=== PATIENT | male | born 1970 | race Caucasian/White ===

== ENCOUNTER 2018-09-02 16:07 | Outpatient (REF) | payer BC, SELFPAY ==
[2018-09-02 21:07] LABS: HCT 42.4 % (40.0-50.0); HGB 14.5 g/dL (13.5-17.5); Mean Corp. HGB Concentration 34.2 g/dL (32.0-36.0); Mean Corpuscular Hemoglobin 32.2 pg (27.0-33.0); Mean Platelet Volume 9.7 fL (8.0-11.0); Platelet Count 129 x1000/uL (130-400); RBC 4.51 m/cumm (4.50-6.00); RBC Distribution Width 13.7 % (11.8-14.1); White Blood Cell Count 4.73 k/cumm (4.4-10.8)
[2018-09-02 21:25] LABS: C-Reactive Protein 0.08 mg/dL (0.0-0.3); TSH (W/Ref FT4) 2.49 uIU/mL (0.358-3.74)
[2018-09-02 21:47] LABS: ESR 3 MM/HR (0-15)
[2018-09-04 23:18] LABS: Anaplasma phagocytophilum Negative (Negative); B. miyamotoi PCR Negative (Negative); Babesia divergens/MO-1 Negative (Negative); Babesia duncani Negative (Negative); Babesia microti Negative (Negative); Ehrlichia chaffeensis Negative (Negative); Ehrlichia ewingii/canis Negative (Negative); Ehrlichia muris eauclairensis Negative (Negative)
[2018-09-06 11:58] LABS: Lyme Ab w Rflx to Lyme Confirm Negative
== END 2018-09-02 16:27 ==
LOC: NCHCN 16:07
PROVIDERS: PCP Specialist/Technologist Athletic Trainer; Visit Provider Specialist/Technologist Athletic Trainer
DX: R53.83 Other fatigue (principal); Z91.89 Other specified personal risk factors, not elsewhere classified; M25.50 Pain in unspecified joint
CPT/HCPCS: 85027; 85652; 84443; 86140; 86618; 87798

== ENCOUNTER 2018-11-29 16:51 | Outpatient (REF) | payer BC, SELFPAY ==
[2018-11-29 22:02] LABS: Abs Immature Grans 0.01 k/cumm (0.0-0.09); Absolute Basophil Count 0.03 k/cumm (0.0-0.2); Absolute Eosinophil Count 0.11 k/cumm (0.0-0.7); Absolute Lymphocyte Count 2.39 k/cumm (1.2-3.4); Absolute Monocyte Count 0.49 k/cumm (0.11-0.7); Absolute Neutrophil Count 3.01 k/cumm (1.2-6.7); Basophils % 0.5; Eosinophils % 1.8; HCT 43.5 % (40.0-50.0); HGB 14.9 g/dL (13.5-17.5); Immature Grans % 0.2; Lymphocytes % 39.6; Mean Corp. HGB Concentration 34.3 g/dL (32.0-36.0); Mean Corpuscular Hemoglobin 33.5 pg (27.0-33.0); Mean Corpuscular Volume 97.8 fL (80-95); Mean Platelet Volume 10.3 fL (8.0-11.0); Monocytes % 8.1; Neutrophils % 49.8; Platelet Count 135 x1000/uL (130-400); RBC 4.45 m/cumm (4.50-6.00); RBC Distribution Width 13.4 % (11.8-14.1); White Blood Cell Count 6.04 k/cumm (4.4-10.8)
[2018-11-29 22:17] LABS: ALT 164 U/L (12-78); AST 199 U/L (15-37); Albumin 4.1 g/dL (3.4-5.0); Alkaline Phosphatase 97 U/L (46-116); Bilirubin, Total 0.8 mg/dL (0.2-1.0); HDL Cholesterol 109 mg/dL (40-60); LDL CHOLESTEROL 112 mg/dL (<100); Magnesium 1.5 mg/dL (1.8-2.4); Total Protein 7.4 g/dL (6.4-8.2)
[2018-11-29 22:38] LABS: Vitamin D 25 Total 24.6 ng/ml (30-100)
[2018-11-29 22:47] LABS: Hemoglobin A1C 5.3 % (4.5-6.2)
[2018-11-29 22:48] LABS: Bilirubin, Direct 0.35 mg/dL (0.00-0.20)
== END 2018-11-29 17:11 ==
LOC: NCHCN 16:51
PROVIDERS: PCP Specialist/Technologist Athletic Trainer; Visit Provider Nurse Practitioner Family
DX: R07.89 Other chest pain (principal); R79.89 Other specified abnormal findings of blood chemistry; G56.20 Lesion of ulnar nerve, unspecified upper limb; R06.83 Snoring; Z91.89 Other specified personal risk factors, not elsewhere classified
CPT/HCPCS: 80076; 82306; 83721; 83036; 83655; 83718; 83735; 85025

== ENCOUNTER 2018-12-08 00:40 | Outpatient (CLI) | payer BC, SELFPAY ==
--- NOTE | 2018-12-08 14:28 | DI.RAD_ITS ---
SYMPTOMS/DIAGNOSIS: CHEST WALL PAIN, R07.89 PA AND LATERAL CHEST: The heart is normal in size. The lungs are clear. The mediastinal structures and pleura appear intact. CONCLUSION: Normal chest.
== END 2018-12-08 01:00 ==
PROVIDERS: PCP Nurse Practitioner Family; Visit Provider Nurse Practitioner Family
DX: R07.89 Other chest pain (principal)
CPT/HCPCS: 71046

== ENCOUNTER 2018-12-18 15:08 | Outpatient (CLI) | payer BC, SELFPAY | END 2018-12-18 15:28 | PROVIDERS: PCP Nurse Practitioner Family; Visit Provider Nurse Practitioner Family | DX: R69 Illness, unspecified (principal) ==

== ENCOUNTER 2018-12-27 00:42 | Outpatient (CLI) | payer BC, SELFPAY ==
--- NOTE | 2018-12-27 08:01 | DI.US_ITS ---
SYMPTOMS/DIAGNOSIS: ELEVATED LFTS, R79.89, ETOH ABUSE, ? FATTY LIVER ABDOMINAL ULTRASOUND: Routine examination was performed. The aorta is unremarkable. The inferior vena cava is unremarkable. The liver is normal in size measuring 15.5 cm. There is diffuse increased echogenicity of the liver consistent with hepatic steatosis. No evidence of a hepatic mass is seen. There is normal flow through the portal vein. The gallbladder is negative. There is a negative sonographic Terrell's sign. The common duct is within normal limits at 2.6 mm. The pancreas, kidneys and spleen are unremarkable. The left upper quadrant was elevated. The soft tissues are grossly unremarkable. IMPRESSION: Hepatic steatosis.
== END 2018-12-27 01:02 ==
PROVIDERS: PCP Nurse Practitioner Family; Visit Provider Nurse Practitioner Family
DX: R79.89 Other specified abnormal findings of blood chemistry (principal); K76.0 Fatty (change of) liver, not elsewhere classified; F10.10 Alcohol abuse, uncomplicated
CPT/HCPCS: 76700

== ENCOUNTER 2019-01-03 18:09 | Outpatient (REF) | payer BC, SELFPAY ==
[2019-01-03 22:20] LABS: Iron 70 ug/dL (50-175)
[2019-01-03 23:23] LABS: Ferritin 747 ng/mL (8-388)
[2019-01-06 08:24] LABS: Hep A Total Ab w Rflx IgM Positive (NEGAT)
[2019-01-06 08:30] LABS: HBs Antibody, Quant >1000.0 mIU/mL; Hepatitis B Surface Ab Positive
[2019-01-06 08:45] LABS: Hepatitis B Surface Ag Negative (NEGAT)
[2019-01-11 09:25] LABS: Hep A Antibody IgM Negative (NEGAT)
== END 2019-01-03 18:29 ==
LOC: NCHCN 18:09
PROVIDERS: PCP Nurse Practitioner Family; Visit Provider Nurse Practitioner Family
DX: R79.89 Other specified abnormal findings of blood chemistry (principal); K76.0 Fatty (change of) liver, not elsewhere classified; Z11.59 Encounter for screening for other viral diseases
CPT/HCPCS: 86706; 86709; 87340; 82728; 83540

== ENCOUNTER 2019-01-13 07:00 | Outpatient (CLI) | payer BC, SELFPAY ==
--- NOTE | 2019-01-13 13:24 | DI.RAD_ITS ---
SYMPTOMS/DIAGNOSIS: CHEST WALL PAIN, R07.89, PERSISTENT LEFT RIB PAIN, S/P FALL IN AUGUST PA AND LATERAL CHEST AND LEFT RIBS: The heart is normal in size. The lungs are clear. The mediastinal structures and pleura appear intact. CONCLUSION: Normal chest. No rib fracture identified.
== END 2019-01-13 07:20 ==
PROVIDERS: PCP Nurse Practitioner Family; Visit Provider Nurse Practitioner Family
DX: R07.89 Other chest pain (principal); R07.81 Pleurodynia; Z91.81 History of falling
CPT/HCPCS: 71046; 71100

== ENCOUNTER 2019-03-07 16:17 | Outpatient (REF) | payer BC, SELFPAY | END 2019-03-07 16:37 | LOC: NCHCO 16:17 | PROVIDERS: PCP Nurse Practitioner Family; Visit Provider Nurse Practitioner Family | DX: R78.71 Abnormal lead level in blood (principal) | CPT/HCPCS: 83655 ==

== ENCOUNTER 2019-06-03 14:14 | Outpatient (CLI) | payer BC, SELFPAY ==
--- NOTE | 2019-06-03 10:55 | DI.RAD_ITS ---
EXAM: XR HAND LT COMPLETE CLINICAL HISTORY: INCREASED LEAD LEVEL, R78.71, LOCATE PIECE OF STEEL IN LT HAND, INJURY 2000 TECHNIQUE: COMPARISON: No exams were available for comparison FINDINGS: Three views were obtained for suspected metallic foreign body. There is a 1.7 millimeter in diameter metallic linda projected in the thenar eminence approximately 2.5 cm volar to the 2nd metacarpal mid shaft on the lateral view. There is an additional tiny linda of metallic material projected adjacent to the diaphyseal metaphyse al junction of the radius. Old apparent post-traumatic deformity of the distal phalanx of the index finger noted. Slight DJD of the IP joints noted. No other bony abnormality seen. IMPRESSION:
[2019-06-08 11:03] LABS: Misc Referral (MAYO) See Comments
== END 2019-06-03 14:34 ==
PROVIDERS: PCP Nurse Practitioner Family; Visit Provider Nurse Practitioner Family
DX: R78.71 Abnormal lead level in blood (principal); M79.5 Residual foreign body in soft tissue; M19.042 Primary osteoarthritis, left hand
CPT/HCPCS: 36415; 83655; 84202; 73130

== ENCOUNTER 2019-08-04 13:02 | Outpatient (CLI) | payer BC, SELFPAY | END 2019-08-04 13:22 | PROVIDERS: PCP Nurse Practitioner Family; Visit Provider Nurse Practitioner Family | DX: R78.71 Abnormal lead level in blood (principal); R00.8 Other abnormalities of heart beat | CPT/HCPCS: 36415; 83655; 93005; 93010 ==

== ENCOUNTER 2019-10-07 09:07 | Outpatient (CLI) | payer BC, SELFPAY ==
[2019-10-10 15:50] LABS: COVID-19 RT-PCR UVMMC Result Negative (Negative)
== END 2019-10-07 09:27 ==
PROVIDERS: PCP Nurse Practitioner Family; Visit Provider Nurse Practitioner Family
DX: R50.9 Fever, unspecified (principal)
CPT/HCPCS: U0003

== ENCOUNTER 2019-11-07 14:15 | Outpatient (REF) | payer BC, SELFPAY | END 2019-11-07 14:35 | LOC: NCHCN 14:15 | PROVIDERS: PCP Nurse Practitioner Family; Visit Provider Nurse Practitioner Family | DX: R78.71 Abnormal lead level in blood (principal) | CPT/HCPCS: 83655 ==

== ENCOUNTER 2019-11-14 01:24 | Outpatient (CLI) | payer BC, SELFPAY ==
--- NOTE | 2019-11-14 | DI.MRI_ITS ---
EXAM: MR LOWER JOINT RT WO CLINICAL HISTORY: RT KNEE PAIN, M25.561,H/O BAKERS CYST. TECHNIQUE: Multiplanar multisequence MRI was performed. COMPARISON: CR RIGHT KNEE 3 VIEWS from 09/04/2015 CR XR HAND LT COMPLETE from 06/03/2019 FINDINGS: There is soft tissue swelling and edema seen in the fat anterior to the patellar tendon. The exten sor mechanism and patellar retinaculum appear intact. There are a few calcifications seen near areas of adjacent cysts anterior to the tibial tubercle. There is a small amount of joint fluid. A small Lopez's cyst is seen, measuring 3.5 cm in length by 6 millimeters in thickness by 18 millimeters in width. There is some fluid within the fibers of the ACL but no full-thickness tear. Posterior cruciate liga ment, medial and lateral collateral ligaments appear intact. No meniscal tears are seen. No cartila ge defects are identified. IMPRESSION: Small Lopez's cyst. Question of an ACL sprain. Anterior soft tissue swelling. DATA REPOSITORY:
== END 2019-11-14 01:44 ==
PROVIDERS: PCP Nurse Practitioner Family; Visit Provider Nurse Practitioner Family
DX: M25.561 Pain in right knee (principal); M79.89 Other specified soft tissue disorders; M71.21 Synovial cyst of popliteal space [Baker], right knee
CPT/HCPCS: 73721

== ENCOUNTER 2020-01-05 09:16 | Outpatient (REF) | payer BC, SELFPAY ==
[2020-01-05 19:22] LABS: HCT 40.2 % (40.0-50.0); HGB 13.7 g/dL (13.5-17.5); MCH 34.9 pg (27.0-33.0); MCHC 34.1 % (32.0-36.0); MCV 102.6 fL (80-95); MPV 10.1 fL (8.0-11.0); Platelet Count 167 10^3/uL (130-400); RBC 3.92 10^6/uL (4.36-5.78); RDW 13.7 % (11.8-14.1); RDW-SD 51.4 fL; WBC 5.18 10^3/uL (4.4-10.8)
[2020-01-05 19:48] LABS: ALT 106 U/L (16-63); AST 218 U/L (15-37); Albumin 3.4 g/dL (3.4-5.0); Alkaline Phosphatase 158 U/L (46-116); Bilirubin, Total 0.9 mg/dL (0.2-1.0); HDL Cholesterol 71 mg/dL (40-60); LDL CHOLESTEROL 90 mg/dL (<100); Total Protein 6.8 g/dL (6.4-8.2)
[2020-01-05 19:58] LABS: Bilirubin, Direct 0.51 mg/dL (0.00-0.20)
== END 2020-01-05 09:36 ==
LOC: NCHCN 09:16
PROVIDERS: PCP Nurse Practitioner Family; Visit Provider Nurse Practitioner Family
DX: Z91.89 Other specified personal risk factors, not elsewhere classified (principal); K76.0 Fatty (change of) liver, not elsewhere classified
CPT/HCPCS: 80076; 83721; 85027; 83655; 83718

== ENCOUNTER 2020-01-07 07:16 | Outpatient (CLI) | payer BC, SELFPAY ==
[2020-01-08 17:54] LABS: COVID-19 RT-PCR Result NEGATIVE (Negative)
== END 2020-01-07 07:36 ==
PROVIDERS: PCP Nurse Practitioner Family; Visit Provider Student in an Organized Health Care Education/Training Program
DX: M70.51 Other bursitis of knee, right knee (principal); M71.21 Synovial cyst of popliteal space [Baker], right knee; Z01.818 Encounter for other preprocedural examination
CPT/HCPCS: U0003

== ENCOUNTER 2020-01-11 10:44 | Day surgery (SDC) | payer BC, SELFPAY ==
--- NOTE | 2020-01-11 10:07 | PDOC.DSDIS_ITS ---
Documented by User: KENDY Dugan 01/11/20 10:16 Discharge Plan Disposition Patient Disposition: HOME Condition: Good Discharge Details Reason For Visit: R knee bursectomy and LUE FB excision Attending Provider: Amol Marin Primary Care Provider: Paige Chen Home Meds and New Rx's Prescriptions: New hydrocodone-acetaminophen 5-325 mg tablet 1 tab PO Q4H PRN (Reason: pain) Qty: 14 RF: 0 acetaminophen 500 mg tablet 500 mg PO Q6H PRN PRN (Reason: pain) Qty: 90 RF: 3 ibuprofen 600 mg tablet 600 mg PO TID PRNQty: 90 RF: 3 Continued trazodone 50 mg tablet 50 mg PO DAILY RF: 0 gabapentin 300 mg capsule 300 mg PO TID Qty: 90 RF: 3 Discontinued meloxicam 7.5 mg tablet 7.5 mg PO DAILY RF: 0 Discharge Instructions Additional Instructions: Activity: You do not have to use crutches. You may bear weigh on the right leg but avoid any deep flexion (bending). Do NOT try to kneel or squat. You may use the left hand for light activity. Nothing strenuous or forceful with the left hand. You may apply ice to both knee and hand. Dressings: The knee dressing on the skin should stay on until your follow-up. The overwrap of the EDGARDO wrap may come off in 48 hours but I would recommend to keep some compression on the knee until your follow-up appointment to prevent against re-accumulation of fluid. The hand and forearm dressings may be removed in 72 hours and then replaced with bandaids. Medications: - Recommend to take up to 500mg of Acetaminophen (Tylenol) and 600mg of Ibuprofen (Advil) every 8 hours as needed. - You also have Hydrocodone for any breakthrough pain Follow-up: 10 days Referrals: Amol Marin MD [ [facility] STAFF PHYSICIAN] - Equipment/Supplies: Partial Weight Bearing Crutches Activity:: Activity as Tolerated Remove Dressings/Wound Care:: 72 hours Shower/Bathe:: 72 hours Diet:: As Tolerated Discharge Orders Discharge Orders: Discharge Order (Routine); Ordered 01/11/20 Ordered By: Morelia Sherman DS: Diagnosis Discharge Diagnosis (1) Infrapatellar bursitis of right knee: Status: Acute (2) Foreign body in left upper extremity: Status: Acute Documented by User: Amol Marin MD 01/11/20 12:59 Discharge Plan Disposition Patient Disposition: HOME Condition: Good Discharge Details Reason For Visit: R knee bursectomy and LUE FB excision Attending Provider: Amol Marin Primary Care Provider: Paige Chen Home Meds and New Rx's Prescriptions: New hydrocodone-acetaminophen 5-325 mg tablet 1 tab PO Q4H PRN (Reason: pain) Qty: 14 RF: 0 acetaminophen 500 mg tablet 500 mg PO Q6H PRN PRN (Reason: pain) Qty: 90 RF: 3 ibuprofen 600 mg tablet 600 mg PO TID PRNQty: 90 RF: 3 Continued trazodone 50 mg tablet 50 mg PO DAILY RF: 0 gabapentin 300 mg capsule 300 mg PO TID Qty: 90 RF: 3 Discontinued meloxicam 7.5 mg tablet 7.5 mg PO DAILY RF: 0 Discharge Instructions Additional Instructions: Activity: You do not have to use crutches. You may bear weigh on the right leg but avoid any deep flexion (bending). Do NOT try to kneel or squat. You may use the left hand for light activity. Nothing strenuous or forceful with the left hand. You may apply ice to both knee and hand. Dressings: The knee dressing on the skin should stay on until your follow-up. The overwrap of the EDGARDO wrap may come off in 48 hours but I would recommend to keep some compression on the knee until your follow-up appointment to prevent against re-accumulation of fluid. The hand and forearm dressings may be removed in 72 hours and then replaced with bandaids. Medications: - Recommend to take up to 500mg of Acetaminophen (Tylenol) and 600mg of Ibuprofen (Advil) every 8 hours as needed. - You also have Hydrocodone for any breakthrough pain Follow-up: 10 days Referrals: Amol Marin MD [ [facility] STAFF PHYSICIAN] - Equipment/Supplies: Partial Weight Bearing Crutches Activity:: Activity as Tolerated Remove Dressings/Wound Care:: 72 hours Shower/Bathe:: 72 hours Diet:: As Tolerated Discharge Orders Discharge Orders: Discharge Order (Routine); Ordered 01/11/20 Ordered By: Morelia Sherman
[2020-01-11 10:50] VITALS: BP 103/39; PULSE 58; RESP 16; TEMP 35.9; O2SAT 96
[2020-01-11] MEDS: Lactated Ringers 1,000 ML 80 ML IV (11:15)
--- NOTE | 2020-01-11 13:00 | DI.RAD_ITS ---
EXAM: XR HAND LT LIMITED CLINICAL HISTORY: FOREIGH BODY LEFT UPEER EXTREMITY TECHNIQUE: 2D and realtime digital imaging was performed. CONTRAST MATERIAL: Refer to procedure report. COMPARISON: CR XR HAND LT COMPLETE from 06/03/2019 FINDINGS: Fluoroscopy was provided for Dr. Marin during the performance of a removal of a foreign body. Pl ease refer to the procedure report for complete details. Fluoro time: 1 minutes 2 seconds IMPRESSION: RADIATION DOSE DELIVERED:
[2020-01-11 14:18] VITALS: BP 118/76; PULSE 87; RESP 19; TEMP 36.7; O2SAT 100
[2020-01-11 14:23] VITALS: BP 156/92; PULSE 91; RESP 13; TEMP 36.7; O2SAT 100
[2020-01-11 14:28] VITALS: BP 132/123; PULSE 86; RESP 19; TEMP 36.8; O2SAT 97
[2020-01-11 14:58] VITALS: BP 102/73; PULSE 77; RESP 17; TEMP 36.8; O2SAT 97
--- NOTE | 2020-01-11 17:21 | W.PM.OP ---
Date of service: 01/11/20 Time of Service: 14:22 Operative Note Operative Note DATE OF PROCEDURE: 01/11/20 PRE-OP DIAGNOSIS: Right Knee Prepatellar Bursitis, Left Hand/Forearm Foriegn Body PROCEDURE: Excision of right knee prepatellar bursa; Excision of 2 metallic foreign bodies from distal forearm and hand SURGEON: Amol Marin PILOT SAFETY INSPECTOR: Morelia Sherman ANESTHESIA: MAC ESTIMATED BLOOD LOSS: 5 PATHOLOGY: none sent TOURNIQUET TIME: 0 COMPLICATIONS: None Patient was transported to: same day Patient's condition: stable Indications: Marito is a 49-year-old who have seen for a prominent right knee prepatellar bursa with palpable loose bodies. Additionally, he has 2 metallic foreign objects which have remained in his left hand and left forearm. They have been there for many years and do not cause him any daily issue but he has been having increasing lead levels in his blood and therefore desired these to be removed after consultation with his primary care. In the office I discussed the pedicle details of the surgery. I reviewed the risks to include but not limited to bleeding, infection, pain, stiffness, damage to nerves and vessels, damage to muscle and tendons, retention of foreign object, recurrence. Despite these risk, he elects to proceed. Findings: There was a loculated prepatellar bursa of the right knee which included 3 apparent inclusion cyst within the bursa. The bursa was excised in whole. 2 metallic foreign bodies were able to be removed from the left hand left forearm without difficulty. X-ray confirmed complete removal. Procedure Description: Marito was agreed in the preoperative holding area. His identity was confirmed and the correct side was identified and marked. Both the right knee and the left arm were marked. The consent was reviewed the patient and signed. History and physical is updated. Marito was taken back to the operating room and placed in supine position. The right knee was prepped with ChloraPrep and the left arm was also prepped in the same fashion. Both were draped at the same time. Prophylactic antibiotics in the form of cefazolin were given. A timeout was performed for safe surgery. A midline incision by slightly medially was planned over the prepatellar bursa. This area was injected with 0.5% ropivacaine. I then incised the skin and was able to identify the bursa. It was dissected away from the skin and the underlying deep tissues both with blunt dissection as well as with scissors. It was loculated to this area and was clearly somewhat separate from the other extension of the bursa proximally. This was transected sharply and then removed from the knee. Within this bursa appeared to be 3 inclusion type cyst. There is no other for material nor unexpected appearances. The wound was thoroughly inspected and showed no residual bursal material. The wounds and thoroughly irrigated. The knee was closed with 2-0 Vicryl followed by 3-0 Monocryl. While this was being closed and dressed I proceeded to the left arm and hand. Using fluoroscopy identified the 2 metallic foreign bodies. They are marked on the skin. I made a 1 cm incision in the thenar area overlying the expected location of a metallic fragment. Blunt dissection was used after the skin was incised and with a [place] elevator I was able to feel the metallic component of the foreign body. Once again, I used fluoroscopy to help identify and localize the metallic fragment. I was able to grab it with a forceps and then remove it. X-ray confirmed it was removed from this area. This wound was then irrigated and a simple nylon suture was placed. I then turned attention to the forearm foreign body. Once again, this was localized with fluoroscopy. The skin was incised approximately 1 to 1/2 cm. The metallic foreign body was identified with direct visualization and with palpation. It was actually embedded underneath the dermal surface in this area did require some dissection to remove it from its dermal attachments. It was removed and confirmed to be removed with fluoroscopy. This wound was also irrigated and then closed with simple nylon sutures. Both of those wounds were injected with 0.5% bupivacaine. The knee was dressed with a Mepilex dressing and an [place] wrap. The hand wounds were dressed with a Mepilex dressing over the forearm wound and gauze and conformer dressing in the hand. At the end the case all counts are correct. No pathology was submitted. Marito was transferred back to the same day surgery in stable condition.
== END 2020-01-11 15:20 | disposition home or self-care (01) ==
LOC: SUR 10:44
PROVIDERS: PCP Nurse Practitioner Family; Visit Provider Student in an Organized Health Care Education/Training Program
PROC: (CPT 27340; principal; 2020-01-11 12:30)
PROC: (CPT 27340; 2020-01-11 12:30)
DX: M70.51 Other bursitis of knee, right knee (principal); M79.5 Residual foreign body in soft tissue; M23.41 Loose body in knee, right knee
CPT/HCPCS: 27340; 10121; 10120; 73120; J0690; J1100; J2250; J2405; J2704

== ENCOUNTER 2020-02-22 12:10 | Outpatient (REF) | payer BC, SELFPAY ==
[2020-02-22 21:07] LABS: ALT 74 U/L (16-63); AST 111 U/L (15-37); Albumin 3.5 g/dL (3.4-5.0); Alkaline Phosphatase 103 U/L (46-116); Bilirubin, Direct 0.29 mg/dL (0.00-0.20); Bilirubin, Total 0.7 mg/dL (0.2-1.0)
== END 2020-02-22 12:30 ==
LOC: NCHCN 12:10
PROVIDERS: PCP Nurse Practitioner Family; Visit Provider Nurse Practitioner Family
DX: K76.0 Fatty (change of) liver, not elsewhere classified (principal); R78.71 Abnormal lead level in blood
CPT/HCPCS: 80076; 83655

== ENCOUNTER 2020-05-09 13:54 | Outpatient (REF) | payer BC, SELFPAY ==
[2020-05-13 09:15] LABS: 2-Hydroxy Ethyl Flurazepam Not Detected ng/mL (Cutoff: 10); 6-monoacetylmorphine Not Detected ng/mL (Cutoff: 25); Alpha-Hydroxy Midazolam Not Detected ng/mL (Cutoff: 10); Alpha-Hydroxy Triazolam Not Detected ng/mL (Cutoff: 10); Alpha-Hydroxyalprazolam Not Detected ng/mL (Cutoff: 10); Alpha-OH-alprazolam Glucuronid Not Detected ng/mL (Cutoff: 50); Alprazolam Not Detected ng/mL (Cutoff: 10); Amphetamines Negative ng/mL (Cutoff: 500); Barbiturates Negative ng/mL (Cutoff: 200); Buprenorphine Not Detected ng/mL (Cutoff: 5); Chlordiazepoxide Not Detected ng/mL (Cutoff: 10); Clobazam Not Detected ng/mL (Cutoff: 10); Clonazepam Not Detected ng/mL (Cutoff: 10); Cocaine Negative ng/mL (Cutoff: 150); Codeine Not Detected ng/mL (Cutoff: 25); Comment Normal; Creatinine, U 109.8 mg/dL; Diazepam Not Detected ng/mL (Cutoff: 10); Dihydrocodeine Not Detected ng/mL (Cutoff: 25); EDDP Not Detected ng/mL (Cutoff: 25); Fentanyl Not Detected ng/mL (Cutoff: 2); Flurazepam Not Detected ng/mL (Cutoff: 10); Hydrocodone Not Detected ng/mL (Cutoff: 25); Hydromorphone Not Detected ng/mL (Cutoff: 25); Hydromorphone-3-beta-glucuroni Not Detected ng/mL (Cutoff: 100); Lorazepam Not Detected ng/mL (Cutoff: 10); Lorazepam Glucuronide Not Detected ng/mL (Cutoff: 50); Meperidine Not Detected ng/mL (Cutoff: 25); Methadone Not Detected ng/mL (Cutoff: 25); Midazolam Not Detected ng/mL (Cutoff: 10); Morphine Not Detected ng/mL (Cutoff: 25); N-Desmethylclobazam Not Detected ng/mL (Cutoff: 200); N-desmethyltapentadol Not Detected ng/mL (Cutoff: 50); Naloxone Not Detected ng/mL (Cutoff: 25); Norbuprenorphine Not Detected ng/mL (Cutoff: 5); Norfentanyl Not Detected ng/mL (Cutoff: 2); Norhydrocodone Not Detected ng/mL (Cutoff: 25); Normeperidine Not Detected ng/mL (Cutoff: 25); Noroxycodone Not Detected ng/mL (Cutoff: 25); Noroxymorphone Not Detected ng/mL (Cutoff: 25); O-desmethyltramadol Not Detected ng/mL (Cutoff: 25); Oxazepam Glucuronide Not Detected ng/mL (Cutoff: 50); Phencyclidine Negative ng/mL (Cutoff: 25); Prazepam Not Detected ng/mL (Cutoff: 10); Propoxyphene Not Detected ng/mL (Cutoff: 25); Specific Gravity 1.014; Tapentadol Not Detected ng/mL (Cutoff: 25); Temazepam Not Detected ng/mL (Cutoff: 10); Temazepam Glucuronide Not Detected ng/mL (Cutoff: 50); Tetrahydrocannabinol Negative ng/mL (Cutoff: 50); Tramadol Not Detected ng/mL (Cutoff: 25); Triazolam Not Detected ng/mL (Cutoff: 10); Zolpidem Phenyl-4-Carboxy acid Not Detected ng/mL (Cutoff: 10); pH 7.1
== END 2020-05-09 14:14 ==
LOC: LBN 13:54
PROVIDERS: PCP Nurse Practitioner Family; Visit Provider Nurse Practitioner Family
DX: M47.816 Spondylosis without myelopathy or radiculopathy, lumbar region (principal); Z79.899 Other long term (current) drug therapy
CPT/HCPCS: 80307; 80347; 80364

== ENCOUNTER 2020-06-06 16:48 | Outpatient (REF) | payer BC, SELFPAY | END 2020-06-06 17:08 | LOC: NCHCN 16:48 | PROVIDERS: PCP Nurse Practitioner Family; Visit Provider Nurse Practitioner Family | DX: Z91.89 Other specified personal risk factors, not elsewhere classified (principal) | CPT/HCPCS: 83655 ==

== ENCOUNTER 2020-06-12 07:52 | Outpatient (CLI) | payer BC, SELFPAY ==
--- NOTE | 2020-06-12 06:00 | DI.RAD_ITS ---
EXAM: XR PAIN CLINIC LUMBAR SP 2V CLINICAL HISTORY: DX: Lumbar Spondylosis. TECHNIQUE: Fluoroscopy was provided for the referring physician for guidance with performing injecti on procedure. COMPARISON: No exams were available for comparison FINDINGS: Please see procedure note for details. Fluoro time: 51.5 sec, 10.40 mGy RADIATION DOSE DELIVERED:
[2020-06-12 08:05] VITALS: BP 154/94; PULSE 87; RESP 20; TEMP 37.4; O2SAT 98
[2020-06-12 08:39] VITALS: BP 142/88; PULSE 73; RESP 12; O2SAT 100
--- NOTE | 2020-06-12 08:40 | PDOC.PAIN ---
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 COMMENTS: Patient seen in our clinic 05/09/20 and had recent imaging. DX: Lumbosacral spondylosis without myelopathy Patient was interviewed and the medical record reviewed. There were no medical, pharmacologic, radiographic or other structural contraindications to attempting fluoroscopically guided local anesthetic lumbar/sacral medial branch blocks. Risks and expected side effects as well as potential benefit of the procedure were reviewed and voiced concerns addressed. The printed consent form was signed and witnessed. Standard time-out procedure was performed. Patient was placed in the prone position on the fluoroscopy table and automated blood pressure cuff and pulse oximeter applied. The skin entry points for approaching the anatomic target points of the segmental medial branches of bilateral L3-L5DR were identified with fluoroscopy and marked. Following thorough Chlorhexadine preparation of the skin and draping and 1% lidocaine infiltration of the skin entry points and subcutaneous tissues, a 25 gauge 3.5 spinal needle was placed under fluoroscopic guidance down on to the target point for each respective segmental medial branch.Position was confirmed in A/P, oblique and lateral views with 0.25ml of omnipaque 240. At this point 0.5ml 0.5% Bupivacaine was injected at each sensory nerve. Vital signs were stable throughout the procedure and were as recorded in the docflowsheet by the nursing staff. Follow up plans and appointments were discussed and was instructed to keep careful note of how the usual pain was modified by these injections. Specifically was asked to keep a pain diary for the next 24 hours using a numeric pain scale of 0-10 and report these results at the follow-up visit. Post procedure instruction was given as documented in the nursing documentation and having met discharge criteria. Patient was discharged from the [facility]. Based on the medial branches blocked today, if the patient has adequate relief and we are able to proceed to radiofrequency ablation, the treatment should result in the denervation of the bilateral L4-L5 and L5-S1. We would expect to denervate a total of 4 facets during the radiofrequency ablation. COMMENTS: He will call back with his 1-4 hour post-procedure pain scores for his lower back George Clark DO, MPH Pain Management CC: Paige Chen
[2020-06-12] MEDS: Bupivacaine 0.5% Pres-Free 10 ML VIAL IJ (08:46)
[2020-06-12] MEDS: Omnipaque 240 MG/ML 50 ML BTL IJ (08:47)
== END 2020-06-12 08:12 ==
PROVIDERS: PCP Nurse Practitioner Family; Visit Provider Preventive Medicine Occupational Medicine
DX: M47.817 Spondylosis without myelopathy or radiculopathy, lumbosacral region (principal)
CPT/HCPCS: 64493; 64494; 72100; Q9967

== ENCOUNTER 2020-08-07 01:43 | Outpatient (CLI) | payer BC, SELFPAY ==
--- NOTE | 2020-08-07 08:40 | DI.US_ITS ---
EXAM: US ABDOMEN CLINICAL HISTORY: ALCOHOLIC CIRRHOSIS,EVAL FOR LIVER LESIONS,SPLENOMEGALY,ASCITES,ETC TECHNIQUE: Ultrasound abdomen performed using standard protocol. COMPARISON: US US ABDOMEN from 12/27/2018 FINDINGS: ABDOMINAL AORTA AND IVC: Visualized portions normal caliber. PANCREAS: Normal where visualized. LIVER: The liver measures 16.6 cm long. There is diffuse increased echogenicity of the liver consist ent with fatty infiltration. Hepatopedal flow in the Portal Vein. GALLBLADDER: No evidence of cholelithiasis. No evidence of wall thickening. No pericholecystic fluid identified. BILIARY SYSTEM: Common bile duct measures < 7 mm. No intrahepatic biliary ductal dilation. MCGRATH'S SIGN: Negative. KIDNEYS: Kidneys are symmetric in size. No evidence of renal calculi. No evidence of hydronephrosis. No renal mass or cyst identified. SPLEEN: Not enlarged. ASCITES: None seen. IMPRESSION: 1. Fatty infiltration of the liver. 2. No sonographic evidence of a hepatic mass. DATA REPOSITORY:
== END 2020-08-07 02:03 ==
PROVIDERS: PCP Nurse Practitioner Family; Visit Provider Physician Assistant Medical
DX: K70.0 Alcoholic fatty liver (principal)
CPT/HCPCS: 76700

== ENCOUNTER 2020-09-05 09:43 | Outpatient (REF) | payer BC, SELFPAY ==
[2020-09-05 18:34] LABS: Anion Gap 11.6 mmol/L (3-11); BUN 6 mg/dL (7-18); CO2 28.4 mmol/L (21.0-32.0); CREATININE 0.7 mg/dL (0.70-1.30); Calcium 8.5 mg/dL (8.5-10.1); Chloride 102 mmol/L (98-107); Glucose 131 mg/dL (74-106); Magnesium 1.5 mg/dL (1.8-2.4); Potassium 3.4 mmol/L (3.5-5.1); Sodium 142 mmol/L (136-145)
== END 2020-09-05 09:44 | disposition home or self-care (01) ==
LOC: NCHCN 09:43
PROVIDERS: PCP Nurse Practitioner Family; Visit Provider Nurse Practitioner Family
DX: G62.9 Polyneuropathy, unspecified (principal); Z79.899 Other long term (current) drug therapy; R78.71 Abnormal lead level in blood
CPT/HCPCS: 80048; 83655; 83735

== ENCOUNTER 2020-10-03 11:11 | Outpatient (REF) | payer BC, SELFPAY ==
[2020-10-03 15:49] LABS: BUN 7 mg/dL (7-18); CREATININE 0.6 mg/dL (0.70-1.30); Calcium 8.7 mg/dL (8.5-10.1); Chloride 101 mmol/L (98-107); Glucose 93 mg/dL (74-106); Potassium 3.6 mmol/L (3.5-5.1); Sodium 139 mmol/L (136-145)
== END 2020-10-03 11:12 | disposition home or self-care (01) ==
LOC: NCHCN 11:11
PROVIDERS: PCP Nurse Practitioner Family; Visit Provider Nurse Practitioner Family
DX: R03.0 Elevated blood-pressure reading, without diagnosis of hypertension (principal)
CPT/HCPCS: 80048

== ENCOUNTER 2020-11-14 16:30 | Outpatient (REF) | payer BC, SELFPAY | END 2020-11-14 16:31 | disposition home or self-care (01) | LOC: NCHCN 16:30 | PROVIDERS: PCP Nurse Practitioner Family; Visit Provider Nurse Practitioner Family | DX: Z00.00 Encounter for general adult medical examination without abnormal findings (principal); Z13.88 Encounter for screening for disorder due to exposure to contaminants | CPT/HCPCS: 83655 ==

== ENCOUNTER 2020-11-16 02:56 | Outpatient (CLI) | payer BC, SELFPAY ==
[2020-11-16 10:12] LABS: Prothrombin Time 10.4 sec (9.3-11.0)
== END 2020-11-16 02:57 | disposition home or self-care (01) ==
LOC: LBO 02:56
PROVIDERS: PCP Nurse Practitioner Family; Visit Provider Surgery
DX: K74.00 Hepatic fibrosis, unspecified (principal)
CPT/HCPCS: 36415; 85610

== ENCOUNTER 2020-12-05 16:12 | Outpatient (REF) | payer BC, SELFPAY ==
[2020-12-05 15:57] LABS: Calculated LDL 78 mg/dL (<100); Cholesterol 154 mg/dL (<200); HDL Cholesterol 61 mg/dL (40-60); Triglyceride 79 mg/dL (<150)
== END 2020-12-05 16:13 | disposition home or self-care (01) ==
LOC: NCHCN 16:12
PROVIDERS: PCP Nurse Practitioner Family; Visit Provider Nurse Practitioner Family
DX: Z00.00 Encounter for general adult medical examination without abnormal findings (principal)
CPT/HCPCS: 80061

== ENCOUNTER 2021-01-05 09:50 | Outpatient (REF) | payer BC, SELFPAY ==
[2021-01-06 23:59] LABS: COVID-19 RT-PCR UVMMC Result Negative (Negative)
== END 2021-01-05 09:51 | disposition home or self-care (01) ==
LOC: LBN 09:50
PROVIDERS: PCP Nurse Practitioner Family; Visit Provider Nurse Practitioner Family
DX: Z20.822 Contact with and (suspected) exposure to COVID-19 (principal); J06.9 Acute upper respiratory infection, unspecified
CPT/HCPCS: U0003

== ENCOUNTER 2021-02-06 14:55 | Outpatient (REF) | payer BC, SELFPAY ==
[2021-02-06 17:12] LABS: Anion Gap 14.5 mmol/L (3-11); BUN 8 mg/dL (7-18); CO2 22.5 mmol/L (21.0-32.0); CREATININE 0.7 mg/dL (0.70-1.30); Calcium 8.6 mg/dL (8.5-10.1); Chloride 103 mmol/L (98-107); Glucose 86 mg/dL (74-106); Potassium 3.8 mmol/L (3.5-5.1); Sodium 140 mmol/L (136-145)
== END 2021-02-06 14:56 | disposition home or self-care (01) ==
LOC: NCHCN 14:55
PROVIDERS: PCP Nurse Practitioner Family; Visit Provider Nurse Practitioner Family
DX: Z01.818 Encounter for other preprocedural examination (principal); Z91.89 Other specified personal risk factors, not elsewhere classified
CPT/HCPCS: 80048; 83655

== ENCOUNTER 2021-03-01 01:02 | Outpatient (CLI) | payer BC, SELFPAY ==
[2021-03-01 10:43] LABS: Source Nasal/Nares
[2021-03-01 13:18] LABS: COVID-19 PCR Negative (Negative)
== END 2021-03-01 01:03 | disposition home or self-care (01) ==
LOC: LBO 01:03
PROVIDERS: Surgery; PCP Nurse Practitioner Family; Visit Provider Physical Therapy Assistant
DX: Z20.822 Contact with and (suspected) exposure to COVID-19 (principal); Z01.818 Encounter for other preprocedural examination
CPT/HCPCS: 87635

== ENCOUNTER 2021-03-04 07:37 | Day surgery (SDC) | payer BC, SELFPAY ==
--- NOTE | 2021-03-04 06:32 | W.COLOREPORT ---
Colonoscopy Report Date of procedure: 03/04/21 Pre-op diagnosis general: Colon Cancer Screening Post-op diagnosis procedure note: other (transverse polyps) Procedure: Colonoscopy with polypectomy Surgeon: Sheridan Castro Anesthesia Type: General:No Airway ([place] Nena Grewal CRNA) Estimated blood loss (mL): 3 Pathology: other (Transverse polyps x2) Complications: None Disposition: same day Indications: The patient is here for Colonoscopy pre-op. He has no family history of colon cancer. He has not had any bowel habit changes. -Discussed colonoscopy bowel prep as well as the procedure. Discussed possible complications of the procedure to include bleeding, pain, perforation, missed small lesion/polyp, sore throat, aspiration and adverse reaction to the medications. Questions were answered to patient?s satisfaction. No guarantees were implied or given. Prep: Miralax/Dulcolax Procedure Start Time: :21 Procedure End Time: 09:35 Retraction Time: 6 minutes Findings: 2 small sessile polyps Procedure Description: After informed consent was obtained the patient was taken to the procedure room and placed in a left decubitous position. Monitors were applied and a time out was done. The patients name, date of , procedure, allergies to medications and metal in their body was reviewed. The patient was then sedated. Once sedated and comfortable a rectal exam was done. External exam was normal. Internal exam revealed a normal sphincter tone and no palpable masses. The prostate felt smooth and enlarged. The scope was then introduced and retro-flexed. No internal hemorrhoids, polyps or masses were identified on retro-flexion. The scope was then advanced to the cecum without difficulty. The ileocecal vlave and appendiceal orifice were identified. The prep was good. The scope was then slowly retracted over 6 minutes back into the rectum. Polyps were removed with cold forceps in the transverse colon x2. There was no diverticulosis noted. The scope was removed and the patient was woken up and taken back to Same day surgery in stable condition. The patient tolerated the procedure well and there were no immediate complications. Follow up: The patient should follow up in 5 years unless they develop changes in bowel habits or other new gastrointestinal complaints.
--- NOTE | 2021-03-04 06:33 | W.PM.DSUDISC ---
Discharge Plan Disposition Patient Disposition: HOME Condition: Good Discharge Details Reason For Visit: Colonoscopy Attending Provider: Sheridan Castro Primary Care Provider: Paige Chen Home Meds and New Rx's Prescriptions: Continued trazodone 50 mg tablet 50 mg PO DAILY RF: 0 meloxicam 15 mg Tablet 15 mg PO DAILY RF: 0 lisinopril 20 mg tablet 20 mg PO DAILY RF: 0 gabapentin 600 mg Tablet 600 mg PO BID RF: 0 magnesium 250 mg tablet 500 mg PO DAILY RF: 0 Discontinued polyethylene glycol 3350 17 gram/dose powder 238 g PO ONCE Qty: 238 RF: 0 bisacodyl [Dulcolax (bisacodyl)] 5 mg tablet,delayed release (DR/EC) 5 mg PO ONCE Qty: 4 RF: 0 Discharge Instructions Instructions: Colorectal Polyps (DC) Additional Instructions: Findings: 2 small polyps Follow up: 5 years Please call if you develop: fevers >101.5 Nausea or Vomiting Abdominal pain that is not transient Rectal bleeding that is more then a tbsp A hard abdomen and inability to pass gas DAY SURGERY UNIT POST ENDOSCOPY INSTRUCTIONS Instructions for everyone who is given Anesthesia: For your safety, please do the following for the next 24 Hours: a. Do not drive or operate dangerous equipment b. Do not drink alcohol beverages or use any recreational drugs for the first 24 hours or while taking pain medications. The medications in your body may have a reaction that can be dangerous. c. Do not make any important decisions or sign any important papers 1. Generally there are no restrictions on your activity after a day or so has gone by, but you may feel a bit fatigued for a few days. 2. After you arrive home you may have a light meal and return to a normal diet as you can tolerate it without feeling sick to your stomach. 3. After surgery, you may feel pain or discomfort. This should be only transient, but if it persists please contact your doctor. 4. If there are any questions regarding the findings of your procedure, please feel free to contact your doctor. 6. If you are unable to contact your doctor with a problem, contact the hospital at [phone]. 7. Continue all your regular medications unless directed otherwise. I understand the above instructions and have no questions. Signature of Patient or Responsible Adult Escort Date/Time Name of Responsible Adult Escort Signature of Nurse Date/Time Activity:: Activity as Tolerated Diet:: As Tolerated Discharge Orders Discharge Orders: Discharge Order (Routine); Ordered 03/04/21 Ordered By: Sheridan Castro
[2021-03-04 07:40] VITALS: BP 164/106; PULSE 100; RESP 18; TEMP 36.5; O2SAT 99
[2021-03-04] MEDS: Lactated Ringers 1,000 ML 80 ML IV (08:16)
--- NOTE | 2021-03-04 08:33 | W.ANESPRE ---
General Info Date of Service Date Performed: 03/04/21 Height: 5 ft 6 in Weight: 77.4 kg Body Mass Index (BMI): 27.5 Surgical Procedure: Operation Date: 03/04/21 09:05 Proposed Procedures Side Surgeon p Colonoscopy Sheridan Castro MD Meds Allergies and Home Medications Allergies Allergy/AdvReac Type Severity Reaction Status Date / Time No Known Allergies Allergy Unverified 03/04/21 07:56 Home Medication Medication Instructions Recorded trazodone 50 mg tablet 50 mg PO DAILY 12/09/19 magnesium 250 mg tablet 500 mg PO DAILY 04/06/20 meloxicam 15 mg PO DAILY 05/03/20 gabapentin 600 mg PO BID 07/09/20 bisacodyl 5 mg tablet,delayed 5 mg PO ONCE #4 tab 02/22/21 release lisinopril 20 mg tablet 20 mg PO DAILY 02/22/21 polyethylene glycol 3350 17 238 g PO ONCE #238 g 02/22/21 gram/dose oral powder Current Visit Medications: Current Medications Generic Name Dose Route Start Last Admin Trade Name Elioq PRN Reason Stop Dose Admin Hyoscyamine Sulfate 0.125 mg 03/04/21 06:34 Hyoscyamine 0.125 Mg Sl/Oral/Chew SL DIRECTED PRN Ringer's Solution 1,000 mls @ 80 mls/hr 03/04/21 06:00 03/04/21 08:16 IV 03/31/21 23:59 80 mls/hr INFUSION JOHAN Administration IV Miscellaneous Supplies 1 each 03/04/21 06:00 Iv Access IV 03/31/21 23:59 DIRECTED JOHAN Ondansetron HCl 4 mg 03/04/21 06:34 Ondansetron 4 Mg/2 Ml Vial IVP Q4H PRN PRN Nausea / Vomiting Sodium Chloride 0 ml 03/04/21 06:00 Normal Saline Flush 10 Ml Syr IV 03/31/21 23:59 PRN PRN Sodium Chloride 0 ml 03/04/21 06:00 Normal Saline 10 Ml Vial IJ 03/31/21 23:59 DIRECTED PRN Sterile Water 0 ml 03/04/21 06:00 Water,Injection,Sterile 10 Ml Vial IJ 03/31/21 23:59 DIRECTED PRN PFSH Active Problems Active Problems: Problem Status Onset Code Multiple lipomas D17.9 Screening for colon cancer Z12.11 Elevated blood lead level R78.71 Bilateral hearing loss H91.93 Cubital tunnel syndrome on left G56.22 Left carpal tunnel syndrome G56.02 CRPS (complex regional pain syndrome), type II, upper G56.40 Right carpal tunnel syndrome G56.01 Cubital tunnel syndrome on right G56.21 Medical History Medical History Arm pain, right Asymmetrical sensorineural hearing loss Back pain Lopez's cyst, rt knee Chest wall pain Chronic low back pain Chronic pain Chronic sinusitis [place] CRPS (complex regional pain syndrome), type II, upper Cubital tunnel syndrome on left Cubital tunnel syndrome on right Deviated septum Elevated LFTs ETOH abuse Exposure to lead Fatigue Foraminal stenosis of cervical region Foreign body in left upper extremity (01/11/20) s/p excision of foreign bodies Foreign body in right ear Greater trochanteric bursitis of left hip (09/04/15) Heart murmur per pt. this was an incorrect dx Infrapatellar bursitis of right knee (01/11/20) s/p bursa excision Left buttock pain (11/07/14) Left carpal tunnel syndrome Low back pain (11/07/14) Lumbar back pain Marital problem MVP (mitral valve prolapse) Neuropathy ISADORA (obstructive sleep apnea) Paraesthesia left 4-5th finger (05/29/06) Paresthesias in left hand (06/28/14) Peripheral cyanosis Polyarthralgia PONV (postoperative nausea and vomiting) Pt c/o post nasal drip causing nausea and vomiting routinely Raynauds disease Right carpal tunnel syndrome Snoring Soft tissue swelling Steatosis of liver Synovial cyst of popliteal space [Lopez], right knee Thoracic back pain Tinnitus of both ears Tobacco abuse Surgical History Surgical History (Updated 03/04/21 @ 07:56 by Zahira Woodward) Aftercare involving removal of fracture plate or internal fixation device left arm History of arthroscopy of right knee 2001, diagnostic History of carpal tunnel release right Right Popliteal cyst resection (07/25/03) Status post transposition of nerve left elbow Tobacco Smoking/Tobacco Use Status: Current every day Tobacco Type: cigarettes Years smoked: 42 Alcohol Alcohol Intake: current Alcohol intake frequency: 3 or more drinks per day Alcohol type: hard liquor Substance Use Substance use: Never Substance use type: does not use Vital Signs and Lab Results Vital Signs Most Recent Vital Signs in EMR: Most Recent Vital Signs Temp Pulse Resp BP Pulse Ox 36.5 C 100 H 18 164/106 H 99 03/04/21 07:40 03/04/21 07:40 03/04/21 07:40 03/04/21 07:40 03/04/21 07:40 Lab Results Blood Type / Crossmatch: No Data to Display Complete Blood Count: No Data to Display Complete Metabolic Panel: Sodium Level 140 mmol/L (136-145) 02/06/21 10:45 02/06/21 Potassium Level 3.8 mmol/L (3.5-5.1) 02/06/21 10:45 02/06/21 Chloride Level 103 mmol/L (98-107) 02/06/21 10:45 02/06/21 Carbon Dioxide Level 22.5 mmol/L (21.0-32.0) 02/06/21 10:45 02/06/21 Blood Urea Nitrogen 8 mg/dL (7-18) 02/06/21 10:45 02/06/21 Creatinine 0.7 mg/dL (0.70-1.30) 02/06/21 10:45 02/06/21 Estimated GFR/1.73 m2 >= 60.00 (mL/min/1.73m2) 02/06/21 10:45 02/06/21 Calcium Level 8.6 mg/dL (8.5-10.1) 02/06/21 10:45 02/06/21 Glucose Level 86 mg/dL (74-106) 02/06/21 10:45 02/06/21 Liver Function Panel: No Data to Display Coagulation Panel: No Data to Display Cardiac Panel: No Data to Display Arterial Blood Gas: No Data to Display Venous Blood Gas: No Data to Display Pancreas Panel: No Data to Display Thyroid Panel: No Data to Display Infectious Disease: Coronavirus (COVID-19)(PCR) Negative (Negative) 03/01/21 09:35 03/01/21 Coronavirus 2019 Source Nasal/Nares 03/01/21 09:35 03/01/21 Blood Cultures: No Data to Display Toxicology Panel: No Data to Display Anesthesia Assessment and Plan Anesthesia History Personal History: No History of Anesthesia Complications Family History: No Family History of Anesthesia Complications Exercise Tolerance Exercise Tolerance: Metabolic Equivalents>4 Pertinent Negatives Pertinent Negatives: No Symptoms of GERD, No Major Cardiovascular Symptoms or Complaints, No Major Pulmonary Symptoms or Complaints and No History of CVA/TIA Cardiac & Pulmonary Exam Cardiac Exam: Normal S1/S2 Heart Sounds Pulmonary Exam: Clear Bilateral Breath Sounds Airway Exam Known Difficult Airway: No Mallampati Class: 2 Mouth Opening: Normal (> 3cm) Thyromental Distance: Greater than 3 cm Neck Range of Motion: Full ROM Neck Circumference: Normal Teeth Condition: Normal Dentition ASA Classification ASA Score: ASA 2 Emergency Case?: No NPO Status NPO Status: NPO Clears >2 hours, Solids >8 hours Anesthesia Plan Resuscitation Status: Full Code Anesthesia Technique: General Anesthesia Airway Planned: Natural Airway Monitors Used: Standard Monitors
[2021-03-04 08:36] VITALS: BMI 27.5
--- NOTE | 2021-03-04 09:27 | BOWEL_PTH ---
PATIENT: Marito Morrow LOC: [facility] U#:[id number] AGE/SX: 51/M ROOM: RE03/04/[address]: Sheridan Castro MD : 1970 BED: DIS: 03/04/2021 SPEC #: [id number] RECD: 03/04/21 12:44 STATUS: AMBERLY REQ #: [id number] SASHA: 03/04/21 09:[address]: Sheridan Castro DEPT: Surgical Specimen RECD BY: Rupal Desai ENTERED: 03/04/21 12:44 SP TYPE: Bowel OTHR DR: Paige Chen Tissues: 1 - BIOPSY BOWEL Procedures: GROSS AND MICRO LEVEL 4 Comments: [id number]
[2021-03-04 09:43] VITALS: BP 137/89; PULSE 78; RESP 16; TEMP 36.9; O2SAT 98
--- NOTE | 2021-03-04 09:57 | W.ANESPOSTOP ---
Postoperative Evaluation Date, Time and Location Date Performed: 03/04/21 Time Performed: 09:48 Patient Location: Day Surgery Unit Vital Signs Most Recent Imported Vital Signs: Most Recent Vital Signs Temp Pulse Resp BP Pulse Ox 36.9 C 78 16 137/89 98 03/04/21 09:43 03/04/21 09:43 03/04/21 09:43 03/04/21 09:43 03/04/21 09:43 Pain Score Most Recent Pain Score: Most Recent Pain Score Pain Level 0 03/04/21 09:43 Assessment Mental Status: Awake (Alert & Oriented to Patient Baseline) Airway and Respiratory Function: Patent airway with normal (patient baseline) respiratory exam Cardiovascular Function: Hemodynamically Stable Hydration Status: Adequately Hydrated Nausea & Vomiting: No Nausea or Vomiting Pain: Pt. Denies Any Pain Peripheral Nerve Block: Patient did not receive a nerve block
[2021-03-04 10:08] VITALS: BP 143/91; PULSE 63; RESP 16; TEMP 36.8; O2SAT 97
== END 2021-03-04 10:21 | disposition home or self-care (01) ==
PROVIDERS: PCP Nurse Practitioner Family; Visit Provider Surgery
PROC: 0DJD8ZZ Inspection of Lower Intestinal Tract, Via Natural or Artificial Opening Endoscopic (ICD-10-PCS; CPT 45378; principal; 2021-03-04 09:00)
DX: Z12.11 Encounter for screening for malignant neoplasm of colon (principal); D12.3 Benign neoplasm of transverse colon; I10 Essential (primary) hypertension
CPT/HCPCS: 45380; 88305; J2001

== ENCOUNTER 2021-04-16 16:08 | Outpatient (REF) | payer BC, SELFPAY ==
[2021-04-16 14:24] LABS: Anion Gap 11.2 mmol/L (3-11); BUN 10 mg/dL (7-18); CO2 27.8 mmol/L (21.0-32.0); Calcium 8.9 mg/dL (8.5-10.1); Chloride 101 mmol/L (98-107); Glucose 87 mg/dL (74-106); Potassium 3.6 mmol/L (3.5-5.1); Sodium 140 mmol/L (136-145)
== END 2021-04-16 16:09 | disposition home or self-care (01) ==
LOC: LBN 16:08
PROVIDERS: PCP Nurse Practitioner Family; Visit Provider Nurse Practitioner Family
DX: I10 Essential (primary) hypertension (principal)
CPT/HCPCS: 80048

== ENCOUNTER 2021-05-02 01:22 | Outpatient (CLI) | payer BC, SELFPAY ==
--- NOTE | 2021-05-02 09:15 | DI.MRI_ITS ---
Exam(s) MR LUMBAR SPINE WO EXAM: MR LUMBAR SPINE WO CLINICAL HISTORY: LUMBAR BACK PAIN M54.5. TECHNIQUE: Multiplanar multisequence MRI of the Lumbar spine was performed. COMPARISON: There are no plain films of the lumbar spine available time this MRI interpretation. FINDINGS: Five lumbar vertebrae are presumed. Conus medullaris is at normal level. There is no evidence of conus mass nor subjacent clumping of in trathecal nerve roots to suggest arachnoiditis. The distal aspect of the thecal sac ends higher than typical. Its distal aspect is at the upper L5 level. There is no evidence of Tarlov intra sacral c yst nor other significant findings in the sacral canal. Bones:There are no fractures nor ominous osseous lesions in the lumbar vertebral bodies and visualize d sacrum. With respect to the individual levels... T12-L1: Unremarkable L1-2: Normal disc height and signal. No disc herniation. No central nor foraminal stenosis. No sig nificant facet arthropathy. L2-3: Slightly decreased disc height. Preserved disc hydration signal. Mild anterior osseous lipping. There is mild symmetrical annular bulging at this level. There is no significant disc herniation. Ce ntral canal dimensions are within normal limits. No foraminal stenosis, despite the fact that the lilian ular bulging extends into the floor of the exiting left neural foramen.No significant facet arthropat hy. L3-4: Normal disc height. Mild annular bulging. No prominent disc herniation.Central canal dimensio ns lower normal. No significant foraminal stenosis.No facet arthropathy. L4-5: Normal disc height and signal. Mild symmetrical annular bulging without a distinct focal disc herniation. Central canal dimensions are within normal limits. There is mild spinal canal stenosis on the left side. This related to mild degenerative changes in the facet joints. No foraminal steno sis on the opposite-right side. L5-S1: Normal disc height and signal. No disc herniation. No central canal stenosis. No foraminal stenosis. No facet arthropathy. Soft tissues: paraspinal soft tissues appear unremarkable. IMPRESSION: 1. No evidence of significant disc herniation. No prominent spinal canal nor foraminal stenosis. 2. In this patient the distal thecal sac ends higher than normal, terminating at the upper L5 level. However, there is no evidence of obvious tethered spinal cord nor evidence of caudal lipoma. The sa cral canal otherwise appears unremarkable. No lipomatous filum terminale evident. 3. DATA REPOSITORY:
== END 2021-05-02 01:42 ==
PROVIDERS: PCP Nurse Practitioner Family; Visit Provider Nurse Practitioner Family
DX: M54.59 Other low back pain (principal); M47.816 Spondylosis without myelopathy or radiculopathy, lumbar region
CPT/HCPCS: 72148

== ENCOUNTER → 2021-05-02 01:30 | Outpatient (CLI) | payer BC, SELFPAY ==
--- NOTE | 2021-05-02 10:00 | DI.MRI_ITS ---
Exam(s) MR UPPER JOINT LT WO EXAM: MR UPPER JOINT LT WO CLINICAL HISTORY: ACUTE PAIN LT SHOULDER M25.512 TECHNIQUE: Multiplanar multisequence MRI of the shoulder was performed. COMPARISON: No prior plain films available. FINDINGS: MARROW:There is no evidence of fracture, Hill-Sachs deformity, nor bony Bankart lesion. There is, ho wever, a medullary bone lesion in the metaphysis-diaphysis junction of the proximal humerus which naldo sures approximately 1.8 by 1.3 cm. It is somewhat hypo intense on T1 and hyperintense on T2 sequence s, nonexpansile. There does not appear to be prominent surrounding bone edema. No endosteal scallop ing evident at this level. ROTATOR CUFF MECHANISM: AC JOINT/ACROMIUM: There are moderate degenerative changes in the AC joint. Small downgoing osteophy stevenson at this level causing impingement. Undersurface of the acromion is flat.. There is no evidence of os acromiale. Supraspinatus: Mild tendinitis signal. No high-grade tear. No fluid in the subacromial bursa. No p rominent atrophy. Infraspinatus: Intact. No evidence of tear nor muscle atrophy. Teres Minor: Intact. No evidence of tear nor muscle atrophy. Subscapularis/anterior cuff: Intact. No abnormal signal at the level of the multipennate insertional fibers. No significant tear nor atrophy. BICEPS TENDON: Normally position in the intertubercular groove. No evidence of tear. No tenosynovitis. LABRUM: There is no abnormal signal in the superior labrum posterior to the biceps insertion. Howeve r, there is abnormal intrasubstance signal is seen in the posterior labrum consistent with element of tearing and there is also some tearing in the anterior labrum, approximately mid level. There is no evidence of paralabral cyst. The inferior labrum appears intact. Inferior glenohumeral ligament ap pears intact. LABROLIGAMENTOUS/CAPSULAR COMPLEX: There is no evidence of avulsion of the anterior-inferior labrum, capsule, inferior glenohumeral liga ment complex nor disruption of the scapular periosteum to suggest the presence of a Bankart lesion. GLENOHUMERAL JOINT: No joint effusion nor obvious loose intra-articular bodies. No chondral defects. No osteophytes. No degenerative subarticular cysts. No evidence of capsular tear. The inferior gle nohumeral ligament is intact. QUADRILATERAL SPACE: No evidence of mass in the region of the axillary nerve and dorsal circumflex hu meral vessels. Visualized triceps muscle at this level appears unremarkable. IMPRESSION: 1. There is an element of supraspinatus tendinitis without high-grade tear. There is no fluid in the subacromial-subdeltoid bursa. There is some impingement at the AC joint level, this exhibiting mode rate degenerative change. Other muscles of the rotator cuff mechanism appear unremarkable. 2. There is tearing of the anterior and posterior labrum. There is no evidence of paralabral cyst. Biceps tendon is and there is no evidence of SLAP tear. 3. There is an intramedullary bone lesion in the proximal diaphysis of the humerus, as described liam doss. Recommend further imaging of this, starting with a set of plain films of the shoulder. DATA REPOSITORY:
== END ==
PROVIDERS: PCP Nurse Practitioner Family; Visit Provider Plastic Surgery
DX: M25.512 Pain in left shoulder (principal); M77.8 Other enthesopathies, not elsewhere classified; M75.42 Impingement syndrome of left shoulder; M85.9 Disorder of bone density and structure, unspecified; S43.492A Other sprain of left shoulder joint, initial encounter
CPT/HCPCS: 73221

== ENCOUNTER 2021-05-15 15:02 | Outpatient (REF) | payer BC, SELFPAY | END 2021-05-15 15:03 | disposition home or self-care (01) | LOC: NCHCN 15:02 | PROVIDERS: PCP Nurse Practitioner Family; Visit Provider Nurse Practitioner Family | DX: R78.71 Abnormal lead level in blood (principal) | CPT/HCPCS: 83655 ==

== ENCOUNTER 2021-06-17 11:28 | Inpatient (IN) | payer BC, SELFPAY ==
[2021-06-17] VITALS (86 sets, daily range): BP systolic 87–114; BP diastolic 45–88; PULSE 66–121; RESP 13–103; TEMP 36.6–37; O2SAT 93–100
--- NOTE | 2021-06-17 11:30 | RT.EKG_ITS ---
APPROVED REPORT Exam: Resting ECG Reason for Exam: hypotension Patient Location: E HR:97 bpm ECG Measurements Heart Rate 97 AXIS AR 151 P 52 QRSd 86 QRS 44 QT 370 T -5 QTc 446 Conclusion Sinus rhythm...normal P axis, V-rate 60- 99 no STEMI, non-diagnostic EKG I have reviewed and interpreted ECG and agree with software generated interpretation.
--- NOTE | 2021-06-17 11:45 | DI.CT_ITS ---
Exam(s) CT HEAD WO EXAM: CT HEAD WO CLINICAL HISTORY: ams. TECHNIQUE: Imaging Protocol: Axial computed tomography images with coronal and sagittal reformatted images were created and reviewed COMPARISON: No exams were available for comparison FINDINGS: Ventricles and Extra axial spaces: Normal in size and morphology for the patient's age. Hemorrhage: None. Cerebral parenchyma: Normal. Midline shift: None. Brainstem/Cerebellum: Normal. Calvarium: Normal. Visualized Paranasal sinuses/Mastoids: Clear. Soft Tissues: Unremarkable. IMPRESSION: No acute intracranial process. RADIATION DOSE DELIVERED: 742.2mGy.cm Total DLP DATA REPOSITORY: All CT scans at this facility are submitted to the National Radiology Data Registry (NRDR) Dose Index Registry (DIR) with the [employer] ([employer]). RADIATION OPTIMIZATION: All CT scans at this facility use at least one of these dose optimization te chniques: automated exposure control; mA and/or kV adjustment per patient size (includes targeted exa ms where dose is matched to clinical indication); or iterative reconstruction.
--- NOTE | 2021-06-17 11:54 | DI.RAD_ITS ---
Exam(s) XR CHEST 1V IN DI DEPT EXAM: XR CHEST 1V IN DI DEPT CLINICAL HISTORY: ams TECHNIQUE: 2D digital imaging was performed. Portable AP exam. COMPARISON: CR XR ribs LT w PA lat chest from 01/13/[address] CHEST LUNG CANCER SCREEN from 12/14/2020 FINDINGS: Lungs are poorly inflated. No gross infiltrate or effusion. No pneumothorax. IMPRESSION: Limited exam. No acute pulmonary findings. DATA REPOSITORY: RADIATION DOSE DELIVERED:
[2021-06-17] MEDS: Dextrose 50%-Water 25 GM/50 ML SYR IVP ×2 (12:02→12:42)
[2021-06-17] MEDS: DEXTROSE 5%-WATER 1,000 ML 150 ML IV (12:02)
[2021-06-17 12:13] LABS: Abs Immature Grans 0.03 10^3/uL (0.0-0.06); Absolute Basophil Count 0.01 10^3/uL (0.0-0.2); Absolute Eosinophil Count 0.04 10^3/uL (0.0-0.7); Absolute Lymphocyte Count 0.64 10^3/uL (1.2-3.4); Absolute Monocyte Count 0.34 10^3/uL (0.1-0.8); Absolute Neutrophil Count 3.13 10^3/uL (1.2-6.7); Basophils % 0.2; HCT 26.3 % (40.0-50.0); HGB 9.1 g/dL (13.5-17.5); Immature Grans % 0.7; Lymphocytes % 15.3; MCH 33.1 pg (27.0-33.0); MCHC 34.6 % (32.0-36.0); MCV 95.6 fL (80-95); Monocytes % 8.1; Neutrophils % 74.7; Nucleated RBC 0 %; Platelet Count 131 10^3/uL (130-400); RBC 2.75 10^6/uL (4.36-5.78); RDW 14.4 % (11.8-14.1); RDW-SD 50.3 fL; WBC 4.19 10^3/uL (4.4-10.8)
[2021-06-17 12:23] LABS: Ammonia < 10 umol/L (11-32)
[2021-06-17 12:25] LABS: INR 1.2 (0.9-1.1); Prothrombin Time 11.6 sec (9.3-11.0)
--- NOTE | 2021-06-17 12:31 | W.ED.GENAD ---
Discharge Plan Disposition Patient Disposition: [facility] INPATIENT Condition: Stable Discharge Details Clinical Impression: Anemia, Hypomagnesemia, Hypokalemia, Hyponatremia, Confusion, Anterior cerebral aneurysm Admit Date/Time: 06/17/21 19:21 Admit Provider: George Chua Attending Provider: George Chua Primary Care Provider: Paige Chen ED Provider: Elsie Brown Discharge Data Discharge Date/Time-TO BE ENTERED AT DEPARTURE: 06/17/21 20:13 Medical Decision Making <KENDY Garcia - Last Filed: 06/19/21 08:06> This is a 51-year-old male, past medical history of alcohol abuse, liver cirrhosis, presenting to the ER directly from his primary care office via EMS for evaluation of jaundice, altered mental status, hypotension. Upon presentation he is awake, alert, oriented x4, has no acute concerns or complaints, blood pressure 102 over 60. His pulse is in the 80s, he is afebrile, O2 sats are 99% on room air. He does appear slightly jaundiced. Plan is to obtain a head CT for potential altered mental status, obtain IV access, give IV fluid, obtain COVID test, ammonia, routine screening laboratory values and reassess. I was noted that his fingers glucose was 33, patient was given an amp of glucose, we DC'd the normal saline and gave him D5 at 150 an hour. I was told later that his recheck glucose was 44, D5 was given wide open and he received another amp of glucose. The patient is not presenting with someone who has acute hypoglycemia. His BMP resulted, his glucose was 289. This does not fit his finger. We checked his other hand and his fingerstick were consistently in the 180s and the other hand was consistently low. Given his fingersticks in the 180s in the setting of a basic metabolic panel of 289, I do not believe that he has acute hypoglycemia Laboratory values reveal a white blood cell count of 4.19. Hemoglobin of 9.1 hematocrit 26.3 which appears well below his baseline. Platelet count 131. He denies any bright red blood from his rectum or black tarry stools. He declines a rectal examination. I have requested that he provide a safe stool sample so we can test for blood INR of 1.2 sodium 125 potassium 2.7. Patient received 500 cc normal saline via EMS, he then received an initial bolus here in the ER until he was switched over to D5. His BUN is 32 creatinine 1.0 with a GFR greater than 60. Calcium 10.4 magnesium was 1.1. Will provide 1 g IV magnesium as well as 40 p.o. and 10 IV potassium. His total bili is 1.0 AST is 53 ALT 26 alk phos is 121 ammonia is less than 10. Troponin less than 50. Albumin 2.4 TSH 2.6. Alcohol less than 3. Flu, COVID, RSV all negative. Both his head CT and chest x-ray are unremarkable per radiology Given his anemia, sodium, potassium, magnesium, and overall presentation I feel as though admission for observation and electrolyte monitoring is appropriate. Patient is adamantly declining admission. Patient is awake, alert, oriented x4, has capacity to make his own decisions. He does understand my concern but will follow-up as an outpatient. I contacted his primary care provider, Paige Chen, who reviewed the laboratory values and work-up with me today. She understands that he is declining admission and has capacity. She does question if he is willing to stay in the ER long enough for a CT of his abdomen pelvis if this could be beneficial she will follow this as an outpatient. I relayed this conversation to the patient and he is agreeable to obtaining CT of his abdomen pelvis for further evaluation. Blood pressures have been primarily in the 90s over 60s while here in the ER, he is mentating without difficulty. He denies any symptoms but does tell me that he overall feels tired. We again discussed my concern for his overall presentation, multiple electrolyte abnormalities, anemia, hypotension, and again I strongly recommend admission but he declines. He is willing to await the CT of his abdomen and pelvis but then wishes to be discharged home. Medical Records Medical records reviewed: Yes I reviewed the patient's medical records. Imaging Data Radiologic Study: Attestation: I personally reviewed and interpreted this imaging study as follows: Imaging: X-Ray Radiologist's impression: Exam(s) XR CHEST 1V IN DI DEPT EXAM: XR CHEST 1V IN DI DEPT CLINICAL HISTORY: ams TECHNIQUE: 2D digital imaging was performed. Portable AP exam. COMPARISON: CR XR ribs LT w PA lat chest from 01/13/[address] CHEST LUNG CANCER SCREEN from 12/14/2020 FINDINGS: Lungs are poorly inflated. No gross infiltrate or effusion. No pneumothorax. IMPRESSION: Limited exam. No acute pulmonary findings. Radiologic Study #2: Attestation: I personally reviewed and interpreted this imaging study as follows: Imaging: CT Scan Radiologist's impression: Exam(s) CT HEAD WO EXAM: CT HEAD WO CLINICAL HISTORY: ams. TECHNIQUE: Imaging Protocol: Axial computed tomography images with coronal and sagittal reformatted images were created and reviewed COMPARISON: No exams were available for comparison FINDINGS: Ventricles and Extra axial spaces: Normal in size and morphology for the patient's age. Hemorrhage: None. Cerebral parenchyma: Normal. Midline shift: None. Brainstem/Cerebellum: Normal. Calvarium: Normal. Visualized Paranasal sinuses/Mastoids: Clear. Soft Tissues: Unremarkable. IMPRESSION: No acute intracranial process. Lab Data Lab results reviewed: Yes I reviewed the patient's lab results. Labs: Laboratory Tests Range/Units 06/17/21 06/17/21 06/17/21 12:06 12:06 12:06 WBC (4.4-10.8) 10^3/uL 4.19 L RBC (4.36-5.78) 10^6/uL 2.75 L Hgb (13.5-17.5) g/dL 9.1 L Hct (40.0-50.0) % 26.3 L MCV (80-95) fL 95.6 H MCH (27.0-33.0) pg 33.1 H MCHC (32.0-36.0) % 34.6 RDW (11.8-14.1) % 14.4 H Plt Count (130-400) 10^3/uL 131 MPV (8.0-11.0) fL 10.0 Immature Gran % 0.7 Neutrophils % 74.7 Lymphocytes % 15.3 Monocytes % 8.1 Eosinophils % 1.0 Basophils % 0.2 Nucleated RBC % % 0 Absolute Neutrophils (1.2-6.7) 10^3/uL 3.13 Absolute Lymphocytes (1.2-3.4) 10^3/uL 0.64 L Absolute Monocytes (0.1-0.8) 10^3/uL 0.34 Absolute Eosinophils (0.0-0.7) 10^3/uL 0.04 Absolute Basophils (0.0-0.2) 10^3/uL 0.01 PT (9.3-11.0) sec INR (0.9-1.1) Sodium (136-145) mmol/L 125 L Potassium (3.5-5.1) mmol/L 2.7 L* Chloride (98-107) mmol/L 86 L Carbon Dioxide (21.0-32.0) mmol/L 30.6 Anion Gap (3-11) mmol/L 8.4 BUN (7-18) mg/dL 32 H Creatinine (0.70-1.30) mg/dL 1.0 Estimated GFR/1.73 m2 (mL/min/1.73m2) >= 60.00 Glucose (74-106) mg/dL 289 H Calcium (8.5-10.1) mg/dL 10.4 H Magnesium (1.8-2.4) mg/dL 1.1 L Total Bilirubin (0.2-1.0) mg/dL 1.0 AST (15-37) U/L 53 H ALT (16-63) U/L 26 Alkaline Phosphatase (46-116) U/L 121 H Ammonia (11-32) umol/L < 10 L Troponin I (<or=60) ng/L < 50 Total Protein (6.4-8.2) g/dL 5.4 L Albumin (3.4-5.0) g/dL 2.4 L TSH (0.36-3.74) uIU/mL 2.66 Ethyl Alcohol (<10) mg/dL < 3.0 COVID-19 Source SARS-CoV-2 (PCR) (Negative) Influenza Type A (PCR) (Negative) Influenza Type B (PCR) (Negative) RSV (PCR) (Negative) Range/Units 06/17/21 06/17/21 12:06 13:29 WBC (4.4-10.8) 10^3/uL RBC (4.36-5.78) 10^6/uL Hgb (13.5-17.5) g/dL Hct (40.0-50.0) % MCV (80-95) fL MCH (27.0-33.0) pg MCHC (32.0-36.0) % RDW (11.8-14.1) % Plt Count (130-400) 10^3/uL MPV (8.0-11.0) fL Immature Gran % Neutrophils % Lymphocytes % Monocytes % Eosinophils % Basophils % Nucleated RBC % % Absolute Neutrophils (1.2-6.7) 10^3/uL Absolute Lymphocytes (1.2-3.4) 10^3/uL Absolute Monocytes (0.1-0.8) 10^3/uL Absolute Eosinophils (0.0-0.7) 10^3/uL Absolute Basophils (0.0-0.2) 10^3/uL PT (9.3-11.0) sec 11.6 H INR (0.9-1.1) 1.2 H Sodium (136-145) mmol/L Potassium (3.5-5.1) mmol/L Chloride (98-107) mmol/L Carbon Dioxide (21.0-32.0) mmol/L Anion Gap (3-11) mmol/L BUN (7-18) mg/dL Creatinine (0.70-1.30) mg/dL Estimated GFR/1.73 m2 (mL/min/1.73m2) Glucose (74-106) mg/dL Calcium (8.5-10.1) mg/dL Magnesium (1.8-2.4) mg/dL Total Bilirubin (0.2-1.0) mg/dL AST (15-37) U/L ALT (16-63) U/L Alkaline Phosphatase (46-116) U/L Ammonia (11-32) umol/L Troponin I (<or=60) ng/L Total Protein (6.4-8.2) g/dL Albumin (3.4-5.0) g/dL TSH (0.36-3.74) uIU/mL Ethyl Alcohol (<10) mg/dL COVID-19 Source Nasopharynx SARS-CoV-2 (PCR) (Negative) Negative Influenza Type A (PCR) (Negative) Negative Influenza Type B (PCR) (Negative) Negative RSV (PCR) (Negative) Negative ECG Data Attestation: I personally reviewed and interpreted this ECG (s) as follows: Interpretation: Please see official report by Dr. Hoyos. Sinus rhythm, ventricular of 97, multiple PVC, no ST elevation <KENDY Mariscal - Last Filed: 06/17/21 21:10> Care transitioned to myself from KENDY Pelayo, please see his initial note regarding history, presentation and exam. In brief, patient is a known alcoholic presenting today with chief complaint altered mental status. Patient was initially evaluated by primary care, Paige Chen, who was concerned that his mentation was altered compared to his baseline. She was also concerned that the patient appeared more jaundiced than normal. There was initially started on confusion around the patient glucose. Patient does not have a history of diabetes. However, does have significant Raynaud's in his hands. The glucose has varied greatly and what has been found in the hands compared to what was found in the blood work. Patient was notably hypoglycemic with hazardous finger and was treated accordingly. However, Mr. Gray is questioning if this is accurate based on the findings of the glucose and the blood work. Mr. Gary reports that the patient has been alert and oriented for him. Patient was noted to be hyponatremic, hypokalemic, hypomagnesemic. Electrolyte abnormalities replaced. Mr. Gray had recommended admission but patient declined. At the time I assumed care, CT of patient's abdomen pelvis is pending. CT of his head and chest x-ray were unremarkable. Loops of fluid filled bowel. Is able to visualize poorly digested stool. Too dense to be blood. Mild cirrhosis. Patient did have a watery bowel movement here. This was Hemoccult negative. Shortly after I assumed care, nursing staff brought to my attention of increased altered mental status. They noted his answers to be more unusual and delayed compared to when he first came in. I examined the patient. He oriented person. Is partially oriented to place, is able to state that he is at [facility] believes he is in the laboratory. When discussing the time or date, patient begins rambling about incoherent things including stacking wood. Neurologic exam is difficult to assess as the patient was having a hard time following instructions. His pupils are equal round and reactive. His right lower extremity appears slightly weaker than the left. But again, the patient needs placement of prompting to perform the activity and may be associated with the altered mental status. Unclear at this time. I do feel that continued work-up including CTA of his head and neck would be appropriate. Also consider potential withdrawal. However, the patient has been fairly sedate and intermittently hypotensive here, I am hesitant to begin the patient on any benzodiazepines. Will obtain CT and reassess. Patient will require admission. He is unable to demonstrate capacity to make decision to leave AGAINST MEDICAL ADVICE at this time. Intraoral lesions noted. CT reviewed by radiologist: FINDINGS: ANTERIOR CIRCULATION: Right internal carotid artery: Unremarkable. Intracranial segment is patent with no significant stenosis. No aneurysm. Right middle cerebral artery: Unremarkable. No occlusion or significant stenosis. No aneurysm. Right anterior cerebral artery: Unremarkable. No occlusion or significant stenosis. No aneurysm. Anterior communicating artery: Lobulated anterior communicating artery aneurysm measures 5.2 x 6.7 x 5.6 mm, directed anteriorly and to the right. There appears to be incorporation of the bilateral A2 vessel origins. Left internal carotid artery: Calcified plaque of the cavernous left internal carotid artery, with mild vessel stenosis. No evidence of aneurysm formation or occlusion. Left middle cerebral artery: Unremarkable. No occlusion or significant stenosis. No aneurysm. Left anterior cerebral artery: Unremarkable. No occlusion or significant stenosis. No aneurysm. POSTERIOR CIRCULATION: Right vertebral artery: Unremarkable. No occlusion or significant stenosis. No aneurysm. Left vertebral artery: Unremarkable. No occlusion or significant stenosis. No aneurysm. Basilar artery: Unremarkable. No occlusion or significant stenosis. No aneurysm. Right posterior cerebral artery: Unremarkable. No occlusion or significant stenosis. No aneurysm. Left posterior cerebral artery: Unremarkable. No occlusion or significant stenosis. No aneurysm. Veins: The major venous structures appear patent. Brain: No definite mass, mass effect, or midline shift. Cerebral ventricles: No ventriculomegaly. Bones/joints: Unremarkable. No acute fracture. Soft tissues: Unremarkable. IMPRESSION: 1. No large vessel occlusion is appreciated. 2. 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 FINDINGS: Right common carotid artery: No stenosis. No dissection or occlusion. Right internal carotid artery: Mild calcified plaque at the right internal carotid artery origin, without significant stenosis (0% by NASCET criteria). Moderate tortuosity of the distal cervical right internal carotid artery. Right external carotid artery: No occlusion or stenosis of the origin. Left common carotid artery: No stenosis. No dissection or occlusion. Left internal carotid artery: Mixed calcified and atheromatous plaque at the left internal carotid artery origin, without significant stenosis (0% by NASCET criteria). Left external carotid artery: No occlusion or stenosis of the origin. Right vertebral artery: No stenosis. No dissection or occlusion. Left vertebral artery: No stenosis. No dissection or occlusion. Dental: Periapical lucency associated with the roots of teeth 6 and 7, as well as smaller lucency at the root of tooth 3. Soft tissues: Normal. No significant soft tissue swelling. Bones/joints: No acute fracture. IMPRESSION: 1. Mild atherosclerosis, without significant vessel stenosis. 2. Dental disease, correlate with dental examination. Radiologist does not note any bleeding at site of aneurysm. Will consult with neurosurgery at [facility]. Images have been pushed. Patient does not have any dental pain or evidence of acute dental infection. We have not been able to obtain UA yet, patient was incontinent during episode of increased confusion. Trying to obtain sample now, will also add on UDS. Plan to repeat BMP. Discussed findings with the patient. Again, recommended admission and patient declines. Will assess further for safety. Attempted to ambulate the patient, he is unable to do so without assistance. Unable to unlock his phone or make a call. Unable to put his glasses squarely on his face. Patient clearly unable to be safely discharged despite this, he requests to be discharged home. Concerned for ecephalopathy. Will speak with family. Spoke with patient's friend, Anoop, with patients permission who was able to get accurate contact information for family. Spoke with patient's father, . He advised that he has not been normal for >24 hours. He called the ambulance yesterday out of concern for confusion. However, patient refused transport at that time. He was having difficulty walking, reported he had to lean on something all the time. He is concerned that he is all by himself. His father will come tomorrow, he resides in [place]. He advised that he would like for patient to be admitted for safety reason. Left message for his , Stacie. She was reported to reside in [place] (?). Father spoke with patient. They discussed admission, but despite father encouraging admission, patient continues to want to be d/c to home. He does not have assistance at home. I do not believe that patient has capacity to leave AMA and plan to admit for encephalothy and safety concerns. Consulted with neurosurgery at [facility]. They are concerned for underlying cause of encephalopathy. She agrees that patient should f/u with them, will ask care management to assist with this. Advised to keep SBP <160. She advised incidental finding as no evidence of acute hemorrhage. Consulted with Dr. Chua who agrees to admission. HPI <KENDY Garcia - Last Filed: 06/19/21 08:06> General Mode of arrival: EMS. Date/Time Provider Initiated Documentation: 06/17/21 11:45. Limitations to Documentation: no limitations. Information obtained by: patient and EMS. HPI Narrative: This is a 51-year-old gentleman, past medical history of alcohol abuse, cirrhosis, followed at [facility], chronic low back pain, Raynaud's syndrome, current smoker, not vaccinated for COVID, presents to the ER via EMS from his primary care's office for evaluation of hypotension, appearing jaundice, and concern for altered mental status. Upon arrival his blood pressure is 102/60, he reports feeling well and has no concerns or complaints. He denies recent illness or trauma. Denies headache, fever, chest pain, shortness of breath, abdominal pain, nausea, vomiting, focal weakness, numbness, tingling, weakness. He reports a single episode of diarrhea this morning but denies black tarry stools or bright red blood in the stools. He denies any dysuria. He admits to drinking whiskey nightly but states that over the last several months he has decreased and is only taking a very small amount in. EMS reports fingerstick glucose in the 70s, given 1 amp of glucose Related Data Home Medications Medication Instructions Recorded Confirmed trazodone 50 mg tablet 25 mg PO HS PRN 12/09/19 06/18/21 magnesium 250 mg tablet 250 mg PO DAILY 04/06/20 06/18/21 gabapentin 600 mg PO HS 06/18/21 06/18/21 lisinopril 20 mg PO DAILY 06/18/21 06/18/21 Allergies Allergy/AdvReac Type Severity Reaction Status Date / Time No Known Allergies Allergy Unverified 06/17/21 11:42 General Stated Complaint: AMS/LOC ROSE MARY: 3 Review of Systems <KENDY Garcia - Last Filed: 06/19/21 08:06> Constitutional Constitutional: Denies fatigue, Denies fever(s), Denies headache(s) and Denies weakness Eyes Eyes: Denies change in vision ENT Ears, Nose, Mouth, and Throat: Denies headache(s) and Denies neck pain Cardiovascular Cardiovascular: Denies chest pain and Denies dyspnea Respiratory Respiratory: Denies cough and Denies dyspnea Gastrointestinal Gastrointestinal: Denies abdominal pain, Denies melena, Denies hematochezia, Denies constipation, Reports diarrhea, Denies nausea and Denies vomiting Genitourinary Genitourinary: Denies dysuria Musculoskeletal Musculoskeletal: Reports back pain (Chronic) and Denies neck pain Integumentary/Breasts Skin/Breast: Denies rash Neurologic Neurologic: Denies headache(s) and Denies weakness Endocrine Endocrine: Denies fatigue PFS <KENDY Garcia - Last Filed: 06/19/21 08:06> All Active Problems (Updated 06/17/21 @ 21:10 by KENDY Mariscal) ETOH abuse (Acute) Anterior cerebral aneurysm (Acute) Confusion (Acute) Anemia (Chronic) Hypomagnesemia (Acute) Hypokalemia (Acute) Hyponatremia (Acute) Multiple lipomas (Acute) Screening for colon cancer (Acute) Elevated blood lead level (Acute) Bilateral hearing loss (Acute) Cubital tunnel syndrome on left (Acute) Left carpal tunnel syndrome (Acute) CRPS (complex regional pain syndrome), type II, upper (Acute) Right carpal tunnel syndrome (Acute) Cubital tunnel syndrome on right (Acute) Medical History Arm pain, right Asymmetrical sensorineural hearing loss Back pain Lopez's cyst, rt knee Chest wall pain Chronic low back pain Chronic pain Chronic sinusitis [place] Deviated septum Elevated LFTs ETOH abuse Exposure to lead Fatigue Foraminal stenosis of cervical region Foreign body in left upper extremity (01/11/20) s/p excision of foreign bodies Foreign body in right ear Greater trochanteric bursitis of left hip (09/04/15) Heart murmur per pt. this was an incorrect dx Infrapatellar bursitis of right knee (01/11/20) s/p bursa excision Left buttock pain (11/07/14) Low back pain (11/07/14) Lumbar back pain Marital problem MVP (mitral valve prolapse) Neuropathy ISADORA (obstructive sleep apnea) Paraesthesia left 4-5th finger (05/29/06) Paresthesias in left hand (06/28/14) Peripheral cyanosis Polyarthralgia PONV (postoperative nausea and vomiting) Pt c/o post nasal drip causing nausea and vomiting routinely Raynauds disease Snoring Soft tissue swelling Steatosis of liver Synovial cyst of popliteal space [Lopez], right knee Thoracic back pain Tinnitus of both ears Tobacco abuse Tubular adenoma of colon Surgical History Aftercare involving removal of fracture plate or internal fixation device left arm History of arthroscopy of right knee 2001, diagnostic History of carpal tunnel release right History of colonoscopy (~03/2021) Right Popliteal cyst resection (07/25/03) Status post transposition of nerve left elbow Family History Mother , [place] at age 74. Heart disease Father No problems noted. Social History Smoking/Tobacco Use Status: Current every day Tobacco Type: cigarettes Years smoked: 42 Smoking risk assessment performed?: Yes Alcohol Intake: current Alcohol Intake frequency: 3 or more drinks per day Alcohol type: hard liquor Drug use: Never Substance use type: does not use Household members: none Housing: house Number of Children: 1 current occupation: N/A Current gender identity: male What type of physical activity do you participate in: walking and independent ambulation Seatbelt use: sometimes Do you feel safe at home: Yes Do you feel safe in your relationship?: Yes Exam <KENDY Garcia - Last Filed: 06/19/21 08:06> Const General: cooperative, comfortable, no acute distress and ill appearing chronically Orientation: alert, awake and oriented x3 HENMT Head: normal to inspection, normocephalic and atraumatic Mouth: moist mucous membranes abnormal (Slightly dry) Throat: posterior oropharynx normal Eyes Conjunctivae: conjunctival abnormality bilaterally conjunctival icterus (mild) Neck Neck: normal visual inspection, full ROM, no lymphadenopathy, no meningeal signs, trachea midline, supple and nontender Resp Effort & Inspection: normal respiratory effort and able to speak in complete sentences Auscultation: clear to auscultation bilaterally and diminished lung sounds bilaterally in the lower lung hawley Cardio Rate: regular rate Rhythm: regular rhythm GI Palpation: soft, not firm, no pulsatile masses and nontender Auscultation: normal bowel sounds Other: Patient declined rectal Back/Spine/Pelvis Back: no CVA tenderness and No back tenderness Skin General skin exam: jaundice (Mild) Rashes: no rashes Neuro General: patient alert, patient awake, patient oriented x3, moves all extremities and no focal motor deficits Cranial Nerves: CN's II-XI intact bilaterally Cognition: normal cognition Speech: speech normal Motor: muscle tone normal throughout Sensory Exam: no sensory deficits noted Extrem General: normal to inspection, full ROM, capillary refill normal, no pedal edema and no calf tenderness Psych Appearance: grossly normal Mental Status: mental status grossly normal Course <KENDY Garcia - Last Filed: 06/19/21 08:06> Vital Signs Vital signs: Vital Signs Temperature 36.6 C 06/17/21 11:38 Respiratory Rate 103 H 06/17/21 11:38 Blood Pressure 102/60 06/17/21 11:38 Temperature 36.6 C 06/17/21 11:38 Temperature Source Temporal Artery Scan 06/17/21 11:38 Respiratory Rate 103 H 06/17/21 11:38 Respiratory Effort Non-Labored 06/17/21 11:46 Respiratory Depth Normal 06/17/21 11:46 Respiratory Pattern Normal 06/17/21 11:46 Blood Pressure 102/60 06/17/21 11:38 Blood Pressure Position Supine 06/17/21 11:38 Pulse Oximetry 94 06/17/21 12:27 Oxygen Delivery Method Nasal Cannula 06/17/21 12:27 Oxygen Flow Rate 2 06/17/21 12:27 Pain Level 0 06/17/21 11:38 Lab/Test Results Lab/Test Results: Laboratory Tests Range/Units 06/17/21 06/17/21 06/17/21 12:06 12:06 12:06 WBC (4.4-10.8) 10^3/uL 4.19 L RBC (4.36-5.78) 10^6/uL 2.75 L Hgb (13.5-17.5) g/dL 9.1 L Hct (40.0-50.0) % 26.3 L MCV (80-95) fL 95.6 H MCH (27.0-33.0) pg 33.1 H MCHC (32.0-36.0) % 34.6 RDW (11.8-14.1) % 14.4 H Plt Count (130-400) 10^3/uL 131 MPV (8.0-11.0) fL 10.0 Immature Gran % 0.7 Neutrophils % 74.7 Lymphocytes % 15.3 Monocytes % 8.1 Eosinophils % 1.0 Basophils % 0.2 Nucleated RBC % % 0 Absolute Neutrophils (1.2-6.7) 10^3/uL 3.13 Absolute Lymphocytes (1.2-3.4) 10^3/uL 0.64 L Absolute Monocytes (0.1-0.8) 10^3/uL 0.34 Absolute Eosinophils (0.0-0.7) 10^3/uL 0.04 Absolute Basophils (0.0-0.2) 10^3/uL 0.01 PT (9.3-11.0) sec 11.6 H INR (0.9-1.1) 1.2 H Ammonia (11-32) umol/L < 10 L Critical Care Time <KENDY Garcia - Last Filed: 06/19/21 08:06> Critical Care Time Critical Care Time: Yes Total Critical Care Time: 35 Attestation: Upon my evaluation, this patient had a high probability of clinically significant, life-threatening deterioration due to their current medical conditions, which required my direct attention, intervention, and personal management. I have personally provided greater than 30 minutes of critical care time exclusive of the time spend on separately billable procedures. Time includes obtaining a history, examining the patient, pulse oximetry, review of laboratory data, radiology results, discussion with consultants, arranging urgent treatment with development of a management plan, evaluation of patient's response to treatment, and monitoring for potential decompensation. Interventions were performed as documented above. Sign Out <KENDY Garcia - Last Filed: 06/19/21 08:06> Sign Out Data: Sign Out Comment: Anemia, hypomagnesemia, hypokalemia, hyponatremia, jaundice, recommended admission. Patient has capacity and has declined. Contacted his primary care provider who understands the patient wishes for discharge but does request a CT of his abdomen and pelvis before discharge. I would monitor his glucose prior to discharge as well. Last updated by Hema Gray PA at 06/17/21 16:06 PAWSS <KENDY Garcia - Last Filed: 06/19/21 08:06> Have you Been Recently Intoxicated or Drunk Within the Last 30 days?: No Have you Ever Experienced Previous Episodes of Alcohol Withdrawal?: No Have you ever Experienced Withdrawal Seizures?: No Have you ever Experienced Delirium Tremens(DT)s?: No Have you ever undergone Alcohol Rehabilitation Treatment (i.e, inpt ot outpatient treatment programs)?: No Have you ever Experienced Blackouts?: No Have you ever Combined Alcohol with other Downers within the last 90 days?: No Have you ever Combined Alcohol with any other Substance of Abuse during the last 90 days?: No Positive Blood Alcohol level on Presentation? [PCS.BAL]: Yes Evidence of Increased Autonomic Activity (i.e. HR>120, tremor, sweating, agitation, nausea)?: No Result: 1
[2021-06-17 12:44] LABS: ALT 26 U/L (16-63); AST 53 U/L (15-37); Albumin 2.4 g/dL (3.4-5.0); Alkaline Phosphatase 121 U/L (46-116); Anion Gap 8.4 mmol/L (3-11); BUN 32 mg/dL (7-18); CO2 30.6 mmol/L (21.0-32.0); Calcium 10.4 mg/dL (8.5-10.1); Chloride 86 mmol/L (98-107); Glucose 289 mg/dL (74-106); Magnesium 1.1 mg/dL (1.8-2.4); Sodium 125 mmol/L (136-145); TSH (W/Ref FT4) 2.66 uIU/mL (0.36-3.74); Total Protein 5.4 g/dL (6.4-8.2); Troponin I < 50 ng/L (<or=60)
[2021-06-17 12:45] LABS: ETHANOL BLOOD < 3.0 mg/dL (<10)
[2021-06-17 12:46] LABS: Potassium 2.7 mmol/L (3.5-5.1)
[2021-06-17] MEDS: MAGNESIUM SULFATE 1 GM/100 ML BAG IVPB (13:14)
[2021-06-17 13:34] LABS: Source Nasopharynx
--- NOTE | 2021-06-17 13:34 | NUR.NOTE ---
Nursing Note: IV KCL and Magnesium Sulfate started around 13:14 per orders.
[2021-06-17] MEDS: Potassium Chloride 20 MEQ TABCR 40 MEQ PO (13:48)
[2021-06-17] MEDS: POTASSIUM CHLORIDE 10 MEQ/100 ML BAG 100 MEQ IVPB (13:48)
[2021-06-17 14:12] LABS: COVID-19 PCR Negative (Negative); Influenza A PCR Negative (Negative); Influenza B PCR Negative (Negative); RSV PCR Negative (Negative)
--- NOTE | 2021-06-17 14:45 | DI.CT_ITS ---
Exam(s) CT ABDOMEN PELVIS W EXAM: CT ABDOMEN PELVIS W CLINICAL HISTORY: ams, cirrhosis, anemia. TECHNIQUE: Imaging Protocol: Axial computed tomography images with coronal and sagittal reformatted images were created and reviewed CONTRAST MATERIAL: Intravenous: Omnipaque 350 Contrast volume:100 ml Oral: no COMPARISON: US US ABDOMEN from 12/27/[address] CHEST LUNG CANCER SCREEN from 12/14/2020 US US ABDOMEN LIMITED from 03/27/[address] HEAD WO from 06/17/2021 CR XR CHEST 1V IN DI DEPT from 06/17/2021 FINDINGS: Exam is limited by patient motion. The patient is was unable to cooperate. ABDOMEN: Lung Bases: Normal where visualized. Liver: Heterogeneous attenuation. Limited evaluation due to streak artifacts.. No measurable mass. Gallbladder and biliary tract: No radiodense calculus or dilation. Pancreas: Normal density, no abnormal calcifications or inflammatory process. Spleen: Normal. Kidneys: Normal size, contour and axis. No radiodense stones or obstructive uropathy. No masses seen. Adrenal glands: No masses seen. Abdominal Aorta: Abdominal portion non-dilated. PELVIS: Bladder: No gross wall thickening. No calculi.No focal mass. Bowel: Density in stomach, presumed presumably an ingested material. Diverticulum of the descending duodenum. Mild nonspecific fluid-filled dilatation of a few loops small bowel without evidence of ob struction or wall thickening. Appendix not seen.Portions of the colon also show fluid. The transver se colon shows gaseous distension. Peritoneal cavity: No ascites, collection or mesenteric inflammatory response. Bones: Within normal limits for age. Reproductive organs: Within normal limits. Lymph nodes: Unremarkable. Impression: Nonspecific fluid-filled loops of small bowel as well as colon. No evidence of obstruction or wall t hickening. RADIATION DOSE DELIVERED: 764.35mGy.cm Total DLP DATA REPOSITORY: All CT scans at this facility are submitted to the National Radiology Data Registry (NRDR) Dose Index Registry (DIR) with the [employer] (ACR). RADIATION OPTIMIZATION: All CT scans at this facility use at least one of these dose optimization te chniques: automated exposure control; mA and/or kV adjustment per patient size (includes targeted exa ms where dose is matched to clinical indication); or iterative reconstruction.
--- NOTE | 2021-06-17 14:58 | NUR.NOTE ---
Nursing Note: Patient shows no signs of lack of capacity to make decisions. He answers questions appropriately and is oriented to person/place/time. He is intermittently lethargic, but answers to name and light touch without difficulty. He has reported to provider and this scribe that he wants to go home and is declining admission.
[2021-06-17] MEDS: Omnipaque 350 MG/ML 100 ML BTL IJ ×2 (15:39→17:35)
--- NOTE | 2021-06-17 16:30 | DI.CT_ITS ---
Exam(s) CT BRAIN NECK CTA EXAM: CT BRAIN NECK CTA CLINICAL HISTORY: AMS, RLE weakness. TECHNIQUE: Imaging Protocol: Axial CT angiography was performed with multi-slice acquisition and mu lti-planar and/or 3D reconstructions. CONTRAST MATERIAL: Intravenous: Omnipaque 350 Contrast volume:100 mL COMPARISON: CT CT ABDOMEN PELVIS W from 06/17/2021 FINDINGS: CTA Neck W: Aortic arch anatomy: The aortic arch anatomy is conventional. There is no significant stenosis at the origin the great vessels off of the aortic arch. Anterior circulation: Both common carotid arteries ascend with normal luminal diameters. There is mild partially calcified plaque noted at the right carotid bulb and proximal right ICA. Dedra roximately 10 percent stenosis. Right ICA above this level is nicely patent in the neck and skull ba se. Mild partially calcified plaque noted on the posterior wall of the left carotid bulb and proxima l ICA, approximately 5-10 percent stenosis. Left ICA above this level is nicely patent in the neck a nd skull base. Posterior circulation: Both vertebral arteries originated conventional fashion off the subclavian arteries and without signi ficant stenosis at their origins. Both ascend with patent lumens in the foramen transversarium appro ximately equal diameters and no intraluminal thrombus nor dissection of the vertebral arteries. Both contribute to the formation of the basilar artery at the skull base. CTA Brain W: Anterior circulation: Both internal carotid arteries are patent in the skull base and cavernous sinuses. Supraclinoid aspe cts are patent. Both A1 segments are patent. Both anterior cerebral arteries are patent. However, there is a non thrombosed aneurysm at the level of the anterior communicating artery which measures 6 millimeters AP x 5.5 millimeters wide by 5 millimeters craniocaudal. The A2 segments of the anterior cerebral arteries are incorporated into the aneurysm. Posterior circulation: Basilar artery is formed at the skull base by both vertebral arteries and ascends with normal luminal diameter and no evidence of intraluminal thrombus. Distally it gives off superior cerebellar arteri es and above this level terminates as patent bilateral posterior cerebral arteries. There is no aneu rysm at the tip of the basilar artery. CT BRAIN: There is no evidence of intracranial hemorrhage, mass effect, or shift of midline structures. There are no extra-axial fluid collections. Ventricles are not enlarged or shifted. There are no ring enh ancing lesions in the brain and no abnormal meningeal enhancement. IMPRESSION: 1. Most significant finding here is a nonthrombosed aneurysm at the level of the anterior communicati ng artery measuring approximately 6 x 5.5 x 5.0 millimeter. No other aneurysm seen. No evidence of hemorrhage, intra or extra-axial. 2. Minimal atherosclerotic disease at the level the carotid bifurcations and proximal ICAs bilateral ly. No hemodynamically significant stenosis at these levels. 3. Patent posterior circulation. No evidence of aneurysm at the tip of the basilar artery. RADIATION DOSE DELIVERED: 1,169.67mGy.cm Total DLP DATA REPOSITORY: All CT scans at this facility are submitted to the National Radiology Data Registry (NRDR) Dose Index Registry (DIR) with the [employer] (ACR). RADIATION OPTIMIZATION: All CT scans at this facility use at least one of these dose optimization te chniques: automated exposure control; mA and/or kV adjustment per patient size (includes targeted exa ms where dose is matched to clinical indication); or iterative reconstruction.
--- NOTE | 2021-06-17 17:02 | NUR.NOTE ---
Addendum entered by Hermila Medina 06/17/21 17:06: Time was around 16:30, not 14:30, when this scribe saw the patient and noticed a decline in mentation. Original Note: Nursing Note: Around 14:30 this scribe went to check in with patient about his ride home. He was trying to take off his blankets and clothes; his pants and bed were soaked in urine. He was still able to answer to self, place, day, month, and year but took longer to answer. When the provider went to assess him, he was unable to follow her finger movements with his eyes and said he was in the lab at the hospital. He continued to take longer to answer questions. He mentation has clearly changed from earlier in the day and his capacity for decisions is no longer sufficient.
--- NOTE | 2021-06-17 18:03 | DI.VRAD_ITS ---
PROCEDURE INFORMATION: Exam: CT Angiography Head With Contrast, Arteriography Exam date and time: 06/17/2021 4:42 PM Age: 51 years old Clinical indication: Other: AMS TECHNIQUE: Imaging protocol: Computed tomography angiography of the head with contrast. Exam focused on the arteries. 3D rendering (Not supervised by radiologist): MIP and/or 3D reconstructed images were created by the technologist. COMPARISON: CT HEAD WO 06/17/2021 1:44 PM FINDINGS: ANTERIOR CIRCULATION: Right internal carotid artery: Unremarkable. Intracranial segment is patent with no significant stenosis. No aneurysm. Right middle cerebral artery: Unremarkable. No occlusion or significant stenosis. No aneurysm. Right anterior cerebral artery: Unremarkable. No occlusion or significant stenosis. No aneurysm. Anterior communicating artery: Lobulated anterior communicating artery aneurysm measures 5.2 x 6.7 x 5.6 mm, directed anteriorly and to the right. There appears to be incorporation of the bilateral A2 vessel origins. Left internal carotid artery: Calcified plaque of the cavernous left internal carotid artery, with mild vessel stenosis. No evidence of aneurysm formation or occlusion. Left middle cerebral artery: Unremarkable. No occlusion or significant stenosis. No aneurysm. Left anterior cerebral artery: Unremarkable. No occlusion or significant stenosis. No aneurysm. POSTERIOR CIRCULATION: Right vertebral artery: Unremarkable. No occlusion or significant stenosis. No aneurysm. Left vertebral artery: Unremarkable. No occlusion or significant stenosis. No aneurysm. Basilar artery: Unremarkable. No occlusion or significant stenosis. No aneurysm. Right posterior cerebral artery: Unremarkable. No occlusion or significant stenosis. No aneurysm. Left posterior cerebral artery: Unremarkable. No occlusion or significant stenosis. No aneurysm. Veins: The major venous structures appear patent. Brain: No definite mass, mass effect, or midline shift. Cerebral ventricles: No ventriculomegaly. Bones/joints: Unremarkable. No acute fracture. Soft tissues: Unremarkable. IMPRESSION: 1. No large vessel occlusion is appreciated. 2. 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 PROCEDURE INFORMATION: Exam: CT Angiography Neck With Contrast Exam date and time: 06/17/2021 4:42 PM Age: 51 years old Clinical indication: Other: AMS TECHNIQUE: Imaging protocol: Computed tomography angiography of the neck with contrast. 3D rendering (Not supervised by radiologist): MIP and/or 3D reconstructed images were created by the technologist. COMPARISON: CT HEAD WO 06/17/2021 1:44 PM FINDINGS: Right common carotid artery: No stenosis. No dissection or occlusion. Right internal carotid artery: Mild calcified plaque at the right internal carotid artery origin, without significant stenosis (0% by NASCET criteria). Moderate tortuosity of the distal cervical right internal carotid artery. Right external carotid artery: No occlusion or stenosis of the origin. Left common carotid artery: No stenosis. No dissection or occlusion. Left internal carotid artery: Mixed calcified and atheromatous plaque at the left internal carotid artery origin, without significant stenosis (0% by NASCET criteria). Left external carotid artery: No occlusion or stenosis of the origin. Right vertebral artery: No stenosis. No dissection or occlusion. Left vertebral artery: No stenosis. No dissection or occlusion. Dental: Periapical lucency associated with the roots of teeth 6 and 7, as well as smaller lucency at the root of tooth 3. Soft tissues: Normal. No significant soft tissue swelling. Bones/joints: No acute fracture. IMPRESSION: 1. Mild atherosclerosis, without significant vessel stenosis. 2. Dental disease, correlate with dental examination. REFERENCES: NASCET CRITERIA. The degree of internal carotid artery stenosis is based on NASCET criteria. Normal is no stenosis. Mild is less than 50% stenosis. Moderate is 50-69% stenosis. Severe is 70% to 99% stenosis. Total occlusion is no detectable patent lumen. Dictated and Authenticated by: Roverto Boswell MD. Ordering:LEONARDO Zimmerman MD
--- NOTE | 2021-06-17 18:54 | W.PM.HP.N ---
Date of service: 06/17/21 Time of Service: 18:54 Assessment and Plan Assessment and plan (1) Confusion: Status: Acute Assessment and plan: Intermittent confusion, etiology not apparent at present, all in setting of a variety of lab abnormalities which are more likely than not incidental though this has to be considered speculative at this point (I would note a potential unifying diagnosis of hepatic encephalopathy induced by GI bleeding -- note the new anemia and isolated elevation of BUN -- but this is not supported by negative stool, negative ammonia and absence of asterixis). I would advise obtaining UDS, treatment of hyponatremia and electrolyte deficiencies and anemia w/u. 1. Confusion: seems relatively coherent at this time. 2. Anemia: retics, stool guiacs, iron studies, B12, folate 3. Electrolytes: replenish and track 4. Reported hypoglycemia: track finger sticks. No etiology for hypoglycemia evident at present. Cirrhosis would not account for this as evidenced by relatively normal LFTs otherwise. Not on any diabetic meds. Doubt adrenal insufficiency but soft BP, hyponatremia noted -- but also hypokalemia. 5. EtOH: CIWA Note again that patient stated earlier he wanted to leave. Have reviewed with ER staff and they affirm that patient unable to care for self, unable to ambulate independently and do not consider him in position to leave AMA. History of Present Illness History of Present Illness Chief Complaint: confusion Narrative: 51 male alcoholic with h/o alcoholic cirrhosis, last drink earlier today. Seen by PCP today and sent to ER due to confusion. En route there was a report by EMT of glucose of 30, received D50 in field. Here he was initially described as oriented. W/U of note for white count 4.1, Hct 26, platelet 131; Na 125, K 2.7, BUN 32, Creat 1.0, glucose 289; ammonia neg, Etoh neg, tBili 1.1, Mg 1.1. Head CT neg, CTA neg save incidental 6.7 mm cerebral aneurysm; CXR negative, CT abdomen negative. Stooll is reported as heme negative. While in ER he has been reported as intermittently confused. Has received potassium and Mg replenishment. I was asked to assess for admission. Patient states he feels fine and wishes to leave. Review of Systems All systems reviewed & are unremarkable except as noted in HPI and below PFSH All Active Problems (Updated 06/17/21 @ 19:06 by George Chua MD) Confusion (Acute) Anemia (Chronic) Hypomagnesemia (Acute) Hypokalemia (Acute) Hyponatremia (Acute) Multiple lipomas (Acute) Screening for colon cancer (Acute) Elevated blood lead level (Acute) Bilateral hearing loss (Acute) Cubital tunnel syndrome on left (Acute) Left carpal tunnel syndrome (Acute) CRPS (complex regional pain syndrome), type II, upper (Acute) Right carpal tunnel syndrome (Acute) Cubital tunnel syndrome on right (Acute) Medical History Arm pain, right Asymmetrical sensorineural hearing loss Back pain Lopez's cyst, rt knee Chest wall pain Chronic low back pain Chronic pain Chronic sinusitis [place] Deviated septum Elevated LFTs ETOH abuse Exposure to lead Fatigue Foraminal stenosis of cervical region Foreign body in left upper extremity (01/11/20) s/p excision of foreign bodies Foreign body in right ear Greater trochanteric bursitis of left hip (09/04/15) Heart murmur per pt. this was an incorrect dx Infrapatellar bursitis of right knee (01/11/20) s/p bursa excision Left buttock pain (11/07/14) Low back pain (11/07/14) Lumbar back pain Marital problem MVP (mitral valve prolapse) Neuropathy ISADORA (obstructive sleep apnea) Paraesthesia left 4-5th finger (05/29/06) Paresthesias in left hand (06/28/14) Peripheral cyanosis Polyarthralgia PONV (postoperative nausea and vomiting) Pt c/o post nasal drip causing nausea and vomiting routinely Raynauds disease Snoring Soft tissue swelling Steatosis of liver Synovial cyst of popliteal space [Lopez], right knee Thoracic back pain Tinnitus of both ears Tobacco abuse Tubular adenoma of colon Surgical History Aftercare involving removal of fracture plate or internal fixation device left arm History of arthroscopy of right knee 2001, diagnostic History of carpal tunnel release right History of colonoscopy (~03/2021) Right Popliteal cyst resection (07/25/03) Status post transposition of nerve left elbow Family History Mother , [place] at age 74. Heart disease Father No problems noted. Social History Smoking/Tobacco Use Status: Current every day Tobacco Type: cigarettes Years smoked: 42 Smoking risk assessment performed?: Yes Alcohol Intake: current Alcohol Intake frequency: 3 or more drinks per day Alcohol type: hard liquor Drug use: Never Substance use type: does not use Household members: none Housing: house Number of Children: 1 current occupation: N/A Current gender identity: male What type of physical activity do you participate in: walking and independent ambulation Seatbelt use: sometimes Do you feel safe at home: Yes Do you feel safe in your relationship?: Yes Meds Allergies and Home Medications Allergies Allergy/AdvReac Type Severity Reaction Status Date / Time No Known Allergies Allergy Unverified 06/17/21 11:42 Home Medications Medication Instructions Recorded Confirmed Type trazodone 50 mg tablet 50 mg PO DAILY 12/09/19 06/17/21 History magnesium 250 mg tablet 500 mg PO DAILY 04/06/20 06/17/21 History Exam Narrative Exam Narrative: 100/64, 90, 36.6, 23, 95% RA. HEENT atraumatic, neck supple; lungs clear; heart RRR; abdomen slightly protruberant, soft and NT, no HSM; rectal (per ER) heme neg; extremities w/o edema; neuro Ox3, knows President, able to converse and follow instructions; EOMI, PERRL, motor 5/5, no asterixis, Results Labs Result diagrams: 06/17/21 12:06 06/17/21 12:06 Labs: Laboratory Results - last 24 hr 06/17/21 06/17/21 06/17/21 12:06 12:06 12:06 WBC 4.19 L RBC 2.75 L Hgb 9.1 L Hct 26.3 L MCV 95.6 H MCH 33.1 H MCHC 34.6 RDW 14.4 H Plt Count 131 MPV 10.0 Immature Gran % 0.7 Neutrophils % 74.7 Lymphocytes % 15.3 Monocytes % 8.1 Eosinophils % 1.0 Basophils % 0.2 Nucleated RBC % 0 Absolute Neutrophils 3.13 Absolute Lymphocytes 0.64 L Absolute Monocytes 0.34 Absolute Eosinophils 0.04 Absolute Basophils 0.01 PT INR Sodium 125 L Potassium 2.7 L* Chloride 86 L Carbon Dioxide 30.6 Anion Gap 8.4 BUN 32 H Creatinine 1.0 Estimated GFR/1.73 m2 >= 60.00 Glucose 289 H Calcium 10.4 H Magnesium 1.1 L Total Bilirubin 1.0 AST 53 H ALT 26 Alkaline Phosphatase 121 H Ammonia < 10 L Troponin I < 50 Total Protein 5.4 L Albumin 2.4 L TSH 2.66 Ethyl Alcohol < 3.0 COVID-19 Source SARS-CoV-2 (PCR) Influenza Type A (PCR) Influenza Type B (PCR) RSV (PCR) 06/17/21 06/17/21 12:06 13:29 WBC RBC Hgb Hct MCV MCH MCHC RDW Plt Count MPV Immature Gran % Neutrophils % Lymphocytes % Monocytes % Eosinophils % Basophils % Nucleated RBC % Absolute Neutrophils Absolute Lymphocytes Absolute Monocytes Absolute Eosinophils Absolute Basophils PT 11.6 H INR 1.2 H Sodium Potassium Chloride Carbon Dioxide Anion Gap BUN Creatinine Estimated GFR/1.73 m2 Glucose Calcium Magnesium Total Bilirubin AST ALT Alkaline Phosphatase Ammonia Troponin I Total Protein Albumin TSH Ethyl Alcohol COVID-19 Source Nasopharynx SARS-CoV-2 (PCR) Negative Influenza Type A (PCR) Negative Influenza Type B (PCR) Negative RSV (PCR) Negative Last Vital Signs Temp 36.6 C 06/17/21 17:14 Pulse 90 06/17/21 17:55 Resp 23 06/17/21 17:55 BP 100/64 06/17/21 17:55 Pulse Ox 95 06/17/21 17:50 PAWSS Have you Been Recently Intoxicated or Drunk Within the Last 30 days?: No Have you Ever Experienced Previous Episodes of Alcohol Withdrawal?: No Have you ever Experienced Withdrawal Seizures?: No Have you ever Experienced Delirium Tremens(DT)s?: No Have you ever undergone Alcohol Rehabilitation Treatment (i.e, inpt ot outpatient treatment programs)?: No Have you ever Experienced Blackouts?: No Have you ever Combined Alcohol with other Downers within the last 90 days?: No Have you ever Combined Alcohol with any other Substance of Abuse during the last 90 days?: No Positive Blood Alcohol level on Presentation? [PCS.BAL]: Yes Evidence of Increased Autonomic Activity (i.e. HR>120, tremor, sweating, agitation, nausea)?: No Result: 1
--- NOTE | 2021-06-17 18:54 | NUR.NOTE ---
Nursing Note: Patient grossly incontinent of urine around 16:30, so no urine sample obtained. Around 18:25, patient reported was trying to get up when this scribe entered. He reported need to urinate, this scribe encouraged use of urinal in order to obtain sample. Patient said he needed to sit down and use the commode, which he and this scribe were able to transfer him to. Unsuccessful use of urinal and urine mixed with stool in commode. Patient refused straight categorization.
[2021-06-17 19:08] LABS: Anion Gap 6.1 mmol/L (3-11); BUN 26 mg/dL (7-18); CO2 31.9 mmol/L (21.0-32.0); CREATININE 0.7 mg/dL (0.70-1.30); Calcium 10.3 mg/dL (8.5-10.1); Chloride 85 mmol/L (98-107); Glucose 113 mg/dL (74-106); Potassium 3.2 mmol/L (3.5-5.1)
[2021-06-17 19:21] LABS: Sodium 123 mmol/L (136-145)
[2021-06-17] MEDS: MAGNESIUM SULFATE 8.12 MEQ, MULTIVITAMIN 10 ML, THIAMINE 100 MG, FOLIC ACID 1 MG in Nor... 168.867 MG IV (19:51)
[2021-06-17 20:04] LABS: Iron 60 ug/dL (65-175); Total Iron Binding Capacity 245 ug/dL (250-450); Transferrin Sat 24 % (20-55)
[2021-06-17 20:05] LABS: Reticulocyte 0.2 % (0.5-2.4)
[2021-06-17 20:30] LABS: Ferritin 511 ng/mL (26-388); Folate 1.6 ng/mL (8.6-20.0); Vitamin B12 239 pg/mL (193-986)
--- NOTE | 2021-06-17 21:19 | NUR.NOTE ---
Referral made by Elsie MÁRQUEZ for [facility] [place] Neurosurgery for a cerebral aneurysm. Patient was admitted to M/S @ [facility]. Placed the referral in the care manger's box for the appt.
[2021-06-17] MEDS: POTASSIUM CHLORIDE/D5-0.9%NACL 1,000 ML 125 MEQ IV (22:02)
[2021-06-17 22:51] LABS: Bilirubin Negative (Negative); Blood Negative (Negative); Clarity Clear (Clear); Glucose 100 mg/dL (Negative); Ketones Trace mg/dL (Negative); Leukocyte Esterase Negative (Negative); Nitrite Negative (Negative); Specific Gravity <= 1.005 (1.005-1.025)
[2021-06-17 23:01] LABS: *AMPHETAMINES SCREEN URINE Negative (Negative); *BARBITURATES SCREEN URINE Negative (Negative); *BENZODIAZEPINES SCREEN URINE Negative (Negative); Cannabinoids THC Positive (Negative); Cocaine Screen,Urine Negative (Negative); METHADONE URINE SCREEN Negative (Negative); OPIATES URINE SCREEN Negative (Negative); Tricyclic Antidepressants Negative (Negative)
[2021-06-18] MEDS: LORazepam 1 MG TAB PO/SL ×2 (00:47→10:07)
[2021-06-18 03:05] VITALS: BP 102/70; PULSE 70; RESP 18; TEMP 37.3; O2SAT 97
[2021-06-18] MEDS: POTASSIUM CHLORIDE/D5-0.9%NACL 1,000 ML 125 MEQ IV (06:20)
[2021-06-18] MEDS: Normal Saline Flush 10 ML SYR IVP (06:20)
[2021-06-18 07:37] LABS: HCT 26.4 % (40.0-50.0); HGB 9.1 g/dL (13.5-17.5); MCH 33.2 pg (27.0-33.0); MCHC 34.5 % (32.0-36.0); MCV 96.4 fL (80-95); MPV 9.8 fL (8.0-11.0); Platelet Count 151 10^3/uL (130-400); RBC 2.74 10^6/uL (4.36-5.78); RDW 14.5 % (11.8-14.1); RDW-SD 50.8 fL; WBC 4.53 10^3/uL (4.4-10.8)
[2021-06-18 07:43] LABS: Anion Gap 4.7 mmol/L (3-11); BUN 17 mg/dL (7-18); CO2 31.3 mmol/L (21.0-32.0); CREATININE 0.6 mg/dL (0.70-1.30); Calcium 9.4 mg/dL (8.5-10.1); Chloride 94 mmol/L (98-107); Glucose 120 mg/dL (74-106); Sodium 130 mmol/L (136-145)
[2021-06-18 07:57] LABS: Potassium 2.9 mmol/L (3.5-5.1)
[2021-06-18] MEDS: Folic Acid 1 MG TAB PO (08:09)
[2021-06-18 08:11] VITALS: BP 107/71; PULSE 87; RESP 12; TEMP 37.2; O2SAT 96
--- NOTE | 2021-06-18 09:15 | INITIAL_ITS ---
- If Service Date Differs Date of service: 06/18/21 Time of Service: 09:15 Care Management Initial Assess REASON FOR HOSPITALIZATION:: confusion, alcohol use PAST MEDICAL HISTORY/PAST SURGICAL HISTORY:: All Active Problems. Confusion (Acute). Anemia (Chronic). Hypomagnesemia (Acute). Hypokalemia (Acute). Hyponatremia (Acute). Multiple lipomas (Acute). Screening for colon cancer (Acute). Elevated blood lead level (Acute). Bilateral hearing loss (Acute). Cubital tunnel syndrome on left (Acute). Left carpal tunnel syndrome (Acute). CRPS (complex regional pain syndrome), type II, upper (Acute). Right carpal tunnel syndrome (Acute). Cubital tunnel syndrome on right (Acute). Medical History. Arm pain, right. Asymmetrical sensorineural hearing loss. Back pain. Lopez's cyst, rt knee. Chest wall pain. Chronic low back pain. Chronic pain. Chronic sinusitis. [place]. Deviated septum. Elevated LFTs. ETOH abuse. Exposure to lead. Fatigue. Foraminal stenosis of cervical region. Foreign body in left upper extremity (01/11/20). s/p excision of foreign bodies. Foreign body in right ear. Greater trochanteric bursitis of left hip (09/04/15). Heart murmur. per pt. this was an incorrect dx. Infrapatellar bursitis of right knee (01/11/20). s/p bursa excision. Left buttock pain (11/07/14). Low back pain (11/07/14). Lumbar back pain. Marital problem. MVP (mitral valve prolapse). Neuropathy. ISADORA (obstructive sleep apnea). Paraesthesia left 4-5th finger (05/29/06). Paresthesias in left hand (06/28/14). Peripheral cyanosis. Polyarthralgia. PONV (postoperative nausea and vomiting). Pt c/o post nasal drip causing nausea and vomiting routinely. Raynauds disease. Snoring. Soft tissue swelling. Steatosis of liver. Synovial cyst of popliteal space [Lopez], right knee. Thoracic back pain. Tinnitus of both ears. Tobacco abuse. Tubular adenoma of colon. Surgical History. Aftercare involving removal of fracture plate or internal fixation device. left arm. History of arthroscopy of right knee. 2001, diagnostic. History of carpal tunnel release. right. History of colonoscopy (~03/2021). Right Popliteal cyst resection (07/25/03). Status post transposition of nerve. left elbow PREVIOUS FUNCTIONAL STATUS/SOCIAL/FAMILY SUPPORTS:: Marito lives in [place] with his , Nelly. He works in construction. He is independent at baseline. CURRENT FUNCTIONAL STATUS:: Marito was lying in bed when CM attempted to meet with him. He was not able to communicate with CM or participate in the conversation. Per provider, his medications will be adjusted, and he will continue to be monitored. CM will continue to follow. ADVANCE DIRECTIVES:: None on file, CM will offer forms. Has patient been provided with info about the portal/API?: Yes Did the patient sign up for the portal?: Yes (active) CODE STATUS:: Full Code INSURANCE COVERAGE / FINANCIAL ISSUES:: [employer]BS CURRENT HOME/COMMUNITY SERVICES/EQUIPMENT:: No current services or equipment. PRIMARY CARE PHYSICIAN:: Paige Chne POTENTIAL DISCHARGE NEEDS:: Evaluations for further needs, follow up appointments. PATIENT/FAMILY EDUCATION NEEDS:: Review discharge instructions and limitations, discussion of self care needs including ask me three. ANTICIPATED BARRIERS TO DISCHARGE:: None identified at this time. TRANSPORTATION:: via private vehicle by his . PLAN:: Anticipate Marito will return home when medically cleared. His will drive him home via private vehicle. He will follow up with his PCP and discharge plan of care. CM will continue to follow.
[2021-06-18] MEDS: chlordiazePOXIDE 25 MG CAP 100 MG PO ×2 (10:09→16:54)
[2021-06-18] MEDS: Potassium Chloride 20 MEQ TABCR 40 MEQ PO (10:12)
[2021-06-18 10:13] LABS: Hemoglobin A1C 4.8 % (<5.7)
[2021-06-18] MEDS: POTASSIUM CHLORIDE/D5-0.9%NACL 1,000 ML 100 MEQ IV ×2 (10:18→20:31)
[2021-06-18 10:54] LABS: Ammonia 18 umol/L (11-32)
[2021-06-18] MEDS: POTASSIUM CHLORIDE 20 MEQ/100 ML BAG 50 MEQ IVPB ×3 (10:58→16:55)
[2021-06-18 13:19] VITALS: BP 100/62; PULSE 80; RESP 18; TEMP 37.2; O2SAT 99
[2021-06-18 15:55] VITALS: BP 107/73; PULSE 86; RESP 23; TEMP 36.8; O2SAT 92
--- NOTE | 2021-06-18 16:57 | PGE_ITS ---
Date of Service Date of service: 06/18/21 Time of Service: 13:00 Assessment and Plan Assessment and plan (1) Confusion: Start date: 06/18/21 Start time: 13:30 Status: Acute Assessment and plan: ETOH abuse. On ciwa. On lorzepam prn, librium. Will check LFT and ammonia level He wakes but falls back to sleep quickly, hold libruim if continues to be somnolent (2) ETOH abuse: Start date: 06/18/21 Start time: 13:30 Status: Acute Assessment and plan: as above (3) Hypokalemia: Start date: 06/18/21 Start time: 13:30 Status: Acute Assessment and plan: 2.9 Give 10 meq x 4 bags and 1 -20 meq bag One dose 40 po will also have K with D5 after k runs. monitor and repeat in am (4) Hyponatremia: Start date: 06/18/21 Start time: 13:30 Status: Acute Assessment and plan: 130 received banana bag (5) Hypomagnesemia: Start date: 06/18/21 Start time: 13:30 Status: Acute Assessment and plan: 1.1 placed on bag repeat in am discussed with Dr. Messina Subjective Subjective Patient reports: other Interval history since last seen: Patient sedated. Awakes with caraballo rub but once awake falls back to sleep. Dose of libruim held. Patient kept falling asleep during evaluation Exam Narrative Exam Narrative: HEENT atraumatic, neck supple; lungs clear; heart RRR; abdomen slightly protruberant, soft and NT, no HSM; rectal (per ER) heme neg; extremities w/o edema; neuro unable to assess d/t , being to sleepy, follows instructions but falls asleep and needs to be woken up ; EOMI, PERRLA, motor 5/5, no asterixis, Objective Last Vital Signs Temp 36.8 C 06/18/21 15:55 Pulse 86 06/18/21 15:55 Resp 23 06/18/21 15:55 BP 107/73 06/18/21 15:55 Pulse Ox 92 06/18/21 15:55 Laboratory Results - last 24 hr 06/17/21 06/17/21 06/17/21 12:06 12:06 12:06 WBC RBC Hgb Hct MCV MCH MCHC RDW Plt Count MPV Reticulocyte % (Auto) Sodium Potassium Chloride Carbon Dioxide Anion Gap BUN Creatinine Estimated GFR/1.73 m2 Glucose Hemoglobin A1c Calcium Iron 60 L TIBC 245 L Transferrin % Sat 24 Ferritin 511 H Ammonia Vitamin B12 239 Cancelled Folate 1.6 L Urine Color Urine Clarity Urine pH Ur Specific [place] Urine Protein Urine Ketones Urine Blood Urine Nitrite Urine Bilirubin Urine Urobilinogen Ur Leukocyte Esterase Urine Glucose Urine Opiates Screen Urine Methadone Screen Ur Barbiturates Screen Ur Tricyclics Screen Ur Amphetamines Screen U Benzodiazepines Scrn Urine Cocaine Screen Ur THC Screen Add-On Test Request 06/17/21 06/17/21 06/17/21 12:06 18:21 22:47 WBC RBC Hgb Hct MCV MCH MCHC RDW Plt Count MPV Reticulocyte % (Auto) 0.2 L Sodium 123 L* Potassium 3.2 L Chloride 85 L Carbon Dioxide 31.9 Anion Gap 6.1 BUN 26 H Creatinine 0.7 Estimated GFR/1.73 m2 >= 60.00 Glucose 113 H D Hemoglobin A1c Calcium 10.3 H Iron TIBC Transferrin % Sat Ferritin Ammonia Vitamin B12 Folate Urine Color Urine Clarity Urine pH Ur Specific [place] Urine Protein Urine Ketones Urine Blood Urine Nitrite Urine Bilirubin Urine Urobilinogen Ur Leukocyte Esterase Urine Glucose Urine Opiates Screen Negative Urine Methadone Screen Negative Ur Barbiturates Screen Negative Ur Tricyclics Screen Negative Ur Amphetamines Screen Negative U Benzodiazepines Scrn Negative Urine Cocaine Screen Negative Ur THC Screen Positive A Add-On Test Request 06/17/21 06/18/21 06/18/21 22:47 06:25 06:25 WBC RBC Hgb Hct MCV MCH MCHC RDW Plt Count MPV Reticulocyte % (Auto) Sodium Potassium Chloride Carbon Dioxide Anion Gap BUN Creatinine Estimated GFR/1.73 m2 Glucose Hemoglobin A1c 4.8 Calcium Iron TIBC Transferrin % Sat Ferritin Ammonia Vitamin B12 Folate Urine Color Yellow Urine Clarity Clear Urine pH 6.[address] [place] <= 1.005 Urine Protein Negative Urine Ketones Trace H Urine Blood Negative Urine Nitrite Negative Urine Bilirubin Negative Urine Urobilinogen 2.0 H Ur Leukocyte Esterase Negative Urine Glucose 100 Urine Opiates Screen Urine Methadone Screen Ur Barbiturates Screen Ur Tricyclics Screen Ur Amphetamines Screen U Benzodiazepines Scrn Urine Cocaine Screen Ur THC Screen Add-On Test Request 06/18/21 06/18/21 06/18/21 07:25 07:25 10:35 WBC 4.53 RBC 2.74 L Hgb 9.1 L Hct 26.4 L MCV 96.4 H MCH 33.2 H MCHC 34.5 RDW 14.5 H Plt Count 151 MPV 9.8 Reticulocyte % (Auto) Sodium 130 L Potassium 2.9 L Chloride 94 L Carbon Dioxide 31.3 Anion Gap 4.7 BUN 17 D Creatinine 0.6 L Estimated GFR/1.73 m2 >= 60.00 Glucose 120 H Hemoglobin A1c Calcium 9.4 Iron TIBC Transferrin % Sat Ferritin Ammonia 18 Vitamin B12 Folate Urine Color Urine Clarity Urine pH Ur Specific [place] Urine Protein Urine Ketones Urine Blood Urine Nitrite Urine Bilirubin Urine Urobilinogen Ur Leukocyte Esterase Urine Glucose Urine Opiates Screen Urine Methadone Screen Ur Barbiturates Screen Ur Tricyclics Screen Ur Amphetamines Screen U Benzodiazepines Scrn Urine Cocaine Screen Ur THC Screen Add-On Test Request 06/18/21 06/18/21 14:00 16:00 WBC RBC Hgb Hct MCV MCH MCHC RDW Plt Count MPV Reticulocyte % (Auto) Sodium Cancelled Cancelled Potassium Cancelled Cancelled Chloride Cancelled Cancelled Carbon Dioxide Cancelled Cancelled Anion Gap Cancelled Cancelled BUN Cancelled Cancelled Creatinine Cancelled Cancelled Estimated GFR/1.73 m2 Cancelled Cancelled Glucose Cancelled Cancelled Hemoglobin A1c Calcium Cancelled Cancelled Iron TIBC Transferrin % Sat Ferritin Ammonia Vitamin B12 Folate Urine Color Urine Clarity Urine pH Ur Specific [place] Urine Protein Urine Ketones Urine Blood Urine Nitrite Urine Bilirubin Urine Urobilinogen Ur Leukocyte Esterase Urine Glucose Urine Opiates Screen Urine Methadone Screen Ur Barbiturates Screen Ur Tricyclics Screen Ur Amphetamines Screen U Benzodiazepines Scrn Urine Cocaine Screen Ur THC Screen Add-On Test Request PAWSS Have you Been Recently Intoxicated or Drunk Within the Last 30 days?: No Have you Ever Experienced Previous Episodes of Alcohol Withdrawal?: No Have you ever Experienced Withdrawal Seizures?: No Have you ever Experienced Delirium Tremens(DT)s?: No Have you ever undergone Alcohol Rehabilitation Treatment (i.e, inpt ot outpati ent treatment programs)?: No Have you ever Experienced Blackouts?: No Have you ever Combined Alcohol with other Downers within the last 90 days?: No Have you ever Combined Alcohol with any other Substance of Abuse during the last 90 days?: No Positive Blood Alcohol level on Presentation? [PCS.BAL]: Yes Evidence of Increased Autonomic Activity (i.e. HR>120, tremor, sweating, agitation, nausea)?: No Result: 1
[2021-06-18 19:42] LABS: C Diff PCR Negative (Negative)
[2021-06-18 21:44] VITALS: BP 122/66; PULSE 78; RESP 16; TEMP 37.3; O2SAT 99
[2021-06-18] MEDS: Gabapentin 600 MG TAB PO (21:49)
[2021-06-18] MEDS: Nystatin 500000 UNITS/5 ML SUSP 5ML CUP PO (21:49)
[2021-06-19 04:19] VITALS: BP 98/63; PULSE 75; RESP 18; TEMP 36.6; O2SAT 100
[2021-06-19] MEDS: POTASSIUM CHLORIDE/D5-0.9%NACL 1,000 ML 100 MEQ IV ×2 (06:40→17:30)
[2021-06-19 07:46] LABS: Ammonia 17 umol/L (11-32)
[2021-06-19 07:50] LABS: ALT 47 U/L (16-63); AST 154 U/L (15-37); Albumin 2.3 g/dL (3.4-5.0); Alkaline Phosphatase 166 U/L (46-116); Bilirubin, Direct 0.4 mg/dL (0.0-0.2); Bilirubin, Total 0.6 mg/dL (0.2-1.0); Total Protein 5.7 g/dL (6.4-8.2)
[2021-06-19 07:59] VITALS: BP 106/67; PULSE 75; RESP 19; TEMP 36.3; O2SAT 98
[2021-06-19] MEDS: Lisinopril 10 MG TAB 20 MG PO (08:17)
[2021-06-19] MEDS: Magnesium Oxide 400 MG TAB PO (08:18)
[2021-06-19] MEDS: Folic Acid 1 MG TAB PO (08:18)
[2021-06-19] MEDS: FLUCONAZOLE 200 MG/100 ML BAG 100 MG IVPB (08:19)
[2021-06-19] MEDS: Normal Saline Flush 10 ML SYR IVP (08:19)
[2021-06-19 08:32] LABS: Anion Gap 7.3 mmol/L (3-11); BUN 10 mg/dL (7-18); CO2 24.7 mmol/L (21.0-32.0); CREATININE 0.6 mg/dL (0.70-1.30); Calcium 8.8 mg/dL (8.5-10.1); Chloride 104 mmol/L (98-107); Glucose 125 mg/dL (74-106); Magnesium 1.6 mg/dL (1.8-2.4); Potassium 3.5 mmol/L (3.5-5.1); Sodium 136 mmol/L (136-145)
[2021-06-19] MEDS: MAGNESIUM SULFATE 2 GM/50 ML BAG IVPB (13:52)
[2021-06-19 15:02] LABS: BE (Venous) 1 mmol/L (-2-3); HCO3 (Venous) 25 mmol/L (23-28); pCO2 (Venous) 32 mmHg (41-51); pO2 (Venous) 128 mmHg
[2021-06-19 15:08] LABS: O2 Sat (Venous) > 99 %
--- NOTE | 2021-06-19 15:21 | W.PM.PROGNOT ---
Date of Service Date of service: 06/19/21 Time of Service: 15:22 Assessment and Plan Assessment and plan (1) Confusion: Status: Acute Assessment and plan: history of ETOH abuse. On ciwa. On lorzepam prn, librium discontinued d/t stuporous state. normal ammonia level He wakes but falls back to sleep quickly, EEG ordered high dose thiamine no sign of withdrawal. imaging and labs unrevealing to date (2) ETOH abuse: Status: Acute Assessment and plan: as above (3) Hypokalemia: Status: Acute Assessment and plan: improved. continue to replete and follow (4) Hyponatremia: Status: Acute Assessment and plan: normalized. (5) Hypomagnesemia: Status: Acute Assessment and plan: replete and follow. discussed with Dr. Messina Subjective Subjective Patient reports: voiding w/o difficulty (fully incontinent of urine) and afebrile; denies shortness of breath Interval history since last seen: remains altered but hemodynamically stable and appears in no distress or pain Exam Const General: cooperative, comfortable, no acute distress and ill appearing chronically [facility] Head: normal to inspection, normocephalic and atraumatic Mouth: moist mucous membranes abnormal (Slightly dry) Eyes Conjunctivae: conjunctival abnormality bilaterally conjunctival icterus (mild) Neck Neck: normal visual inspection, full ROM and no meningeal signs Resp Effort & Inspection: normal respiratory effort Auscultation: clear to auscultation bilaterally and diminished lung sounds bilaterally in the lower lung [place] Cardio Rate: regular rate Rhythm: regular rhythm GI Palpation: soft and nontender Auscultation: normal bowel sounds Back/Spine/Pelvis Back: no CVA tenderness and No back tenderness Skin General skin exam: jaundice (Mild) Rashes: no rashes Neuro General: moves all extremities and no focal motor deficits Motor: muscle tone normal throughout Sensory Exam: no sensory deficits noted Extrem General: normal to inspection, full ROM, capillary refill normal, no pedal edema and no calf tenderness Objective Last Vital Signs Temp 36.3 C L 06/19/21 07:59 Pulse 75 06/19/21 07:59 Resp 19 06/19/21 07:59 BP 106/67 06/19/21 07:59 Pulse Ox 98 06/19/21 07:59 Laboratory Results - last 24 hr 06/18/21 06/19/21 06/19/21 18:44 07:15 07:15 VBG pH VBG pCO2 VBG pO2 VBG HCO3 VBG Total CO2 VBG O2 Saturation VBG Base Excess Sodium Potassium Chloride Carbon Dioxide Anion Gap BUN Creatinine Estimated GFR/1.73 m2 Glucose Calcium Magnesium Total Bilirubin 0.6 Conjugated Bilirubin 0.4 H AST 154 H ALT 47 Alkaline Phosphatase 166 H Ammonia 17 Total Protein 5.7 L Albumin 2.3 L Stl C.difficile Tox PCR Negative 06/19/21 06/19/21 07:15 14:53 VBG pH 7.50 H VBG pCO2 32 L VBG pO2 128 VBG HCO3 25 VBG Total CO2 VBG O2 Saturation > 99 VBG Base Excess 1 Sodium 136 Potassium 3.5 Chloride 104 Carbon Dioxide 24.7 Anion Gap 7.3 BUN 10 D Creatinine 0.6 L Estimated GFR/1.73 m2 >= 60.00 Glucose 125 H Calcium 8.8 Magnesium 1.6 L Total Bilirubin Conjugated Bilirubin AST ALT Alkaline Phosphatase Ammonia Total Protein Albumin Stl C.difficile Tox PCR PAWSS Have you Been Recently Intoxicated or Drunk Within the Last 30 days?: No Have you Ever Experienced Previous Episodes of Alcohol Withdrawal?: No Have you ever Experienced Withdrawal Seizures?: No Have you ever Experienced Delirium Tremens(DT)s?: No Have you ever undergone Alcohol Rehabilitation Treatment (i.e, inpt ot outpatient treatment programs)?: No Have you ever Experienced Blackouts?: No Have you ever Combined Alcohol with other Downers within the last 90 days?: No Have you ever Combined Alcohol with any other Substance of Abuse during the last 90 days?: No Positive Blood Alcohol level on Presentation? [PCS.BAL]: Yes Evidence of Increased Autonomic Activity (i.e. HR>120, tremor, sweating, agitation, nausea)?: No Result: 1
[2021-06-19 15:30] VITALS: BP 99/66; PULSE 73; RESP 21; TEMP 36.4; O2SAT 98
--- NOTE | 2021-06-19 15:36 | PDOC.CMPRO ---
- If Service Date Differs Date of service: 06/19/21 Time of Service: 15:36 Care Management Progress Note S/O: Marito was sleeping when CM attempted to meet with him. Later, CM met with his father, Shabbir, and sister, Jackelin ([phone]), who were visiting. They expressed concern for Marito, as he is not able to communicate well, and is not able to stay awake. They reported that this is far from his baseline, as he is very functional and independent at home. CM asked MD to meet with Marito's family, to help them understand his medical presentation. Marito will continue to be closely monitored, CM will continue to follow. A: Marito is a 51 year old male admitted to [facility] on 06/17/21 for confusion, alcohol abuse. P: Anticipate Marito will return home when medically cleared. His family will drive him home via private vehicle. He will follow up with his PCP and discharge plan of care. CM will continue to follow.
[2021-06-19] MEDS: THIAMINE 500 MG in Normal Saline 100 ML 200 MG IVPB ×2 (16:31→23:16)
[2021-06-19] MEDS: Gabapentin 300 MG CAP PO (23:16)
[2021-06-19 23:59] VITALS: BP 100/72; PULSE 78; RESP 19; TEMP 37.3; O2SAT 98
--- NOTE | 2021-06-20 | DI.MRI_ITS ---
Exam(s) MR BRAIN WO EXAM: MR BRAIN WO CLINICAL HISTORY: altered mental status TECHNIQUE: Multiplanar multisequence MRI of the brain was performed. 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 Numerous sequences of today's MRI are blurred by motion artifact. CEREBRAL PARENCHYMA: There is no evidence of intracranial hemorrhage, mass effect, or shift of midline structures. There are no extra-axial fluid collections. Ventricles are not enlarged or shifted. There is no significant focal signal abnormality in the cerebellar hemispheres nor within the mony, m idbrain, and thalami. There is no abnormal signal abnormality in the periventricular white matter. There is no significant focal signal abnormality evident on diffusion imaging to suggest acute ischem ic event. PITUITARY GLAND: No mass nor parasellar abnormality. No obvious abnormality in the cavernous sinuses. FLOW VOIDS: The expected flow void are noted. Previously described aneurysm at the level of the ante rior communicating artery is noted but difficult to evaluate because of motion artifact here and the fact that this is a conventional MRI study and not an MRA study. PARANASAL SINUSES: The visualized paranasal sinuses appear unremarkable. No obvious finding ORBITS: No obvious findings. IMPRESSION: No evidence of intracranial hemorrhage nor areas of ischemia evident. 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 If clinically indicated additional imaging with noninfused MRA of the brain can be perfo rmed. This would take approximately 10 minutes and therefore less likely to exhibit motion artifact. DATA REPOSITORY:
[2021-06-20] MEDS: POTASSIUM CHLORIDE/D5-0.9%NACL 1,000 ML 100 MEQ IV ×2 (03:43→16:01)
[2021-06-20 07:49] VITALS: BP 120/77; PULSE 64; RESP 18; TEMP 37; O2SAT 93
[2021-06-20] MEDS: Magnesium Oxide 400 MG TAB PO (08:41)
[2021-06-20] MEDS: Folic Acid 1 MG TAB PO (08:41)
[2021-06-20] MEDS: Lisinopril 10 MG TAB 20 MG PO (08:42)
[2021-06-20] MEDS: THIAMINE 500 MG in Normal Saline 100 ML 200 MG IVPB ×2 (08:42→16:31)
[2021-06-20] MEDS: FLUCONAZOLE 200 MG/100 ML BAG 100 MG IVPB (09:45)
[2021-06-20 10:28] LABS: HIV-1/2 Ag & Ab Screen Negative (Negative)
--- NOTE | 2021-06-20 12:30 | W.NEUROCONSU ---
Date of service: 06/20/21 Time of Service: 12:30 Assessment and Plan Assessment and plan (1) Anterior cerebral aneurysm: Status: Acute (2) Confusion: Status: Acute Assessment and plan: #1. Altered mental status. Unclear etiology. Negative extensive work-up. Can consider LP, but no signs of infection/inflammation. Continue high-dose thiamine supplementation along with folic acid. I would recommend B12 supplementation as well at 1000mcg daily. Consider psychiatric consultation. #2. Cerebral aneurysm. I recommend outpatient neurosurgical evaluation given size >5mm to discuss need for further work-up/treatment. He should follow-up in the neurology clinic in 4-6 weeks. History of Present Illness History of Present Illness Chief Complaint: encephalopathy Narrative: Handedness: right. HPI: Mr. Morrow is a 51 year man with a history of ETOH abuse though reported sober x 1month, ISADORA, hypertension, chronic low back pain, and elevated lead levels. Mr. Morrow presented to [facility] on 06/17/21 after being sent by his PCP's office for confusion and hypotension (SBP 90s). He underwent work-up as below with noted numerous electrolyte deficiencies for which he was recommended admission. He initially declined but ended up agreeing. Over that first night, he became progressively somnolent. He did received 1mg lorazeam as part of [facility] protocol which was subsequently stopped due to the sedation. Since then, he has remained somnolent with altered mentation. Waxing and waning. He has been placed on high dose thiamine along with folic acid supplementation. Today, he was able to tell me that he lives alone. He has one son. He does not work and could not tell me the last time he worked or what he used to do. He also could not tell me why he wasn't working. He was non-sensical at times. He tells me that he did not eat for 4 days and is worried about nutritional deficiencies. Work-up: -CTH (06/17/21): mild generalized atrophy, more than expected for age. I reviewed these images personally and this is my personal interpretation. -CTA head/neck (06/17/21): 6 x 5.5 x 5.0 mm aneurysm at base of KESHAWN. Mild atherosclerosis. I reviewed these images personally and this is my personal interpretation. -MRI brain (06/20/21): complicated by motion artifact. No acute findings. Mild-moderate generalized atrophy. I reviewed these images personally and this is my personal interpretation. -Hgb 9.1 - baseline 13-14 -Plt 131 -Na 125 -> 123 -> 130 -> 136 -TSH 2.6 -ETOH 0 -B12 239 -Folate 1.6 -Ammonia <10, 18, and 17 -Chronically elevated AST and AlkP stable; ALT normal -ABG (06/19/21): pH 7.5, pCO2 32, pO2 128 Consults Requesting physician: Winston Messina Review of Systems Unobtainable due to mental condition PFSH All Active Problems (Updated 06/17/21 @ 21:10 by KENDY Mariscal) ETOH abuse (Acute) Anterior cerebral aneurysm (Acute) Confusion (Acute) Anemia (Chronic) Hypomagnesemia (Acute) Hypokalemia (Acute) Hyponatremia (Acute) Multiple lipomas (Acute) Screening for colon cancer (Acute) Elevated blood lead level (Acute) Bilateral hearing loss (Acute) Cubital tunnel syndrome on left (Acute) Left carpal tunnel syndrome (Acute) CRPS (complex regional pain syndrome), type II, upper (Acute) Right carpal tunnel syndrome (Acute) Cubital tunnel syndrome on right (Acute) Medical History Arm pain, right Asymmetrical sensorineural hearing loss Back pain Lopez's cyst, rt knee Chest wall pain Chronic low back pain Chronic pain Chronic sinusitis [place] Deviated septum Elevated LFTs ETOH abuse Exposure to lead Fatigue Foraminal stenosis of cervical region Foreign body in left upper extremity (01/11/20) s/p excision of foreign bodies Foreign body in right ear Greater trochanteric bursitis of left hip (09/04/15) Heart murmur per pt. this was an incorrect dx Infrapatellar bursitis of right knee (01/11/20) s/p bursa excision Left buttock pain (11/07/14) Low back pain (11/07/14) Lumbar back pain Marital problem MVP (mitral valve prolapse) Neuropathy ISADORA (obstructive sleep apnea) Paraesthesia left 4-5th finger (05/29/06) Paresthesias in left hand (06/28/14) Peripheral cyanosis Polyarthralgia PONV (postoperative nausea and vomiting) Pt c/o post nasal drip causing nausea and vomiting routinely Raynauds disease Snoring Soft tissue swelling Steatosis of liver Synovial cyst of popliteal space [Lopez], right knee Thoracic back pain Tinnitus of both ears Tobacco abuse Tubular adenoma of colon Surgical History Aftercare involving removal of fracture plate or internal fixation device left arm History of arthroscopy of right knee 2001, diagnostic History of carpal tunnel release right History of colonoscopy (~03/2021) Right Popliteal cyst resection (07/25/03) Status post transposition of nerve left elbow Family History Mother , [place] at age 74. Heart disease Father No problems noted. Social History Smoking/Tobacco Use Status: Current every day Tobacco Type: cigarettes Years smoked: 42 Smoking risk assessment performed?: Yes Alcohol Intake: current Alcohol Intake frequency: 3 or more drinks per day Alcohol type: hard liquor Drug use: Never Substance use type: does not use Household members: none Housing: house Number of Children: 1 current occupation: N/A Current gender identity: male What type of physical activity do you participate in: walking and independent ambulation Seatbelt use: sometimes Do you feel safe at home: Yes Do you feel safe in your relationship?: Yes Visit Medication and Allergies Active Medications Generic Name Dose Route Start Last Admin Trade Name Freq PRN Reason Stop Dose Admin Dimethicone/Zinc Oxide 0 gm 06/17/21 19:21 Arlette Protect Cream 142 Gm Tube TP PRN PRN Folic Acid 1 mg 06/18/21 08:30 06/20/21 08:41 Folic Acid 1 Mg Tab PO 1 mg DAILY JOHAN Administration Gabapentin 300 mg 06/19/21 22:00 06/19/21 23:16 Gabapentin 300 Mg Cap PO 300 mg HS JOHAN Administration Potassium Chloride/Dextrose/Sod Cl 1,000 mls @ 100 mls/hr 06/17/21 20:00 06/20/21 03:43 Kcl 20meq/D5-0.9% Nacl IV 100 mls/hr INFUSION JOHAN Administration Fluconazole 200 mg in 100 mls @ 100 mls/hr 06/19/21 08:00 06/20/21 10:55 Diflucan/N. Saline 200 Mg/100 Ml IVPB Infused Q24H JOHAN Infusion Thiamine HCl 500 mg/ Sodium 105 mls @ 200 mls/hr 06/19/21 16:00 06/20/21 09:15 Chloride IVPB 06/20/21 16:59 Infused Q8H JOHAN Infusion IV Miscellaneous Supplies 1 each 06/17/21 12:00 Iv Access IV DIRECTED JOHAN Lisinopril 20 mg 06/19/21 08:30 06/20/21 08:42 Lisinopril 10 Mg Tab PO 20 mg DAILY JOHAN Administration Lorazepam 0 mg 06/17/21 19:21 06/18/21 10:07 Lorazepam 1 Mg Tab PO/SL 1 mg DIRECTED PRN Administration Magnesium Oxide 400 mg 06/19/21 08:30 06/20/21 08:41 Magnesium Oxide 400 Mg Tab PO 400 mg DAILY JOHAN Administration Nicotine 21 mg 06/20/21 08:30 06/20/21 08:41 Nicotine 21 Mg/24 Hr Patch TD Not Given DAILY JOHAN Sodium Chloride 0 ml 06/17/21 22:03 06/19/21 08:19 Normal Saline Flush 10 Ml Syr IVP 10 ml PRN PRN Administration Thiamine HCl 100 mg 06/21/21 08:30 Thiamine 100 Mg Tab PO QAM JOHAN Trazodone HCl 25 mg 06/18/21 09:36 Trazodone 50 Mg Tab PO HS PRN PRN Allergies No Known Allergies Allergy (Unverified 06/17/21 11:42) Exam Narrative Exam Narrative: Physical Exam: Constitutional: Patient of apparent stated age, well nourished, well developed, no acute distress Neck: Supple, no meningismus CV: RRR, S1, S2, no murmur Resp: CTAB Abd: Soft, nontender, nondistended Neuro: MS/Language/Speech: Alert, oriented to self only - did not know his age but did know his birthday, fluent; unable to name consistently or follow any commands consistently; tangential and at times not clear what he is talking about at all CN: PERRL, EOMI, visual hawley appear intact, trigeminal sensation appears intact by PP, no facial asymmetry, hearing intact Motor: Normal bulk and tone. Appears to have full strength in all extremities. No focal weakness. Sensation: Intact to PP throughout Reflexes: 2+ DTRs, downgoing toes Coordination: Finger to nose performed without dysmetria Gait: not tested due to mental status - not safe Results Last Vital Signs Temp 98.6 F 06/20/21 07:49 Pulse 64 06/20/21 07:49 Resp 18 06/20/21 07:49 BP 120/77 06/20/21 07:49 Pulse Ox 93 06/20/21 07:49 Labs Result diagrams: 06/20/21 13:53 06/20/21 13:53 Labs: Laboratory Results - last 24 hr 06/19/21 06/19/21 07:15 14:53 VBG pH 7.50 H VBG pCO2 32 L VBG pO2 128 VBG HCO3 25 VBG Total CO2 VBG O2 Saturation > 99 VBG Base Excess 1 HIV 1&2 Ag/Ab, 4th Gen Negative
[2021-06-20 14:02] LABS: Abs Immature Grans 0.12 10^3/uL (0.0-0.06); Absolute Basophil Count 0.03 10^3/uL (0.0-0.2); Absolute Eosinophil Count 0.13 10^3/uL (0.0-0.7); Absolute Lymphocyte Count 1.33 10^3/uL (1.2-3.4); Absolute Monocyte Count 0.75 10^3/uL (0.1-0.8); Absolute Neutrophil Count 3.15 10^3/uL (1.2-6.7); Basophils % 0.5; Eosinophils % 2.4; HCT 26.5 % (40.0-50.0); HGB 8.5 g/dL (13.5-17.5); Immature Grans % 2.2; Lymphocytes % 24.1; MCH 32.8 pg (27.0-33.0); MCHC 32.1 % (32.0-36.0); MCV 102.3 fL (80-95); MPV 9.3 fL (8.0-11.0); Monocytes % 13.6; Neutrophils % 57.2; Nucleated RBC 0 %; Platelet Count 212 10^3/uL (130-400); RBC 2.59 10^6/uL (4.36-5.78); RDW 15.8 % (11.8-14.1); RDW-SD 59.1 fL; WBC 5.51 10^3/uL (4.4-10.8)
[2021-06-20 14:13] LABS: ALT 40 U/L (16-63); AST 87 U/L (15-37); Albumin 2.3 g/dL (3.4-5.0); Alkaline Phosphatase 186 U/L (46-116); Anion Gap 8.4 mmol/L (3-11); BUN 6 mg/dL (7-18); Bilirubin, Total 0.5 mg/dL (0.2-1.0); CO2 22.6 mmol/L (21.0-32.0); CREATININE 0.6 mg/dL (0.70-1.30); Calcium 8.5 mg/dL (8.5-10.1); Chloride 110 mmol/L (98-107); Glucose 120 mg/dL (74-106); Potassium 3.4 mmol/L (3.5-5.1); Sodium 141 mmol/L (136-145); Total Protein 5.9 g/dL (6.4-8.2)
[2021-06-20] MEDS: LORazepam 2 MG/ML VIAL 0.5 MG IVP (14:50)
[2021-06-20 15:08] VITALS: BP 123/79; PULSE 67; RESP 18; TEMP 36.7; O2SAT 99
--- NOTE | 2021-06-20 15:24 | PDOC.EEG ---
Neurology EEG EEG: [facility] Department of Neurology INPATIENT EEG REPORT Date of Recordin06/20/21 Interpreting Physician: Dr. Caroline Darnell Reason for study: Mr. Morrow is a 51 year-old man admitted with altered mental status. Current Medications: Current Medications Dimethicone/Zinc Oxide (Arlette Protect Cream 142 Gm Tube) 0 gm TP PRN PRN Folic Acid (Folic Acid 1 Mg Tab) 1 mg PO DAILY [facility] Last Admin: 06/20/21 08:41 Dose: 1 mg Documented by: Gabapentin (Gabapentin 300 Mg Cap) 300 mg PO HS [facility] Last Admin: 06/19/21 23:16 Dose: 300 mg Documented by: Potassium Chloride/Dextrose/Sod Cl (Kcl 20meq/D5-0.9% Nacl) 1,000 mls @ 100 mls/hr IV INFUSION [facility] Last Admin: 06/20/21 03:43 Dose: 100 mls/hr Documented by: Fluconazole (Diflucan/N. Saline 200 Mg/100 Ml) 200 mg in 100 mls @ 100 mls/hr IVPB Q24H [facility] Last Infusion: 06/20/21 10:55 Dose: Infused Documented by: Thiamine HCl 500 mg/ Sodium (Chloride) 105 mls @ 200 mls/hr IVPB Q8H [facility] Stop: 06/20/21 16:59 Last Infusion: 06/20/21 09:15 Dose: Infused Documented by: IV Miscellaneous Supplies (Iv Access) 1 each IV DIRECTED [facility] Lisinopril (Lisinopril 10 Mg Tab) 20 mg PO DAILY [facility] Last Admin: 06/20/21 08:42 Dose: 20 mg Documented by: Lorazepam (Lorazepam 1 Mg Tab) 0 mg PO/SL DIRECTED PRN Last Admin: 06/18/21 10:07 Dose: 1 mg Documented by: Magnesium Oxide (Magnesium Oxide 400 Mg Tab) 400 mg PO DAILY [facility] Last Admin: 06/20/21 08:41 Dose: 400 mg Documented by: Nicotine (Nicotine 21 Mg/24 Hr Patch) 21 mg TD DAILY [facility] Last Admin: 06/20/21 08:41 Dose: Not Given Documented by: Sodium Chloride (Normal Saline Flush 10 Ml Syr) 0 ml IVP PRN PRN Last Admin: 06/19/21 08:19 Dose: 10 ml Documented by: Thiamine HCl (Thiamine 100 Mg Tab) 100 mg PO QAM JOHAN Trazodone HCl (Trazodone 50 Mg Tab) 25 mg PO HS PRN PRN METHODS: A 21 channel digitized electroencephalogram was performed in the [facility] Med/Surg Floor or ICU. The 10/20 international system of electrode placement was used and bipolar and referential electrode montages were recorded. In addition to EEG the patient was monitored for EKG and lateral/vertical eye movements. Activation procedures of photic stimulation and hyperventilation were performed if applicable. Video was used during activation procedures and during events where applicable. The duration of the recording was 30 minutes. DESCRIPTION OF EEG: The patient was noted to be awake only during the recording. During maximal wakefulness a 9-Hz posterior background rhythm was present which was well-modulated, symmetrical, reactive to eye opening, and of moderate voltage. With eye opening the background activity changed to a low voltage mixture of alpha, beta, and occasional theta range frequencies. Faster frequencies were present in the bilateral anterior head regions. There was a normal anterior-posterior voltage gradient. No drowsiness or stage II sleep was recorded. Activating Procedures: Photic stimulation was performed which produced a symmetrical posterior driving response at various flash frequencies. Hyperventilation was not performed. EKG: EKG revealed normal sinus rhythm. INTERPRETATION: This EEG is normal during the awake state as well as during photic stimulation. PRIOR EEG: none CLINICAL CORRELATION: No focal regions of cerebral dysfunction or epileptiform activity was present. Epilepsy remains a clinical diagnosis and a normal EEG does not rule out epilepsy. Clinical correlation is advised. Caroline Darnell MD
--- NOTE | 2021-06-20 15:36 | CMPROGNOTE_ITS ---
- If Service Date Differs Date of service: 06/20/21 Time of Service: 15:36 Care Management Progress Note S/O: Marito was lying in bed when CM met with him. He was more conversant today, although he was not able to properly engage in conversation. CM met with his father and sister, who asked to speak to MD for updates. CM informed MD that the family was visiting, and asked for an update. Marito was seen by neurology today, and had an EEG and a brain MRI, awaiting results. CM will continue to follow. A: Marito is a 51 year old male admitted to [facility] on 06/17/21 for confusion, alcohol abuse. P: Anticipate Marito will return home when medically cleared. His family will drive him home via private vehicle. He will follow up with his PCP and discharge plan of care. CM will continue to follow.
[2021-06-20] MEDS: LORazepam 2 MG/ML VIAL 1 MG IVP (15:53)
--- NOTE | 2021-06-20 16:07 | PHA.REVIEW ---
Pharmacy Admission Review - Admission Clinical Review (Last Reviewed 06/17/21 @ 19:03 by George Chua MD) ETOH abuse (Acute) Anterior cerebral aneurysm (Acute) Confusion (Acute) Hypomagnesemia (Acute) Hypokalemia (Acute) Hyponatremia (Acute) No Known Allergies Allergy (Unverified 06/17/21 11:42) Resuscitation Status Full Code Height 5 ft 6.14 in Weight 71.214 kg - Renal Dosing Renal Dosing: BUN 6 mg/dL (7-18) L 06/20/21 13:53 Creatinine 0.6 mg/dL (0.70-1.30) L 06/20/21 13:53 Medications needing adjustments: Reviewed - Anticoagulation Anticoagulation: Hgb 8.5 g/dL (13.5-17.5) L 06/20/21 13:53 Hct 26.5 % (40.0-50.0) L 06/20/21 13:53 Plt Count 212 10^3/uL (130-400) 06/20/21 13:53 INR 1.2 (0.9-1.1) H 06/17/21 12:06 Creatinine 0.6 mg/dL (0.70-1.30) L 06/20/21 13:53 DVT Prophylaxis: N/A - Opiate Usage Evaluate Pain Scale/Pains Meds: N/A - Relevant Labs Sodium 141 mmol/L (136-145) 06/20/21 13:53 Potassium 3.4 mmol/L (3.5-5.1) L 06/20/21 13:53 Chloride 110 mmol/L (98-107) H 06/20/21 13:53 Magnesium 1.6 mg/dL (1.8-2.4) L 06/19/21 07:15 Electrolytes, C-Reactive P, ESR: Reviewed (PO mag supplement ordered) - DM Control DM Control: Glucose 120 mg/dL (74-106) H 06/20/21 13:53 Hemoglobin A1c 4.8 % (<5.7) 06/18/21 06:25 Finger Stick Blood Glucose 91 Finger Stick Blood Glucose 91 Finger Stick Blood Glucose 91 Insulin Dosing: Reviewed - Heart Failure/VA Heart Failure/VA: Troponin I < 50 ng/L (<or=60) 06/17/21 12:06 EF%, EDGARDO's, B-Blockers, Diuretics: Reviewed - BP Control BP Control: Blood Pressure 123/79 Blood Pressure 120/77 If elevated: Reviewed - Qtc Review If Elevated: Reviewed List meds needing interventions: QTc 446 on admission - IV to PO Switch IV Medications: Reviewed - Home Meds Home Med List reviewed: Reviewed Relevent Home Meds Not ordered & why?: all ordered, takes 600mg BID of gabapentin at home -- 300mg at HS ordered due to ongoing AMS - Current meds Current Medication Order Review: Reviewed (fluconazole 200mg IV started on 06/19, not sure of intended duration of tx, will discuss with MD in AM)
--- NOTE | 2021-06-20 17:15 | NUR.NOTE ---
Pt confused and disoriented. He pulled iv out, unable to follow command to keep arm straight for iv fluid administration. Arm board used at this time. He is incontinent urine and stool. Small liquidy stool noted.
--- NOTE | 2021-06-20 17:21 | PGE_ITS ---
Date of Service Date of service: 06/20/21 Time of Service: 17:21 Assessment and Plan Assessment and plan (1) Confusion: Status: Acute Assessment and plan: history of ETOH abuse but no use endorsed by family for 1 month. No CIWA scoring. Toxicology screen + for THC; uses medicinal MJ/gummies. endorses sparingly used. Pt denies increasing use or use of other MJ sources or illicit drugs. Normal ammonia level Intermittently more alert, EEG; preliminary report per neurology was negative. high dose thiamine CTA brain showed no ischemic changes or bleeding. 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 The A2 segments of the anterior cerebral arteries are incorporated into the aneurysm. MRI head negative other than the above noted aneurysm. MRA head ordered to further clarify; motion artifact on MRI interfered with clarity. (2) ETOH abuse: Status: Acute Assessment and plan: as above CT and MRI brain did show atrophic changes likely related to Etoh abuse. No withdrawal noted. High dose Thiamine being administered. (3) Hypokalemia: Status: Acute Assessment and plan: improved. continue to replete and follow (4) Hyponatremia: Status: Acute Assessment and plan: normalized. (5) Hypomagnesemia: Status: Acute Assessment and plan: repleting. (6) Elevated blood lead level: Status: Acute Assessment and plan: Levels have been moderately elevated at least since 11/29/18 according to [facility] records. Levels not in the range where chelation is recommended. (7) Anemia: Status: Chronic Assessment and plan: Multifactorial; iron def., folate def., Etoh abuse, possibly effected by high lead levels. Iron level 21, transferrin % sat low at 9. MCV elevated, but also has folate deficient. Venofer 300mg IV today. Cont oral folate supplementation. Monitor. Exam Const General: cooperative and lethargic Nutritional Appearance: average body habitus Orientation: awake, oriented to person and oriented to place Eyes General: appearance normal, both eyes and all related structures Sclera: sclerae normal Resp Effort & Inspection: normal respiratory effort Auscultation: clear to auscultation bilaterally Cardio Rate: regular rate Rhythm: regular rhythm Heart Sounds: S1 normal and S2 normal GI Palpation: soft and nontender Neuro General: moves all extremities Cranial Nerves: facial strength normal Speech: abnormal speech slurred Extrem General: no pedal edema and no calf tenderness Objective Last Vital Signs Temp 36.7 C 06/20/21 15:08 Pulse 67 06/20/21 15:08 Resp 18 06/20/21 15:08 BP 123/79 06/20/21 15:08 Pulse Ox 99 06/20/21 15:08 Laboratory Results - last 24 hr 06/19/21 06/20/21 06/20/21 07:15 13:53 13:53 WBC 5.51 RBC 2.59 L Hgb 8.5 L Hct 26.5 L MCV 102.3 H MCH 32.8 MCHC 32.1 RDW 15.8 H Plt Count 212 MPV 9.3 Immature Gran % 2.2 Neutrophils % 57.2 Lymphocytes % 24.1 Monocytes % 13.6 Eosinophils % 2.4 Basophils % 0.5 Nucleated RBC % 0 Absolute Neutrophils 3.15 Absolute Lymphocytes 1.33 Absolute Monocytes 0.75 Absolute Eosinophils 0.13 Absolute Basophils 0.03 Sodium 141 Potassium 3.4 L Chloride 110 H Carbon Dioxide 22.6 Anion Gap 8.4 BUN 6 L Creatinine 0.6 L Estimated GFR/1.73 m2 >= 60.00 Glucose 120 H Calcium 8.5 Total Bilirubin 0.5 AST 87 H ALT 40 Alkaline Phosphatase 186 H Total Protein 5.9 L Albumin 2.3 L HIV 1&2 Ag/Ab, 4th Gen Negative PAWSS Have you Been Recently Intoxicated or Drunk Within the Last 30 days?: Yes Have you Ever Experienced Previous Episodes of Alcohol Withdrawal?: Yes Have you ever Experienced Withdrawal Seizures?: No Have you ever Experienced Delirium Tremens(DT)s?: Yes Have you ever undergone Alcohol Rehabilitation Treatment (i.e, inpt ot outpatient treatment programs)?: No Have you ever Experienced Blackouts?: No Have you ever Combined Alcohol with other Downers within the last 90 days?: No Have you ever Combined Alcohol with any other Substance of Abuse during the last 90 days?: No Positive Blood Alcohol level on Presentation? [PCS.BAL]: Yes Evidence of Increased Autonomic Activity (i.e. HR>120, tremor, sweating, agitation, nausea)?: No Result: 4
[2021-06-20] MEDS: Nicotine 21 MG/24 HR PATCH TD (17:50)
[2021-06-20 18:22] LABS: Lab Add On Test DONE
[2021-06-20 18:35] LABS: Iron 21 ug/dL (65-175); Total Iron Binding Capacity 225 ug/dL (250-450); Transferrin Sat 9 % (20-55)
[2021-06-20] MEDS: Gabapentin 300 MG CAP PO (22:00)
[2021-06-20] MEDS: traZODone 50 MG TAB 25 MG PO (22:00)
[2021-06-20 23:34] VITALS: BP 145/77; PULSE 70; RESP 18; TEMP 36.8; O2SAT 97
[2021-06-21] MEDS: POTASSIUM CHLORIDE/D5-0.9%NACL 1,000 ML 100 MEQ IV ×2 (02:05→16:00)
[2021-06-21 07:26] VITALS: BP 142/81; PULSE 69; RESP 18; TEMP 36.4; O2SAT 89
[2021-06-21] MEDS: IRON SUCROSE COMPLEX 300 MG in Normal Saline 250 ML 167 MG IVPB (08:48)
[2021-06-21] MEDS: Folic Acid 1 MG TAB PO (09:05)
[2021-06-21] MEDS: Nicotine 21 MG/24 HR PATCH TD (09:06)
[2021-06-21] MEDS: Magnesium Oxide 400 MG TAB PO (09:06)
[2021-06-21] MEDS: Lisinopril 10 MG TAB 20 MG PO (09:06)
[2021-06-21] MEDS: FLUCONAZOLE 200 MG/100 ML BAG 100 MG IVPB (09:06)
[2021-06-21] MEDS: Thiamine 100 MG TAB PO (09:07)
[2021-06-21 12:07] VITALS: BP 157/91; PULSE 66; RESP 12; TEMP 36.5; O2SAT 94
[2021-06-21] MEDS: diazePAM 10 MG/2 ML SYR IM (14:01)
[2021-06-21 15:03] VITALS: BP 158/91; PULSE 66; RESP 12; TEMP 36.5; O2SAT 94
--- NOTE | 2021-06-21 15:07 | NUR.NOTE ---
Patient agitated, valium given IM, 1:1 observation initiated. MD notified
--- NOTE | 2021-06-21 15:14 | W.PM.PROGNOT ---
Date of Service Date of service: 06/21/21 Time of Service: 15:16 Assessment and Plan Assessment and plan (1) Confusion: Status: Acute Assessment and plan: history of ETOH abuse but no use endorsed by family for 1 month. No CIWA scoring. Toxicology screen + for THC; uses medicinal MJ/gummies. endorses sparingly used. Pt denies increasing use or use of other MJ sources or illicit drugs. Normal ammonia level Intermittently more alert. EEG; preliminary report per neurology was negative. high dose thiamine CTA brain showed no ischemic changes or bleeding. 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 The A2 segments of the anterior cerebral arteries are incorporated into the aneurysm. MRI head negative other than the above noted aneurysm. MRA head ordered to further clarify; motion artifact on MRI interfered with clarity. Could not obtain MRA today; could be outpt. (2) ETOH abuse: Status: Acute Assessment and plan: as above CT and MRI brain did show atrophic changes likely related to Etoh abuse. No withdrawal noted. High dose Thiamine being administered. (3) Hypokalemia: Status: Acute Assessment and plan: improved. continue to replete and follow (4) Hyponatremia: Status: Acute Assessment and plan: normalized. (5) Hypomagnesemia: Status: Acute Assessment and plan: repleting. (6) Elevated blood lead level: Status: Acute Assessment and plan: Levels have been moderately elevated at least since 11/29/18 according to [facility] records. Levels not in the range where chelation is recommended. (7) Anemia: Status: Chronic Assessment and plan: Multifactorial; iron def., folate def., Etoh abuse, possibly effected by high lead levels. Iron level 21, transferrin % sat low at 9. MCV elevated, but also has folate deficient. Venofer 300mg IV today. Cont oral folate supplementation. Monitor. Subjective Subjective Patient reports: no new complaints, tolerating a regular diet and afebrile; denies nausea and vomiting Interval history since last seen: Pt was more alert and conversant w/o slurring words last PM. Exam Const General: cooperative and lethargic (Improved since yesterday) Nutritional Appearance: average body habitus Orientation: awake, oriented to person and oriented to place Eyes General: appearance normal, both eyes and all related structures Sclera: sclerae normal Resp Effort & Inspection: normal respiratory effort Auscultation: clear to auscultation bilaterally Cardio Rate: regular rate Rhythm: regular rhythm Heart Sounds: S1 normal and S2 normal GI Palpation: soft and nontender Neuro General: moves all extremities Cranial Nerves: facial strength normal Speech: abnormal speech slurred Extrem General: no pedal edema and no calf tenderness Objective Last Vital Signs Temp 36.5 C 06/21/21 15:03 Pulse 66 06/21/21 15:03 Resp 12 06/21/21 15:03 BP 158/91 H 06/21/21 15:03 Pulse Ox 94 06/21/21 15:03 Laboratory Results - last 24 hr 06/20/21 06/20/21 13:53 Unknown Iron 21 L TIBC 225 L Transferrin % Sat 9 L Add-On Test Request DONE PAWSS Have you Been Recently Intoxicated or Drunk Within the Last 30 days?: Yes Have you Ever Experienced Previous Episodes of Alcohol Withdrawal?: Yes Have you ever Experienced Withdrawal Seizures?: No Have you ever Experienced Delirium Tremens(DT)s?: Yes Have you ever undergone Alcohol Rehabilitation Treatment (i.e, inpt ot outpatient treatment programs)?: No Have you ever Experienced Blackouts?: No Have you ever Combined Alcohol with other Downers within the last 90 days?: No Have you ever Combined Alcohol with any other Substance of Abuse during the last 90 days?: No Positive Blood Alcohol level on Presentation? [PCS.BAL]: Yes Evidence of Increased Autonomic Activity (i.e. HR>120, tremor, sweating, agitation, nausea)?: No Result: 4
--- NOTE | 2021-06-21 16:25 | CMPROGNOTE_ITS ---
- If Service Date Differs Date of service: 06/21/21 Time of Service: 16:25 Care Management Progress Note S/O: Marito was lying in bed when CM met with him. He was slightly more alert today. CM talked to his , and updated her, stating that he was seen by Neurology yesterday, and had a brain MRI, which was normal. He had an MRA scheduled for today, but they were unable to complete it due to his inability to sit still. His asked for MD to update her after the MRA, and CM informed the provider. CM will continue to follow. A: Marito is a 51 year old male admitted to [facility] on 06/17/21 for confusion, alcohol abuse. P: Anticipate Marito will return home when medically cleared. His family will drive him home via private vehicle. He will follow up with his PCP and discharge plan of care. CM will continue to follow.
[2021-06-21 20:45] VITALS: BP 158/100; PULSE 78; RESP 18; TEMP 36.8; O2SAT 94
[2021-06-21] MEDS: Gabapentin 300 MG CAP PO (21:49)
[2021-06-21] MEDS: LORazepam 1 MG TAB PO/SL (22:17)
[2021-06-21] MEDS: traZODone 50 MG TAB 25 MG PO (22:18)
[2021-06-22 00:13] VITALS: BP 142/86; PULSE 80; RESP 20; TEMP 36.6; O2SAT 96
[2021-06-22] MEDS: POTASSIUM CHLORIDE/D5-0.9%NACL 1,000 ML 100 MEQ IV ×2 (01:45→15:20)
[2021-06-22 07:09] VITALS: BP 152/81; PULSE 66; RESP 18; TEMP 36.8; O2SAT 99
[2021-06-22 07:11] LABS: Abs Immature Grans 0.15 10^3/uL (0.0-0.06); Absolute Basophil Count 0.03 10^3/uL (0.0-0.2); Absolute Eosinophil Count 0.18 10^3/uL (0.0-0.7); Absolute Lymphocyte Count 1.49 10^3/uL (1.2-3.4); Absolute Monocyte Count 0.82 10^3/uL (0.1-0.8); Absolute Neutrophil Count 5.42 10^3/uL (1.2-6.7); Basophils % 0.4; Eosinophils % 2.2; HCT 27.6 % (40.0-50.0); HGB 8.8 g/dL (13.5-17.5); Immature Grans % 1.9; Lymphocytes % 18.4; MCH 32.8 pg (27.0-33.0); MCHC 31.9 % (32.0-36.0); MPV 9.8 fL (8.0-11.0); Monocytes % 10.1; Nucleated RBC 0 %; Platelet Count 227 10^3/uL (130-400); RBC 2.68 10^6/uL (4.36-5.78); RDW 16.5 % (11.8-14.1); RDW-SD 62.6 fL; WBC 8.09 10^3/uL (4.4-10.8)
[2021-06-22 07:27] LABS: ALT 32 U/L (16-63); AST 57 U/L (15-37); Albumin 2.3 g/dL (3.4-5.0); Alkaline Phosphatase 186 U/L (46-116); Anion Gap 10.7 mmol/L (3-11); BUN 4 mg/dL (7-18); Bilirubin, Total 0.5 mg/dL (0.2-1.0); CO2 20.3 mmol/L (21.0-32.0); CREATININE 0.6 mg/dL (0.70-1.30); Calcium 8.1 mg/dL (8.5-10.1); Chloride 113 mmol/L (98-107); Glucose 102 mg/dL (74-106); Potassium 3.3 mmol/L (3.5-5.1); Sodium 144 mmol/L (136-145); Total Protein 5.8 g/dL (6.4-8.2)
[2021-06-22] MEDS: FLUCONAZOLE 200 MG/100 ML BAG 100 MG IVPB (07:46)
[2021-06-22] MEDS: Magnesium Oxide 400 MG TAB PO (07:46)
[2021-06-22] MEDS: Lisinopril 10 MG TAB 20 MG PO (07:46)
[2021-06-22] MEDS: Folic Acid 1 MG TAB PO (07:46)
[2021-06-22] MEDS: Nicotine 21 MG/24 HR PATCH TD ×2 (07:46→19:59)
[2021-06-22] MEDS: Thiamine 100 MG TAB PO (07:47)
[2021-06-22] MEDS: LORazepam 1 MG TAB PO/SL ×2 (07:47→19:59)
[2021-06-22] MEDS: Cyanocobalamin 1000 MCG/ML VIAL IM/SC (08:25)
[2021-06-22] MEDS: Cyanocobalamin 500 MCG TAB 1000 MCG PO (08:25)
[2021-06-22 08:26] LABS: Lab Add On Test COMPLETED
[2021-06-22] MEDS: Potassium Chloride 20 MEQ TABCR 40 MEQ PO (08:26)
[2021-06-22 08:44] LABS: C-Reactive Protein 1.44 mg/dL (0.0-0.3); Magnesium 1.7 mg/dL (1.8-2.4)
[2021-06-22 09:11] LABS: Procalcitonin 0.1 ng/mL
[2021-06-22] MEDS: MAGNESIUM SULFATE 2 GM/50 ML BAG IVPB (09:27)
--- NOTE | 2021-06-22 11:12 | W.PM.PROGNOT ---
Date of Service Date of service: 06/22/21 Time of Service: 10:45 Assessment and Plan Assessment and plan (1) Confusion: Start date: 06/22/21 Start time: 11:22 Status: Acute Assessment and plan: history of ETOH abuse but no use endorsed by family for 1 month. No CIWA scoring. Toxicology screen + for THC; uses medicinal MJ/gummies. endorses sparingly used. Pt denies increasing use or use of other MJ sources or illicit drugs. Normal ammonia level Intermittently more alert. EEG; preliminary report per neurology was negative. high dose thiamine CTA brain showed no ischemic changes or bleeding. 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 The A2 segments of the anterior cerebral arteries are incorporated into the aneurysm. MRI head negative other than the above noted aneurysm. MRA head ordered to further clarify; motion artifact on MRI interfered with clarity. Could not obtain MRA today; could be outpt. (2) ETOH abuse: Start date: 06/22/21 Start time: 11:23 Status: Acute Assessment and plan: as above CT and MRI brain did show atrophic changes likely related to Etoh abuse. No withdrawal noted. High dose Thiamine being administered. (3) Hypokalemia: Start date: 06/22/21 Start time: 11:23 Status: Acute Assessment and plan: 3.3 this am replete and monitor (4) Hyponatremia: Start date: 06/22/21 Start time: 11:24 Status: Resolved Assessment and plan: normalized. (5) Hypomagnesemia: Start date: 06/22/21 Start time: 11:24 Status: Acute Assessment and plan: repleting. (6) Elevated blood lead level: Start date: 06/22/21 Start time: 11:24 Status: Acute Assessment and plan: Levels have been moderately elevated at least since 11/29/[address] [facility] records. Levels not in the range where chelation is recommended. (7) Anemia: Start date: 06/22/21 Start time: 11:27 Status: Chronic Assessment and plan: Multifactorial; iron def., folate def., Etoh abuse, possibly effected by high lead levels. Iron level 21, transferrin % sat low at 9. MCV elevated, but also has folate deficient. Venofer 300mg IV today. Cont oral folate supplementation. Monitor. discussed with Dr. Sanches Subjective Subjective Patient reports: other Interval history since last seen: Patient still confused. When being asked questions answers questions that are broad answered not appropriate to time or place. Only person. Half cooperative with exam. Sleepy Exam Const General: cooperative, comfortable, no acute distress and ill appearing chronically Nutritional Appearance: average body habitus Orientation: awake, oriented to person and oriented to place [facility] Head: normal to inspection, normocephalic and atraumatic Mouth: moist mucous membranes abnormal (Slightly dry) Eyes General: appearance normal, both eyes and all related structures Conjunctivae: conjunctival abnormality bilaterally conjunctival icterus (mild) Sclera: sclerae normal Neck Neck: normal visual inspection, full ROM and no meningeal signs Resp Effort & Inspection: normal respiratory effort Auscultation: clear to auscultation bilaterally and diminished lung sounds bilaterally in the lower lung hawley Cardio Rate: regular rate Rhythm: regular rhythm Heart Sounds: S1 normal and S2 normal GI Palpation: soft and nontender Auscultation: normal bowel sounds Back/Spine/Pelvis Back: no CVA tenderness and No back tenderness Skin General skin exam: jaundice (Mild) Rashes: no rashes Neuro General: moves all extremities and no focal motor deficits Cranial Nerves: facial strength normal Speech: abnormal speech slurred Motor: muscle tone normal throughout Sensory Exam: no sensory deficits noted Extrem General: normal to inspection, full ROM, capillary refill normal, no pedal edema and no calf tenderness Objective Last Vital Signs Temp 36.8 C 06/22/21 07:09 Pulse 66 06/22/21 07:09 Resp 18 06/22/21 07:09 BP 152/81 H 06/22/21 07:09 Pulse Ox 99 06/22/21 07:09 Laboratory Results - last 24 hr 06/22/21 06/22/21 06/22/21 06:00 06:00 06:00 WBC 8.09 RBC 2.68 L Hgb 8.8 L Hct 27.6 L MCV 103.0 H MCH 32.8 MCHC 31.9 L RDW 16.5 H Plt Count 227 MPV 9.8 Immature Gran % 1.9 Neutrophils % 67.0 Lymphocytes % 18.4 Monocytes % 10.1 Eosinophils % 2.2 Basophils % 0.4 Nucleated RBC % 0 Absolute Neutrophils 5.42 Absolute Lymphocytes 1.49 Absolute Monocytes 0.82 H Absolute Eosinophils 0.18 Absolute Basophils 0.03 Sodium 144 Potassium 3.3 L Chloride 113 H Carbon Dioxide 20.3 L Anion Gap 10.7 BUN 4 L Creatinine 0.6 L Estimated GFR/1.73 m2 >= 60.00 Glucose 102 Calcium 8.1 L Magnesium Total Bilirubin 0.5 AST 57 H ALT 32 Alkaline Phosphatase 186 H C-Reactive Protein Total Protein 5.8 L Albumin 2.3 L Procalcitonin Add-On Test Request COMPLETED 06/22/21 06/22/21 06/22/21 06:00 06:00 06:00 WBC RBC Hgb Hct MCV MCH MCHC RDW Plt Count MPV Immature Gran % Neutrophils % Lymphocytes % Monocytes % Eosinophils % Basophils % Nucleated RBC % Absolute Neutrophils Absolute Lymphocytes Absolute Monocytes Absolute Eosinophils Absolute Basophils Sodium Potassium Chloride Carbon Dioxide Anion Gap BUN Creatinine Estimated GFR/1.73 m2 Glucose Calcium Magnesium 1.7 L Total Bilirubin AST ALT Alkaline Phosphatase C-Reactive Protein 1.44 H Total Protein Albumin Procalcitonin 0.1 Add-On Test Request TNP PAWSS Have you Been Recently Intoxicated or Drunk Within the Last 30 days?: Yes Have you Ever Experienced Previous Episodes of Alcohol Withdrawal?: Yes Have you ever Experienced Withdrawal Seizures?: No Have you ever Experienced Delirium Tremens(DT)s?: Yes Have you ever undergone Alcohol Rehabilitation Treatment (i.e, inpt ot outpatient treatment programs)?: No Have you ever Experienced Blackouts?: No Have you ever Combined Alcohol with other Downers within the last 90 days?: No Have you ever Combined Alcohol with any other Substance of Abuse during the last 90 days?: No Positive Blood Alcohol level on Presentation? [PCS.BAL]: Yes Evidence of Increased Autonomic Activity (i.e. HR>120, tremor, sweating, agitation, nausea)?: No Result: 4
[2021-06-22 11:14] LABS: Campylobacter PCR Negative (Negative); Salmonella PCR Negative (Negative); Shiga Toxin PCR Negative (Negative); Shigella/Enteroinvasive Ecoli Negative (Negative)
[2021-06-22] MEDS: Acetaminophen 325 MG TAB 650 MG PO (19:59)
[2021-06-22 20:01] VITALS: BP 135/78; PULSE 74; RESP 17; TEMP 36.5; O2SAT 98
[2021-06-22] MEDS: Gabapentin 300 MG CAP PO (22:19)
[2021-06-22] MEDS: traZODone 50 MG TAB 25 MG PO (22:19)
[2021-06-22 23:38] VITALS: BP 117/67; PULSE 75; RESP 18; TEMP 36.9; O2SAT 98
[2021-06-23] MEDS: POTASSIUM CHLORIDE/D5-0.9%NACL 1,000 ML 100 MEQ IV (02:32)
[2021-06-23 07:18] LABS: Absolute Basophil Count 0.02 10^3/uL (0.0-0.2); Absolute Eosinophil Count 0.14 10^3/uL (0.0-0.7); Absolute Lymphocyte Count 1.38 10^3/uL (1.2-3.4); Absolute Monocyte Count 0.81 10^3/uL (0.1-0.8); Absolute Neutrophil Count 5.33 10^3/uL (1.2-6.7); Basophils % 0.3; Eosinophils % 1.8; HCT 27.3 % (40.0-50.0); HGB 8.7 g/dL (13.5-17.5); Immature Grans % 1.3; Lymphocytes % 17.7; MCH 32.5 pg (27.0-33.0); MCHC 31.9 % (32.0-36.0); MCV 101.9 fL (80-95); MPV 9.5 fL (8.0-11.0); Monocytes % 10.4; Neutrophils % 68.5; Nucleated RBC 0 %; Platelet Count 207 10^3/uL (130-400); RBC 2.68 10^6/uL (4.36-5.78); RDW 16.7 % (11.8-14.1); RDW-SD 62.2 fL; WBC 7.78 10^3/uL (4.4-10.8)
[2021-06-23 07:27] VITALS: BP 145/80; PULSE 70; RESP 16; TEMP 36.7; O2SAT 98
[2021-06-23 07:31] LABS: BUN 4 mg/dL (7-18); CREATININE 0.6 mg/dL (0.70-1.30); Calcium 7.6 mg/dL (8.5-10.1); Chloride 112 mmol/L (98-107); Glucose 104 mg/dL (74-106); Magnesium 1.9 mg/dL (1.8-2.4); Potassium 3.9 mmol/L (3.5-5.1); Sodium 141 mmol/L (136-145)
[2021-06-23] MEDS: Folic Acid 1 MG TAB PO (08:08)
[2021-06-23] MEDS: FLUCONAZOLE 200 MG/100 ML BAG 100 MG IVPB (08:08)
[2021-06-23] MEDS: Cyanocobalamin 500 MCG TAB 1000 MCG PO (08:08)
[2021-06-23] MEDS: Nicotine 21 MG/24 HR PATCH TD (08:09)
[2021-06-23] MEDS: Magnesium Oxide 400 MG TAB PO (08:09)
[2021-06-23] MEDS: Lisinopril 10 MG TAB 20 MG PO (08:09)
[2021-06-23] MEDS: Thiamine 100 MG TAB PO (08:13)
--- NOTE | 2021-06-23 11:18 | IN_ITS ---
Date of service: 06/23/21 Time of Service: 11:00 PT Notes Visit Reasons: Confusion,Alcohol Abuse Inpatient Physical Therapy Evaluation Date: 06/23/21 Referring Doctor: Carisa Iniguez PT Orders: PT CONSULT: Evaluate and treat Precautions: Standard Patient Profile/Admitting Diagnosis: Orders received for this 51-year-old male with a history of alcohol abuse but according to family has not used within the last month. Patient was found to be under severe confusion and laboratory studies have been revealed elevated blood levels for lead, anemia as well. Patient has made some recovery from his confusion state and as of today appears to be much more conversive and normalized and his cognitive faculties. PMHX: PFSH All Active Problems (Updated 06/17/21 @ 19:06 by George Chua MD) Confusion (Acute) Anemia (Chronic) Hypomagnesemia (Acute) Hypokalemia (Acute) Hyponatremia (Acute) Multiple lipomas (Acute) Screening for colon cancer (Acute) Elevated blood lead level (Acute) Bilateral hearing loss (Acute) Cubital tunnel syndrome on left (Acute) Left carpal tunnel syndrome (Acute) CRPS (complex regional pain syndrome), type II, upper (Acute) Right carpal tunnel syndrome (Acute) Cubital tunnel syndrome on right (Acute) Medical History Arm pain, right Asymmetrical sensorineural hearing loss Back pain Lopez's cyst, rt knee Chest wall pain Chronic low back pain Chronic pain Chronic sinusitis Mcdaniel Deviated septum Elevated LFTs ETOH abuse Exposure to lead Fatigue Foraminal stenosis of cervical region Foreign body in left upper extremity (01/11/20) s/p excision of foreign bodies Foreign body in right ear Greater trochanteric bursitis of left hip (09/04/15) Heart murmur per pt. this was an incorrect dx Infrapatellar bursitis of right knee (01/11/20) s/p bursa excision Left buttock pain (11/07/14) Low back pain (11/07/14) Lumbar back pain Marital problem MVP (mitral valve prolapse) Neuropathy ISADORA (obstructive sleep apnea) Paraesthesia left 4-5th finger (05/29/06) Paresthesias in left hand (06/28/14) Peripheral cyanosis Polyarthralgia PONV (postoperative nausea and vomiting) Pt c/o post nasal drip causing nausea and vomiting routinely Raynauds disease Snoring Soft tissue swelling Steatosis of liver Synovial cyst of popliteal space [Lopez], right knee Thoracic back pain Tinnitus of both ears Tobacco abuse Tubular adenoma of colon Social History/Home Situation: Lives at home in [place] with his Equipment Owned/DME: Nothing Subjective: Patient states his head still feels quite foggy Objective: Patient sitting on the edge of the bed sitting up talking on the phone setting up someone to fill his woodstove Mental Status: Well oriented to person place and time Pain: Patient states his shoulder on the left is achy as well as his legs ROM: Right Upper Extremity: Within functional limits Left Upper Extremity: Within functional limits Right Lower Extremity: Within functional limits Left Lower Extremity: Within functional limit Strength: Right Upper Extremity: Globally 4+ out of 5 Left Upper Extremity: Globally 4+ out of 5 Right Lower Extremity: Globally 4+ out of 5 Left Lower Extremity: Globally 4+ out of 5 Sit-stand: Under minimum assist able to stand Stand-sit: Under minimum assist able to stand and sit Stand sit is performed 3 times with 2-minute intervals of standing Gait: Assistance--contact-guard assist Distance--20 feet in room Device--wheel walker Gait is slightly ataxic Balance: Static Sitting: Good Dynamic Sitting: Good Static Standing: Fair Dynamic Standing: Fair Special Tests: Mobility Limitations Standardized Measure [facility] AM-PAC 6 clicks Basic Mobility Inpatient Short Form: Raw Score: 17 standardized Score: 42.13 CMS Score: 50.57 Informed Consent/Education: Patient instructed in purpose of PT consult and plan of care. ASSESSMENT: Patient is a 51-year-old male with a history of alcohol abuse and moderate health issues Admitted with confusion Patient presents with the following impairment level findings: Ambulatory intolerance, ataxic gait presentation, weakness to the legs, balance deficits Pt will benefit from skilled therapy intervention in order to remedy their functional limitations and restore patient to a more appropriate and stable functional level. Impairments are contributing to the following functional limitations: AMPAC score 50.57% Patient is assessed as a moderate complexity initial evaluation [id number] based on the following: History: see above Examination: see above Presentation: Evolving Decision Making: Moderate based on impact of 50.57% Goals: Goals X1 week 1. Supine-Sit independent 2. Sit-Supine independent 3. Sit-Stand independent 4. Stand-Sit independent 5. Bed-Chair independent 6. Gait independent up to 300 feet 7: Stairs independent up to full flight Plan of Care/Treatment Plan: 1-2x/day, 7 days/week x 1 week. Plan of care has been reviewed with the [facility] providing the service under Physical Therapy direction. Initiate Physical Therapy intervention for strengthening, bed mobility, transfers, gait, stairs, balance training, use of assistive device. DISCHARGE RECOMMENDATIONS: ( ) Home with no services ( ) Home with services [specify] ( X ) Home with outpatient PT, mainly to work on strength, cardiovascular improvement, balance and coordination ( ) SNF for continued rehabilitation ( ) [facility] ( ) SNF versus LTC based on ability to participate and progress TREATMENT CODE/TIME: Moderate complexity initial evaluation 45533, time of treatment 1055 AM, minutes of direct patient care Gavino Leonard DPT
--- NOTE | 2021-06-23 11:38 | W.PM.PROGNOT ---
Date of Service Date of service: 06/23/21 Time of Service: 10:00 Assessment and Plan Assessment and plan (1) Confusion: Start date: 06/23/21 Start time: 10:00 Status: Acute Assessment and plan: More alert today, states feeling more himself, cooperative, participating with ADLS and examination, PT. (2) ETOH abuse: Start date: 06/23/21 Start time: 10:00 Status: Acute Assessment and plan: Per does not drink alcohol. CIWA discontinued. CT and MRI brain did show atrophic changes likely related to Etoh abuse. No withdrawal noted. High dose Thiamine being administered. (3) Hypokalemia: Start date: 06/23/21 Start time: 10:00 Status: Resolved Assessment and plan: Normal this am continue to monitor. Will keep IV hydration at this time until patient is fully eating and drinking and awake (4) Hyponatremia: Start date: 06/23/21 Start time: 10:00 Status: Resolved Assessment and plan: normalized. (5) Hypomagnesemia: Start date: 06/23/21 Start time: 10:00 Status: Resolved Assessment and plan: repleted continue to monitor (6) Elevated blood lead level: Start date: 06/23/21 Start time: 10:00 Status: Acute Assessment and plan: Levels have been moderately elevated at least since 11/29/18 according to [facility] records. Levels not in the range where chelation is recommended. (7) Anemia: Start date: 06/23/21 Start time: 10:00 Status: Chronic Assessment and plan: Multifactorial; iron def., folate def., Etoh abuse, possibly effected by high lead levels. Iron level 21, transferrin % sat low at 9. MCV elevated, but also has folate deficient. Cont oral folate supplementation. Monitor. discussed with Dr. Sanches Subjective Subjective Patient reports: other Interval history since last seen: More awake and alert today, answering questions more appropriately, cooperative. Exam Const General: cooperative, comfortable, no acute distress and ill appearing chronically Nutritional Appearance: average body habitus Orientation: awake, oriented to person and oriented to place [facility] Head: normal to inspection, normocephalic and atraumatic Mouth: moist mucous membranes abnormal (Slightly dry, thrush to tongue) Eyes General: appearance normal, both eyes and all related structures Conjunctivae: conjunctival abnormality bilaterally conjunctival icterus (mild) Sclera: sclerae normal Neck Neck: normal visual inspection, full ROM and no meningeal signs Resp Effort & Inspection: normal respiratory effort Auscultation: clear to auscultation bilaterally and diminished lung sounds bilaterally in the lower lung hawley Cardio Rate: regular rate Rhythm: regular rhythm Heart Sounds: S1 normal and S2 normal GI Palpation: soft and nontender Auscultation: normal bowel sounds Back/Spine/Pelvis Back: no CVA tenderness and No back tenderness Skin General skin exam: jaundice (Mild) Rashes: no rashes Neuro General: moves all extremities and no focal motor deficits Cranial Nerves: facial strength normal Speech: abnormal speech slurred Motor: muscle tone normal throughout Sensory Exam: no sensory deficits noted Extrem General: normal to inspection, full ROM, capillary refill normal, no pedal edema and no calf tenderness Objective Last Vital Signs Temp 36.7 C 06/23/21 07:27 Pulse 70 06/23/21 07:27 Resp 16 06/23/21 07:27 BP 145/80 H 06/23/21 07:27 Pulse Ox 98 06/23/21 07:27 Laboratory Results - last 24 hr 06/21/21 06/23/21 06/23/21 12:05 06:35 06:35 WBC 7.78 RBC 2.68 L Hgb 8.7 L Hct 27.3 L MCV 101.9 H MCH 32.5 MCHC 31.9 L RDW 16.7 H Plt Count 207 MPV 9.5 Immature Gran % 1.3 Neutrophils % 68.5 Lymphocytes % 17.7 Monocytes % 10.4 Eosinophils % 1.8 Basophils % 0.3 Nucleated RBC % 0 Absolute Neutrophils 5.33 Absolute Lymphocytes 1.38 Absolute Monocytes 0.81 H Absolute Eosinophils 0.14 Absolute Basophils 0.02 Sodium 141 Potassium 3.9 Chloride 112 H Carbon Dioxide 20.0 L Anion Gap 9.0 BUN 4 L Creatinine 0.6 L Estimated GFR/1.73 m2 >= 60.00 Glucose 104 Calcium 7.6 L Magnesium 1.9 Stool Campylobacter PCR Negative Stool Salmonella PCR Negative Stool Shigella PCR Negative Shiga Toxin (PCR) Negative PAWSS Have you Been Recently Intoxicated or Drunk Within the Last 30 days?: Yes Have you Ever Experienced Previous Episodes of Alcohol Withdrawal?: Yes Have you ever Experienced Withdrawal Seizures?: No Have you ever Experienced Delirium Tremens(DT)s?: Yes Have you ever undergone Alcohol Rehabilitation Treatment (i.e, inpt ot outpatient treatment programs)?: No Have you ever Experienced Blackouts?: No Have you ever Combined Alcohol with other Downers within the last 90 days?: No Have you ever Combined Alcohol with any other Substance of Abuse during the last 90 days?: No Positive Blood Alcohol level on Presentation? [PCS.BAL]: Yes Evidence of Increased Autonomic Activity (i.e. HR>120, tremor, sweating, agitation, nausea)?: No Result: 4
[2021-06-23] MEDS: Furosemide 40 MG/4 ML VIAL 20 MG IVP (12:10)
[2021-06-23] MEDS: Nystatin 500000 UNITS/5 ML SUSP 5ML CUP PO ×2 (13:14→21:04)
[2021-06-23] MEDS: traZODone 50 MG TAB 25 MG PO (21:04)
[2021-06-23] MEDS: Gabapentin 100 MG CAP PO (21:04)
[2021-06-23 21:07] VITALS: BP 154/82; PULSE 71; RESP 18; TEMP 36.8; O2SAT 99
[2021-06-23] MEDS: Acetaminophen 325 MG TAB 650 MG PO (21:15)
[2021-06-23] MEDS: Normal Saline Flush 10 ML SYR IVP (21:15)
[2021-06-24 03:35] VITALS: BP 121/72; PULSE 66; RESP 16; TEMP 36.7; O2SAT 97
[2021-06-24] MEDS: Nystatin 500000 UNITS/5 ML SUSP 5ML CUP PO (07:33)
[2021-06-24] MEDS: Nicotine 21 MG/24 HR PATCH TD (07:33)
[2021-06-24] MEDS: Thiamine 100 MG TAB PO (07:34)
[2021-06-24] MEDS: Lisinopril 10 MG TAB 20 MG PO (07:34)
[2021-06-24] MEDS: Magnesium Oxide 400 MG TAB PO (07:34)
[2021-06-24] MEDS: Cyanocobalamin 500 MCG TAB 1000 MCG PO (07:34)
[2021-06-24] MEDS: Folic Acid 1 MG TAB PO (07:34)
[2021-06-24 08:08] VITALS: BP 112/63; PULSE 66; RESP 16; TEMP 36.5; O2SAT 96
--- NOTE | 2021-06-24 10:19 | W.PM.DS.N ---
Date of service: 06/24/21 Time of Service: 10:00 DS: Diagnosis Discharge Diagnosis (1) Anterior cerebral aneurysm: Start date: 06/24/21 Start time: 10:00 Status: Acute Asessment and Plan: Found on imaging will [place] [facility] [place] and imaging pushed (2) Confusion: Start date: 06/24/21 Start time: 10:00 Status: Resolved Asessment and Plan: Likely r/t ETOH abuse and CBD gummies now that patient is AAOx 3 he admits to drinking, he states that his lives in [place] and does not know how much he truly drinks. He does have tremors but they are baseline. He is at baseline mentation. Up and amblatory. He would benefit from service PT/OT/RN/COMMERCIAL COLLECTOR and MATHEMATICS TEACHER but feels ready for discharge home When asked if he will drink he states he has gone this long, but he may fail and drink at home. He will be given a head athletic trainer/strength coach (3) ETOH abuse: Start date: 06/24/21 Start time: 10:00 Status: Acute Asessment and Plan: As above was on CIWA with librium taper that he did finish. He does admit to drinking. Not as much in awhile. (4) Hypokalemia: Start date: 06/24/21 Start time: 10:00 Status: Resolved (5) Hyponatremia: Start date: 06/24/21 Start time: 10:00 Status: Resolved Asessment and Plan: repleted and monitored (6) Hypomagnesemia: Start date: 06/24/21 Start time: 10:00 Status: Resolved Asessment and Plan: repleted and monitored (7) Elevated blood lead level: Start date: 06/24/21 Start time: 10:00 Status: Acute Asessment and Plan: This is not a new finding patient has had this for many years (8) Anemia: Start date: 06/24/21 Start time: 10:00 Status: Chronic Asessment and Plan: d/t chronic ETOH. On high dose thiamine while in hospital continue folate and b 12, iron discussed with Dr. Sanches Discharge Plan Disposition Patient Disposition: HOME W/HOME HEALTH SERVICE Condition: Stable Discharge Details Reason For Visit: Confusion,Alcohol Abuse Admit Date/Time: 06/17/21 19:21 Admit Provider: George Chua Attending Provider: George Chua Primary Care Provider: Paige Chen Hospital Course Hospital Course: 51 y.o male admitted to [facility] for ETOH abuse. Seen by PCP day of admission and sent over for AMS. Over course of stay he has had confusion up until yesterday when he was feeling more myself. He had neurology consult. MRI negative for any ischemic event/CTA done revealing nonthrombosed aneurysm at the level of the anterior communicating artery measuring approximately 6 x 5.5 x 5.0 millimeter. He was confused and not participating in care up to yesterday. Then he all of a sudden started to get OOB, worked with PT, choose his own food, was eating, ambulating with PT. They recommended PT with HH. He does have tremors but he states these are baseline. He feels great AAOx3 he states there are people at home to help him with his wood stove. He is ready to be discharged. He is being discharged home with service PT/OT/COMMERCIAL COLLECTOR/MATHEMATICS TEACHER and nursing. He will [place] [facility] [place] Images have been pushed and referral will be made. Home Meds and New Rx's Prescriptions: New cyanocobalamin (vitamin B-12) [Vitamin B-12] 500 mcg Tablet 1,000 mcg PO DAILY Qty: 30 RF: 0 folic acid 1 mg Tablet 1 mg PO DAILY Qty: 30 RF: 0 Continued trazodone 50 mg tablet 25 mg PO HS PRNRF: 0 magnesium 250 mg tablet 250 mg PO DAILY RF: 0 gabapentin 600 mg tablet 600 mg PO BID RF: 0 lisinopril 10 mg tablet 20 mg PO DAILY RF: 0 Discharge Instructions Instructions: Cirrhosis (DC), Alcohol Intoxication (DC), Abuse of Alcohol (DC), Acute Delirium (DC), Alcohol Withdrawal (DC), Encephalopathy (DC) Additional Instructions: Follow up with Neurosurgery, they will call you to set up an appt. Use walker until PT feels you are safe without one. Take vitamin B and folate Follow up with your PCP as needed. Stand Alone Forms: Nursing Discharge Form Referrals: [facility] [Outside] (Neurosurgery) Activity:: Activity as Tolerated Equipment/Supplies:: walker Diet:: As Tolerated Discharge Orders Discharge Orders: Discharge Order (Routine); Ordered 06/24/21 Ordered By: Carisa Iniguez DS: Summary Time Spent with Patient providing and/or coordinating discharge services: Greater than 30 minutes Status at Discharge Functional status at discharge: uses cane/walker Overall status at discharge: patient is back to baseline Mental Status: mental status grossly normal Speech and Movement: speech and movement normal Mood: congruent mood Affect: normal affect Exam Narrative Exam Narrative: Ambulating around room with PT Const General: cooperative, comfortable, no acute distress and ill appearing chronically Nutritional Appearance: average body habitus Orientation: awake and oriented x3 HENMT Head: normal to inspection, normocephalic and atraumatic Eyes General: appearance normal, both eyes and all related structures Conjunctivae: conjunctival abnormality bilaterally conjunctival icterus (mild) Sclera: sclerae normal Neck Neck: normal visual inspection, full ROM and no meningeal signs Resp Effort & Inspection: normal respiratory effort Auscultation: clear to auscultation bilaterally Cardio Rate: regular rate Rhythm: regular rhythm Heart Sounds: S1 normal and S2 normal GI Palpation: soft and nontender Auscultation: normal bowel sounds Back/Spine/Pelvis Back: no CVA tenderness and No back tenderness Skin General skin exam: jaundice (Mild) Rashes: no rashes Neuro General: moves all extremities and no focal motor deficits Cranial Nerves: facial strength normal Speech: abnormal speech slurred Motor: muscle tone normal throughout Sensory Exam: no sensory deficits noted Extrem General: normal to inspection, full ROM, capillary refill normal, no pedal edema and no calf tenderness Psych Appearance: grossly normal and well kempt Mental Status: mental status grossly normal Speech and Movement: speech and movement normal Mood: congruent mood Affect: normal affect Attitude: cooperative Thought Process: normal Thought Content: normal Insight: insight good Judgment: judgment good DS: Data Vitals/I&O Vitals and I&O: Vital Signs Temperature 36.5 C 06/24/21 08:08 Temperature Source Tympanic 06/24/21 08:08 Pulse 66 06/24/21 08:08 Pulse Rhythm Regular 06/24/21 03:33 Pulse Strength Normal 06/17/21 17:14 Pulse 93 H 06/17/21 19:10 Respiratory Rate 16 06/24/21 08:08 Respiratory Effort Non-Labored 06/24/21 03:33 Respiratory Depth Normal 06/24/21 03:33 Respiratory Pattern Normal 06/24/21 03:33 Blood Pressure 112/63 06/24/21 08:08 Blood Pressure Mean 75 06/17/21 19:10 Blood Pressure Position Supine 06/17/21 11:38 Pulse Oximetry 96 06/24/21 08:08 Oxygen Delivery Method Room Air 06/24/21 08:08 Oxygen Flow Rate 0 06/24/21 08:08 Pain Level 0 06/24/21 08:08 Comment 06/19/21 23:59 Intake & Output 06/23/21 06/23/21 06/24/21 11:59 23:59 11:59 Intake Total 1000 / 1120 120 / 1120 Output Total 400 / 400 Balance 1000 / 720 -280 / 720 Intake: IV 1000 / 1000 Oral 120 / 120 Output: Urine 400 / 400 Other: Urine Color Yellow Yellow Urine Appearance Clear Clear Clear Urine Odor None None Voiding Methods Diaper Toilet Incontinent Data Completed and Pending Completed studies during hospitalization [Text1]: EXAM: CT HEAD WO CLINICAL HISTORY: ams. TECHNIQUE: Imaging Protocol: Axial computed tomography images with coronal and sagittal reformatted images were created and reviewed COMPARISON: No exams were available for comparison FINDINGS: Ventricles and Extra axial spaces: Normal in size and morphology for the patient's age. Hemorrhage: None. Cerebral parenchyma: Normal. Midline shift: None. Brainstem/Cerebellum: Normal. Calvarium: Normal. Visualized Paranasal sinuses/Mastoids: Clear. Soft Tissues: Unremarkable. IMPRESSION: No acute intracranial process. Exam(s) XR CHEST 1V IN DI DEPT EXAM: XR CHEST 1V IN DI DEPT CLINICAL HISTORY: ams TECHNIQUE: 2D digital imaging was performed. Portable AP exam. COMPARISON: CR XR ribs LT w PA lat chest from 01/13/[address] CHEST LUNG CANCER SCREEN from 12/14/2020 FINDINGS: Lungs are poorly inflated. No gross infiltrate or effusion. No pneumothorax. IMPRESSION: Limited exam. No acute pulmonary findings. Exam(s) a CT:CT abdomen & pelvis w Exam(s) CT ABDOMEN PELVIS W EXAM: CT ABDOMEN PELVIS W CLINICAL HISTORY: ams, cirrhosis, anemia. TECHNIQUE: Imaging Protocol: Axial computed tomography images with coronal and sagittal reformatted images were created and reviewed CONTRAST MATERIAL: Intravenous: Omnipaque 350 Contrast volume:100 ml Oral: no COMPARISON: US US ABDOMEN from 12/27/[address] CHEST LUNG CANCER SCREEN from 12/14/2020 US US ABDOMEN LIMITED from 03/27/[address] HEAD WO from 06/17/2021 CR XR CHEST 1V IN DI DEPT from 06/17/2021 FINDINGS: Exam is limited by patient motion. The patient is was unable to cooperate. : 1970Age: 51 Exam(s) a CT:CT abdomen & pelvis w Exam(s) CT ABDOMEN PELVIS W EXAM: CT ABDOMEN PELVIS W CLINICAL HISTORY: ams, cirrhosis, anemia. TECHNIQUE: Imaging Protocol: Axial computed tomography images with coronal and sagittal reformatted images were created and reviewed CONTRAST MATERIAL: Intravenous: Omnipaque 350 Contrast volume:100 ml Oral: no COMPARISON: US US ABDOMEN from 12/27/[address] CHEST LUNG CANCER SCREEN from 12/14/2020 US US ABDOMEN LIMITED from 03/27/[address] HEAD WO from 06/17/2021 CR XR CHEST 1V IN DI DEPT from 06/17/2021 FINDINGS: Exam is limited by patient motion. The patient is was unable to cooperate. : 1970Age: 51 Exam(s) a CT:CT brain & neck CTA Exam(s) CT BRAIN NECK CTA EXAM: CT BRAIN NECK CTA CLINICAL HISTORY: AMS, RLE weakness. TECHNIQUE: Imaging Protocol: Axial CT angiography was performed with multi-slice acquisition and multi-planar and/or 3D reconstructions. CONTRAST MATERIAL: Intravenous: Omnipaque 350 Contrast volume:100 mL COMPARISON: CT CT ABDOMEN PELVIS W from 06/17/2021 FINDINGS: CTA Neck W: Aortic arch anatomy: The aortic arch anatomy is conventional. There is no significant stenosis at the origin the great vessels off of the aortic arch. Anterior circulation: Both common carotid arteries ascend with normal luminal diameters. There is mild partially calcified plaque noted at the right carotid bulb and proximal right ICA. Approximately 10 percent stenosis. Right ICA above this level is nicely patent in the neck and skull base. Mild partially calcified plaque noted on the posterior wall of the left carotid bulb and proximal ICA, approximately 5-10 percent stenosis. Left ICA above this level is nicely patent in the neck and skull base. Posterior circulation: Both vertebral arteries originated conventional fashion off the subclavian arteries and without significant stenosis at their origins. Both ascend with patent lumens in the foramen transversarium approximately equal diameters and no intraluminal thrombus nor dissection of the vertebral arteries. Both contribute to the formation of the basilar artery at the skull base. CTA Brain W: Anterior circulation: Both internal carotid arteries are patent in the skull base and cavernous sinuses. Supraclinoid aspects are patent. Both A1 segments are patent. Both anterior cerebral arteries are patent. However, there is a non thrombosed aneurysm at the level of the anterior communicating artery which measures 6 millimeters AP x 5.5 millimeters wide by 5 millimeters craniocaudal. The A2 segments of the anterior cerebral arteries are incorporated into the aneurysm. Posterior circulation: Basilar artery is formed at the skull base by both vertebral arteries and ascends with normal luminal diameter and no evidence of intraluminal thrombus. Distally it gives off superior cerebellar arteries and above this level terminates as patent bilateral posterior cerebral arteries. There is no aneurysm at the tip of the basilar artery. CT BRAIN: There is no evidence of intracranial hemorrhage, mass effect, or shift of midline structures. There are no extra-axial fluid collections. Ventricles are not enlarged or shifted. There are no ring enhancing lesions in the brain and no abnormal meningeal enhancement. IMPRESSION: 1. Most significant finding here is a nonthrombosed aneurysm at the level of the anterior communicating artery measuring approximately 6 x 5.5 x 5.0 millimeter. No other aneurysm seen. No evidence of hemorrhage, intra or extra-axial. 2. Minimal atherosclerotic disease at the level the carotid bifurcations and proximal ICAs bilaterally. No hemodynamically significant stenosis at these levels. 3. Patent posterior circulation. No evidence of aneurysm at the tip of the basilar artery. Exam(s) PROCEDURE INFORMATION: Exam: CT Angiography Head With Contrast, Arteriography Exam date and time: 06/17/2021 4:42 PM Age: 51 years old Clinical indication: Other: AMS TECHNIQUE: Imaging protocol: Computed tomography angiography of the head with contrast. Exam focused on the arteries. 3D rendering (Not supervised by radiologist): MIP and/or 3D reconstructed images were created by the technologist. COMPARISON: CT HEAD WO 06/17/2021 1:44 PM FINDINGS: ANTERIOR CIRCULATION: Right internal carotid artery: Unremarkable. Intracranial segment is patent with no significant stenosis. No aneurysm. Right middle cerebral artery: Unremarkable. No occlusion or significant stenosis. No aneurysm. Right anterior cerebral artery: Unremarkable. No occlusion or significant stenosis. No aneurysm. Anterior communicating artery: Lobulated anterior communicating artery aneurysm measures 5.2 x 6.7 x 5.6 mm, directed anteriorly and to the right. There appears to be incorporation of the bilateral A2 vessel origins. Left internal carotid artery: Calcified plaque of the cavernous left internal carotid artery, with mild vessel stenosis. No evidence of aneurysm formation or occlusion. Left middle cerebral artery: Unremarkable. No occlusion or significant stenosis. No aneurysm. Left anterior cerebral artery: Unremarkable. No occlusion or significant stenosis. No aneurysm. POSTERIOR CIRCULATION: Right vertebral artery: Unremarkable. No occlusion or significant stenosis. No aneurysm. Left vertebral artery: Unremarkable. No occlusion or significant stenosis. No aneurysm. Basilar artery: Unremarkable. No occlusion or significant stenosis. No aneurysm. Right posterior cerebral artery: Unremarkable. No occlusion or significant stenosis. No aneurysm. Left posterior cerebral artery: Unremarkable. No occlusion or significant stenosis. No aneurysm. Veins: The major venous structures appear patent. Brain: No definite mass, mass effect, or midline shift. Cerebral ventricles: No ventriculomegaly. Bones/joints: Unremarkable. No acute fracture. Soft tissues: Unremarkable. IMPRESSION: 1. No large vessel occlusion is appreciated. 2. 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 COMPARISON: CT CT HEAD WO from 06/17/[address] BRAIN NECK CTA from 06/17/2021 FINDINGS: please note that recent CT angiography performed 06/17/2021 revealed an aneurysm at the level of the anterior communicating artery measuring approximately 6 x 5.5 x 5.0 millimeters. Numerous sequences of today's MRI are blurred by motion artifact. CEREBRAL PARENCHYMA: There is no evidence of intracranial hemorrhage, mass effect, or shift of midline structures. There are no extra-axial fluid collections. Ventricles are not enlarged or shifted. There is no significant focal signal abnormality in the cerebellar hemispheres nor within the mony, midbrain, and thalami. There is no abnormal signal abnormality in the periventricular white matter. There is no significant focal signal abnormality evident on diffusion imaging to suggest acute ischemic event. PITUITARY GLAND: No mass nor parasellar abnormality. No obvious abnormality in the cavernous sinuses. FLOW VOIDS: The expected flow void are noted. Previously described aneurysm at the level of the anterior communicating artery is noted but difficult to evaluate because of motion artifact here and the fact that this is a conventional MRI study and not an MRA study. PARANASAL SINUSES: The visualized paranasal sinuses appear unremarkable. No obvious finding ORBITS: No obvious findings. IMPRESSION: No evidence of intracranial hemorrhage nor areas of ischemia evident. PFSH All Active Problems (Updated 06/24/21 @ 10:19 by Carisa Iniguez NP) ETOH abuse (Acute) Anterior cerebral aneurysm (Acute) Anemia (Chronic) Multiple lipomas (Acute) Screening for colon cancer (Acute) Elevated blood lead level (Acute) Bilateral hearing loss (Acute) Cubital tunnel syndrome on left (Acute) Left carpal tunnel syndrome (Acute) CRPS (complex regional pain syndrome), type II, upper (Acute) Right carpal tunnel syndrome (Acute) Cubital tunnel syndrome on right (Acute) Medical History Arm pain, right Asymmetrical sensorineural hearing loss Back pain Lopez's cyst, rt knee Chest wall pain Chronic low back pain Chronic pain Chronic sinusitis [place] Deviated septum Elevated LFTs ETOH abuse Exposure to lead Fatigue Foraminal stenosis of cervical region Foreign body in left upper extremity (01/11/20) s/p excision of foreign bodies Foreign body in right ear Greater trochanteric bursitis of left hip (09/04/15) Heart murmur per pt. this was an incorrect dx Infrapatellar bursitis of right knee (01/11/20) s/p bursa excision Left buttock pain (11/07/14) Low back pain (11/07/14) Lumbar back pain Marital problem MVP (mitral valve prolapse) Neuropathy ISADORA (obstructive sleep apnea) Paraesthesia left 4-5th finger (05/29/06) Paresthesias in left hand (06/28/14) Peripheral cyanosis Polyarthralgia PONV (postoperative nausea and vomiting) Pt c/o post nasal drip causing nausea and vomiting routinely Raynauds disease Snoring Soft tissue swelling Steatosis of liver Synovial cyst of popliteal space [Lopez], right knee Thoracic back pain Tinnitus of both ears Tobacco abuse Tubular adenoma of colon Surgical History Aftercare involving removal of fracture plate or internal fixation device left arm History of arthroscopy of right knee 2001, diagnostic History of carpal tunnel release right History of colonoscopy (~03/2021) Right Popliteal cyst resection (07/25/03) Status post transposition of nerve left elbow Family History Mother , [place] at age 74. Heart disease Father No problems noted. Social History Smoking/Tobacco Use Status: Current every day Tobacco Type: cigarettes Years smoked: 42 Smoking risk assessment performed?: Yes Alcohol Intake: current Alcohol Intake frequency: 3 or more drinks per day Alcohol type: hard liquor Drug use: Never Substance use type: does not use Household members: none Housing: house Number of Children: 1 current occupation: N/A Current gender identity: male What type of physical activity do you participate in: walking and independent ambulation Seatbelt use: sometimes Do you feel safe at home: Yes Do you feel safe in your relationship?: Yes
--- NOTE | 2021-06-24 10:27 | PT.INTREAT ---
Date of service: 06/24/21 Time of Service: 09:30 PT Notes Visit Reasons: Confusion,Alcohol Abuse Inpatient Physical Therapy Treatment Note [facility] Date: 06/24/2021 PRECAUTIONS: Fall, Activity as Tolerated SUBJECTIVE: Marito states that he is feeling better today, he feels that he is not back to his baseline in terms of ambulation. He states that he has help at home from friends and neighbors. He reports that he really wants to go home. OBJECTIVE: Issued FWW to patient for at home use. [facility] form completed and turned in to Care Management. PAIN: No c/o pain BED MOBILITY/TRANSFERS Supine-sit: I with HOB flat Sit-supine: I with HOB flat Sit-stand: CGA Stand-sit: SBA GAIT Assistive Device: FWW No AD Weight bearing: Full Assist: SBA with FWW CGA without AD Distance: 150' with FWW 50' without AD Deviation: Shaky, path deviation without FWW, short step height/length STAIRS: Refused stair training ASSESSMENT: Patient tolerated session with increased fatigue with gait training. Patient demonstrates unsteady gait with minimal path deviation noted without use of FWW, as well as short step height/length. Due patient's global weakness and unsteady gait, recommend d/c to SNF-level rehab for continued strengthening and gait training for improved safety. PLAN: Patient to discharge to home later today, per provider. In this case, recommend follow up with PT upon discharge. TREATMENT CODE/TIME: 23 minutes; 01303 x2 (09:30)
[2021-06-24 11:16] LABS: Syphilis Serology (RPR) Negative (Negative)
--- NOTE | 2021-06-24 11:37 | PDOC.HHF2F_ITS ---
Home Health Certification Home Health Certification: 1. Encounter Date and Reason I certify that Marito Morrow was seen by Carisa Iniguez on 06/24/21 and that I had a [id number] encounter with this patient that meets the physician face to face encounter requirements. 2. Clinical Findings Supporting Skilled Need and Homebound Status I certify that home health services are medically necessary, include either intermittent correction and/or physical/speech therapy, and that this patient is homebound in that absences from the home require considerable and taxing effort and are infrequent or of short duration, or are attributable to the need to receive medical care. [X] (a) Attached documentation from encounter provides clinical findings supporting skilled need and homebound status (including what assistance patient requires to leave the home). The encounter with the patient was in whole, or in part, for the following medical condition, which is the primary reason for home health care: Confusion,Alcohol Abuse [facility]: Patient would benefit from nursing to help with medication administration, adls Physical Therapy: Patient would benefit from PT/OT for better strength, gait, balance and adls Patient would benefit from BAFFLE INSTALLER for help with activities with bathing, and home care needs, meals, etc Homebound: Unable to leave home without assistance. 3. Certification and Authentication I certify that I composed the above information based on my clinical judgement relating to this patient's medical condition and, if applicable, clinical findings communicated to me by the NPP or inpatient physician who performed the Home Health Referral. All further orders will be obtained through __Paige Chen____(Community Based Physician - PCP)
--- NOTE | 2021-06-24 18:17 | PDOC.CMDIS ---
- If Service Date Differs Date of service: 06/24/21 Time of Service: 18:17 LACE Index Scoring Tool - Questions: Length of Stay (in days): 7 - 13 Acuity (Admit via E.D.?): Yes E.D. Visits: 1 - Answers: Total Score: 9 Risk of Readmission: Low Risk Care Management Discharge Reason for Hospitalization: confusion, alcohol use Discharge Plan: Marito returned home today with new orders for HH RN, PT, OT, RN CLINICAL QUALITY and TESTING AND REGULATING TECHNICIAN. PT provided a FWW through [facility], with a recommendation to use it for ambulation. CM connected him with the power and recovery superintendent, who will follow up with him out patient to support his sobriety. His son drove him home via private vehicle. Marito's father and called and requested to speak to the provider regarding his discharge. CM was asked to call his father, as he was very upset with the provider's plan to discharge Marito. CM met with Marito, and asked to call his father together to discuss the details of his discharge. Marito asked that CM not call his father, stating that it won't change the way he feels. Marito was alert and oriented, and able to make his own healthcare decisions, as his capacity has not been revoked. CM discussed his discharge plan at length, with his son present in the room. Marito was offered additional community support, but he declined, stating that he has what he needs at home to be successful. He reported having a good relationship with his PCP, and CM notified him that he can ask for additional support through the chronic assisted living care manager at his PCP office if he finds that he needs more support once he returns home. Marito was agreeable to HH services, but no further support. His son was visibly upset during this conversation, pleading his father to move back into the house he built for his , but Marito stated that he is happy where he is living, which his son referred to as a shack about 400 ft from his home. Marito acknowledged that he can move back into his home if he chooses to, but he does not want to at this time. CARLITOS explained that he has been medically cleared by MD, Neurology, and PT. He has follow up scheduled with Neurology at [facility]. He was happy to be going home. Patient/Family Education Needs: Review discharge instructions regarding activity levels and medications, discussion of self care needs inlcuding ask me three. Services Needed at Discharge: DME Agency ([facility], FWW), Home Health Care Services (HH RN, PT, OT, RN CLINICAL QUALITY, TESTING AND REGULATING TECHNICIAN)
--- NOTE | 2021-06-25 08:37 | PT.INDS ---
Date of service: 06/25/21 PT Notes Visit Reasons: Confusion,Alcohol Abuse Physical Therapy Inpatient Discharge Summary Date: 06/25/2021 Dates of Service: 06/23/19 through 06/24/2021 This is a clinical summary of care provided for the duration of dates listed above. No charge was made in the completion of this documentation. Referring Doctor: Carisa Iniguez NP PT Orders: PT CONSULT: Evaluate and treat Precautions: Standard Patient Profile/Admitting Diagnosis: Orders received for this 51-year-old male with a history of alcohol abuse but according to family has not used within the last month. Patient was found to be under severe confusion and laboratory studies have been revealed elevated blood levels for lead, anemia as well. Patient has made some recovery from his confusion state and as of today appears to be much more conversive and normalized and his cognitive faculties. PMHX: PFSH All Active Problems (Updated 06/17/21 @ 19:06 by George Chua MD) Confusion (Acute) Anemia (Chronic) Hypomagnesemia (Acute) Hypokalemia (Acute) Hyponatremia (Acute) Multiple lipomas (Acute) Screening for colon cancer (Acute) Elevated blood lead level (Acute) Bilateral hearing loss (Acute) Cubital tunnel syndrome on left (Acute) Left carpal tunnel syndrome (Acute) CRPS (complex regional pain syndrome), type II, upper (Acute) Right carpal tunnel syndrome (Acute) Cubital tunnel syndrome on right (Acute) Medical History Arm pain, right Asymmetrical sensorineural hearing loss Back pain Lopez's cyst, rt knee Chest wall pain Chronic low back pain Chronic pain Chronic sinusitis [place] Deviated septum Elevated LFTs ETOH abuse Exposure to lead Fatigue Foraminal stenosis of cervical region Foreign body in left upper extremity (01/11/20) s/p excision of foreign bodies Foreign body in right ear Greater trochanteric bursitis of left hip (09/04/15) Heart murmur per pt. this was an incorrect dx Infrapatellar bursitis of right knee (01/11/20) s/p bursa excision Left buttock pain (11/07/14) Low back pain (11/07/14) Lumbar back pain Marital problem MVP (mitral valve prolapse) Neuropathy ISADORA (obstructive sleep apnea) Paraesthesia left 4-5th finger (05/29/06) Paresthesias in left hand (06/28/14) Peripheral cyanosis Polyarthralgia PONV (postoperative nausea and vomiting) Pt c/o post nasal drip causing nausea and vomiting routinely Raynauds disease Snoring Soft tissue swelling Steatosis of liver Synovial cyst of popliteal space [Lopez], right knee Thoracic back pain Tinnitus of both ears Tobacco abuse Tubular adenoma of colon Social History/Home Situation: Lives at home in [place] with his Equipment Owned/DME: Nothing Subjective: NT. See most recent MEDICAL DATA ANALYST notes. Objective: NT. See most recent MEDICAL DATA ANALYST notes. Mental Status: NT. See most recent MEDICAL DATA ANALYST notes. Pain: NT. See most recent MEDICAL DATA ANALYST notes. ROM: Right Upper Extremity: Within functional limits Left Upper Extremity: Within functional limits Right Lower Extremity: Within functional limits Left Lower Extremity: Within functional limit Strength: Right Upper Extremity: Globally 4+ out of 5 Left Upper Extremity: Globally 4+ out of 5 Right Lower Extremity: Globally 4+ out of 5 Left Lower Extremity: Globally 4+ out of 5 Transfers: Sit-stand: contact guard assist Stand-sit: contact guard assist Gait: Assistance--contact-guard assist Distance--20 feet in room Device--wheel walker Gait is slightly ataxic Stairs: Balance: Static Sitting: Good Dynamic Sitting: Good Static Standing: Fair Dynamic Standing: Fair ASSESSMENT: Patient does demonstrate functional improvement during this episode of care as evidenced by mobility level above and goal status below. Remains to have impairment in gait which requires continued services via outpatient PT. Goals: Goals X1 week 1. Supine-Sit independent MET 2. Sit-Supine independent MET 3. Sit-Stand independent NOT MET 4. Stand-Sit independent NOT MET 5. Bed-Chair independent NOT MET 6. Gait independent up to 300 feet NOT MET 7: Stairs independent up to full flight NOT MET DISCHARGE RECOMMENDATIONS: ( ) Home with no services ( ) Home with services [specify] ( X ) Home with outpatient PT, mainly to work on strength, cardiovascular improvement, balance and coordination ( ) SNF for continued rehabilitation ( ) [facility] ( ) SNF versus LTC based on ability to participate and progress TREATMENT CODE/TIME: NC Thank you for the opportunity to participate in the care of this patient. Madison Matthews PT, DPT, CLT [facility] [place], [place]
[2021-06-25 13:01] LABS: PTH-Related Peptide <0.4 pmol/L (< or = 4.2)
== END 2021-06-24 13:29 | disposition home health service (06) | DRG 897 ==
LOC: ER 16:43 → MS 21:10
PROVIDERS: Family Medicine; Internal Medicine; Nurse Practitioner Acute Care; Nurse Practitioner Family; Physician Assistant; Admitting Provider General Practice; Emergency Provider Physician Assistant; PCP Nurse Practitioner Family; Visit Provider General Practice
DX: F10.188 Alcohol abuse with other alcohol-induced disorder (principal); E87.1 Hypo-osmolality and hyponatremia; R41.0 Disorientation, unspecified; I67.1 Cerebral aneurysm, nonruptured; E87.6 Hypokalemia; G47.33 Obstructive sleep apnea (adult) (pediatric); I10 Essential (primary) hypertension; G89.29 Other chronic pain; M54.50 Low back pain, unspecified; I95.9 Hypotension, unspecified; D64.9 Anemia, unspecified; R78.71 Abnormal lead level in blood
CPT/HCPCS: 36415; 36416; 70496; 70498; 80048; 80053; 80076; 80307; 82805; 82962; 84145; 85027; 87389; 87493; 87505; 87637; 93005; 96361; 96365; 96367; 96368; 97162; 97530; 99291; 70450; 70551; 71045; 74177; 80320; 81003; 82140; 82397; 82607; 82728; 82746; 83036; 83540; 83550; 83735; 84443; 84484; 85025; 85045; 85610; 86140; 86592; 93010; 95816; 99222; 99232; 99233; 99239; J1450; J1756; J1940; J2060; J3360; J3420; J3475; J3480; J3490; J7060

== ENCOUNTER 2021-07-01 09:05 | Outpatient (REF) | payer BC, SELFPAY | END 2021-07-01 09:06 | disposition home or self-care (01) | LOC: NCHCN 09:05 | PROVIDERS: PCP Nurse Practitioner Family; Visit Provider Nurse Practitioner Family | DX: R69 Illness, unspecified (principal) ==

== ENCOUNTER 2021-07-01 18:58 | Outpatient (REF) | payer BC, SELFPAY ==
[2021-07-01 19:13] LABS: Abs Immature Grans 0.03 10^3/uL (0.0-0.06); Absolute Basophil Count 0.06 10^3/uL (0.0-0.2); Absolute Eosinophil Count 0.18 10^3/uL (0.0-0.7); Absolute Lymphocyte Count 2.09 10^3/uL (1.2-3.4); Absolute Monocyte Count 0.66 10^3/uL (0.1-0.8); Absolute Neutrophil Count 5.31 10^3/uL (1.2-6.7); Basophils % 0.7; Eosinophils % 2.2; HGB 9.1 g/dL (13.5-17.5); Immature Grans % 0.4; Lymphocytes % 25.1; MCH 32.9 pg (27.0-33.0); MCHC 32.5 % (32.0-36.0); MCV 101.1 fL (80-95); MPV 10.4 fL (8.0-11.0); Monocytes % 7.9; Neutrophils % 63.7; Nucleated RBC 0 %; Platelet Count 308 10^3/uL (130-400); RBC 2.77 10^6/uL (4.36-5.78); RDW 16.2 % (11.8-14.1); RDW-SD 60.4 fL; WBC 8.33 10^3/uL (4.4-10.8)
[2021-07-01 19:24] LABS: Anion Gap 8.3 mmol/L (3-11); BUN 6 mg/dL (7-18); CO2 26.7 mmol/L (21.0-32.0); CREATININE 0.6 mg/dL (0.70-1.30); Calcium 8.7 mg/dL (8.5-10.1); Chloride 104 mmol/L (98-107); Glucose 101 mg/dL (74-106); Sodium 139 mmol/L (136-145)
[2021-07-02 10:29] LABS: Magnesium 1.6 mg/dL (1.8-2.4)
== END 2021-07-01 18:59 | disposition home or self-care (01) ==
LOC: NCHCN 18:58
PROVIDERS: PCP Nurse Practitioner Family; Visit Provider Nurse Practitioner Family
DX: D64.9 Anemia, unspecified (principal)
CPT/HCPCS: 80048; 83735; 85025

== ENCOUNTER 2021-07-02 19:36 | Outpatient (REF) | payer BC, SELFPAY ==
[2021-07-02 20:33] LABS: Bacteria Negative HPF (Negative); C & S Indicated? C&S Done As Ordered; Casts Negative LPF (Negative); Crystals Negative HPF (Negative); Epithelial Cells Negative HPF (Negative); Mucus Negative (Negative); RBC 0-2 HPF (0-2); WBC 0-2 HPF (0-5)
== END 2021-07-02 19:37 | disposition home or self-care (01) ==
LOC: NCHCN 19:36
PROVIDERS: PCP Nurse Practitioner Family; Visit Provider Nurse Practitioner Family
DX: R32 Unspecified urinary incontinence (principal)
CPT/HCPCS: 81015; 87086

== ENCOUNTER 2021-07-17 19:52 | Outpatient (REF) | payer BC, SELFPAY ==
[2021-07-17 21:13] LABS: Anion Gap 11.5 mmol/L (3-11); BUN 5 mg/dL (7-18); CO2 23.5 mmol/L (21.0-32.0); CREATININE 0.5 mg/dL (0.70-1.30); Calcium 8.9 mg/dL (8.5-10.1); Chloride 105 mmol/L (98-107); Glucose 110 mg/dL (74-106); Potassium 3.5 mmol/L (3.5-5.1); Sodium 140 mmol/L (136-145)
[2021-07-18 10:24] LABS: Magnesium 1.6 mg/dL (1.8-2.4)
== END 2021-07-17 19:53 | disposition home or self-care (01) ==
LOC: LBN 19:52
PROVIDERS: PCP Nurse Practitioner Family; Visit Provider Nurse Practitioner Family
DX: E87.5 Hyperkalemia (principal); E83.42 Hypomagnesemia; I67.1 Cerebral aneurysm, nonruptured
CPT/HCPCS: 80048; 83735

== ENCOUNTER 2021-07-30 19:00 | Outpatient (REF) | payer BC, SELFPAY ==
[2021-07-30 20:42] LABS: Abs Immature Grans 0.03 10^3/uL (0.0-0.06); Absolute Basophil Count 0.04 10^3/uL (0.0-0.2); Absolute Eosinophil Count 0.29 10^3/uL (0.0-0.7); Absolute Lymphocyte Count 2.57 10^3/uL (1.2-3.4); Absolute Neutrophil Count 3.87 10^3/uL (1.2-6.7); Basophils % 0.5; Eosinophils % 3.8; HCT 40.8 % (40.0-50.0); HGB 13.1 g/dL (13.5-17.5); Immature Grans % 0.4; Lymphocytes % 33.8; MCH 33.4 pg (27.0-33.0); MCHC 32.1 % (32.0-36.0); MCV 104.1 fL (80-95); Monocytes % 10.5; Nucleated RBC 0 %; Platelet Count 266 10^3/uL (130-400); RBC 3.92 10^6/uL (4.36-5.78)
[2021-07-30 20:47] LABS: Ferritin 108 ng/mL (26-388); Vitamin B12 339 pg/mL (193-986)
[2021-07-30 20:48] LABS: Folate > 20.0 ng/mL (8.6-20.0)
== END 2021-07-30 19:01 | disposition home or self-care (01) ==
LOC: NCHCN 19:00
PROVIDERS: PCP Nurse Practitioner Family; Visit Provider Nurse Practitioner Family
DX: I10 Essential (primary) hypertension (principal); G62.9 Polyneuropathy, unspecified; Z79.899 Other long term (current) drug therapy
CPT/HCPCS: 82607; 82728; 82746; 85025

== ENCOUNTER 2021-08-14 16:58 | Outpatient (REF) | payer BC, SELFPAY ==
[2021-08-14 12:38] LABS: Anion Gap 10.6 mmol/L (3-11); BUN 6 mg/dL (7-18); CO2 25.4 mmol/L (21.0-32.0); CREATININE 0.7 mg/dL (0.70-1.30); Calcium 8.8 mg/dL (8.5-10.1); Chloride 103 mmol/L (98-107); Glucose 107 mg/dL (74-106); Magnesium 1.4 mg/dL (1.8-2.4); Potassium 3.6 mmol/L (3.5-5.1); Sodium 139 mmol/L (136-145)
[2021-08-14 13:37] LABS: Iron 45 ug/dL (65-175); Total Iron Binding Capacity 465 ug/dL (250-450); Transferrin Sat 10 % (20-55)
== END 2021-08-14 16:59 | disposition home or self-care (01) ==
LOC: NCHCN 16:58
PROVIDERS: PCP Nurse Practitioner Family; Visit Provider Nurse Practitioner Family
DX: I10 Essential (primary) hypertension (principal); D64.9 Anemia, unspecified; R19.7 Diarrhea, unspecified; M54.59 Other low back pain; F10.10 Alcohol abuse, uncomplicated
CPT/HCPCS: 80048; 83540; 83550; 83735

== ENCOUNTER 2021-10-25 00:36 | Outpatient (CLI) | payer BC, SELFPAY ==
--- NOTE | 2021-10-25 14:30 | DI.MRI_ITS ---
Exam(s) MR CERVICAL SPINE WO EXAM: MR CERVICAL SPINE WO CLINICAL HISTORY: LT ARM NUMBNESS/TINGLING, R20.2; CHRONIC NECK PAIN, M54.2 TECHNIQUE: Multiplanar multisequence MRI of the cervical spine was performed without intravenous con trast. COMPARISON: CT CT BRAIN NECK CTA from 06/17/2021 MR MR BRAIN WO from 06/20/2021 FINDINGS: BONES: Vertebral body heights are maintained. Intervertebral disc spaces are normal. Alignment is nor mal. Bone marrow signal intensity is within normal limits. CERVICAL CORD: There is an area of T2 high signal seen in the lower mony, partially included in the f ield of view on the sagittal sequences. This was not present on the prior brain MRI. Craniovertebra l junction is unremarkable. The cervical cord is normal size and signal intensity. SOFT TISSUES: Unremarkable. C2-3: No disc herniation or bulge is identified. No neural foraminal narrowing or central canal sten osis C3-4: No disc herniation or bulge is identified. No neural foraminal narrowing or central canal steno sis C4-5: No disc herniation or bulge is identified. No neural foraminal narrowing or central canal steno sis C5-6: No disc herniation or bulge is identified. No neural foraminal narrowing or central canal steno sis C6-7: No disc herniation or bulge is identified.No neural foraminal narrowing or central canal stenos is C7-T1: No disc herniation or bulge is identified. No neural foraminal narrowing or central canal sten osis IMPRESSION: Unremarkable MRi of the cervical spine. no evidence of disc herniation or neural foraminal narrowing. No significant degenerative changes. An area of high signal is seen on sagittal sequences partially included on the field of view within t he mony. A brain MRI could be performed for further evaluation. DATA REPOSITORY:
== END 2021-10-25 00:56 ==
LOC: DI 00:37
PROVIDERS: PCP Nurse Practitioner Family; Visit Provider Nurse Practitioner Family
DX: M54.2 Cervicalgia (principal); R20.2 Paresthesia of skin
CPT/HCPCS: 72141

== ENCOUNTER 2021-11-25 17:55 | Outpatient (REF) | payer BC, SELFPAY | END 2021-11-25 17:56 | disposition home or self-care (01) | LOC: NCHCN 17:55 | PROVIDERS: PCP Nurse Practitioner Family; Visit Provider Nurse Practitioner Family | DX: R78.71 Abnormal lead level in blood (principal) | CPT/HCPCS: 83655 ==

== ENCOUNTER 2022-02-24 13:41 | Outpatient (REF) | payer BC, SELFPAY | END 2022-02-24 13:42 | disposition home or self-care (01) | LOC: NCHCN 13:41 | PROVIDERS: PCP Nurse Practitioner Family; Visit Provider Nurse Practitioner Family | DX: Z91.89 Other specified personal risk factors, not elsewhere classified (principal); M54.2 Cervicalgia; G89.29 Other chronic pain | CPT/HCPCS: 80373; 83655 ==

== ENCOUNTER 2022-06-17 12:04 | Outpatient (REF) | payer MEDICAID, SELFPAY ==
[2022-06-17 17:19] LABS: ALT 79 U/L (16-63); AST 178 U/L (15-37); Albumin 4.1 g/dL (3.4-5.0); Alkaline Phosphatase 124 U/L (46-116); Anion Gap 14.8 mmol/L (3-11); BUN 14 mg/dL (7-18); Bilirubin, Total 0.6 mg/dL (0.2-1.0); CO2 26.2 mmol/L (21.0-32.0); CREATININE 0.8 mg/dL (0.70-1.30); Calcium 9.5 mg/dL (8.5-10.1); Chloride 93 mmol/L (98-107); Estimated GFR 106.48 (mL/min/1.73m2); Glucose 93 mg/dL (74-106); HDL Cholesterol 116 mg/dL (40-60); LDL CHOLESTEROL 70 mg/dL (<100); Magnesium 1.3 mg/dL (1.8-2.4); Sodium 134 mmol/L (136-145)
== END 2022-06-17 12:05 | disposition home or self-care (01) ==
LOC: NCHCN 12:04
PROVIDERS: PCP Nurse Practitioner Family; Visit Provider Nurse Practitioner Family
DX: I10 Essential (primary) hypertension (principal); R20.2 Paresthesia of skin; Z91.89 Other specified personal risk factors, not elsewhere classified
CPT/HCPCS: 80053; 83721; 83655; 83718; 83735

== ENCOUNTER 2022-07-11 00:16 | Outpatient (CLI) | payer MEDICAID, SELFPAY ==
--- NOTE | 2022-07-11 08:00 | DI.CTLCSR_ITS ---
Exam(s) CT CHEST LUNG CANCER SCREEN EXAM: CT CHEST LUNG CANCER SCREEN CLINICAL HISTORY: SCREENING FOR CA, Z12.9; CIGARETTE SMOKER, F17.210 TECHNIQUE: Imaging Protocol: Axial computed tomography images with coronal and sagittal reformatted images were created and reviewed COMPARISON: CT CT CHEST LUNG CANCER SCREEN from 12/14/2020 FINDINGS: Tracheobronchial tree: Patent where visualized. Pulmonary parenchyma: No consolidation or dominant measurable mass. Mild emphysematous changes are pr esent. Calcified granuloma are present in the lungs. Lung Nodules: No noncalcified pulmonary nodules are present. Mediastinum and Patito: No dominant adenopathy or fluid collection. The esophagus is unremarkable. Thyroid gland: Unremarkable. Lymph nodes: Unremarkable. Pleura: No effusion or pneumothorax. Heart: The heart is not dilated. Mild coronary artery calcification is present. No pericardial effus ion. Aorta: Thoracic aorta non-dilated.Mild atherosclerosis. Upper abdomen: Unremarkable. Soft Tissues: Unremarkable. Bones: Within normal limits. IMPRESSION: No suspicious pulmonary nodules. Lung RADS Cat 1 - Negative: No nodules and definitely benign nodules Lung-RADS 1.0 CATEGORIES: Category 0 - Prior chest CT exam(s) being located for comparison. Category 1 - Annual screening in 12 months. No nodules or definitely benign nodules. Category 2 - Annual screening in 12 months. Benign appearance. Nodules with low likelihood of becomin g active cancer. Category 3 - 6-month follow-up. Probably benign. Short-term follow-up suggested. Nodules with low lik elihood of becoming active cancer. Category 4A - 3-month follow-up and CT/PET if >8 mm in size. Suspicious finding. Findings which requi re additional testing. Category 4B - Findings which require additional testing and tissue sampling. Suspicious finding. Category 4X - Category 3 or 4 nodules with additional features or imaging findings that increases the suspicion of malignancy. Modifier S- Potentially clinically significant finding. (Non lung cancer) RADIATION DOSE DELIVERED: 75.42mGy.cm Total DLP 75.42mGy.cmTotal DLP DATA REPOSITORY: All CT scans at this facility are submitted to the National Radiology Data Registry (NRDR) Dose Index Registry (DIR) with the [employer] (ACR). RADIATION OPTIMIZATION: All CT scans at this facility use at least one of these dose optimization te chniques: automated exposure control; mA and/or kV adjustment per patient size (includes targeted exa ms where dose is matched to clinical indication); or iterative reconstruction.
== END 2022-07-11 00:36 ==
LOC: DI 00:17
PROVIDERS: PCP Nurse Practitioner Family; Visit Provider Nurse Practitioner Family
DX: Z12.2 Encounter for screening for malignant neoplasm of respiratory organs (principal); F17.210 Nicotine dependence, cigarettes, uncomplicated
CPT/HCPCS: 71271

== ENCOUNTER 2022-07-11 00:28 | Outpatient (CLI) | payer MEDICAID, SELFPAY ==
--- NOTE | 2022-07-11 08:45 | DI.CT_ITS ---
Exam(s) CT BRAIN CTA EXAM: CT BRAIN CTA CLINICAL HISTORY: ACOM ANEURYSM CLIPPING, I67.1, EVAL FOR RECURRENCE. TECHNIQUE: Imaging Protocol: Axial CT angiography was performed with multi-slice acquisition and mu lti-planar and/or 3D reconstructions. CONTRAST MATERIAL: Intravenous: Omnipaque 350 contrast volume:85 mL COMPARISON: CT CT HEAD WO from 06/17/[address] BRAIN NECK CTA from 06/17/[address] HEAD WO from 03/06/2022 FINDINGS: CT Head W/O: Ventricles and Extra axial spaces: Normal in size and morphology for the patient's age. There is an c lip in the anterior cranial fossa consistent with the patient's anterior communicating artery aneurys m clipping. Hemorrhage: None. Cerebral parenchyma: There is no evidence of an acute territorial infarct. There are areas of decrea sed attenuation in the white matter consistent with small vessel ischemic disease. Midline shift: None. Brainstem/Cerebellum: Normal. Calvarium: There are findings of a right craniotomy. Visualized Paranasal sinuses/Mastoids: Mucosal thickening is seen in the right frontal sinus. The re maining visualized paranasal sinuses and mastoid air cells are clear. Soft Tissues: Unremarkable. Enhancement: Unremarkable. CTA Brain W: Internal Carotid Arteries: There is mild atherosclerosis of the left internal carotid artery. Anterior Cerebral Arteries: Right: No aneurysm, occlusion or significant stenosis. 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 There is no evidence of filling of the aneurysm. No residual aneurysm is seen. Left: No aneurysm, occlusion or significant stenosis. Middle Cerebral Arteries: Right: No aneurysm, occlusion or significant stenosis. Left: No aneurysm, occlusion or significant stenosis. Posterior cerebral Arteries: Right: No aneurysm, occlusion or significant stenosis. Left: No aneurysm, occlusion or significant stenosis. Vertebral Arteries: Right: No aneurysm, occlusion or significant stenosis. Left: No aneurysm, occlusion or significant stenosis. Basilar Artery: No aneurysm, occlusion or significant stenosis. IMPRESSION: 1. Prior anterior communicating artery aneurysm clipping. No evidence of residual anterior communica ting artery aneurysm. No other aneurysm is appreciated. 2. No acute intracranial process. RADIATION DOSE DELIVERED: 1,809.66mGy.cm Total DLP DATA REPOSITORY: All CT scans at this facility are submitted to the National Radiology Data Registry (NRDR) Dose Index Registry (DIR) with the [employer] (ACR). RADIATION OPTIMIZATION: All CT scans at this facility use at least one of these dose optimization te chniques: automated exposure control; mA and/or kV adjustment per patient size (includes targeted exa ms where dose is matched to clinical indication); or iterative reconstruction.
[2022-07-11] MEDS: Omnipaque 350 MG/ML 500 ML BTL-Imaging package 85 ML IJ (08:46)
[2022-07-11] MEDS: Normal Saline - Diluent 50 ML VIAL IJ (08:47)
== END 2022-07-11 00:48 ==
LOC: DI 00:29
PROVIDERS: PCP Nurse Practitioner Family; Visit Provider Occupational Therapist
DX: I67.1 Cerebral aneurysm, nonruptured (principal)
CPT/HCPCS: 70496

== ENCOUNTER 2022-10-14 17:56 | Outpatient (REF) | payer MEDICAID, SELFPAY ==
[2022-10-14 15:47] LABS: ALT 46 U/L (16-63); AST 123 U/L (15-37); Albumin 3.3 g/dL (3.4-5.0); Alkaline Phosphatase 134 U/L (46-116); Anion Gap 10.8 mmol/L (3-11); BUN 6 mg/dL (7-18); Bilirubin, Direct 0.2 mg/dL (0.0-0.2); Bilirubin, Total 0.6 mg/dL (0.2-1.0); CO2 34.2 mmol/L (21.0-32.0); CREATININE 0.8 mg/dL (0.70-1.30); Calcium 9.1 mg/dL (8.5-10.1); Chloride 83 mmol/L (98-107); Estimated GFR 106.48 (mL/min/1.73m2); Glucose 120 mg/dL (74-106); Sodium 128 mmol/L (136-145); Total Protein 7.6 g/dL (6.4-8.2)
[2022-10-14 15:55] LABS: Potassium 2.7 mmol/L (3.5-5.1)
== END 2022-10-14 17:57 | disposition home or self-care (01) ==
LOC: NCHCN 17:56
PROVIDERS: PCP Nurse Practitioner Family; Visit Provider Nurse Practitioner Family
DX: I67.1 Cerebral aneurysm, nonruptured (principal); Z77.011 Contact with and (suspected) exposure to lead; R78.71 Abnormal lead level in blood; I10 Essential (primary) hypertension; R79.89 Other specified abnormal findings of blood chemistry
CPT/HCPCS: 80048; 80076; 83655

== ENCOUNTER 2022-10-17 14:24 | Outpatient (REF) | payer MEDICAID, SELFPAY ==
[2022-10-17 16:12] LABS: Anion Gap 14.2 mmol/L (3-11); BUN 10 mg/dL (7-18); CO2 32.8 mmol/L (21.0-32.0); CREATININE 1.1 mg/dL (0.70-1.30); Calcium 8.4 mg/dL (8.5-10.1); Chloride 82 mmol/L (98-107); Estimated GFR 80.77 (mL/min/1.73m2); Glucose 98 mg/dL (74-106); Sodium 129 mmol/L (136-145)
[2022-10-17 16:23] LABS: Potassium 2.2 mmol/L (3.5-5.1)
== END 2022-10-17 14:25 | disposition home or self-care (01) ==
LOC: NCHCN 14:24
PROVIDERS: PCP Nurse Practitioner Family; Visit Provider Nurse Practitioner Family
DX: I10 Essential (primary) hypertension (principal)
CPT/HCPCS: 80048

== ENCOUNTER 2022-12-22 15:26 | Outpatient (REF) | payer MEDICAID, SELFPAY ==
[2022-12-22 19:01] LABS: HCT 38.3 % (40.0-50.0); HGB 12.9 g/dL (13.5-17.5); MCH 34.8 pg (27.0-33.0); MCHC 33.7 % (32.0-36.0); MCV 103 fL (80-95); MPV 8.9 fL (8.0-11.0); Platelet Count 224 10^3/uL (130-400); RBC 3.71 10^6/uL (4.36-5.78); RDW 15.8 % (11.8-14.1); WBC 9.01 10^3/uL (4.4-10.8)
[2022-12-22 19:25] LABS: ALT 56 U/L (16-63); AST 122 U/L (15-37); Albumin 3.1 g/dL (3.4-5.0); Alkaline Phosphatase 181 U/L (46-116); Anion Gap 14.9 mmol/L (3-11); BUN 4 mg/dL (7-18); Bilirubin, Total 0.4 mg/dL (0.2-1.0); CO2 26.1 mmol/L (21.0-32.0); CREATININE 0.7 mg/dL (0.70-1.30); Calcium 8.5 mg/dL (8.5-10.1); Chloride 104 mmol/L (98-107); Estimated GFR 110.87 (mL/min/1.73m2); Glucose 101 mg/dL (74-106); Magnesium 1.4 mg/dL (1.8-2.4); Sodium 145 mmol/L (136-145); Total Protein 7.1 g/dL (6.4-8.2)
[2022-12-22 19:31] LABS: Potassium 2.6 mmol/L (3.5-5.1)
== END 2022-12-22 15:27 | disposition home or self-care (01) ==
LOC: NCHCN 15:26
PROVIDERS: PCP Nurse Practitioner Family; Visit Provider Family Medicine
DX: K70.30 Alcoholic cirrhosis of liver without ascites (principal); R79.89 Other specified abnormal findings of blood chemistry; R78.71 Abnormal lead level in blood; I10 Essential (primary) hypertension
CPT/HCPCS: 80053; 85027; 83655; 83735

== ENCOUNTER 2022-12-22 21:49 | Emergency (ER) | payer MEDICAID, SELFPAY ==
[2022-12-22 21:52] VITALS: BP 184/133; PULSE 98; RESP 18; TEMP 37; O2SAT 99
--- NOTE | 2022-12-22 22:00 | RT.EKG_ITS ---
APPROVED REPORT Exam: Resting ECG Reason for Exam: hypokalemia Patient Location: E HR:71 bpm ECG Measurements Heart Rate 71 AXIS ID 169 P 54 QRSd 85 QRS 9 QT 418 T 2 QTc 456 Conclusion Sinus rhythm...normal P axis, V-rate 60- 99 Physician: no stemi, u wave in v3 and v4
--- NOTE | 2022-12-22 22:12 | ED.GENADUL_ITS ---
Discharge Plan Discharge Details Chief Complaint: GenMedical Primary Care Provider: Paige Chen ED Provider: Elsie Brown Home Meds and New Rx's Prescriptions: No Action trazodone 50 mg tablet 25 mg PO HS PRN hydrochlorothiazide 12.5 mg tablet 12.5 mg PO DAILY Rx Instructions: Pt stopped taking per tramadol 50 mg tablet 50 mg PO BID PRN lisinopril 10 mg tablet 20 mg PO DAILY Patient Comments: TAKE 2 TABLETS BY MOUTH EVERY DAY DIRECTED. Medical Decision Making Rachid is a pleasant 52 year old male, accompanied by friend, with c/c of hypokalemia. Labs ordered by PCP today, he has chronic hypokalemia, and was found to have a K+ of 2.6 prompting them to have him come in for replenishment. He states he feels at baseline, aside from chronic pain in right side of his face. He states he has been taking his K+ daily as recommended. Denies fevers/chill, no N/V/D. Denies CP or SOB, no palpitations. States he had dental work a few months ago and has had chronic sewlling since. This is now focused in lindsay right side of his forehead. His PCP ordered imaging. He is not on abx at this time. He drinks 4 ETOH beverages daily. On exam, patient appears intoxicated, smells of alcohol. He has notable swelling on right side of head that is fluctuant and tender but no erythema or warmth. Afebrile. Initial BP in chart is error, his BP is 170/90. No respiratory distress, normal cardiac exam. Will obtain ECG for hypokalemia and begin law pplementation of both K and mag. Reviewed note from PCP today. They are concerned for osteomyelitis vs. abscess to forehead and have ordered outpatient CT. I agree with these ddx and feel that more emergent evaluation is appropriate. He is afebrile currently and it is not erythematous but given recent dental infection and course, concerned for remaining area of infection. Quesitoning if this could be spread elsewhere throughout soft tissues in this region, will obtain CT neck and head. At the end of my shift, care transitioned to Dr. Maradiaga with imaging pending. Patient receiving IV mag and K+. HPI General Date/Time Provider Initiated Documentation: 12/22/22 21:51 . Limitations to Documentation: no limitations (intoxicated but answering appropriately) . Information obtained by: patient, family (friend), RN notes reviewed and old records reviewed . History of Present Illness 52 year old M presents to the emergency department with the chief complaint of hypokalemia, Patient started experiencing this hour(s) (sent in by PCP) Patient notes headaches (associates with area of swelling/fluctuance to right side of forehead); denies chest pain, diaphoresis, fever/chills, malaise, rash, shortness of breath, syncope and weakness. Patient did receive the following treatments prior to arrival, other (on daily K supplement) Related Data Home Medications Medication Instructions Recorded Confirmed trazodone 50 mg tablet 25 mg PO HS PRN 12/09/19 12/22/22 lisinopril 10 mg tablet 20 mg PO DAILY 06/18/21 12/22/22 hydrochlorothiazide 12.5 mg tablet 12.5 mg PO DAILY 07/01/22 12/22/22 tramadol 50 mg tablet 50 mg PO BID PRN 07/01/22 12/22/22 Allergies Allergy/AdvReac Type Severity Reaction Status Date / Time No Known Allergies Allergy Unverified 12/22/22 21:57 General Stated Complaint: GenMedical ROSE MARY: 3 Review of Systems Constitutional Constitutional: Reports as per HPI, Denies chills, Denies fever(s), Reports headache(s) (associates with swelling to right forehead) and Denies malaise Eyes Eyes: Reports as per HPI, Denies change in vision, Denies eye discharge, Denies irritation and Reports eye pain (around right eye) ENT Ears, Nose, Mouth, and Throat: Reports as per HPI and Reports headache(s) (associates with swelling to right forehead) Cardiovascular Cardiovascular: Reports as per HPI, Denies chest pain and Denies dyspnea Respiratory Respiratory: Reports as per HPI and Denies dyspnea Gastrointestinal Gastrointestinal: Reports as per HPI, Denies abdominal pain and Denies change in bowel habits Integumentary/Breasts Skin/Breast: Reports as per HPI and Denies rash Neurologic Neurologic: Reports as per HPI and Reports headache(s) (associates with swelling to right forehead) PFSH All Active Problems (Updated 07/08/22 @ 11:10 by Eileen Nevarez) Bilateral sacroiliitis (Acute) Neuropathic pain of left forearm (Acute) Coccydynia (Acute) Cervical radiculopathy (Acute) Anterior cerebral aneurysm (Acute) Multiple lipomas (Acute) Screening for colon cancer (Acute) Bilateral hearing loss (Acute) Cubital tunnel syndrome on left (Acute) Left carpal tunnel syndrome (Acute) CRPS (complex regional pain syndrome), type II, upper (Acute) Right carpal tunnel syndrome (Acute) Cubital tunnel syndrome on right (Acute) Medical History Anemia Aneurysm Arm pain, right Asymmetrical sensorineural hearing loss Back pain Lopez's cyst, rt knee Chest wall pain Chronic low back pain Chronic pain Chronic sinusitis [place] Deviated septum Elevated blood lead level Elevated LFTs ETOH abuse Exposure to lead Fatigue Foraminal stenosis of cervical region Foreign body in left upper extremity (01/11/20) s/p excision of foreign bodies Foreign body in right ear Greater trochanteric bursitis of left hip (09/04/15) Heart murmur per pt. this was an incorrect dx Hypertension Hypokalemia Hypomagnesemia Hyponatremia Infrapatellar bursitis of right knee (01/11/20) s/p bursa excision Left buttock pain (11/07/14) Low back pain (11/07/14) Lumbar back pain Marital problem MVP (mitral valve prolapse) Neuropathy ISADORA (obstructive sleep apnea) Paraesthesia left 4-5th finger (05/29/06) Paresthesias in left hand (06/28/14) Peripheral cyanosis Polyarthralgia PONV (postoperative nausea and vomiting) Pt c/o post nasal drip causing nausea and vomiting routinely Raynauds disease Snoring Soft tissue swelling Steatosis of liver Synovial cyst of popliteal space [Lopez], right knee Thoracic back pain Tinnitus of both ears Tobacco abuse Tubular adenoma of colon Surgical History Aftercare involving removal of fracture plate or internal fixation device left arm H/O craniotomy History of arthroscopy of right knee 2001, diagnostic History of carpal tunnel release right History of colonoscopy (~03/2021) Right Popliteal cyst resection (07/25/03) Status post transposition of nerve left elbow Family History Mother , [place] at age 74. Heart disease Father No problems noted. Social History Smoking/Tobacco Use Status: Current every day Tobacco Type: cigarettes Years s moked: 42 Smoking risk assessment performed?: Yes Alcohol Intake: current Alcohol Intake frequency: 3 or more drinks per day Alc ohol type: hard liquor Drug use: Never Substance use type: does not use Household members: none Housing: house Number of Children: 1 current occupation: N/A Current gender identity: male What type of physical activity do you participate in: walking and independent ambulation Seatbelt use: sometimes Do you feel safe at home: Yes Do you feel safe in your relationship?: Yes Exam Const General: cooperative, healthy appearing, comfortable, no acute distress, well developed and intoxicated appearing Nutritional Appearance: average body habitus and well nourished Orientation: alert and awake HENMT Head: atraumatic and scalp tenderness (forehead) Ears: hearing grossly abnormal bilaterally (CREEK) General nose exam: external nose normal and nares normal Face and sinus: sinuses nontender, no erythema, fluctuance, no lacerations, no sinus tenderness and tenderness Face images: 1. Area of swelling/fluctuance and tenderness. No erythema or warmth. EOM intact. No pain with this. No palpable tract into the face or mouth Mouth: oral mucosae normal, lip normal, tongue normal, oropharynx normal and moist mucous membranes Teeth and gingiva: poor dentition Throat: posterior oropharynx normal, tonsils normal and uvula midline Eyes General: appearance normal, both eyes and all related structures Neck Neck: normal visual inspection, full ROM and no lymphadenopathy Resp Effort & Inspection: normal respiratory effort, able to speak in complete sentences and no respiratory distress Auscultation: clear to auscultation bilaterally, no rales, no rhonchi and no wheezes Cardio Rate: regular rate Rhythm: regular rhythm Heart Sounds: S1 normal and S2 normal Skin General skin exam: no rashes or lesions noted Neuro General: patient alert and patient awake Cognition: normal cognition Speech: speech normal Gait: normal gait Course Vital Signs Vital signs: Vital Signs Temperature 37.0 C 12/22/22 21:52 Pulse 98 H 12/22/22 21:52 Respiratory Rate 18 12/22/22 21:52 Blood Pressure 184/133 H 12/22/22 21:52 Pulse Oximetry 99 12/22/22 21:52 Temperature 37.0 C 12/22/22 21:52 Temperature Source Oral 12/22/22 21:52 Pulse 98 H 12/22/22 21:52 Respiratory Rate 18 12/22/22 21:52 Respiratory Effort Normal 12/22/22 21:59 Blood Pressure 184/133 H 12/22/22 21:52 Blood Pressure Position Sitting 12/22/22 21:52 Pulse Oximetry 99 12/22/22 21:52 Oxygen Delivery Method Room Air 12/22/22 21:52 Oxygen Flow Rate 0 12/22/22 21:52 Pain Level 0 12/22/22 21:52 PAWSS Have you Been Recently Intoxicated or Drunk Within the Last 30 days?: Yes Have you Ever Experienced Previous Episodes of Alcohol Withdrawal?: No Have you ever Experienced Withdrawal Seizures?: No Have you ever Experienced Delirium Tremens(DT)s?: No Have you ever undergone Alcohol Rehabilitation Treatment (i.e, inpt ot outpatient treatment programs)?: No Have you ever Experienced Blackouts?: No Have you ever Combined Alcohol with other Downers within the last 90 days?: No Have you ever Combined Alcohol with any other Substance of Abuse during the last 90 days?: No Positive Blood Alcohol level on Presentation? [PCS.BAL]: No Evidence of Increased Autonomic Activity (i.e. HR>120, tremor, sweating, agitation, nausea)?: No Result: 1
[2022-12-22] MEDS: POTASSIUM CHLORIDE 20 MEQ/100 ML BAG 50 MEQ IVPB (22:23)
[2022-12-22] MEDS: Potassium Chloride 20 MEQ TABCR 40 MEQ PO (22:23)
--- NOTE | 2022-12-22 22:30 | DI.CT_ITS ---
Exam(s) CT NECK W EXAM: CT NECK W INDICATION: recent dental infection, now with fluctuance foreh. COMPARISON: CT CT BRAIN CTA from 07/11/2022 TECHNIQUE: FINDINGS: OROPHARYNX: Unremarkable. No masses evident. HYPOPHARYNX: Unremarkable. Valleculae and epiglottis and aryepiglottic folds appear normal. VOCAL CORDS: Unremarkable. No masses evident. Subglottic airway appears unremarkable. THYROID GLAND: Unremarkable. Normal size and no obvious nodules. SALIVARY GLANDS: Unremarkable. No significant findings in the parotid and submandibular glands. LYMPH NODES: There is no adenopathy evident in the neck and supraclavicular regions. OTHER: VISUALIZED LUNG APICES: No significant findings. BRAIN: Again noted is right frontal temporal craniotomy. There now a prominent air-fluid collection in the right forehead scalp supraorbital ridge soft tissue s which appears to be in communication with the right frontal sinus via operative defects in the righ t frontal calvarium and superolateral right orbit. This collection measures approximately 5 x 4 x 1. 5 cm. There is also fluid within the right frontal sinus and right anterior ethmoidal air cells/right front oethmoidal recess. There is also some abnormal enhancement in the superolateral aspect of the right orbit in the region of the lacrimal gland. There appears to be probable extension of the collection into the superior aspect of the right orbital cavity. There appears to be possible continuity to the intracranial compartment, with enhancement in the extr a-axial space over the right frontal lobe.. There is complete opacification of the right maxillary sinus. There is bony dehiscence in the floor of the right maxillary sinus which is most probably related to periodontal disease IMPRESSION: 1. Prominent abnormal fluid-air collection in the right forehead scalp region with continuity with t he right frontal sinus, frontoethmoidal recess, and ipsilateral anterior ethmoidal air cells. There appears to be an element of intraorbital extension into the superior-lateral aspect of the ipsilatera l right orbital cavity. 2. Significant suspicion for continuity with the intracranial compartment via a craniotomy site. 3. Complete opacification of the right maxillary sinus which may be related to a separate process or iginating from upper right sushant dental disease. There appears to be dehiscence of the floor of the ri ght maxillary sinus at periapical dental levels. 4. Neuro surgery/ENT consultations recommended. First read by [facility] Discussed by myself with ER provider. RADIATION DOSE DELIVERED: Total DLP DATA REPOSITORY: All CT scans at this facility are submitted to the National Radiology Data Registry (NRDR) Dose Index Registry (DIR) with the [employer] (ACR). RADIATION OPTIMIZATION: All CT scans at this facility use at least one of these dose optimization te chniques: automated exposure control; mA and/or kV adjustment per patient size (includes targeted exa ms where dose is matched to clinical indication); or iterative reconstruction.
[2022-12-22] MEDS: Normal Saline - Diluent 50 ML VIAL IJ (22:52)
[2022-12-22] MEDS: Omnipaque 350 MG/ML 100 ML BTL IJ (22:52)
[2022-12-22] MEDS: Normal Saline Flush 10 ML SYR IVP (22:54)
[2022-12-22] MEDS: MAGNESIUM SULFATE 1 GM/100 ML BAG IVPB (23:02)
[2022-12-22 23:31] LABS: ESR 14 mm/hr (0-20)
[2022-12-22 23:42] LABS: Lactate 3.1 mmol/L (0.6-1.4)
[2022-12-22 23:48] LABS: C-Reactive Protein 0.29 mg/dL (0.0-0.3)
[2022-12-23] VITALS (14 sets, daily range): BP systolic 167–169; BP diastolic 87–104; PULSE 60–73; RESP 10–20; O2SAT 98–100
[2022-12-23 00:07] LABS: Procalcitonin < 0.1 ng/mL
[2022-12-23 00:08] LABS: Anion Gap 15.2 mmol/L (3-11); BUN 5 mg/dL (7-18); CO2 24.8 mmol/L (21.0-32.0); CREATININE 0.6 mg/dL (0.70-1.30); Calcium 8.2 mg/dL (8.5-10.1); Chloride 103 mmol/L (98-107); Estimated GFR 116.15 (mL/min/1.73m2); Glucose 82 mg/dL (74-106); Sodium 143 mmol/L (136-145)
--- NOTE | 2022-12-23 00:08 | NUR.NOTE ---
unable to import vital signs from the room monitor into [facility], pt will be discharged and re admitted but will lose most vital signs, JONN
[2022-12-23 00:10] LABS: Potassium 2.8 mmol/L (3.5-5.1)
--- NOTE | 2022-12-23 00:39 | DI.VRAD_ITS ---
PROCEDURE INFORMATION: Exam: CT Neck With Contrast Exam date and time: 12/22/2022 11:02 PM Age: 52 years old Clinical indication: Other: Recent dental infection, now with fluctuance foreh; Prior surgery; Surgery date: 6+ months; Surgery type: Aneurysm TECHNIQUE: Imaging protocol: Computed tomography of the neck with contrast. Radiation optimization: All CT scans at this facility use at least one of these dose optimization techniques: automated exposure control; mA and/or kV adjustment per patient size (includes targeted exams where dose is matched to clinical indication); or iterative reconstruction. Contrast material: OMNIPAQUE 350; Contrast volume: 100 ml; Contrast route: INTRAVENOUS (IV); COMPARISON: CT BRAIN NECK CTA 06/17/2021 5:20 PM FINDINGS: Pituitary gland and sella: Aneurysm clips in the midline suprasellar distribution near the anterior communicating artery. Orbital cavities: Asymmetric enhancing tissue in the superolateral right orbit lies in the distribution of the lacrimal gland and may represent infection or reactive changes. No intraorbital abscess component. Mastoid air cells: The mastoid air cells are clear. Pharynx: The parapharyngeal spaces are unremarkable. The nasopharynx is unremarkable. The oropharynx is unremarkable. The hypopharynx is unremarkable. Larynx: Normal epiglottis. Visualized larynx is unremarkable. Prevertebral and retropharyngeal spaces: Unremarkable. Salivary glands: The parotid and submandibular glands are unremarkable. Thyroid: The visualized thyroid gland is unremarkable. Lymph nodes: No adenopathy. Trachea: The visualized proximal tracheal airway is unremarkable. Lungs: The visualized pulmonary apices are clear. Esophagus: The visualized proximal esophagus is unremarkable. Bones/joints: Right frontotemporal craniotomy defect noted with extension of the flap to involve the superolateral orbit, with small malleable fixation plates at the superior and lateral orbital wall and a small plate in the right lateral frontotemporal distribution. Bone flap is grossly well-positioned. TMJs are well aligned. There is dural thickening/enhancement in the right frontal distribution concerning for meningitis related to intracranial extension of disease from the right frontal sinus. No significant epidural abscess component is demonstrated. Moderate soft tissue swelling over the rightward forehead/supraorbital ridge. There is a fluid collection measuring 3.8 cm transverse by 1.4 cm AP and 5.5 cm craniocaudal, with small amounts of air content and a thick enhancing peripheral margin, concerning for abscess. This likely communicates with the right frontal sinus via the operative bony defects in the superior right orbit and frontal calvarium. Mucoperiosteal thickening in the right maxillary sinus, right anterior ethmoids, and right frontal sinus, with fluid level in the right frontal sinus, suggesting changes of acute on chronic sinusitis. Evidence of periodontal disease in the rightward maxilla with bony dehiscence in the maxillary sinus floor at a few sites which may relate to periodontal disease or recent prior dental extractions, correlate with procedural history. The infratemporal fossae and consultant technology spaces are unremarkable. Soft tissues: See Bones/joints finding. Other findings: Moderate coronary artery calcification. IMPRESSION: 1. There is a 5.5 x 3.8 x 1.4 cm abscess in the right forehead scalp soft tissues. This is likely communicating to the right frontal sinus via the operative defects in the right frontal calvarium and superolateral right orbit, probably arising from sinus infection. 2. There is moderate regional dural thickening/enhancement in the right frontal lobe concerning for changes of meningitis. No significant epidural intracranial abscess component is evident. No intracranial mass effect. 3. There are findings concerning for intraorbital extension of infection in the extraconal superolateral right orbit where the lacrimal gland is enlarged and mildly hyperenhancing, infectious versus reactive swelling. Mild local stranding but no intraorbital abscess component. 4. Changes of acute on chronic sinusitis in the right maxillary, anterior ethmoid, and frontal sinuses. 5. Multifocal bony dehiscence in the floor of the right maxilla with suspected communication to the right maxillary sinus, which may relate to chronic periodontal disease or the clinically described dental procedures. 6. Comparison to prior head CT angiogram 210 2022 May be helpful. Exam was requested and an addendum will be placed if made available. 7. These findings initiated a critical results reporting process. An addendum will be issued at the time of clinician notification. Dictated and Authenticated by: Foreign Levin MD. Ordering:LEONARDO Zimmerman MD
--- NOTE | 2022-12-23 00:52 | DI.VRAD_ITS ---
Addendum created by Foreign Levin MD on 12/23/2022 12:52:19 AM EDT: Addendum: THIS REPORT CONTAINS FINDINGS THAT MAY BE CRITICAL TO PATIENT CARE. The findings were verbally communicated via telephone conference with Dr. Maradiaga at 12:51 AM EDT on 12/23/2022. The findings were acknowledged and understood. Initial report created on 12/23/2022 12:38:44 AM EDT: PROCEDURE INFORMATION: Exam: CT Neck With Contrast Exam date and time: 12/22/2022 11:02 PM Age: 52 years old Clinical indication: Other: Recent dental infection, now with fluctuance foreh; Prior surgery; Surgery date: 6+ months; Surgery type: Aneurysm TECHNIQUE: Imaging protocol: Computed tomography of the neck with contrast. Radiation optimization: All CT scans at this facility use at least one of these dose optimization techniques: automated exposure control; mA and/or kV adjustment per patient size (includes targeted exams where dose is matched to clinical indication); or iterative reconstruction. Contrast material: OMNIPAQUE 350; Contrast volume: 100 ml; Contrast route: INTRAVENOUS (IV); COMPARISON: CT BRAIN NECK CTA 06/17/2021 5:20 PM FINDINGS: Pituitary gland and sella: Aneurysm clips in the midline suprasellar distribution near the anterior communicating artery. Orbital cavities: Asymmetric enhancing tissue in the superolateral right orbit lies in the distribution of the lacrimal gland and may represent infection or reactive changes. No intraorbital abscess component. Mastoid air cells: The mastoid air cells are clear. Pharynx: The parapharyngeal spaces are unremarkable. The nasopharynx is unremarkable. The oropharynx is unremarkable. The hypopharynx is unremarkable. Larynx: Normal epiglottis. Visualized larynx is unremarkable. Prevertebral and retropharyngeal spaces: Unremarkable. Salivary glands: The parotid and submandibular glands are unremarkable. Thyroid: The visualized thyroid gland is unremarkable. Lymph nodes: No adenopathy. Trachea: The visualized proximal tracheal airway is unremarkable. Lungs: The visualized pulmonary apices are clear. Esophagus: The visualized proximal esophagus is unremarkable. Bones/joints: Right frontotemporal craniotomy defect noted with extension of the flap to involve the superolateral orbit, with small malleable fixation plates at the superior and lateral orbital wall and a small plate in the right lateral frontotemporal distribution. Bone flap is grossly well-positioned. TMJs are well aligned. There is dural thickening/enhancement in the right frontal distribution concerning for meningitis related to intracranial extension of disease from the right frontal sinus. No significant epidural abscess component is demonstrated. Moderate soft tissue swelling over the rightward forehead/supraorbital ridge. There is a fluid collection measuring 3.8 cm transverse by 1.4 cm AP and 5.5 cm craniocaudal, with small amounts of air content and a thick enhancing peripheral margin, concerning for abscess. This likely communicates with the right frontal sinus via the operative bony defects in the superior right orbit and frontal calvarium. Mucoperiosteal thickening in the right maxillary sinus, right anterior ethmoids, and right frontal sinus, with fluid level in the right frontal sinus, suggesting changes of acute on chronic sinusitis. Evidence of periodontal disease in the rightward maxilla with bony dehiscence in the maxillary sinus floor at a few sites which may relate to periodontal disease or recent prior dental extractions, correlate with procedural history. The infratemporal fossae and talent director spaces are unremarkable. Soft tissues: See Bones/joints finding. Other findings: Moderate coronary artery calcification. IMPRESSION: 1. There is a 5.5 x 3.8 x 1.4 cm abscess in the right forehead scalp soft tissues. This is likely communicating to the right frontal sinus via the operative defects in the right frontal calvarium and superolateral right orbit, probably arising from sinus infection. 2. There is moderate regional dural thickening/enhancement in the right frontal lobe concerning for changes of meningitis. No significant epidural intracranial abscess component is evident. No intracranial mass effect. 3. There are findings concerning for intraorbital extension of infection in the extraconal superolateral right orbit where the lacrimal gland is enlarged and mildly hyperenhancing, infectious versus reactive swelling. Mild local stranding but no intraorbital abscess component. 4. Changes of acute on chronic sinusitis in the right maxillary, anterior ethmoid, and frontal sinuses. 5. Multifocal bony dehiscence in the floor of the right maxilla with suspected communication to the right maxillary sinus, which may relate to chronic periodontal disease or the clinically described dental procedures. 6. Comparison to prior head CT angiogram 210 2022 May be helpful. Exam was requested and an addendum will be placed if made available. 7. These findings initiated a critical results reporting process. An addendum will be issued at the time of clinician notification. Dictated and Authenticated by: Foreign Levin MD. Ordering:LEONARDO Zimmerman MD
--- NOTE | 2022-12-23 00:56 | DI.VRAD_ITS ---
Addendum created by Foreign Levin MD on 12/23/2022 12:55:55 AM EDT: Addendum: The prior head CT angiogram from 07/11/2022 was also made available for comparison. The changes of sinusitis are new. The changes in the superolateral right orbit are new. Fluid collection concerning for abscess in the right frontal scalp soft tissues over the supraorbital ridge is new. The dural thickening/enhancement in the right frontotemporal distribution is chronic without significant change, probably largely represents reactive postoperative dural thickening, with no epidural abscess visualized. This was discussed with the ordering provider at 12:51 a.m. 12/23/2022. Addendum created by Foreign Levin MD on 12/23/2022 12:52:19 AM EDT: Addendum: THIS REPORT CONTAINS FINDINGS THAT MAY BE CRITICAL TO PATIENT CARE. The findings were verbally communicated via telephone conference with Dr. Maradiaga at 12:51 AM EDT on 12/23/2022. The findings were acknowledged and understood. Initial report created on 12/23/2022 12:38:44 AM EDT: PROCEDURE INFORMATION: Exam: CT Neck With Contrast Exam date and time: 12/22/2022 11:02 PM Age: 52 years old Clinical indication: Other: Recent dental infection, now with fluctuance foreh; Prior surgery; Surgery date: 6+ months; Surgery type: Aneurysm TECHNIQUE: Imaging protocol: Computed tomography of the neck with contrast. Radiation optimization: All CT scans at this facility use at least one of these dose optimization techniques: automated exposure control; mA and/or kV adjustment per patient size (includes targeted exams where dose is matched to clinical indication); or iterative reconstruction. Contrast material: OMNIPAQUE 350; Contrast volume: 100 ml; Contrast route: INTRAVENOUS (IV); COMPARISON: CT BRAIN NECK CTA 06/17/2021 5:20 PM FINDINGS: Pituitary gland and sella: Aneurysm clips in the midline suprasellar distribution near the anterior communicating artery. Orbital cavities: Asymmetric enhancing tissue in the superolateral right orbit lies in the distribution of the lacrimal gland and may represent infection or reactive changes. No intraorbital abscess component. Mastoid air cells: The mastoid air cells are clear. Pharynx: The parapharyngeal spaces are unremarkable. The nasopharynx is unremarkable. The oropharynx is unremarkable. The hypopharynx is unremarkable. Larynx: Normal epiglottis. Visualized larynx is unremarkable. Prevertebral and retropharyngeal spaces: Unremarkable. Salivary glands: The parotid and submandibular glands are unremarkable. Thyroid: The visualized thyroid gland is unremarkable. Lymph nodes: No adenopathy. Trachea: The visualized proximal tracheal airway is unremarkable. Lungs: The visualized pulmonary apices are clear. Esophagus: The visualized proximal esophagus is unremarkable. Bones/joints: Right frontotemporal craniotomy defect noted with extension of the flap to involve the superolateral orbit, with small malleable fixation plates at the superior and lateral orbital wall and a small plate in the right lateral frontotemporal distribution. Bone flap is grossly well-positioned. TMJs are well aligned. There is dural thickening/enhancement in the right frontal distribution concerning for meningitis related to intracranial extension of disease from the right frontal sinus. No significant epidural abscess component is demonstrated. Moderate soft tissue swelling over the rightward forehead/supraorbital ridge. There is a fluid collection measuring 3.8 cm transverse by 1.4 cm AP and 5.5 cm craniocaudal, with small amounts of air content and a thick enhancing peripheral margin, concerning for abscess. This likely communicates with the right frontal sinus via the operative bony defects in the superior right orbit and frontal calvarium. Mucoperiosteal thickening in the right maxillary sinus, right anterior ethmoids, and right frontal sinus, with fluid level in the right frontal sinus, suggesting changes of acute on chronic sinusitis. Evidence of periodontal disease in the rightward maxilla with bony dehiscence in the maxillary sinus floor at a few sites which may relate to periodontal disease or recent prior dental extractions, correlate with procedural history. The infratemporal fossae and analysis internship spaces are unremarkable. Soft tissues: See Bones/joints finding. Other findings: Moderate coronary artery calcification. IMPRESSION: 1. There is a 5.5 x 3.8 x 1.4 cm abscess in the right forehead scalp soft tissues. This is likely communicating to the right frontal sinus via the operative defects in the right frontal calvarium and superolateral right orbit, probably arising from sinus infection. 2. There is moderate regional dural thickening/enhancement in the right frontal lobe concerning for changes of meningitis. No significant epidural intracranial abscess component is evident. No intracranial mass effect. 3. There are findings concerning for intraorbital extension of infection in the extraconal superolateral right orbit where the lacrimal gland is enlarged and mildly hyperenhancing, infectious versus reactive swelling. Mild local stranding but no intraorbital abscess component. 4. Changes of acute on chronic sinusitis in the right maxillary, anterior ethmoid, and frontal sinuses. 5. Multifocal bony dehiscence in the floor of the right maxilla with suspected communication to the right maxillary sinus, which may relate to chronic periodontal disease or the clinically described dental procedures. 6. Comparison to prior head CT angiogram 210 2022 May be helpful. Exam was requested and an addendum will be placed if made available. 7. These findings initiated a critical results reporting process. An addendum will be issued at the time of clinician notification. Dictated and Authenticated by: Foreign Levin MD. Ordering:LEONARDO Zimmerman MD
--- NOTE | 2022-12-23 00:58 | ED.PROG_ITS ---
Date of service: 12/23/22 Time of Service: 00:58 Medical Decision Making Patient was signed out to me by my colleague Elsie Katz. Please refer to her HPI, physical exam, assessment and plan. Patient was initially sent here for evaluation as his laboratory work-up returned positive for hypokalemia. He was seen on an outpatient basis by his placed PCP for assessment for swelling in his right forehead. He does have a history of intracranial aneurysm and previous craniotomy. Outpatient laboratory work-up was performed and he was noted to be hypokalemic and he was recommended to come to the ER for further assessment. There was a large area of swelling noted on the patient's right frontal forehead, CT imaging was performed. Patient does note that he has been having this for the past 2 to 3 months, and shows pictures of how the swelling was actually worse a few weeks ago than it was today. CT imaging shows evidence of a 5 cm abscess in the right forehead scalp soft tissues which appears to be communicating to the right frontal sinus via the operative defects in the right frontal calvarium of the superior lateral right orbit likely arising from a sinus infection. There is also regional dural thickening and enhancement in the right frontal lobe concerning for changes of meningitis. No significant epidural intracranial abscess is evident though. There is also findings concerning for intraorbital extension of infection in the extraocular superior lateral right orbit with a lacrimal gland is enlarging mildly hyperenhancing. No intraorbital abscess component though. We will reach out to [facility] for further discussion. Of note on reassessment the patient appears notably stable. He denies any current headache. He does appear intoxicated . 5:21 AM I discussed the case with Dr. Moore from [facility] neurosurgery. She reviewed the images, and recommends further MRI for further evaluation. Patient certainly demonstrates unique clinical status as he has a normal ESR, normal CRP, negative procalcitonin. Lactate is elevated but this is in the setting of alcoholism. Patient was observed for quite a few hours, and reached a point of clinical sobriety. My recommendations were that the patient stay overnight for MRI imaging in the morning. Patient notably refused. He was very pleasant but he made it very clear that he would be going home and not staying overnight. He did reassure us that he would return in the morning for the MRI. I made it clear to the patient that this was not the recommended course of action, it would be much safer wiser to stay here for continued monitoring and prompt MRI. Patient continued to politely refused. Because of the history of alcohol for the patient I did have the patient's father come in. The father excepted the patient for his responsibility. He also tried to speak with the patient and recommended that he stay and the patient again made it very clear that even if he is not driven home he will leave and walk home. He was surprisingly polite throughout this interaction. Father accepts patient for discharge against our medical advice. Father assures us that he will also be bringing the patient back to the ER at 8 AM for MRI. Patient is of a appropriate age to make decisions. The patient is of sound mind, appears clinically sober, and has capacity to make decisions by my clinical exam. We have provided options for treatment and discussed the risks and benefits of these options and refusing these options, including and disability specific to the patient's pathology. Patient is able to discuss the risks and benefits and alternatives of treatment and refusing treatment. We have tried to involve the patient's family or support group that was present here . The patient chooses to leave before evaluation and treatment is complete AGAINST MEDICAL ADVICE. We will start the patient on Augmentin, give him the first dose here, give him a small to go bottle and sent a prescription to his pharmacy. I have extensively reviewed the treatment plan and discharge instructions with the patient and their family. I have addressed all patient concerns at this time. The patient and family was made aware of what symptoms to monitor for that would warrant a return to the emergency department. Discussed the plan with the patient and family, they demonstrate verbal understanding and agreement with our assessment and plan at this time. The documentation in this chart was dictated using v[employer] dictation software. Please excuse any dictation errors. FINDINGS: Pituitary gland and sella: Aneurysm clips in the midline suprasellar distribution near the anterior communicating artery. Orbital cavities: Asymmetric enhancing tissue in the superolateral right orbit lies in the distribution of the lacrimal gland and may represent infection or reactive changes. No intraorbital abscess component. Mastoid air cells: The mastoid air cells are clear. Pharynx: The parapharyngeal spaces are unremarkable. The nasopharynx is unremarkable. The oropharynx is unremarkable. The hypopharynx is unremarkable. Larynx: Normal epiglottis. Visualized larynx is unremarkable. Prevertebral and retropharyngeal spaces: Unremarkable. Salivary glands: The parotid and submandibular glands are unremarkable. Thyroid: The visualized thyroid gland is unremarkable. Lymph nodes: No adenopathy. Trachea: The visualized proximal tracheal airway is unremarkable. Lungs: The visualized pulmonary apices are clear. Esophagus: The visualized proximal esophagus is unremarkable. Bones/joints: Right frontotemporal craniotomy defect noted with extension of the flap to involve the superolateral orbit, with small malleable fixation plates at the superior and lateral orbital wall and a small plate in the right lateral frontotemporal distribution. Bone flap is grossly well-positioned. TMJs are well aligned. There is dural thickening/enhancement in the right frontal distribution concerning for meningitis related to intracranial extension of disease from the right frontal sinus. No significant epidural abscess component is demonstrated. Moderate soft tissue swelling over the rightward forehead/supraorbital ridge. There is a fluid collection measuring 3.8 cm transverse by 1.4 cm AP and 5.5 cm craniocaudal, with small amounts of air content and a thick enhancing peripheral margin, concerning for abscess. This likely communicates with the right frontal sinus via the operative bony defects in the superior right orbit and frontal calvarium. Mucoperiosteal thickening in the right maxillary sinus, right anterior ethmoids, and right frontal sinus, with fluid level in the right frontal sinus, suggesting changes of acute on chronic sinusitis. Evidence of periodontal disease in the rightward maxilla with bony dehiscence in the maxillary sinus floor at a few sites which may relate to periodontal disease or recent prior dental extractions, correlate with procedural history. The infratemporal fossae and angular developer spaces are unremarkable. Soft tissues: See Bones/joints finding. Other findings: Moderate coronary artery calcification. IMPRESSION: 1. There is a 5.5 x 3.8 x 1.4 cm abscess in the right forehead scalp soft tissues. This is likely communicating to the right frontal sinus via the operative defects in the right frontal calvarium and superolateral right orbit, probably arising from sinus infection. 2. There is moderate regional dural thickening/enhancement in the right frontal lobe concerning for changes of meningitis. No significant epidural intracranial abscess component is evident. No intracranial mass effect. 3. There are findings concerning for intraorbital extension of infection in the extraconal superolateral right orbit where the lacrimal gland is enlarged and mildly hyperenhancing, infectious versus reactive swelling. Mild local stranding but no intraorbital abscess component. 4. Changes of acute on chronic sinusitis in the right maxillary, anterior ethmoid, and frontal sinuses. 5. Multifocal bony dehiscence in the floor of the right maxilla with suspected communication to the right maxillary sinus, which may relate to chronic periodontal disease or the clinically described dental procedures. 6. Comparison to prior head CT angiogram 210 2022 May be helpful. Exam was requested and an addendum will be placed if made available. 7. These findings initiated a critical results reporting process. An addendum will be issued at the time of clinician notification. Thank you for allowing us to participate in the care of your patient. Sign Out Sign Out Data: Sign Out Comment: Care transitioned to Dr. Maradiaga with imaging, reassessment and disposition pending. Last updated by Elsie Brown PA at 12/22/22 23:07 Discharge Plan Disposition Patient Disposition: Against Medical Advice Condition: Stable Discharge Details Clinical Impression: Sinusitis, Abscess of forehead Primary Care Provider: Paige Chen ED Provider: Chris Maradiaga [place] Meds and New Rx's Prescriptions: New amoxicillin-pot clavulanate 875-125 mg tablet 1 tab PO BID Qty: 20 0RF No Action trazodone 50 mg tablet 25 mg PO HS PRN hydrochlorothiazide 12.5 mg tablet 12.5 mg PO DAILY Rx Instructions: Pt stopped taking per tramadol 50 mg tablet 50 mg PO BID PRN lisinopril 10 mg tablet 20 mg PO DAILY Patient Comments: TAKE 2 TABLETS BY MOUTH EVERY DAY DIRECTED. Discharge Instructions Instructions: Sinusitis (ED), Abscess (ED) Additional Instructions: As we discussed together it is against our medical advice that you leave at this time. A notably less ideal scenario is that you go home on this antibiotic and then come back in the morning for the MRI. Please return early this morning for completion of your studies. Please take the antibiotic as directed. This is not the definitive management of your current medical ailment, but it is a non- ideal alternative. If you notice any worsening of your symptoms, or any new symptoms such as vomiting, diarrhea, fever, chills, shortness of breath, chest pain, numbness, weakness, or fainting , please return immediately to the emergency department for reevaluation. Please follow up with your primary care provider as soon as possible for reassessment and reevaluation. As always, it was a pleasure participating in your medical care today. Referrals: Paige Chen [Primary Care Provider] -
[2022-12-23 01:38] LABS: ETHANOL BLOOD 296.2 mg/dL (<10)
[2022-12-23] MEDS: Nicotine 7 MG/24 HR PATCH TD (02:00)
[2022-12-23] MEDS: Amox. 875/Clav. 125, 2 TABS/BTL 1 TAB PO (02:25)
--- NOTE | 2022-12-23 21:05 | NUR.NOTE ---
Patient transferred to [facility], positive blood culture report faxed to [phone]. Nursing Note:
== END 2022-12-23 02:33 | disposition left against medical advice (07) ==
PROVIDERS: Physician Assistant; Emergency Provider Student in an Organized Health Care Education/Training Program; PCP Nurse Practitioner Family
DX: E87.6 Hypokalemia (principal); E83.42 Hypomagnesemia; L02.01 Cutaneous abscess of face; J01.40 Acute pansinusitis, unspecified; J32.4 Chronic pansinusitis; F10.10 Alcohol abuse, uncomplicated; F17.210 Nicotine dependence, cigarettes, uncomplicated; Y90.8 Blood alcohol level of 240 mg/100 ml or more; Z53.29 Procedure and treatment not carried out because of patient's decision for other reasons
CPT/HCPCS: 36415; 70491; 80048; 84145; 85652; 87040; 87077; 93005; 96365; 96366; 96368; 99285; 80320; 83605; 86140; 93010; 99284; J3475; J3480; J3490

== ENCOUNTER 2022-12-23 08:03 | Emergency (ER) | payer MEDICAID, SELFPAY ==
[2022-12-23] VITALS (199 sets, daily range): BP systolic 158–191; BP diastolic 71–100; PULSE 57–103; RESP 12–28; TEMP 36.7–36.8; O2SAT 97–100
--- NOTE | 2022-12-23 08:15 | DI.MRI_ITS ---
Exam(s) MR BRAIN WO/W EXAM: MR BRAIN WO/W CLINICAL HISTORY: hx of craniotomy with possible com abscess forehea TECHNIQUE: Multiplanar multisequence MRI of the brain was performed. Both noninfused and contrast i nfused sequences were performed. IV Contrast injected was 15 cc Dotarem. COMPARISON: MR MR BRAIN WO from 06/20/[address] BRAIN CTA from 07/11/[address] NECK W from 12/22/2022 FINDINGS: CEREBRAL PARENCHYMA: There is artifact from aneurysm clip in the region of the anterior communicating artery. No evidence of intracranial hemorrhage nor acute infarct. There is signal abnormality in the centra l mony consistent with prior lacunar infarct at this level. Probably subacute as there is some mild restricted diffusion evident at this level on the DWI sequence No new significant intra-axial signal abnormality in the cerebellar hemispheres nor in the periventri cular white matter. Ventricles are not enlarged or shifted. There are no ring enhancing lesions in the brain. Main finding here is an abnormal fluid-air collection in the right frontal scalp supraorbital and lat eral periorbital regions, this collection measuring approximately 5 x 1.5 x 5 cm. This fluid collect ion appears to be continuous with right frontal lobe region through the right frontal craniotomy defe ct. There is also similar fluid air collection in the right frontal sinus. Also in the right ethmoi katya air cells and frontoethmoidal recess. Also fluid evident in the right maxillary sinus. PITUITARY GLAND: No mass nor parasellar abnormality. No obvious abnormality in the cavernous sinuses. FLOW VOIDS: The expected flow void are noted. No evidence of obvious new aneurysm nor obvious vascula r malformation. IMPRESSION: 1. Large right periorbital/scalp fluid collection which appears to be a probable dural leak through a right frontal craniotomy defect. Appears to be continue with small right frontal subdural collectio n. There is also air-fluid in the right frontal sinus which is probably also communicating. There i s fluid without obvious air in the right maxillary sinus. 2. No abnormal enhancing intracranial findings. There are no ring enhancing lesions in the brain and there is no abnormal meningeal enhancement. DATA REPOSITORY:
[2022-12-23 08:49] LABS: Lactate 2.8 mmol/L (0.6-1.4)
[2022-12-23 09:08] LABS: BUN 3 mg/dL (7-18); CREATININE 0.6 mg/dL (0.70-1.30); Calcium 8.4 mg/dL (8.5-10.1); Chloride 102 mmol/L (98-107); Estimated GFR 116.15 (mL/min/1.73m2); Glucose 87 mg/dL (74-106); Magnesium 1.4 mg/dL (1.8-2.4); Sodium 142 mmol/L (136-145)
--- NOTE | 2022-12-23 10:08 | NUR.NOTE ---
Nursing Note: Assumed care of patient at this time time; report received from Talisha GALLEGO
[2022-12-23] MEDS: POTASSIUM CHLORIDE 10 MEQ/100 ML BAG 100 MEQ IVPB (10:24)
[2022-12-23] MEDS: Normal Saline 1,000 ML 1000 ML IV (10:24)
[2022-12-23] MEDS: MAGNESIUM SULFATE 1 GM/100 ML BAG IVPB (10:24)
--- NOTE | 2022-12-23 10:24 | ED.GENADUL_ITS ---
Discharge Plan Disposition Patient Disposition: Transfer-Acute Inpatient Care Specific Acute Inpt Facility: [facility] Discharge Details Clinical Impression: Dural sinus malformation, Hypomagnesemia, Acute hypokalemia, Alcohol withdrawal, Acute dehydration, Acute lactic acidosis Primary Care Provider: Paige Chen ED Provider: Rupal Benitez Home Meds and New Rx's Prescriptions: No Action trazodone 50 mg tablet 25 mg PO HS PRN hydrochlorothiazide 12.5 mg tablet 12.5 mg PO DAILY Rx Instructions: Pt stopped taking per MD tramadol 50 mg tablet 50 mg PO BID PRN amoxicillin-pot clavulanate 875-125 mg tablet 1 tab PO BID Qty: 20 0RF lisinopril 10 mg tablet 20 mg PO DAILY Patient Comments: TAKE 2 TABLETS BY MOUTH EVERY DAY DIRECTED. Discharge Data Discharge Date/Time-TO BE ENTERED AT DEPARTURE: 12/23/22 16:41 Medical Decision Making 52-year-old male presents for MRI of his brain with concern for communicating lesion, MRI shows evidence of large scalp fluid collection concerning to be a dural leak per radiology interpretation my review Electrolytes, potassium 3.0, magnesium of 1.4, magnesium 2 g and potassium 20 mEq were initiated ED EKG does not show evidence of QTc prolongation Case discussed with Dr. Malin, neurosurgeon and she will accept patient to the emergency department in transfer Case discussed with the ED attending, who accepts pt in transfer Zosyn 3.375 g was initiated Blood cultures are pending from early this morning, repeat lactate was 1.9, decreased from 3.2 Patient is alert and oriented, he has a CIWA of 19, we did give Ativan and his symptoms improved dramatically, his blood alcohol was 127 at time of assessment Patient is exhibiting tremor, diaphoresis, and hypertension, he received approximately 8 mg of Ativan in the emergency department for alcohol withdrawal and blood pressure and exam have improved dramatically His neurological exam remains nonfocal, cranial nerves II through XII intact, negative [id number], negative heel mueller, ambulatory with steady gait pupils equal round reactive to light and accommodation, extraocular muscles intact, no proptosis, lungs clear to auscultation, cardiac rate rhythm regular, no murmurs rubs, Patient does endorse only drinking 16 ounces of whiskey daily, states has never been in withdrawal before but I suspect he drinks more than he is disclosing Please remain on telemetry monitoring, his vitals have been relatively stable aside from some mild hypertension, he is alert and oriented Patient agreeable to transfer to [facility], has been stable throughout this encounter and will likely be stable to transfer via ambulance to [facility] General Date/Time Provider Initiated Documentation: 12/23/22 08:16 . HPI Narrative: This 52-year-old male presents with reports of need for evaluation of possible abscess on his forehead. He was told to return for an MRI and left AGAINST MEDICAL ADVICE yesterday. He denies any change in his symptoms, he took his antibiotic yesterday. Denies any fever or chills. Does endorse drinking alcohol, last drink was last evening. Denies history of withdrawal. States he drinks approximately 16 ounces of whiskey daily. Denies any falls or injuries. Denies any vision change. Related Data Home Medications Medication Instructions Recorded Confirmed trazodone 50 mg tablet 25 mg PO HS PRN 12/09/19 12/23/22 lisinopril 10 mg tablet 20 mg PO DAILY 06/18/21 12/23/22 hydrochlorothiazide 12.5 mg tablet 12.5 mg PO DAILY 07/01/22 12/23/22 tramadol 50 mg tablet 50 mg PO BID PRN 07/01/22 12/23/22 amoxicillin 875 mg-potassium 1 tab PO BID #20 tabs 12/23/22 12/23/22 clavulanate 125 mg tablet Previous Rx's Medication Instructions Recorded amoxicillin 875 mg-potassium 1 tab PO BID #20 tabs 12/23/22 clavulanate 125 mg tablet Allergies Allergy/AdvReac Type Severity Reaction Status Date / Time No Known Allergies Allergy Unverified 12/23/22 08:09 General Stated Complaint: Recheck ROSE MARY: 3 PFSH All Active Problems (Updated 12/24/22 @ 08:18 by KENDY Sanz) Sinusitis (Acute) Abscess of forehead (Acute) Dural sinus malformation (Acute) Hypomagnesemia (Acute) Acute hypokalemia (Acute) Alcohol withdrawal (Acute) Acute dehydration (Acute) Acute lactic acidosis (Acute) Bilateral sacroiliitis (Acute) Neuropathic pain of left forearm (Acute) Coccydynia (Acute) Cervical radiculopathy (Acute) Anterior cerebral aneurysm (Acute) Multiple lipomas (Acute) Screening for colon cancer (Acute) Bilateral hearing loss (Acute) Cubital tunnel syndrome on left (Acute) Left carpal tunnel syndrome (Acute) CRPS (complex regional pain syndrome), type II, upper (Acute) Right carpal tunnel syndrome (Acute) Cubital tunnel syndrome on right (Acute) Medical History Anemia Aneurysm Arm pain, right Asymmetrical sensorineural hearing loss Back pain Lopez's cyst, rt knee Chest wall pain Chronic low back pain Chronic pain Chronic sinusitis [place] Deviated septum Elevated blood lead level Elevated LFTs ETOH abuse Exposure to lead Fatigue Foraminal stenosis of cervical region Foreign body in left upper extremity (01/11/20) s/p excision of foreign bodies Foreign body in right ear Greater trochanteric bursitis of left hip (09/04/15) Heart murmur per pt. this was an incorrect dx Hypertension Hypokalemia Hypomagnesemia Hyponatremia Infrapatellar bursitis of right knee (01/11/20) s/p bursa excision Left buttock pain (11/07/14) Low back pain (11/07/14) Lumbar back pain Marital problem MVP (mitral valve prolapse) Neuropathy ISADORA (obstructive sleep apnea) Paraesthesia left 4-5th finger (05/29/06) Paresthesias in left hand (06/28/14) Peripheral cyanosis Polyarthralgia PONV (postoperative nausea and vomiting) Pt c/o post nasal drip causing nausea and vomiting routinely Raynauds disease Snoring Soft tissue swelling Steatosis of liver Synovial cyst of popliteal space [Lopez], right knee Thoracic back pain Tinnitus of both ears Tobacco abuse Tubular adenoma of colon Surgical History Aftercare involving removal of fracture plate or internal fixation device left arm H/O craniotomy History of arthroscopy of right knee 2001, diagnostic History of carpal tunnel release right History of colonoscopy (~03/2021) Right Popliteal cyst resection (07/25/03) Status post transposition of nerve left elbow Family History Mother , [place] at age 74. Heart disease Father No problems noted. Social History Smoking/Tobacco Use Status: Current every day Tobacco Type: cigarettes Years smoked: 42 Smoking risk assessment performed?: Yes Alcohol Intake: current Alcohol Intake frequency: 3 or more drinks per day Alcohol type: hard liquor Drug use: Never Substance use type: does not use Household members: none Housing: house Number of Children: 1 current occupation: N/A Current gender identity: male What type of physical activity do you participate in: walking and independent a mbulation Seatbelt use: sometimes Do you feel safe at home: Yes Do you feel safe in your relationship?: Yes Course Vital Signs Vital signs: Vital Signs Temperature 36.7 C 12/23/22 08:06 Pulse 74 12/23/22 08:06 Respiratory Rate 18 12/23/22 08:06 Blood Pressure 183/94 H 12/23/22 08:06 Pulse Oximetry 100 12/23/22 08:06 Temperature 36.7 C 12/23/22 08:06 Temperature Source Oral 12/23/22 08:06 Pulse 74 12/23/22 08:06 Respiratory Rate 18 12/23/22 08:06 Respiratory Effort Normal 12/23/22 08:10 Blood Pressure 183/94 H 12/23/22 08:06 Blood Pressure Position Sitting 12/23/22 08:06 Pulse Oximetry 100 12/23/22 08:06 Oxygen Delivery Method Room Air 12/23/22 08:06 Oxygen Flow Rate 0 12/23/22 08:06 Pain Level 5 12/23/22 08:06 Lab/Test Results Lab/Test Results: Laboratory Tests Range/Units 12/23/22 12/23/22 12/23/22 08:42 08:42 08:42 VBG Lactate (0.6-1.4) mmol/L 2.8 H* Sodium (136-145) mmol/L 142 Potassium (3.5-5.1) mmol/L 3.0 L Chloride (98-107) mmol/L 102 Carbon Dioxide (21.0-32.0) mmol/L 26.0 Anion Gap (3-11) mmol/L 14.0 H BUN (7-18) mg/dL 3 L Creatinine (0.70-1.30) mg/dL 0.6 L Est GFR (CKD-EPI 2020) (mL/min/1.73m2) 116.15 Glucose (74-106) mg/dL 87 Calcium (8.5-10.1) mg/dL 8.4 L Magnesium (1.8-2.4) mg/dL 1.4 L Critical Care Time Critical Care Time Attestation: Approximately 35 minutes of critical care time secondary to acute alcohol withdrawal management with Ativan and telemetry monitoring, electrolyte supplementation, hypokalemia and hypomagnesemia intravenously PAWSS Have you Ever Experienced Previous Episodes of Alcohol Withdrawal?: Yes Have you ever Experienced Withdrawal Seizures?: No Have you ever Experienced Delirium Tremens(DT)s?: No Have you ever undergone Alcohol Rehabilitation Treatment (i.e, inpt ot outpatient treatment programs)?: No Have you ever Experienced Blackouts?: No Have you ever Combined Alcohol with other Downers within the last 90 days?: No Have you ever Combined Alcohol with any other Substance of Abuse during the last 90 days?: No Positive Blood Alcohol level on Presentation? [PCS.BAL]: No Evidence of Increased Autonomic Activity (i.e. HR>120, tremor, sweating, agitation, nausea)?: No Result: 1
--- NOTE | 2022-12-23 10:45 | RT.EKG_ITS ---
APPROVED REPORT Exam: Resting ECG Reason for Exam: weakness Patient Location: E HR:64 bpm ECG Measurements Heart Rate 64 AXIS ND 165 P 63 QRSd 81 QRS 43 QT 461 T 12 QTc 474 Conclusion Sinus rhythm...normal P axis, V-rate 60- 99 sinus rhythm, normal axis, normal intervals, non ischemic
[2022-12-23] MEDS: LORazepam 2 MG/ML VIAL IVP ×2 (10:58→15:28)
[2022-12-23 11:25] LABS: ETHANOL BLOOD 127.7 mg/dL (<10)
--- NOTE | 2022-12-23 11:35 | NUR.NOTE ---
Nursing Note: to MRI on stretcher
[2022-12-23] MEDS: Normal Saline Flush 10 ML SYR IVP (11:44)
[2022-12-23] MEDS: Gadoterate meglumine 20 ML SYRINGE 15 ML IVP (11:45)
--- NOTE | 2022-12-23 12:16 | NUR.NOTE ---
Nursing Note: returned from MRI at this time
--- NOTE | 2022-12-23 12:51 | DI.VRAD_ITS ---
PROCEDURE INFORMATION: Exam: MR Head Without and With Contrast Exam date and time: 12/23/2022 11:41 AM Age: 52 years old Clinical indication: Condition or disease; Aneurysm, cerebral; Prior surgery; Surgery date: 6+ months; Surgery type: Aneurysm clips 10/29/21 TECHNIQUE: Imaging protocol: Magnetic resonance imaging of the head without and with contrast. Contrast material: DOTAREM; Contrast volume: 15 ml; Contrast route: INTRAVENOUS (IV); COMPARISON: CT HEAD WO 03/06/2022 10:39 AM FINDINGS: Brain: Aneurysm clip in the A-comm region. No acute infarct. No hemorrhage. No significant white matter disease. No edema. Generalized atrophy. 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 Cerebral ventricles: Normal. No ventriculomegaly. Bones/joints: There is a 5.2 x 1.6 by 5.4 cm fluid and air collection in the right frontal scalp supra orbital and lateral periorbital region, which appears to be contiguous with the CSF collection in the right frontal lobe through a small right frontal craniotomy defect best seen on series 8001, image 15. Paranasal sinuses: Fluid and air seen in the right maxillary, frontal and ethmoid sinuses. Mastoid air cells: Normal as visualized. No mastoid effusion. Orbital cavities: Unremarkable. Soft tissues: Unremarkable. IMPRESSION: Right periorbital and scalp fluid collection appears to be a dural leak contiguous with a small right frontal subdural fluid collection through right frontal craniotomy defect. Right-sided pansinusitis with fluid in air, possibly also communicating. Additional findings as described. Dictated and Authenticated by: Kiya Eduardo MD. Ordering:ALTAGRACIA Goldsmith MD
[2022-12-23 13:41] LABS: Lactate 1.9 mmol/L (0.6-1.4)
[2022-12-23] MEDS: PIPERACILLIN/TAZO 3.375 GM in Normal Saline 50 ML IVPB (14:47)
--- NOTE | 2022-12-23 14:56 | NUR.NOTE ---
Nursing Note: Upon rounding on patient, RN noted the patient to have taken off monitoring equipment such as BP cuff and O2 monitoring. He cites it's annoying as reason for removing equipment. Provided education on importance of cardiac and hemodynamic monitoring.
[2022-12-23 15:45] LABS: Prothrombin Time 10.1 sec (9.3-11.0)
--- NOTE | 2022-12-23 17:15 | NUR.NOTE ---
Nursing Note: Pt declined IVP Ativan prior to discharge stating he feels fine. Minimal tremors in hands, pt alert and oriented x3 at time of transport. Patient left department at approx 1645. Attempted report to [facility] ER for nurse to nurse report; phone rang many times then disconnected. Will try back.
--- NOTE | 2022-12-26 15:13 | NUR.NOTE ---
Accessed chart to determine orders for EKG and to determine whether or not one needs to be cancelled. Nursing Note:
== END 2022-12-23 16:41 | disposition short-term general hospital (02) ==
PROVIDERS: Emergency Provider Physician Assistant; PCP Nurse Practitioner Family
DX: Q28.3 Other malformations of cerebral vessels (principal); E86.0 Dehydration; E87.21 Acute metabolic acidosis; E87.6 Hypokalemia; E83.42 Hypomagnesemia; F10.939 Alcohol use, unspecified with withdrawal, unspecified; G50.1 Atypical facial pain
CPT/HCPCS: 36415; 70553; 80048; 93005; 96365; 96367; 96368; 96375; 96376; 99291; 80320; 83605; 83735; 85610; 93010; J2060; J2543; J3475; J3480

== ENCOUNTER 2023-01-05 13:56 | Outpatient (REF) | payer MEDICARE, MEDICAID, SELFPAY ==
[2023-01-16 15:43] LABS: Misc Referral (MAYO) See Comments
[2023-01-16 15:46] LABS: Misc Referral (MAYO) See Comments
== END 2023-01-05 13:57 | disposition home or self-care (01) ==
LOC: NCHCN 13:56
PROVIDERS: PCP Nurse Practitioner Family; Visit Provider Family Medicine
DX: I10 Essential (primary) hypertension (principal); R79.89 Other specified abnormal findings of blood chemistry; R78.71 Abnormal lead level in blood; K70.30 Alcoholic cirrhosis of liver without ascites
CPT/HCPCS: 82043; 82570; 83655

== ENCOUNTER 2023-01-06 14:53 | Outpatient (REF) | payer MEDICARE, MEDICAID, SELFPAY ==
[2023-01-06 16:13] LABS: HGB 9.9 g/dL (13.5-17.5); MCH 34.3 pg (27.0-33.0); MCHC 34.1 % (32.0-36.0); MCV 100 fL (80-95); MPV 9.2 fL (8.0-11.0); Platelet Count 533 10^3/uL (130-400); RBC 2.89 10^6/uL (4.36-5.78); RDW 15.9 % (11.8-14.1); RDW-SD 58.4 fL; WBC 16.48 10^3/uL (4.4-10.8)
[2023-01-06 16:24] LABS: ALT 23 U/L (16-63); AST 39 U/L (15-37); Albumin 2.7 g/dL (3.4-5.0); Alkaline Phosphatase 129 U/L (46-116); Anion Gap 13.1 mmol/L (3-11); BUN 2 mg/dL (7-18); Bilirubin, Total 0.3 mg/dL (0.2-1.0); CO2 21.9 mmol/L (21.0-32.0); CREATININE 0.7 mg/dL (0.70-1.30); Chloride 99 mmol/L (98-107); Estimated GFR 110.87 (mL/min/1.73m2); Glucose 98 mg/dL (74-106); Potassium 3.7 mmol/L (3.5-5.1); Sodium 134 mmol/L (136-145); Total Protein 6.8 g/dL (6.4-8.2)
== END 2023-01-06 14:54 | disposition home or self-care (01) ==
LOC: NCHCN 14:53
PROVIDERS: PCP Nurse Practitioner Family; Visit Provider Nurse Practitioner Family
DX: Z09 Encounter for follow-up examination after completed treatment for conditions other than malignant neoplasm (principal)
CPT/HCPCS: 80053; 85027

== ENCOUNTER 2023-01-12 13:04 | Outpatient (CLI) | payer MEDICARE, MEDICAID, SELFPAY ==
[2023-01-12 10:38] LABS: Abs Immature Grans 0.07 10^3/uL (0.0-0.06); Absolute Eosinophil Count 0.26 10^3/uL (0.0-0.7); Absolute Monocyte Count 1.06 10^3/uL (0.1-0.8); Basophils % 0.8; Eosinophils % 2.1; HCT 33.2 % (40.0-50.0); HGB 11.5 g/dL (13.5-17.5); Immature Grans % 0.6; Lymphocytes % 16.5; MCHC 34.6 % (32.0-36.0); MCV 98 fL (80-95); MPV 8.8 fL (8.0-11.0); Monocytes % 8.5; Neutrophils % 71.5; Platelet Count 433 10^3/uL (130-400); RBC 3.38 10^6/uL (4.36-5.78); RDW 16.2 % (11.8-14.1); RDW-SD 57.7 fL; WBC 12.51 10^3/uL (4.4-10.8)
[2023-01-12 10:39] LABS: Absolute Lymphocyte Count 2.06 10^3/uL (1.2-3.4); Absolute Neutrophil Count 8.94 10^3/uL (1.2-6.7)
== END 2023-01-12 13:05 | disposition home or self-care (01) ==
LOC: LBO 13:05
PROVIDERS: PCP Nurse Practitioner Family; Visit Provider Nurse Practitioner Family
DX: R89.9 Unspecified abnormal finding in specimens from other organs, systems and tissues (principal)
CPT/HCPCS: 36415; 85025

== ENCOUNTER → 2023-01-13 01:16 | Outpatient (CLI) | payer MEDICARE, MEDICAID, SELFPAY ==
--- NOTE | 2023-01-13 11:07 | DI.RAD_ITS ---
Exam(s) XR HIP RT COMPLETE AP PELVIS EXAM: XR HIP RT COMPLETE AP PELVIS CLINICAL HISTORY: RT HIP PAIN, M25.551. TECHNIQUE: 2D digital imaging was performed. Three views FINDINGS: BONES: No acute fracture is present. No bony destructive lesion is seen. JOINTS: No dislocation present. Hip joint spaces are maintained. Mild bilateral acetabular spurrin g. SI joints and pubic symphysis are unremarkable. SOFT TISSUE: Normal. IMPRESSION: Mild degenerative changes. DATA REPOSITORY: RADIATION DOSE DELIVERED:
== END ==
PROVIDERS: PCP Nurse Practitioner Family; Visit Provider Nurse Practitioner Family
DX: M25.551 Pain in right hip (principal)
CPT/HCPCS: 73502

== ENCOUNTER 2023-01-21 10:36 | Emergency (ER) | payer MEDICARE, MEDICAID, SELFPAY ==
[2023-01-21 10:53] VITALS: BP 107/72; TEMP 37.3; O2SAT 98
--- NOTE | 2023-01-21 11:20 | ED.GENADUL_ITS ---
Discharge Plan Disposition Patient Disposition: Home Condition: Stable Discharge Details Clinical Impression: Encounter for removal of kailyn Primary Care Provider: Paige Chen ED Provider: Leno Queen Home Meds and New Rx's Prescriptions: Continued trazodone 50 mg tablet 25 mg PO HS PRN hydrochlorothiazide 12.5 mg tablet 12.5 mg PO DAILY Rx Instructions: Pt stopped taking per MD tramadol 50 mg tablet 50 mg PO BID PRN amoxicillin-pot clavulanate 875-125 mg tablet 1 tab PO BID Qty: 20 0RF lisinopril 10 mg tablet 20 mg PO DAILY Patient Comments: TAKE 2 TABLETS BY MOUTH EVERY DAY DIRECTED. Discharge Instructions Additional Instructions: Follow up with your neurosurgery team as scheduled if you have fevers, feel more ill, or yellow/white discharge return to the emergency department Medical Decision Making 53 yo male who had a craniotomy on 12/30 at [facility] [place] comes in for staple removal as he states his home nurse couldn't remove them. HE has multiple kailyn in his superior scalp and the wound is well healed without signs of infection. No redness, no discharge. HE doesn't have a f/u appt with neurosurgery until January, will remove them for him today. removed 36 kailyn and there is one on the left forehead that appears to have been previously attempted to be removed and is bent, I tried for 30 minutes trying to remove it and was unable to, will consult general surger Dr. Larson was able to remove the final staple, 37 total removed, stable for d/c, advised to f/u with neurosurgery and return precautions given Differential Diagnosis Differential Diagnosis: wound closure, staple removal HPI General Mode of arrival: ambulatory . Date/Time Provider Initiated Documentation: 01/21/23 11:19 . Limitations to Documentation: no limitations . Information obtained by: patient . History of Present Illness 53 year old M presents to the emergency department with the chief complaint of staple removal, described as moderate, and it has been constant. No relieving factors improve symptom(s), No exacerbating factors reported . Patient notes no other symptoms.. Patient did receive the following treatments prior to arrival, none Related Data Home Medications Medication Instructions Recorded Confirmed trazodone 50 mg tablet 25 mg PO HS PRN 12/09/19 01/21/23 lisinopril 10 mg tablet 20 mg PO DAILY 06/18/21 01/21/23 hydrochlorothiazide 12.5 mg tablet 12.5 mg PO DAILY 07/01/22 01/21/23 tramadol 50 mg tablet 50 mg PO BID PRN 07/01/22 01/21/23 amoxicillin 875 mg-potassium 1 tab PO BID #20 tabs 12/23/22 01/21/23 clavulanate 125 mg tablet Previous Rx's Medication Instructions Recorded amoxicillin 875 mg-potassium 1 tab PO BID #20 tabs 12/23/22 clavulanate 125 mg tablet Allergies Allergy/AdvReac Type Severity Reaction Status Date / Time No Known Allergies Allergy Unverified 12/23/22 08:09 General Stated Complaint: SutureRem ROSE MARY: 4 Review of Systems All systems reviewed & are unremarkable except as noted in HPI and below Constitutional Constitutional: Denies chills, Denies fever(s) and Denies weakness Cardiovascular Cardiovascular: Denies chest pain and Denies dyspnea Respiratory Respiratory: Denies cough and Denies dyspnea Gastrointestinal Gastrointestinal: Denies abdominal pain, Denies nausea and Denies vomiting Integumentary/Breasts Skin/Breast: Denies rash Neurologic Neurologic: Denies weakness PFSH All Active Problems (Updated 01/21/23 @ 11:35 by Leno Queen MD) Sinusitis (Acute) Abscess of forehead (Acute) Dural sinus malformation (Acute) Hypomagnesemia (Acute) Acute hypokalemia (Acute) Alcohol withdrawal (Acute) Acute dehydration (Acute) Acute lactic acidosis (Acute) Encounter for removal of kailyn (Acute) Bilateral sacroiliitis (Acute) Neuropathic pain of left forearm (Acute) Coccydynia (Acute) Cervical radiculopathy (Acute) Anterior cerebral aneurysm (Acute) Multiple lipomas (Acute) Screening for colon cancer (Acute) Bilateral hearing loss (Acute) Cubital tunnel syndrome on left (Acute) Left carpal tunnel syndrome (Acute) CRPS (complex regional pain syndrome), type II, upper (Acute) Right carpal tunnel syndrome (Acute) Cubital tunnel syndrome on right (Acute) Medical History Anemia Aneurysm Arm pain, right Asymmetrical sensorineural hearing loss Back pain Lopez's cyst, rt knee Chest wall pain Chronic low back pain Chronic pain Chronic sinusitis [place] Deviated septum Elevated blood lead level Elevated LFTs ETOH abuse Exposure to lead Fatigue Foraminal stenosis of cervical region Foreign body in left upper extremity (01/11/20) s/p excision of foreign bodies Foreign body in right ear Greater trochanteric bursitis of left hip (09/04/15) Heart murmur per pt. this was an incorrect dx Hypertension Hypokalemia Hypomagnesemia Hyponatremia Infrapatellar bursitis of right knee (01/11/20) s/p bursa excision Left buttock pain (11/07/14) Low back pain (11/07/14) Lumbar back pain Marital problem MVP (mitral valve prolapse) Neuropathy ISADORA (obstructive sleep apnea) Paraesthesia left 4-5th finger (05/29/06) Paresthesias in left hand (06/28/14) Peripheral cyanosis Polyarthralgia PONV (postoperative nausea and vomiting) Pt c/o post nasal drip causing nausea and vomiting routinely Raynauds disease Snoring Soft tissue swelling Steatosis of liver Synovial cyst of popliteal space [Lopez], right knee Thoracic back pain Tinnitus of both ears Tobacco abuse Tubular adenoma of colon Surgical History Aftercare involving removal of fracture plate or internal fixation device left arm H/O craniotomy History of arthroscopy of right knee 2001, diagnostic History of carpal tunnel release right History of colonoscopy (~03/2021) Right Popliteal cyst resection (07/25/03) Status post transposition of nerve left elbow Family History Mother , [place] at age 74. Heart disease Father No problems noted. Social History Smoking/Tobacco Use Status: Current every day Tobacco Type: cigarettes Years smoked: 42 Smoking risk assessment performed?: Yes Alcohol Intake: current Alcohol Intake frequency: 3 or more drinks per day Alcohol type: hard liquor Drug use: Never Substance use type: does not use Household members: none Housing: house Number of Children: 1 current occupation: N/A Current gender identity: male What type of physical activity do you participate in: walking and independent ambulation Seatbelt use: sometimes Do you feel safe at home: Yes Do you feel safe in your relationship?: Yes Exam Const General: no acute distress Orientation: alert [facility] Head: no palpable skull fracture Ears: external ears normal General nose exam: external nose normal Mouth: moist mucous membranes Eyes General: appearance normal, both eyes and all related structures Neck Neck: normal visual inspection Resp Effort & Inspection: normal respiratory effort and able to speak in complete sentences Cardio Rate: regular rate Skin General skin exam: no rashes or lesions noted Neuro General: patient alert and patient oriented x3 Extrem General: normal to inspection Psych Mental Status: mental status grossly normal Course Vital Signs Vital signs: Vital Signs Temperature 37.3 C 01/21/23 10:53 Blood Pressure 107/72 01/21/23 10:53 Pulse Oximetry 98 01/21/23 10:53 Temperature 37.3 C 01/21/23 10:53 Temperature Source Temporal Artery Scan 01/21/23 10:53 Blood Pressure 107/72 01/21/23 10:53 Blood Pressure Position Sitting 01/21/23 10:53 Pulse Oximetry 98 01/21/23 10:53 Oxygen Delivery Method Room Air 01/21/23 10:53 Oxygen Flow Rate 0 01/21/23 10:53 Pain Level 5 01/21/23 10:53
[2023-01-21 12:29] VITALS: BP 110/78; PULSE 66; RESP 18; TEMP 36.8; O2SAT 95
== END 2023-01-21 12:32 | disposition home or self-care (01) ==
PROVIDERS: Emergency Provider Emergency Medicine; PCP Nurse Practitioner Family
DX: Z48.02 Encounter for removal of sutures (principal)

== ENCOUNTER 2023-02-03 18:27 | Outpatient (REF) | payer MEDICARE, MEDICAID, SELFPAY ==
[2023-02-03 17:34] LABS: ALT 14 U/L (16-63); AST 38 U/L (15-37); Albumin 2.9 g/dL (3.4-5.0); Alkaline Phosphatase 267 U/L (46-116); Anion Gap 14.3 mmol/L (3-11); BUN 8 mg/dL (7-18); Bilirubin, Total 0.5 mg/dL (0.2-1.0); C-Reactive Protein 0.27 mg/dL (0.0-0.3); CO2 26.7 mmol/L (21.0-32.0); CREATININE 0.8 mg/dL (0.70-1.30); Calcium 8.1 mg/dL (8.5-10.1); Chloride 94 mmol/L (98-107); Estimated GFR 105.82 (mL/min/1.73m2); Glucose 115 mg/dL (74-106); Sodium 135 mmol/L (136-145); Total Protein 6.1 g/dL (6.4-8.2)
[2023-02-03 17:54] LABS: Potassium 2.2 mmol/L (3.5-5.1)
== END 2023-02-03 18:28 | disposition home or self-care (01) ==
LOC: LBN 18:27
PROVIDERS: PCP Nurse Practitioner Family; Visit Provider Nurse Practitioner Family
DX: I67.1 Cerebral aneurysm, nonruptured (principal); K70.30 Alcoholic cirrhosis of liver without ascites; G06.0 Intracranial abscess and granuloma; R79.89 Other specified abnormal findings of blood chemistry; I10 Essential (primary) hypertension
CPT/HCPCS: 80053; 85027; 86140

== ENCOUNTER 2023-02-04 10:31 | Emergency (ER) | payer MEDICARE, MEDICAID, SELFPAY ==
--- NOTE | 2023-02-04 10:30 | RT.EKG_ITS ---
APPROVED REPORT Exam: Resting ECG Reason for Exam: hypokalemia Patient Location: E HR:94 bpm ECG Measurements Heart Rate 94 AXIS IA 149 P 32 QRSd 84 QRS 50 QT 365 T 13 QTc 444 Conclusion Sinus rhythm... V-rate 60- 99 Atrial premature complex...SV complex w/ short R-R interval Appropriate intervals. No ST segment or T wave abnormalities to suggest occlusive [place]
[2023-02-04 10:36] VITALS: BP 96/69; PULSE 76; RESP 18; TEMP 37.2; O2SAT 99
[2023-02-04 10:48] VITALS: RESP 14
[2023-02-04 11:12] LABS: Abs Immature Grans 0.03 10^3/uL (0.0-0.06); Absolute Basophil Count 0.07 10^3/uL (0.0-0.2); Absolute Eosinophil Count 0.15 10^3/uL (0.0-0.7); Absolute Lymphocyte Count 1.43 10^3/uL (1.2-3.4); Absolute Monocyte Count 1.14 10^3/uL (0.1-0.8); Absolute Neutrophil Count 7.13 10^3/uL (1.2-6.7); Basophils % 0.7; Eosinophils % 1.5; HCT 35.2 % (40.0-50.0); HGB 12.4 g/dL (13.5-17.5); Immature Grans % 0.3; Lymphocytes % 14.4; MCH 33.3 pg (27.0-33.0); MCHC 35.2 % (32.0-36.0); MCV 95 fL (80-95); MPV 8.9 fL (8.0-11.0); Monocytes % 11.5; Neutrophils % 71.6; Platelet Count 141 10^3/uL (130-400); RBC 3.72 10^6/uL (4.36-5.78); RDW 15.1 % (11.8-14.1); WBC 9.95 10^3/uL (4.4-10.8)
--- NOTE | 2023-02-04 11:16 | W.ED.GENAD ---
Discharge Plan Discharge Details Chief Complaint: GenMedical Primary Care Provider: Paige Chen ED Provider: Lucretia Shaver Home Meds and New Rx's Prescriptions: No Action trazodone 50 mg tablet 25 mg PO HS PRN hydrochlorothiazide 12.5 mg tablet 12.5 mg PO DAILY Rx Instructions: Pt stopped taking per tramadol 50 mg tablet 50 mg PO BID PRN amoxicillin-pot clavulanate 875-125 mg tablet 1 tab PO BID Qty: 20 0RF lisinopril 10 mg tablet 20 mg PO DAILY Patient Comments: TAKE 2 TABLETS BY MOUTH EVERY DAY DIRECTED. Medical Decision Making 53yo M with hx of HTN, recent severe sinusitis which progressed to involve skull & brain [place] [facility] [place] for abnormal potassium on routine outpatient labs. Feels well with no symptoms. Vital signs and physical exam reassuring. EKG sinus rhythm, no sequlae of hyperkalemia. Unclear etiology; no vomiting/diarrhea, stable dose of HCTZ. Labs reviewed as below, CBC with mild anemia, CMP with significant hypokalemia with K of 2.3, hypomagnesium with Mg of 1.3 . IV magnesium ordered as well IV potassium (total of 40mEQ) and PO potassium (40meq). Plan to recheck BMP after completion; if potassium > 3.0 would discharge home with oral supplementation to followup with PCP. BMP drawn after first round of IV/PO potassium and was 2.6. Will order additional 80meq PO, plan remains to repeat BMP after completion, dc home if reassuring with PCP followup for further workup and management. Signed out to oncoming physician at 1530. Lab Data Lab results reviewed: Yes I reviewed the patient's lab results. Labs: Laboratory Tests Range/Units 02/04/23 02/04/23 02/04/23 11:00 11:00 13:35 WBC (4.4-10.8) 10^3/uL 9.95 RBC (4.36-5.78) 10^6/uL 3.72 L Hgb (13.5-17.5) g/dL 12.4 L Hct (40.0-50.0) % 35.2 L MCV (80-95) fL 95 MCH (27.0-33.0) pg 33.3 H MCHC (32.0-36.0) % 35.2 RDW (11.8-14.1) % 15.1 H Plt Count (130-400) 10^3/uL 141 MPV (8.0-11.0) fL 8.9 Immature Gran % 0.3 Neutrophils % 71.6 Lymphocytes % 14.4 Monocytes % 11.5 Eosinophils % 1.5 Basophils % 0.7 Nucleated RBC % (0.0-0.3) % 0.0 Absolute Neutrophils (1.2-6.7) 10^3/uL 7.13 H Absolute Lymphocytes (1.2-3.4) 10^3/uL 1.43 Absolute Monocytes (0.1-0.8) 10^3/uL 1.14 H Absolute Eosinophils (0.0-0.7) 10^3/uL 0.15 Absolute Basophils (0.0-0.2) 10^3/uL 0.07 Sodium (136-145) mmol/L 135 L 131 L Potassium (3.5-5.1) mmol/L 2.3 L* 2.6 L* Chloride (98-107) mmol/L 95 L 93 L Carbon Dioxide (21.0-32.0) mmol/L 29.8 29.4 Anion Gap (3-11) mmol/L 10.2 8.6 BUN (7-18) mg/dL 6 L 6 L Creatinine (0.70-1.30) mg/dL 0.8 0.8 Est GFR (CKD-EPI 2020) (mL/min/1.73m2) 105.82 105.82 Glucose (74-106) mg/dL 150 H 118 H Calcium (8.5-10.1) mg/dL 8.8 8.8 Magnesium (1.8-2.4) mg/dL 1.3 L Total Bilirubin (0.2-1.0) mg/dL 0.6 AST (15-37) U/L 36 ALT (16-63) U/L 12.5 L Alkaline Phosphatase (46-116) U/L 249 H Total Protein (6.4-8.2) g/dL 6.9 Albumin (3.4-5.0) g/dL 2.9 L HPI General Mode of arrival: ambulatory. Date/Time Provider Initiated Documentation: 02/04/23 10:42. Limitations to Documentation: no limitations. Information obtained by: patient. HPI Narrative: 53yo M with hx of HTN, recent severe sinusitis which progressed to involve skull & brain s/p [place] [facility], presenting for abnormal potassium on outpaitent labs. Patient had routine followup bloodwork 2-3 days ago; contacted by his PCP and told to present to the emergency department for abnormal potassium. Patient feels well and denies complaints. No nausea, vomiting, abdominal pain or diarrhea. No chest pain, palpitations, lightheadedness, or shortness of breath. No muscle weakness. No new medications (does take lisinopril and HCTZ for blood pressure). Feels well overall, no complaints. Related Data Home Medications Medication Instructions Recorded Confirmed trazodone 50 mg tablet 25 mg PO HS PRN 12/09/19 01/21/23 lisinopril 10 mg tablet 20 mg PO DAILY 06/18/21 01/21/23 hydrochlorothiazide 12.5 mg tablet 12.5 mg PO DAILY 07/01/22 01/21/23 tramadol 50 mg tablet 50 mg PO BID PRN 07/01/22 01/21/23 amoxicillin 875 mg-potassium 1 tab PO BID #20 tabs 12/23/22 01/21/23 clavulanate 125 mg tablet Previous Rx's Medication Instructions Recorded amoxicillin 875 mg-potassium 1 tab PO BID #20 tabs 12/23/22 clavulanate 125 mg tablet Allergies Allergy/AdvReac Type Severity Reaction Status Date / Time No Known Allergies Allergy Unverified 12/23/22 08:09 General Stated Complaint: GenMedical ROSE MARY: 3 Review of Systems Narrative: see HPI PFSH All Active Problems (Updated 01/23/23 @ 00:04 by RICHY RENTERIA) Dural sinus malformation (Acute) Encounter for removal of kailyn (Acute) Bilateral sacroiliitis (Acute) Neuropathic pain of left forearm (Acute) Coccydynia (Acute) Cervical radiculopathy (Acute) Anterior cerebral aneurysm (Acute) Multiple lipomas (Acute) Screening for colon cancer (Acute) Bilateral hearing loss (Acute) Cubital tunnel syndrome on left (Acute) Left carpal tunnel syndrome (Acute) CRPS (complex regional pain syndrome), type II, upper (Acute) Right carpal tunnel syndrome (Acute) Cubital tunnel syndrome on right (Acute) Medical History Anemia Aneurysm Arm pain, right Asymmetrical sensorineural hearing loss Back pain Lopez's cyst, rt knee Chest wall pain Chronic low back pain Chronic pain Chronic sinusitis Cr[place]all Deviated septum Elevated blood lead level Elevated LFTs ETOH abuse Exposure to lead Fatigue Foraminal stenosis of cervical region Foreign body in left upper extremity (01/11/20) s/p excision of foreign bodies Foreign body in right ear Greater trochanteric bursitis of left hip (09/04/15) Heart murmur per pt. this was an incorrect dx Hypertension Hypokalemia Hypomagnesemia Hyponatremia Infrapatellar bursitis of right knee (01/11/20) s/p bursa excision Left buttock pain (11/07/14) Low back pain (11/07/14) Lumbar back pain Marital problem MVP (mitral valve prolapse) Neuropathy ISADORA (obstructive sleep apnea) Paraesthesia left 4-5th finger (05/29/06) Paresthesias in left hand (06/28/14) Peripheral cyanosis Polyarthralgia PONV (postoperative nausea and vomiting) Pt c/o post nasal drip causing nausea and vomiting routinely Raynauds disease Snoring Soft tissue swelling Steatosis of liver Synovial cyst of popliteal space [Lopez], right knee Thoracic back pain Tinnitus of both ears Tobacco abuse Tubular adenoma of colon Surgical History Aftercare involving removal of fracture plate or internal fixation device left arm H/O craniotomy History of arthroscopy of right knee 2001, diagnostic History of carpal tunnel release right History of colonoscopy (~03/2021) Right Popliteal cyst resection (07/25/03) Status post transposition of nerve left elbow Family History Mother , [place] at age 74. Heart disease Father No problems noted. Social History Smoking/Tobacco Use Status: Current every day Tobacco Type: cigarettes Years smoked: 42 Smoking risk assessment performed?: Yes Alcohol Intake: current Alcohol Intake frequency: 3 or more drinks per day Alcohol type: hard liquor Drug use: Never Substance use type: does not use Household members: none Housing: house Number of Children: 1 current occupation: N/A Current gender identity: male What type of physical activity do you participate in: walking and independent ambulation Seatbelt use: sometimes Do you feel safe at home: Yes Do you feel safe in your relationship?: Yes Exam Narrative Exam Narrative: General: Alert, well appearing, well nourished, in no acute distress. Head: Normocephalic. Large anterior surgical incision, healing well. Neck: Trachea midline, Neck supple. ENT: MMM. No oropharygeal lesions or exudate. Cardiac: RRR, no murmurs appreciated Resp: No respiratory distress. CTAB. Abd: Soft, non-distended, nontender : No suprapubic tenderness. Extremities: No deformities. No peripheral edema. Neurologic: GCS 15. Moves all extremities freely against gravity Course Vital Signs Vital signs: Vital Signs Temperature 37.2 C 02/04/23 10:36 Pulse 76 02/04/23 10:36 Respiratory Rate 18 02/04/23 10:36 Blood Pressure 96/69 L 02/04/23 10:36 Pulse Oximetry 99 02/04/23 10:36 Temperature 37.2 C 02/04/23 10:36 Pulse 76 02/04/23 10:36 Respiratory Rate 14 02/04/23 10:48 Respiratory Effort Normal 02/04/23 10:48 Respiratory Depth Normal 02/04/23 10:48 Respiratory Pattern Normal 02/04/23 10:48 Blood Pressure 96/69 L 02/04/23 10:36 Pulse Oximetry 99 02/04/23 10:36 Oxygen Delivery Method Room Air 02/04/23 10:36 Oxygen Flow Rate 0 02/04/23 10:36 Lab/Test Results Lab/Test Results: Laboratory Tests Range/Units 02/04/23 11:00 WBC (4.4-10.8) 10^3/uL 9.95 RBC (4.36-5.78) 10^6/uL 3.72 L Hgb (13.5-17.5) g/dL 12.4 L Hct (40.0-50.0) % 35.2 L MCV (80-95) fL 95 MCH (27.0-33.0) pg 33.3 H MCHC (32.0-36.0) % 35.2 RDW (11.8-14.1) % 15.1 H Plt Count (130-400) 10^3/uL 141 MPV (8.0-11.0) fL 8.9 Immature Gran % 0.3 Neutrophils % 71.6 Lymphocytes % 14.4 Monocytes % 11.5 Eosinophils % 1.5 Basophils % 0.7 Nucleated RBC % (0.0-0.3) % 0.0 Absolute Neutrophils (1.2-6.7) 10^3/uL 7.13 H Absolute Lymphocytes (1.2-3.4) 10^3/uL 1.43 Absolute Monocytes (0.1-0.8) 10^3/uL 1.14 H Absolute Eosinophils (0.0-0.7) 10^3/uL 0.15 Absolute Basophils (0.0-0.2) 10^3/uL 0.07 Sign Out Sign Out Data: Sign Out Comment: 53yo M hypokalemia on routine outpatient labs. Asymptomatic. K 2.3 here. No clear etiology. Getting oral and PO replacement here. Plan for repeat BMP, likely discharge home with continued supplementation if improves to reasonable level ~3.0 Last updated by Lucretia Shaver MD at 02/04/23 15:15 PAWSS Have you Been Recently Intoxicated or Drunk Within the Last 30 days?: No Result: 0
[2023-02-04 11:29] LABS: ALT 12.5 U/L (16-63); AST 36 U/L (15-37); Albumin 2.9 g/dL (3.4-5.0); Alkaline Phosphatase 249 U/L (46-116); Anion Gap 10.2 mmol/L (3-11); BUN 6 mg/dL (7-18); Bilirubin, Total 0.6 mg/dL (0.2-1.0); CO2 29.8 mmol/L (21.0-32.0); CREATININE 0.8 mg/dL (0.70-1.30); Calcium 8.8 mg/dL (8.5-10.1); Chloride 95 mmol/L (98-107); Estimated GFR 105.82 (mL/min/1.73m2); Glucose 150 mg/dL (74-106); Magnesium 1.3 mg/dL (1.8-2.4); Sodium 135 mmol/L (136-145); Total Protein 6.9 g/dL (6.4-8.2)
[2023-02-04 11:30] LABS: Potassium 2.3 mmol/L (3.5-5.1)
[2023-02-04] MEDS: Potassium Chloride 20 MEQ TABCR 40 MEQ PO (11:53)
[2023-02-04] MEDS: POTASSIUM CHLORIDE 20 MEQ/100 ML BAG 50 MEQ IVPB ×2 (11:53→14:02)
[2023-02-04] MEDS: MAGNESIUM SULFATE 1 GM/100 ML BAG IVPB (11:53)
[2023-02-04] MEDS: Nicotine 21 MG/24 HR PATCH TD (12:51)
[2023-02-04 14:04] LABS: Anion Gap 8.6 mmol/L (3-11); BUN 6 mg/dL (7-18); CO2 29.4 mmol/L (21.0-32.0); CREATININE 0.8 mg/dL (0.70-1.30); Calcium 8.8 mg/dL (8.5-10.1); Chloride 93 mmol/L (98-107); Estimated GFR 105.82 (mL/min/1.73m2); Glucose 118 mg/dL (74-106); Sodium 131 mmol/L (136-145)
[2023-02-04 14:06] LABS: Potassium 2.6 mmol/L (3.5-5.1)
[2023-02-04] MEDS: Potassium Chloride 20 MEQ TABCR 80 MEQ PO (14:19)
--- NOTE | 2023-02-04 15:43 | ED.PROG_ITS ---
Date of service: 02/04/23 Time of Service: 15:43 Medical Decision Making I received signout on this 53-year-old male in the emergency department in the setting of marked hypokalemia for which he is receiving oral and IV repletion. His hypokalemia was found on outpatient lab draw. His vitals are notable for so ft blood pressure on arrival. We will repeat blood pressure and repeat potassium following repletion. 4:34 PM Repeat potassium returned at 2.8 mmol/L. Repeat blood pressure within normal limits.Will insurance counselor the patient on holding his hydrochlorothiazide until he follows up with his primary care provider. I met with the patient and explained the recommendation for repeat potassium. He was adamant about wanting to go. Given that he had a soft blood pressure on arrival I advised him to discontinue his hydrochlorothiazide. I advised that he should go to his primary care provider later this week. I have asked health community recreation coordinator Armida to have him seen within 2 days by his primary care provider for repeat blood pressure check. I advised that if he felt weak or nauseous that he should return to the emergency department. Sign Out Sign Out Data: Sign Out Comment: 53yo M hypokalemia on routine outpatient labs. Asymptomatic. K 2.3 here. No clear etiology. Getting oral and PO replacement here. Plan for repeat BMP, likely discharge home with continued supplementation if improves to reasonable level ~3.0 Last updated by Lucretia Shaver MD at 02/04/23 15:15 Discharge Plan Disposition Patient Disposition: Home Discharge Details Clinical Impression: Acute hypokalemia Primary Care Provider: Paige Chen ED Provider: Foreign Francis Home Meds and New Rx's Prescriptions: Continued trazodone 50 mg tablet 25 mg PO HS PRN tramadol 50 mg tablet 50 mg PO BID PRN amoxicillin-pot clavulanate 875-125 mg tablet 1 tab PO BID Qty: 20 0RF lisinopril 10 mg tablet 20 mg PO DAILY Patient Comments: TAKE 2 TABLETS BY MOUTH EVERY DAY DIRECTED. Discontinued hydrochlorothiazide 12.5 mg tablet 12.5 mg PO DAILY Rx Instructions: Pt stopped taking per MD Discharge Instructions Instructions: Hypokalemia (ED) Additional Instructions: You were seen in the emergency department for your low potassium. Your potassium improved in the emergency department with repletion. Please discontinue taking your hydrochlorothiazide as this could certainly be causing your low potassium and your blood pressure appears adequately controlled in the emergency department. Please return to the emergency department if you feel nauseous weak or begin vomiting.
[2023-02-04 15:50] VITALS: BP 117/84; PULSE 74; RESP 18; O2SAT 98
[2023-02-04 16:29] LABS: Anion Gap 7.2 mmol/L (3-11); BUN 6 mg/dL (7-18); CO2 28.8 mmol/L (21.0-32.0); CREATININE 0.8 mg/dL (0.70-1.30); Calcium 8.1 mg/dL (8.5-10.1); Chloride 96 mmol/L (98-107); Estimated GFR 105.82 (mL/min/1.73m2); Glucose 149 mg/dL (74-106); Sodium 132 mmol/L (136-145)
--- NOTE | 2023-02-04 16:32 | NUR.NOTE ---
Nursing Note: this rn took report of Crit K of 2.8 from lab provider aware
[2023-02-04 16:33] LABS: Potassium 2.8 mmol/L (3.5-5.1)
== END 2023-02-04 16:44 | disposition home or self-care (01) ==
PROVIDERS: Student in an Organized Health Care Education/Training Program; Emergency Provider Emergency Medicine; PCP Nurse Practitioner Family
DX: E87.6 Hypokalemia (principal); I10 Essential (primary) hypertension; Z79.899 Other long term (current) drug therapy
CPT/HCPCS: 80048; 80053; 93005; 96365; 96366; 96367; 96368; 99284; 83735; 85025; 93010; J3475; J3480

== ENCOUNTER 2023-02-10 19:47 | Outpatient (REF) | payer MEDICARE, MEDICAID, SELFPAY ==
[2023-02-10 18:25] LABS: Anion Gap 10.5 mmol/L (3-11); BUN 6 mg/dL (7-18); CO2 26.5 mmol/L (21.0-32.0); CREATININE 0.6 mg/dL (0.70-1.30); Calcium 8.2 mg/dL (8.5-10.1); Chloride 103 mmol/L (98-107); Estimated GFR 115.43 (mL/min/1.73m2); Glucose 134 mg/dL (74-106); Potassium 3.2 mmol/L (3.5-5.1); Sodium 140 mmol/L (136-145)
[2023-02-17 18:00] LABS: Testosterone, Free 7.46 ng/dL (4.06-15.6); Testosterone, Total 269 ng/dL (240-950)
== END 2023-02-10 19:48 | disposition home or self-care (01) ==
LOC: NCHCN 19:47
PROVIDERS: PCP Nurse Practitioner Family; Visit Provider Nurse Practitioner Family
DX: F52.21 Male erectile disorder; I10 Essential (primary) hypertension; R79.89 Other specified abnormal findings of blood chemistry; F10.10 Alcohol abuse, uncomplicated; R78.71 Abnormal lead level in blood
CPT/HCPCS: 80048; 84402; 84403; 83655

== ENCOUNTER 2023-02-23 12:35 | Outpatient (REF) | payer MEDICARE, MEDICAID, SELFPAY ==
[2023-02-23 16:59] LABS: Abs Immature Grans 0.03 10^3/uL (0.0-0.06); Absolute Basophil Count 0.04 10^3/uL (0.0-0.2); Absolute Eosinophil Count 0.09 10^3/uL (0.0-0.7); Absolute Lymphocyte Count 1.83 10^3/uL (1.2-3.4); Absolute Monocyte Count 0.73 10^3/uL (0.1-0.8); Absolute Neutrophil Count 3.23 10^3/uL (1.2-6.7); Basophils % 0.7; Eosinophils % 1.5; HGB 12.4 g/dL (13.5-17.5); Immature Grans % 0.5; Lymphocytes % 30.8; MCH 33.7 pg (27.0-33.0); MCHC 34.4 % (32.0-36.0); MCV 98 fL (80-95); MPV 9.7 fL (8.0-11.0); Monocytes % 12.3; Neutrophils % 54.2; Platelet Count 136 10^3/uL (130-400); RBC 3.68 10^6/uL (4.36-5.78); RDW 15.9 % (11.8-14.1); RDW-SD 57.2 fL; WBC 5.95 10^3/uL (4.4-10.8)
[2023-02-23 18:03] LABS: ALT 18 U/L (16-63); AST 66 U/L (15-37); Albumin 3.1 g/dL (3.4-5.0); Alkaline Phosphatase 348 U/L (46-116); BUN 5 mg/dL (7-18); Bilirubin, Total 0.9 mg/dL (0.2-1.0); CREATININE 0.7 mg/dL (0.70-1.30); Calcium 8.6 mg/dL (8.5-10.1); Chloride 96 mmol/L (98-107); Creatine Kinase 41 U/L (39-308); Estimated GFR 110.18 (mL/min/1.73m2); Glucose 104 mg/dL (74-106); Potassium 3.9 mmol/L (3.5-5.1); Sodium 133 mmol/L (136-145); Total Protein 7.2 g/dL (6.4-8.2)
== END 2023-02-23 12:36 | disposition home or self-care (01) ==
LOC: NCHCN 12:35
PROVIDERS: PCP Nurse Practitioner Family; Visit Provider Nurse Practitioner Family
DX: G06.0 Intracranial abscess and granuloma (principal); I10 Essential (primary) hypertension; K70.30 Alcoholic cirrhosis of liver without ascites
CPT/HCPCS: 80053; 82550; 85025

== ENCOUNTER → 2023-02-24 00:54 | Outpatient (CLI) | payer MEDICARE, MEDICAID, SELFPAY ==
--- NOTE | 2023-02-24 | DI.MRI_ITS ---
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 CONTRAST MATERIAL: IV Contrast: 15 mL of Dotarem contrast administered. COMPARISON: CT CT BRAIN CTA from 07/11/2022 MR MR BRAIN WO/W from 12/23/2022 FINDINGS: VENTRICLES AND EXTRA AXIAL SPACES: Normal in size and morphology for the patient's age. HEMORRHAGE: None. CEREBRAL PARENCHYMA: No focus of restricted diffusion to suggest acute infarct. No space-occupying le yuriy identified. Stable increased signal seen in the mony likely reflecting an old infarct. There i s artifact seen in the anterior cranial fossa consistent with the anterior communicating artery aneur ysm clipping. MIDLINE SHIFT: None. BRAINSTEM/CEREBELLUM: Normal. CALVARIUM: Normal. ENHANCEMENT: No suspicious enhancement identified. VISUALIZED PARANASAL SINUSES/MASTOIDS: Clear. [place]: Normal flow void. PITUITARY GLAND: Unremarkable. OTHER FINDINGS: There is a residual thin peripherally enhancing fluid collection overlying the right frontal parietal bone which measures 3.1 long by 0.5 transverse. This compares to 5.1 x 1.5 x 5 cm o n the prior examination. No significant intracranial component is seen. There is still opacificatio n of the right frontal sinus. The right maxillary sinus and ethmoid air cells are clear. No intracr anial enhancing component is seen. IMPRESSION: 1. Significant DC crease in size of the subcutaneous component of the abscess since 12/23/2022. Curre ntly there is a 3.1 x 0.5 cm peripherally enhancing thin fluid collection in the subcutaneous tissues along the right frontal/parietal bone. There does not appear to be any significant intracranial enh ancement noted. There is persistent opacification of the right frontal sinus. There has been cleari ng of the right maxillary sinus and right ethmoid air cells. 2. The patient has had a prior craniotomy. 3. Prior anterior aneurysm clipping. DATA REPOSITORY:
[2023-02-24] MEDS: Normal Saline Flush 10 ML SYR IVP (15:32)
[2023-02-24] MEDS: Gadoterate meglumine 20 ML SYRINGE 15 ML IVP (15:33)
== END ==
PROVIDERS: PCP Nurse Practitioner Family; Visit Provider Neurological Surgery
DX: G06.0 Intracranial abscess and granuloma (principal); Z98.890 Other specified postprocedural states
CPT/HCPCS: 70553

== ENCOUNTER 2023-03-23 04:00 | Outpatient (CLI) | payer MEDICARE, MEDICAID, SELFPAY ==
--- NOTE | 2023-03-23 15:52 | PDOC.EEG ---
Neurology EEG EEG: [facility] Department of Neurology EEG REPORT Date of Recordin03/23/23 Interpreting Physician: Dr. Caroline Darnell PCP/Referring Provider: Dr. Morelia Herrera Reason for study: Mr. Morrow is a 53 year-old s/p R craniotomy in September 2021 for ACOM aneurysm clipping/DSA. In November 2022, he presented to the [facility] ER with 3 months of increasing headaches and R forehead swelling found to have an intracranial abscess in the old craniotomy defect with communication with the R paranasal sinuses s/p [place] with [facility] [place] [facility] [place] and abx x 6 weeks. He more recently has been experiencing episodes of paralysis of both legs associated with urinary incontinence lasting 10-15min. Current Medications: Home Medications Medication Instructions Recorded Confirmed Type trazodone 50 mg tablet 25 mg PO HS PRN 12/09/19 01/21/23 History lisinopril 10 mg tablet 20 mg PO DAILY 06/18/21 01/21/23 History tramadol 50 mg tablet 50 mg PO BID PRN 07/01/22 01/21/23 History amoxicillin 875 mg-potassium 1 tab PO BID #20 tabs 12/23/22 01/21/23 Rx clavulanate 125 mg tablet METHODS: A 21 channel digitized electroencephalogram was performed in the [facility] Clinical Neurophysiology Laboratory. The 10/20 international system of electrode placement was used and bipolar and referential electrode montages were recorded. In addition to EEG the patient was monitored for EKG and lateral/vertical eye movements. Activation procedures of photic stimulation and hyperventilation were performed if applicable. Video was used during activation procedures and during events where applicable. The duration of the recording was 30 minutes. DESCRIPTION OF EEG: The patient was noted to be awake, drowsy, and asleep during the recording. During maximal wakefulness an 8.5-Hz posterior background rhythm was present which was well-modulated, symmetrical, reactive to eye opening, and of moderate voltage. With eye opening the background activity changed to a low voltage mixture of alpha, beta, and occasional theta range frequencies. Faster frequencies were present in the bilateral anterior head regions. There was a normal anterior-posterior voltage gradient. During drowsiness, there was attenuation of the posterior dominant background rhythm and vertex waves. Stage II sleep was present with symmetrical sleep spindles, K-complexes, and vertex waves. Activating Procedures: Photic stimulation and hyperventilation were not performed at the request of the patient. EKG: EKG revealed normal sinus rhythm. INTERPRETATION: This EEG is normal during the awake and sleep states. PRIOR EEG: -EEG (06/20/21): Normal awake and with photic. CLINICAL CORRELATION: No focal regions of cerebral dysfunction or epileptiform activity was present. Epilepsy remains a clinical diagnosis and a normal EEG does not rule out epilepsy. Clinical correlation is advised. Caroline Darnell MD Date of service: 03/23/23 Coding CPT Codes EEG AWAKE AND ASLEEP - [id number] ([id number])
== END 2023-03-23 04:01 | disposition home or self-care (01) ==
LOC: RT 04:00
PROVIDERS: PCP Nurse Practitioner Family; Visit Provider Family Medicine
DX: G06.0 Intracranial abscess and granuloma (principal); Z98.890 Other specified postprocedural states
CPT/HCPCS: 95819

== ENCOUNTER → 2023-03-24 07:03 | Outpatient (BNVA) | payer MEDICARE, MEDICAID, SELFPAY | PROVIDERS: PCP Nurse Practitioner Family; Referring Provider Nurse Practitioner Family; Visit Provider Psychiatry & Neurology Neurology ==

== ENCOUNTER → 2023-04-06 00:34 | Outpatient (CLI) | payer MEDICARE, MEDICAID, SELFPAY ==
--- NOTE | 2023-04-06 | DI.MRI_ITS ---
Exam(s) MR BRAIN WO/W EXAM: MR BRAIN WO/W CLINICAL HISTORY: INTRACRANIAL ABSCESS, G06.0, POST OP CRANI FOR INFECTION TECHNIQUE: Multiplanar multisequence MRI of the brain was performed. CONTRAST MATERIAL: IV Contrast: 15 mL of Dotarem contrast administered. COMPARISON: CT CT BRAIN CTA from 07/11/2022 MR MR BRAIN WO/W from 12/23/2022 MR MR BRAIN WO/W from 02/24/2023 FINDINGS: VENTRICLES AND EXTRA AXIAL SPACES: Normal in size and morphology for the patient's age. HEMORRHAGE: None. CEREBRAL PARENCHYMA: No focus of restricted diffusion to suggest acute infarct. No space-occupying le yuriy identified. MIDLINE SHIFT: None. BRAINSTEM/CEREBELLUM: Normal. CALVARIUM: Postsurgical changes are seen again in the right frontal and parietal region. Artifact fr om the patient's right frontal parietal craniotomy are seen. ENHANCEMENT: No suspicious enhancement identified. VISUALIZED PARANASAL SINUSES/MASTOIDS: There is persistent opacification of the frontal sinuses. The remaining visualized paranasal sinuses are clear as are the mastoid air cells. [place]: There is artifact from an aneurysm clip in the anterior communicating artery region . PITUITARY GLAND: Unremarkable. OTHER FINDINGS: The previously noted subcutaneous fluid collection is not seen on the current examina tion. No new fluid collection is seen. IMPRESSION: 1. The previously noted fluid collection has resolved. No new fluid collections are seen. 2. Persistent opacification of the frontal sinuses. 3. Stable postsurgical changes of the right parietal and frontal bone and the anterior communicating artery clip. DATA REPOSITORY:
[2023-04-06] MEDS: Normal Saline Flush 10 ML SYR IVP (13:49)
[2023-04-06] MEDS: Gadoterate meglumine 20 ML SYRINGE 15 ML IVP (13:50)
== END ==
PROVIDERS: PCP Nurse Practitioner Family; Visit Provider Neurological Surgery
DX: G06.0 Intracranial abscess and granuloma (principal)
CPT/HCPCS: 70553

== ENCOUNTER 2023-05-26 15:31 | Outpatient (REF) | payer MEDICARE, SELFPAY ==
--- OUTSIDE RECORDS SUMMARY | 2023-05-26 15:36 | XMS_ITS | Continuity of Care Document ---
Author Name Unknown Organization [facility] Address [address] [place] [address] Care Team Providers Care Supervisor [employer] Name Role Phone LEYDI BELL Primary Care Physician Encounter [facility] NBR [id number] Date(s): 04/30/23 - 04/30/23 [facility] [address] [place] [address]- Encounter Diagnosis Sudden attack of loss of normal tone or strength(Discharge Diagnosis) - 04/30/23 Discharge Disposition: Home or Self Care Attending Physician: Spencer Estrada MD Referring Physician: LEYDI BELL Allergies, Adverse Reactions, Alerts No Known Medication Allergies Assessment and Plan Future Appointments Future Scheduled Tests Laboratory* Comprehensive Metabolic Panel 04/30/23 * Thyroid Stimulating Hormone 04/30/23 * Vitamin B12 Level 04/30/23 * Methylmalonic Acid, Serum LC 04/30/23 Radiology* US Abdomen Complete 11/07/22 * US Abdomen Limited 11/07/22 Functional Status 04/30/23 Recent Travel History No recent travel Medications [facility] [place] [facility] [place] unit, 0 Refill(s), 0 Refill(s) Start Date: 04/24/23 Status: Ordered amoxicillin 500 mg oral tablet 21 EA, 0 Refill(s), TAKE ONE TABLET BY MOUTH THREE TIMES A DAY, 0 Refill(s) Start Date: 04/24/23 Status: Ordered levoFLOXacin 750 mg oral tablet 30 EA, 0 Refill(s), TAKE ONE TABLET BY MOUTH EVERY MORNING, 0 Refill(s) Start Date: 04/24/23 Status: Ordered lisinopril 20 mg oral tablet 90 EA, 0 Refill(s), TAKE ONE TABLET BY MOUTH EVERY DAY, 0 Refill(s) Start Date: 04/24/23 Status: Ordered loratadine 10 mg oral tablet 7 EA, 0 Refill(s), TAKE ONE TABLET BY MOUTH EVERY MORNING FOR 7 DAYS, 0 Refill(s) Start Date: 04/24/23 Status: Ordered magnesium oxide 400 mg (241.3 mg elemental magnesium) oral tablet 30 unknown unit, 0 Refill(s), 0 Refill(s) Start Date: 04/24/23 Status: Ordered metroNIDAZOLE 500 mg oral tablet 90 EA, 0 Refill(s), TAKE ONE TABLET BY MOUTH EVERY 8 HOURS, 0 Refill(s) Start Date: 04/24/23 Status: Ordered penicillin V potassium 500 mg oral tablet 40 EA, 0 Refill(s), TAKE TWO TABLETS BY MOUTH EVERY 6 HOURS FOR 4 DOSES THEN TAKE ONE TABLET BY MOUTH EVERY 6 HOURS UNTIL GONE, 0 Refill(s) Start Date: 04/24/23 Status: Ordered Potassium Chloride (Vvf-Syuo-Aoi M20) 20 mEq oral tablet, extended release 60 EA, 0 Refill(s), TAKE ONE TABLET BY MOUTH TWICE A DAY, 0 Refill(s) Start Date: 04/24/23 Status: Ordered Stool Softener with Laxative 50 mg-8.6 mg oral tablet 60 unknown unit, 0 Refill(s), 0 Refill(s) Start Date: 04/24/23 Status: Ordered thiamine 100 mg oral tablet 100 mg = 1 tab, Oral, Daily, # 90 tab, 3 Refill(s) Start Date: 04/30/23 Stop Date: 04/24/24 Status: Ordered traMADol 50 mg oral tablet 56 EA, 0 Refill(s), TAKE ONE TABLET BY MOUTH TWICE A DAY NEEDED FOR CHRONIC PAIN, 0 Refill(s) Start Date: 04/24/23 Status: Ordered traZODone 50 mg oral tablet 90 EA, 0 Refill(s), TAKE ONE TABLET BY MOUTH EVERY EVENING NEEDED FOR INSOMNIA, 0 Refill(s) Start Date: 04/24/23 Status: Ordered Vitamin B1 50 mg oral tablet 90 EA, 0 Refill(s), TAKE ONE TABLET BY MOUTH EVERY DAY, 0 Refill(s) Start Date: 04/24/23 Status: Ordered Vital Signs Most recent to oldest [Reference Range]: 1 Peripheral Pulse Rate [60-100 bpm] 49 bp m *LOW* (04/30/23 8:29 AM) Blood Pressure [90-140/60-90 mmHg] 93/63 mmHg (04/30/23 8:29 AM) Mean Arterial Pressure, Cuff [70-110 mmH g] 73 mmHg (04/30/23 8:29 AM) Vital Signs Comments ormal BP usually in 130's feels very tired. (04/30/23 8:29 AM) Weight 72.76 kg (04/30/23 8:29 AM) Weight Measured (lbs) 160.408 lb (04/30/23 8:29 AM) Weight Dosing 72.760 kg (04/30/23 8:29 AM) [place] Body Weight Calculated 61.5 kg (04/30/23 8:29 AM) Height 165.10 cm (04/30/23 8:29 AM) Height/Length Measured (inches) 65 inch (04/30/23 8:29 AM) BSA Measured 1.83 m2 (04/30/23 8:29 AM) Body Mass Index 26.69 kg/m2 (04/30/23 8:29 AM) Social History Social History Type Response Tobacco Current everyday tob acco user Tobacco Use:. Sex Physician Outpatient Note * Spencer Estrada MD: MODIFY, MODIFY, MODIFY, PERFORM, MODIFY Event Display: Office Clinic Note Physician Authored Date: [id number] ARIMARITO :1970 Age:53 years Sex:Male Visit Date:04/30/2023 Primary Care Physician: LEYDI BELL Chief Complaint Additional Information 53-year-old, right-handed man with hypertension, alcohol use disorder, cirrhosis, tobacco use disorder, obstructive sleep apnea adherent to CPAP,?? s/p right sided craniotomy for anterior communicating artery aneurysms clipping in 2021??who presents to neurology clinic with concerns related to episodes of loss of tone in legs. ?? Patient is alone in this visit. History of Present Illness ?? 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 ?? He said that has had 7 episodes of having sudden loss of sensation from the tip of his toes up to his belly bottom and loses tone in his legs leading to falls without losing consciousness.??This episode lasts for 10-15 minutes. He said that has hit his head few times without losing consciousness. He has not noticed any shaking. He said that after episodes subsided he is able to regain his postureand is back to himself. He cannot pinpoint any trigger. He does not feel dizzy or sweaty. There areno warnings. There is no time of the day that happens more frequently. He said that once he had an episode of urinary incontinence. He said that does not have any residual weakness or loss of sensation.? He said that has lower back pain for the past 10 decade, sometimes travel to lower extremities.?? He does not feel any pain when has episodes of losing leg tones. ?? He does not report any numbness, tinglings, pins and needles or burning sensation.?? However, latermentioned that he feels that his toes up to ankle in both legs are numb and tingly. ?? It seems that in some occasions potassium was low. ?? EEG Mar, 2023:?? No focal regions of cerebral dysfunction or epileptiform activity was present. ?? MRI brain Apr, 2023: Showed mild white matter disease including mony. changes consistent with clipping of KESHAWN. No other intraparenchymal lesions. ?? Review of Systems ?? The patient has no additional neurologic, psychiatric, head, ears, eyes, nose, throat, pulmonary, cardiovascular, gastrointestinal, musculoskeletal, skin, endocrine, renal, immunological, allergic, lymphoid, rheumatologic??and hematological symptoms other than those noted above Physical Exam Vitals & Measurements HR:??49??(Peripheral)?? BP:??93/63?? HT:??165.10??cm?? WT:??72.76??kg?? BMI:??26.69?? BSA:??1.83?? General Physical Examination: ?? General:??well nourished, in no acute distress, appropriately groomed and dressed?? Skin: No rashes or lesions (full gowned exam not performed) Pulm:??Breathing comfortably on room air Cardiac:??RRR Abdomen:??soft, non-distended? Neurological Examination: ?? Language/speech: Naming and repetition intact, fluent, follows 3-step commands??across midline?? Mental status:??Oriented to time, place and self ?? Cranial Nerves: II: Pupils equal and reactive, no RAPD, no VF deficits III, IV, : EOM intact, no gaze preference or deviation, no nystagmus. V: normal sensation in V1, V2, and V3 segments bilaterally VII: no asymmetry, no nasolabial fold flattening VIII: normal hearing to speech IX, X: normal palatal elevation, no uvular deviation XI: 5/5 head turn and 5/5 shoulder shrug bilaterally XII: midline tongue protrusion Motor: 5/5 muscle power in Rt shoulder abductors/adductors, elbow flexors/extensors, wrist flexors/extensors, finger abductors/adductors.?5/5 in Rt hipflexors/extensors, knee flexors/extensors, ankle dorsiflexors and planter flexors. ?? 5/5 muscle power in Lt shoulder abductors/adductors, elbow flexors/extensors, wrist flexors/extensors, finger abductors/adductors.?5/5 in Lt hipflexors/extensors, knee flexors/extensors, ankle dorsiflexors and planter flexors. ?? Reflexes:??2/4 throughout, Babinski equivocal in both feet, no Prabhakar's, no clonus Sensory: Decreased to pinprick in feet up to ankles, mildly decreased to proprioception in toes. Light touchspared. No hemineglect, no extinction to double sided stimulation (visual & tactile) Romberg present Coordination: Normal finger to nose and heel to mueller,??bilateral postural??hand ??tremor, no dysmetria Station: normal stance, no truncal ataxia Gait:?? Mildly wide-based, difficulty with heel walking and tandem gait. Pull test negative? Assessment/Plan 53-year-old, right-handed man with hypertension, alcohol use disorder, cirrhosis, tobacco use disorder, obstructive sleep apnea adherent to CPAP,?? s/p right sided craniotomy for anterior communicating artery aneurysms clipping in 2021??who presents to neurology clinic with concerns related to 3-month history of episodes of sudden loss of sensation from toes to??belly bottom ??and also loss of ??tone in lower extremities leading to falls with subsequent full recovery within 10 minutes. Exam today showed low blood pressure at 90/60, also??findings consistent with peripheral neuropathy including decreased sensation in feet in length dependent fashion and decreased proprioception. I did not appreciate a sensory level, weakness, spasticity??in lower extremities to consider spinal cord lesion.However, Babinski was equivocal. He had a EEG that did not show any epileptiform activity and multiple MRIs of his brain, which showed known postsurgical changes and white matter disease including mony, however I'm not sure if that pontine T2 hypertense lesion could cause his intermittent symptoms.I discussed with him that is a possibility that his symptoms are multifactorial including having underlying peripheral neuropathy due to alcohol, hypotension, alcohol intoxication but will complete work up as delineated below. ?? 1) Intermittent??loss of sensation and tone in lower extremities as of yet undetermined etiology, however considered multiple factors contributing including low blood pressure and also probable underlying peripheral neuropathy, and alcohol intoxication. ?? Plan: ?? Repeat CMP, A1C, TSH and B12, however likely the cause of his neuropathy is alcoholic I will ask my colleague Dr. Jensen who is an expert in neuromuscular disorders to do an EMG/NCSof lower extremities and also consider different alternatives. Discuss with PCP adjust lisinopril dose. Hold off spine MRI for now?? Start thiamine again 100 mg daily Counseled on alcohol cessation Counseled on cigarette smoking cessation ?? Return to clinic in??3 months?? Problem List/Past Medical History Ongoing No qualifying data Historical No qualifying data Medications traMADol 50 mg oral tablet traZODone 50 mg oral tablet Lisinopril 20 mg daily Allergies No Known Medication Allergies Social History He lives alone He has one son, he is not close to him. He is currently on disability, worked in construction He smokes 1 1/2 packs of cigarette daily He had 3-4 drinks of whiskey a day. No recreational drugs. Family History Negative for neurological disease Attending Attestation Spencer Barraza MD [facility]? I personally spent a total of 60 minutes??providing direct??care for this patient on the date of the encounter.?? Electronically Signed on 04/30/23 09:55 AM Spencer Estrada MD Patient Care team information Care Team Personnel Name: LEYDI BELL Position: No Access Member Role: Primary Care Physician Address: Address: [address] [place] [phone] [place]
[2023-05-26 15:39] LABS: MCH 32.6 pg (27.0-33.0); MCHC 32.3 % (32.0-36.0); MCV 101 fL (80-95); MPV 9.6 fL (8.0-11.0); Platelet Count 239 10^3/uL (130-400); RBC 1.87 10^6/uL (4.36-5.78); RDW 23.8 % (11.8-14.1); RDW-SD 90.1 fL; WBC 7.63 10^3/uL (4.4-10.8)
[2023-05-26 16:13] LABS: Anion Gap 13.2 mmol/L (3-11); BUN 6 mg/dL (7-18); CO2 32.8 mmol/L (21.0-32.0); CREATININE 0.9 mg/dL (0.70-1.30); Calcium 7.5 mg/dL (8.5-10.1); Chloride 89 mmol/L (98-107); Estimated GFR 102.12 (mL/min/1.73m2); Glucose 143 mg/dL (74-106); Sodium 135 mmol/L (136-145)
[2023-05-26 16:20] LABS: HCT 18.9 % (40.0-50.0); HGB 6.1 g/dL (13.5-17.5)
[2023-05-26 16:36] LABS: Potassium 2.1 mmol/L (3.5-5.1)
== END 2023-05-26 15:32 | disposition home or self-care (01) ==
LOC: NCHCN 15:31
PROVIDERS: PCP Nurse Practitioner Family; Visit Provider Nurse Practitioner Family
DX: D64.9 Anemia, unspecified (principal)
CPT/HCPCS: 80048; 85027

== ENCOUNTER 2023-05-26 15:56 | Inpatient (IN) | payer MEDICARE, SELFPAY ==
[2023-05-26] VITALS (129 sets, daily range): BP systolic 81–158; BP diastolic 50–117; PULSE 75–124; RESP 11–34; TEMP 36.4–37.1; O2SAT 75–100
--- NOTE | 2023-05-26 16:00 | RT.EKG_ITS ---
APPROVED REPORT Exam: Resting ECG Reason for Exam: Abd Pain, Anesmia, low BP Patient Location: E HR:95 bpm ECG Measurements Heart Rate 95 AXIS MI 157 P 55 QRSd 86 QRS 37 QT [id number] T [id number] QTc 0 Conclusion Sinus rhythm...normal P axis, V-rate 60- 99 Multiple ventricular premature complexes...V complexes w/ short R-R intervls Nonspecific T abnrm, anterolateral leads...T <-0.10mV, I aVL V2-V6 sinus rhtyhm, PACs, normal axis, lateral st depressions
--- NOTE | 2023-05-26 16:15 | DI.CT_ITS ---
Exam(s) CT HEAD WO EXAM: CT HEAD WO CLINICAL HISTORY: Headache, Recent Craniotomy in December. TECHNIQUE: Imaging Protocol: Axial computed tomography images with coronal and sagittal reformatted images were created and reviewed COMPARISON: CT CT BRAIN CTA from 07/11/2022 FINDINGS: Again noted is right frontal craniotomies and there has also been interval additional frontal craniot kevin since the prior study of 07/11/2022. There is now absence of the inner table of the skull in the region of the right frontal sinus and this sinus is completely opacified. There is soft tissue densi ty now evident within the space of the previously aerated right frontal sinus. Same finding at the r ight frontoethmoidal recess. Left frontal sinus remains aerated. There is now a defect in the media l wall the right maxillary sinus which was not previously present and is most probably postsurgical a nd not associated with mucosal thickening nor fluid in the right maxillary sinus. Again noted are clips in the region of the anterior communicating artery most probably related to ane urysm clipping. There is no evidence of acute intracranial hemorrhage, mass effect, or shift of midline structures. There are no extra-axial fluid collections. The ventricles are not enlarged or shifted and there is no blood within the ventricular system nor within the basal cisterns. IMPRESSION: No acute intracranial findings. Intervertebral additional craniotomy and right frontal and maxillary level sinus surgeries. Aneurysm clips at the level of the anterior communicating artery. No acute hemorrhage. RADIATION DOSE DELIVERED: Total DLP DATA REPOSITORY: All CT scans at this facility are submitted to the National Radiology Data Registry (NRDR) Dose Index Registry (DIR) with the [employer] (ACR). RADIATION OPTIMIZATION: All CT scans at this facility use at least one of these dose optimization te chniques: automated exposure control; mA and/or kV adjustment per patient size (includes targeted exa ms where dose is matched to clinical indication); or iterative reconstruction.
--- NOTE | 2023-05-26 16:15 | DI.CT_ITS ---
Exam(s) CT CHEST/ABD/PEL W EXAM: CT CHEST/ABD/PEL W CLINICAL HISTORY: Back pain, Abdominal pain, GI bleed. TECHNIQUE: Imaging Protocol: Axial computed tomography images with coronal and sagittal reformatted images were created and reviewed CONTRAST MATERIAL: Intravenous: Omnipaque 350 Contrast volume:100 ml Oral: None COMPARISON: CT CT ABDOMEN PELVIS W from 06/17/[address] BRAIN CTA from 07/11/2022 FINDINGS: CHEST: LUNGS: Increased dependent markings in lung bases but no confluent infiltrates nor pleural effusions nor ominous pulmonary nodules. No significant findings in the trachea and mainstem bronchi.. MEDIASTINUM: There is no hilar nor mediastinal adenopathy. Visualized thyroid unremarkable. CARDIAC: Heart size is normal. There is no pericardial effusion.Caliber of the thoracic aorta is wit hin normal limits. OSSEOUS: No significant osseous lesions.. ABDOMEN: There is no ascites. LIVER: Liver is somewhat prominent in size and diffusely hypodense implying steatosis, similar to pre vious. Suspect element of cirrhosis. There are no discrete focal neoplastic appearing hepatic lesions . No dilated intrahepatic ducts. GALLBLADDER/BILIARY: No obvious gallbladder pathology. CBD is not dilated. GI: Hypodensity in the medial wall of the distal stomach-duodenum noted which is also intimately asso ciated with the superior aspect of the head of the pancreas, this abnormal finding measuring 2.8 cm c ephalocaudal by 1.7 cm wide by 2.5 cm AP. The duodenal wall appears mildly thickened and there is so me surrounding streaking. There is also mild prominence of some jejunal loops. Suspect I ileus. Also abnormal appearance of the right-side of the colon as well as fat halo sign throughout the colon. Arevalo spect chronic inflammatory bowel disease. PANCREAS: There is some streaking around the head of the pancreas, suspicious for pancreatitis. Are a lso 2 adjacent or single septated hypodensity involving the upper aspect pancreatic head and medial w all of the duodenum with total measurement of 2.8 cm cephalocaudal by 1.7 cm wide by 2.5 cm AP. These may represent pancreatic pseudocysts. There is some wall thickening and stranding around the duodenu m. Suspect duodenitis secondary to pancreatitis. There is no evidence of pseudoaneurysm of the gastro duodenal artery. SPLEEN: Spleen is not enlarged. There are no intrasplenic lesions. Splenic and portal veins are cortes nt. ADRENALS: There are no significant adrenal masses. KIDNEYS: No calculi nor hydronephrosis. No solid renal masses. No cysts evident. ABDOMINAL AORTA: Abdominal aorta is not enlarged. LYMPH NODES: There is no retroperitoneal nor paraaortic adenopathy. ABDOMINAL WALL: No evidence of significant anterior abdominal wall nor inguinal hernia. PELVIS: LYMPH NODES: There is no intrapelvic nor inguinal adenopathy. GI: No evidence of appendicitis.No evidence of sigmoid diverticulitis.Fat halo sign is seen in the co samantha which can be associated with chronic inflammatory bowel disease such as ulcerative colitis. URINARY BLADDER: No calculi nor masses evident REPRODUCTIVE: Prostate size minimally prominent. Seminal vesicles unremarkable. Intrapelvic ureters are not dilated. 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 IMPRESSION: 1. No significant intrathoracic findings. 2. Pancreatic findings consistent with acute pancreatitis predominately the pancreatic head. There ar e small fluid collections adjacent to and within the pancreatic head which are probably postinflammat ory/developing pseudocysts and will require follow-up. The appearance of the duodenum is most probabl y reactive duodenitis secondary to pancreatitis. However, intrinsic gastro duodenitis is also possibi lity. There is also a colitis pattern in the right-side of the colon and transverse colon and there i s fat halo sign throughout the remaining colon. Suspect that there is an element of inflammatory nelly l disease-colitis here. 3. Prominent steatotic appearing liver with probable element of cirrhosis. There is no ascites. RADIATION DOSE DELIVERED: Total DLP DATA REPOSITORY: All CT scans at this facility are submitted to the National Radiology Data Registry (NRDR) Dose Index Registry (DIR) with the [employer] (ACR). RADIATION OPTIMIZATION: All CT scans at this facility use at least one of these dose optimization te chniques: automated exposure control; mA and/or kV adjustment per patient size (includes targeted exa ms where dose is matched to clinical indication); or iterative reconstruction.
--- NOTE | 2023-05-26 16:19 | ED.GENADUL_ITS ---
Discharge Plan Disposition Patient Disposition: Admit to [facility] Condition: Improving Discharge Details Clinical Impression: Anemia, Cirrhosis of liver, Electrolyte disturbance, Acute pancreatitis, Alcohol withdrawal Admit Date/Time: 05/26/23 21:21 Admit Provider: Narcisa Sanches Attending Provider: Narcisa Sanches Primary Care Provider: Paige Chen ED Provider: Leah Marie Medical Decision Making 53-year-old male with past medical history of hypertension aneurysm, hyponatremia hypokalemia, adenoma of colon, chronic pain, who is a daily drinker reports 3-4 drinks a day, he is a daily smoker, he does have a mitral valve prolapse, polyarthralgia he also has had a recent remote history of craniotomy in December at [facility] patient reports, he presents here as instructed by his PCP Dr. Chen for possible GI bleed. He does endorse drinking today is normal 3- 4 drinks. He denies any new symptoms denies any nausea vomiting diarrhea dark or bloody stools. Upon arrival patient does have a soft blood pressure with a systolic of 96/65. He is slightly tachycardic with a rate of 120. He does deny any new pain. Repeat blood pressure is 89 systolic. Critical H&H received from lab 5 and 17, this is decreased from the previous lab result that was resulted from [place] of 6 and 18. Patient's stool is guaiac negative. Soft brown stool obtained. 2 units of PRBCs ordered. LR at 250 an hour. Patient has 2 IVs. Differential diagnosis includes not limited to aneurysm, liver failure, GI bleed, CVA, bleeding ulcer. PT is 15.0 INR 1.5 APTT 28.6, sodium is 134, potassium 2.0 chloride 88 anion gap 15.4 BUN 5 creatinine 1.0 GFR is 90 glucose 127 calcium 7.5 magnesium is 1.0 bilirubin 1.9, AST 132 alk phos 453 proBNP 338, albumin is 2.4 which is low, lipase 46 within normal limits, ethyl alcohol 84.3. 2 g of magnesium IV piggyback ordered, 40 mill colons of potassium p.o. and 20 mill equivalents IV piggyback ordered for total of 60 mill equivalents. He has received 500 cc LR bolus and then 200 an hour. 1707: Patient is being transported to [place]. He is mentating well. Advance directives received from [facility] patient is a DNR/DNI this was changed in the computer. He does have a POA his son named Ryder. Patient a lso verbally expressed this to me. Patient informed that he does need a blood transfusion he did verbalize consent to me. We will formally consented him for blood. Expected disposition is admission, will speak with hospitalist after CT. CT abdomen shows acute pancreatitis, and celiac artery stenosis, cirrhosis and fatty infiltration of the liver. 183: Hospitalist elie. 1851: Spoke with Dr. Sanches who recommends transfer to tertiary care facility with GI non profit financial controller for possible need for emergent scope due to dropping H&H. Discussed plan of care with patient and family who verbalize understanding, patient requesting something to eat. 1855: [facility] [place] contacted, they do not have capacity on med surg at the main facility, at this time, transfer center to call me back. 1941: Spoke with Gely with [facility], they do not have capacity at this time, they do recommend re-eval in am. 1942: [facility] transfer center contacted, Will speak with Dr. Alicia with GI, he does not recommend urgent, or emergent scope tonight. He recommends if any signs of GI bleed such as hematemesis, or hematochezia, to call for emergent scope id needed or any deterioration over night. He reports that he personally would not be scoping him tonight. Informed by bell staff that he has begun to have some tremors and his blood pressure is increasing. I will order CIWA protocol with lorazepam and repage Dr. Sanches. 2014: Spoke with regarding patient condition, patient does have a CIWA score of 3, mild tremors, vital signs of improved. He is nontachycardic. His blood pressure 140s systolic O2 sat is 97% on room air. She agrees to come and evaluate patient as a consult here in the ER department. Patient has not received any benzodiazepine or medication for the withdrawal symptoms at this time. He remains awake and alert. Calls made to [facility], [facility] [place], [place], and other surrounding facilities who do not have capacity at this time. 2110: Spoke again with Hospitalist and manufacturing engineer supervisor, they were able to secure a bed for the patient, plan to admit here to ICU. Will inform patient and family of plan of care. Patient remained hemodynamically stable throughout the remainder of his stay. This text was generated using Hinge dictation system, please disregard any oddities of phrase or misspellings. Imaging Data Radiologic Study: Imaging: CT Scan Radiologist's impression: CT Head W/O: Age: 53 years old Clinical indication: Pain; Prior surgery; Surgery date: 1-6 months; Patient HX: Headache, recent craniotomy in December TECHNIQUE: Imaging protocol: Computed tomography of the head without contrast. COMPARISON: MR BRAIN WO/W 04/06/2023 1:46 PM FINDINGS: Brain: No midline shift. Mild parenchymal volume loss. No midline shift. No mass, acute infarct, hemorrhage, or extra-axial fluid collection. Cerebral ventricles: No ventriculomegaly. Paranasal sinuses: Apparent cranialization of right frontal sinus and possibly ethmoid sinus. Mastoid air cells: Visualized mastoid air cells are well aerated. Bones/joints: Previous ri ght and bifrontal craniotomies. Soft tissues: Unremarkable. Vasculature: Aneurysm clip associated with anterior communicating artery region. IMPRESSION: No acute intracranial abnormality. Thank you for allowing us to participate in the care of your patient. Dictated and Authenticated by: Trenton Flores MD Radiologic Study #2: Imaging: CT Scan (Chest Abd Pelvis) Radiologist's impression: See [facility] report: Chest w: IMPRESSION: 1. Moderate bronchial wall thickening bilaterally suspicious for mild changes of bronchitis or bronchial edema. 2. No consolidative pulmonary infiltrates. Mild basilar interstitial and alveolar opacities, favor subsegmental atelectasis, patchy mild edema or pneumonitis less likely. 3. Additional nonemergent findings detailed above. CTABD/Pelvis W IMPRESSION: 1. Acute pancreatitis centered in the pancreatic head. 2. There are 3 new small fluid collections around or within the pancreatic head likely representing small acute inflammatory fluid collections of pancreatitis/developing pseudocysts. Recommend shortterm imaging follow-up in 6- 8 weeks to assess regression with treatment. 3. 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 4. Wall thickening in the pylorus and duodenal probably representing reactive changes from adjacent pancreatitis although intrinsic gastroduodenitis not excluded. Wall thickening in the hepatic flexure of the colon, ascending colon, and cecum could also represent reactive changes from pancreatitis, versus intrinsic colitis. 5. Lobular liver contour suggesting cirrhosis, with geographic fatty infiltration of the liver noted. 6. Air and fluid distended mid abdominal small bowel loops without rhea dilatation or transition point, favor reactive ileus. 7. 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 Recommend orthopedic consult/referral. 8. Additional nonemergent findings detailed above. Thank you for allowing us to participate in the care of your patient. Dictated and Authenticated by: Foreign Levin MD Lab Data Lab results reviewed: Yes I reviewed the patient's lab results. Labs: Laboratory Tests Range/Units 05/26/23 05/26/23 05/26/23 16:15 16:15 16:15 WBC (4.4-10.8) 10^3/uL 9.44 RBC (4.36-5.78) 10^6/uL 1.76 L Hgb (13.5-17.5) g/dL 5.7 L* Hct (40.0-50.0) % 17.6 L* MCV (80-95) fL 100 H MCH (27.0-33.0) pg 32.4 MCHC (32.0-36.0) % 32.4 RDW (11.8-14.1) % 23.9 H Plt Count (130-400) 10^3/uL 218 MPV (8.0-11.0) fL 9.0 Immature Gran % 0.4 Neutrophils % 65.5 Lymphocytes % 25.0 Monocytes % 7.9 Eosinophils % 1.1 Basophils % 0.1 Nucleated RBC % (0.0-0.3) % 0.0 Absolute Neutrophils (1.2-6.7) 10^3/uL 6.18 Absolute Lymphocytes (1.2-3.4) 10^3/uL 2.36 Absolute Monocytes (0.1-0.8) 10^3/uL 0.75 Absolute Eosinophils (0.0-0.7) 10^3/uL 0.10 Absolute Basophils (0.0-0.2) 10^3/uL 0.01 RBC Morphology See Below Hypochromasia 3+ Anisocytosis 3+ PT (9.1-11.1) sec 15.0 H INR (0.9-1.1) 1.5 H APTT (23.6-32.8) sec 28.6 VBG pH (7.31-7.41) 7.43 H VBG pCO2 (41-51) mmHg 48 VBG pO2 mmHg 29 VBG HCO3 (23-28) mmol/L 32 H VBG Total CO2 (24-29) mmol/L 31 H VBG O2 Saturation % 44 VBG Base Excess (-2-3) mmol/L 7 H Sodium (136-145) mmol/L 134 L Potassium (3.5-5.1) mmol/L 2.0 L* Chloride (98-107) mmol/L 88 L Carbon Dioxide (21.0-32.0) mmol/L 30.6 Anion Gap (3-11) mmol/L 15.4 H BUN (7-18) mg/dL 5 L Creatinine (0.70-1.30) mg/dL 1.0 Est GFR (CKD-EPI 2020) (mL/min/1.73m2) 90.00 Glucose (74-106) mg/dL 127 H Calcium (8.5-10.1) mg/dL 7.5 L Magnesium (1.8-2.4) mg/dL 1.0 L Cancelled Total Bilirubin (0.2-1.0) mg/dL 1.9 H AST (15-37) U/L 132 H ALT (16-63) U/L 36 Alkaline Phosphatase (46-116) U/L 453 H Troponin I (<or=60) ng/L < 50 Cancelled NT-Pro-B Natriuret Pep (<300) pg/mL 338 H Total Protein (6.4-8.2) g/dL Albumin (3.4-5.0) g/dL Lipase (16-77) U/L Ethyl Alcohol (<10) mg/dL Patient ABO/Rh Antibody Screen Crossmatch Range/Units 05/26/23 05/26/23 16:15 16:15 WBC (4.4-10.8) 10^3/uL RBC (4.36-5.78) 10^6/uL Hgb (13.5-17.5) g/dL Hct (40.0-50.0) % MCV (80-95) fL MCH (27.0-33.0) pg MCHC (32.0-36.0) % RDW (11.8-14.1) % Plt Count (130-400) 10^3/uL MPV (8.0-11.0) fL Immature Gran % Neutrophils % Lymphocytes % Monocytes % Eosinophils % Basophils % Nucleated RBC % (0.0-0.3) % Absolute Neutrophils (1.2-6.7) 10^3/uL Absolute Lymphocytes (1.2-3.4) 10^3/uL Absolute Monocytes (0.1-0.8) 10^3/uL Absolute Eosinophils (0.0-0.7) 10^3/uL Absolute Basophils (0.0-0.2) 10^3/uL RBC Morphology Hypochromasia Anisocytosis PT (9.1-11.1) sec INR (0.9-1.1) APTT (23.6-32.8) sec VBG pH (7.31-7.41) VBG pCO2 (41-51) mmHg VBG pO2 mmHg VBG HCO3 (23-28) mmol/L VBG Total CO2 (24-29) mmol/L VBG O2 Saturation % VBG Base Excess (-2-3) mmol/L Sodium (136-145) mmol/L Potassium (3.5-5.1) mmol/L Chloride (98-107) mmol/L Carbon Dioxide (21.0-32.0) mmol/L Anion Gap (3-11) mmol/L BUN (7-18) mg/dL Creatinine (0.70-1.30) mg/dL Est GFR (CKD-EPI 2020) (mL/min/1.73m2) Glucose (74-106) mg/dL Calcium (8.5-10.1) mg/dL Magnesium (1.8-2.4) mg/dL Total Bilirubin (0.2-1.0) mg/dL AST (15-37) U/L ALT (16-63) U/L Alkaline Phosphatase (46-116) U/L Troponin I (<or=60) ng/L NT-Pro-B Natriuret Pep (<300) pg/mL Cancelled Total Protein (6.4-8.2) g/dL 6.2 L Albumin (3.4-5.0) g/dL 2.4 L Lipase (16-77) U/L 46 Cancelled Ethyl Alcohol (<10) mg/dL 84.3 H Patient ABO/Rh O Negative Antibody Screen NEGATIVE Crossmatch See Detail HPI General Mode of arrival: ambulatory . Date/Time Provider Initiated Documentation: 05/26/23 16:01 . Limitations to Documentation: no limitations and physical limitation (Recent head surgery in December) . Information obtained by: patient, RN notes reviewed and old records reviewed . History of Present Illness described as moderate, with intensity rated at 5. Quality is described as other (Patient reports joint aching's, back pain, fatigue all my normal stuff), and is localized to the back and abdomen. HPI Narrative: 53-year-old male with past medical history of hypertension aneurysm, hyponatremia hypokalemia, adenoma of colon, chronic pain, who is a daily drinker reports 3-4 drinks a day, he is a daily smoker, he does have a mitral valve prolapse, polyarthralgia he also has had a recent remote history of craniotomy in December at [facility] patient reports, he presents here as instructed by his PCP Dr. Chen for possible GI bleed. He does endorse drinking today is normal 3- 4 drinks. He denies any new symptoms denies any nausea vomiting diarrhea dark or bloody stools. Related Data Home Medications Medication Instructions Recorded Confirmed trazodone 50 mg tablet 25 mg PO HS PRN 12/09/19 05/26/23 lisinopril 10 mg tablet 20 mg PO DAILY 06/18/21 05/26/23 tramadol 50 mg tablet 50 mg PO BID PRN 07/01/22 05/26/23 Allergies Allergy/AdvReac Type Severity Reaction Status Date / Time No Known Allergies Allergy Unverified 12/23/22 08:09 General Stated Complaint: GI Bleed ROSE MARY: 2 Review of Systems All systems reviewed & are unremarkable except as noted in HPI and below Constitutional Constitutional: Reports as per HPI, Reports fatigue, Reports headache(s) and Reports poor appetite ENT Ears, Nose, Mouth, and Throat: Reports headache(s) Cardiovascular Cardiovascular: Denies chest pain, Reports pedal edema, Reports dyspnea and Reports dyspnea on exertion Respiratory Respiratory: Reports dyspnea and Reports dyspnea on exertion Gastrointestinal Gastrointestinal: Reports abdominal pain, Denies melena (Denies), Denies hematochezia, Denies diarrhea and Denies vomiting Neurologic Neurologic: Reports confusion, Reports headache(s) and Denies localized weakness Psychiatric Psychiatric: Reports confusion Endocrine Endocrine: Reports fatigue PFSH All Active Problems (Updated 05/26/23 @ 22:29 by Narcisa Sanches MD) Alcoholic hepatitis (Acute) Alcohol intoxication (Acute) Discharge planning issues (Acute) DVT prophylaxis (Acute) Coagulopathy (Acute) Colitis (Acute) Duodenitis (Acute) Hypokalemia (Acute) Hypomagnesemia (Acute) Hyponatremia (Acute) Acute on chronic anemia (Acute) Alcohol withdrawal (Acute) Acute pancreatitis (Acute) Electrolyte disturbance (Acute) Cirrhosis of liver (Chronic) Anemia (Chronic) Dural sinus malformation (Acute) Bilateral sacroiliitis (Acute) Neuropathic pain of left forearm (Acute) Coccydynia (Acute) Cervical radiculopathy (Acute) Anterior cerebral aneurysm (Acute) Multiple lipomas (Acute) Screening for colon cancer (Acute) Bilateral hearing loss (Acute) Cubital tunnel syndrome on left (Acute) Left carpal tunnel syndrome (Acute) CRPS (complex regional pain syndrome), type II, upper (Acute) Right carpal tunnel syndrome (Acute) Cubital tunnel syndrome on right (Acute) Medical History Anemia Aneurysm Arm pain, right Asymmetrical sensorineural hearing loss Back pain Lopez's cyst, rt knee Chest wall pain Chronic low back pain Chronic pain Chronic sinusitis [place] Deviated septum Elevated blood lead level Elevated LFTs ETOH abuse Exposure to lead Fatigue Foraminal stenosis of cervical region Foreign body in left upper extremity (01/11/20) s/p excision of foreign bodies Foreign body in right ear Greater trochanteric bursitis of left hip (09/04/15) Heart murmur per pt. this was an incorrect dx Hypertension Hypokalemia Hypomagnesemia Hyponatremia Infrapatellar bursitis of right knee (01/11/20) s/p bursa excision Left buttock pain (11/07/14) Low back pain (11/07/14) Lumbar back pain Marital problem MVP (mitral valve prolapse) Neuropathy ISADORA (obstructive sleep apnea) Paraesthesia left 4-5th finger (05/29/06) Paresthesias in left hand (06/28/14) Peripheral cyanosis Polyarthralgia PONV (postoperative nausea and vomiting) Pt c/o post nasal drip causing nausea and vomiting routinely Raynauds disease Snoring Soft tissue swelling Steatosis of liver Synovial cyst of popliteal space [Lopez], right knee Thoracic back pain Tinnitus of both ears Tobacco abuse Tubular adenoma of colon Surgical History Aftercare involving removal of fracture plate or internal fixation device left arm H/O craniotomy History of arthroscopy of right knee 2001, diagnostic History of carpal tunnel release right History of colonoscopy (~03/2021) Right Popliteal cyst resection (07/25/03) Status post transposition of nerve left elbow Family History Mother , [place] at age 74. Heart disease Father No problems noted. Social History Smoking/Tobacco Use Status: Current every day Tobacco Type: cigarettes Years smoked: 42 Smoking risk assessment performed?: Yes Alcohol Intake: current Alcohol Intake frequency: 3 or more drinks per day Alcohol type: hard liquor Drug use: Never Substance use type: does not use Household members: none Housing: house Number of Children: 1 current occupation: N/A Current gender identity: male What type of physical activity do you participate in: walking and independent ambulation Seatbelt use: sometimes Do you feel safe at home: Yes Do you feel safe in your relationship?: Yes Exam Narrative Exam Narrative: Constitutional: Alert and oriented x3. Appears stated age. Normal body habitus. Patient appears dusky color, patient appears chronically ill acute on chronic. Slightly confused which she attributes to his craniotomy. No focal neurodeficits noted. Head: Normocephalic, no trauma. Eyes: Pupils PERRL, Red reflex noted, EOM's intact. Eyelids symmetrical without lesions, discharge, or swelling. Jaundiced sclera mildly. ENT: Bilateral TM's WNL, External ear normal to inspection, no mastoid TTP, swelling, or erythema, Nasal turbinates WNL, no nasal discharge. Poor dentition, Posterior pharynx WNL, no exudate. Chest: RRR, Normal S1, S2, distal pulses intact. Resp: Lungs clear to auscultation bilaterally, no wheezes, rales, or rhonchi. Abdomen: Soft, non-distended, tenderness with palpation in all 4 quadrants.. Musculoskeletal: 5/5 strength to all four extremities. Patient does have 2+ pitting edema noted to his lower extremities. Skin: No suspicious rashes or lesions. Capillary refill less than 2 sec. Neurologic: Cranial nerves II-XII intact. Alert and oriented x 3. Motor: No deficits noted. Hematologic/Lymphatic: No ecchymosis, no lymphadenopathy. Course Vital Signs Vital signs: Vital Signs Temperature 36.5 C 05/26/23 15:59 Pulse 75 05/26/23 15:59 Respiratory Rate 18 05/26/23 15:59 Blood Pressure 96/65 L 05/26/23 15:59 Pulse Oximetry 96 05/26/23 15:59 Temperature 36.5 C 05/26/23 15:59 Temperature Source Temporal Artery Scan 05/26/23 15:59 Pulse 75 05/26/23 15:59 Respiratory Rate 18 05/26/23 15:59 Respiratory Effort Normal 05/26/23 16:05 Blood Pressure 96/65 L 05/26/23 15:59 Blood Pressure Position Sitting 05/26/23 15:59 Pulse Oximetry 96 05/26/23 15:59 Oxygen Delivery Method Room Air 05/26/23 15:59 Oxygen Flow Rate 0 05/26/23 15:59 Pain Level 0 05/26/23 15:59 Critical Care Time Critical Care Time Critical Care Time: Yes Total Critical Care Time: 60 Attestation: I spent greater than 35 minutes addressing this patient's acute life threatening illness. This time was spent engaged in actions directly related to the patient's care. Failure to initiate these interventions would have likely resulted in clinically significant or life threatening deterioration in the patients condition. PAWSS Have you Been Recently Intoxicated or Drunk Within the Last 30 days?: No Have you Ever Experienced Previous Episodes of Alcohol Withdrawal?: No Have you ever Experienced Withdrawal Seizures?: No Have you ever Experienced Delirium Tremens(DT)s?: No Have you ever undergone Alcohol Rehabilitation Treatment (i.e, inpt ot outpatient treatment programs)?: No Have you ever Experienced Blackouts?: No Have you ever Combined Alcohol with other Downers within the last 90 days?: No Result: 0
[2023-05-26 16:25] LABS: BE (Venous) 7 mmol/L (-2-3); HCO3 (Venous) 32 mmol/L (23-28); O2 Sat (Venous) 44 %; TCO2 (Venous) 31 mmol/L (24-29); pCO2 (Venous) 48 mmHg (41-51); pH (Venous) 7.43 (7.31-7.41); pO2 (Venous) 29 mmHg
[2023-05-26] MEDS: Lactated Ringers 1,000 ML 250 ML IV (16:30)
[2023-05-26 16:32] LABS: Abs Immature Grans 0.04 10^3/uL (0.0-0.06); Absolute Basophil Count 0.01 10^3/uL (0.0-0.2); Absolute Lymphocyte Count 2.36 10^3/uL (1.2-3.4); Absolute Monocyte Count 0.75 10^3/uL (0.1-0.8); Absolute Neutrophil Count 6.18 10^3/uL (1.2-6.7); Basophils % 0.1; Eosinophils % 1.1; Immature Grans % 0.4; MCH 32.4 pg (27.0-33.0); MCHC 32.4 % (32.0-36.0); MCV 100 fL (80-95); Monocytes % 7.9; Neutrophils % 65.5; Platelet Count 218 10^3/uL (130-400); RBC 1.76 10^6/uL (4.36-5.78); RDW 23.9 % (11.8-14.1); RDW-SD 89.8 fL; WBC 9.44 10^3/uL (4.4-10.8)
[2023-05-26 16:36] LABS: HCT 17.6 % (40.0-50.0); HGB 5.7 g/dL (13.5-17.5)
[2023-05-26 16:41] LABS: PTT Activated 28.6 sec (23.6-32.8)
[2023-05-26 16:43] LABS: INR 1.5 (0.9-1.1)
[2023-05-26 16:50] LABS: ETHANOL BLOOD 84.3 mg/dL (<10)
[2023-05-26 16:58] LABS: ALT 36 U/L (16-63); AST 132 U/L (15-37); Albumin 2.4 g/dL (3.4-5.0); Alkaline Phosphatase 453 U/L (46-116); Anion Gap 15.4 mmol/L (3-11); BUN 5 mg/dL (7-18); Bilirubin, Total 1.9 mg/dL (0.2-1.0); CO2 30.6 mmol/L (21.0-32.0); Calcium 7.5 mg/dL (8.5-10.1); Chloride 88 mmol/L (98-107); Glucose 127 mg/dL (74-106); Lipase 46 U/L (16-77); NT-proBNP 338 pg/mL (<300); Sodium 134 mmol/L (136-145); Total Protein 6.2 g/dL (6.4-8.2); Troponin I < 50 ng/L (<or=60)
[2023-05-26] MEDS: Omnipaque 350 MG/ML 100 ML BTL IJ (17:04)
[2023-05-26] MEDS: Normal Saline - Diluent 50 ML VIAL IJ (17:05)
[2023-05-26 17:07] LABS: Anisocytosis 3+; Diff Comment RBC Morph Reviewed; Hypochromasia 3+
[2023-05-26] MEDS: Potassium Chloride Liquid 20 MEQ PKT 40 MEQ PO (17:24)
[2023-05-26] MEDS: MAGNESIUM SULFATE 2 GM/50 ML BAG IVPB (17:24)
[2023-05-26] MEDS: POTASSIUM CHLORIDE 20 MEQ/100 ML BAG 50 MEQ IVPB ×2 (17:35→23:07)
--- NOTE | 2023-05-26 17:47 | DI.VRAD_ITS ---
PROCEDURE INFORMATION: Exam: CT Head Without Contrast Exam date and time: 05/26/2023 5:03 PM Age: 53 years old Clinical indication: Pain; Prior surgery; Surgery date: 1-6 months; Patient HX: Headache, recent craniotomy in December TECHNIQUE: Imaging protocol: Computed tomography of the head without contrast. COMPARISON: MR BRAIN WO/W 04/06/2023 1:46 PM FINDINGS: Brain: No midline shift. Mild parenchymal volume loss. No midline shift. No mass, acute infarct, hemorrhage, or extra-axial fluid collection. Cerebral ventricles: No ventriculomegaly. Paranasal sinuses: Apparent cranialization of right frontal sinus and possibly ethmoid sinus. Mastoid air cells: Visualized mastoid air cells are well aerated. Bones/joints: Previous right and bifrontal craniotomies. Soft tissues: Unremarkable. Vasculature: Aneurysm clip associated with anterior communicating artery region. IMPRESSION: No acute intracranial abnormality. Dictated and Authenticated by: Trenton Flores MD. Ordering:SHERRY Lynn MD
[2023-05-26 17:50] LABS: Ammonia 22 umol/L (11-32)
[2023-05-26] MEDS: Nicotine 14 MG/24 HR PATCH TD (17:54)
--- NOTE | 2023-05-26 18:28 | DI.VRAD_ITS ---
PROCEDURE INFORMATION: Exam: CT Chest With Contrast; Diagnostic Exam date and time: 05/26/2023 5:13 PM Age: 53 years old Clinical indication: Other: Unspecified; Patient HX: Back pain, abdominal pain, gi bleed TECHNIQUE: Imaging protocol: Diagnostic computed tomography of the chest with contrast. 3D rendering (Not supervised by radiologist): MIP and/or 3D reconstructed images were created by the technologist. COMPARISON: CT CHEST LUNG CANCER SCREEN 07/11/2022 8:28 AM FINDINGS: Thyroid: The visualized thyroid gland is unremarkable. Lungs: Mild bilateral bronchial wall thickening consistent with bronchitis or bronchial edema. No bronchiectasis. No bronchial occlusions. Mild paraseptal emphysematous changes in the pulmonary apices with mild peripheral fibrosis. Patchy mild interstitial and alveolar densities in both lung bases, favor subsegmental atelectasis. Mild edema or pneumonitis less likely. No pulmonary mass lesions are identified. Pleural spaces: No pleural effusions. No pneumothorax. Heart: Heart size normal. Mild coronary artery calcification. Small volume pericardial fluid in the superior pericardial recesses without rhea pericardial effusion. Mediastinal space: The esophagus is largely contracted without gross abnormality. Lymph nodes: No supraclavicular or axillary adenopathy. Borderline enlarged right paratracheal nodes and right hilar nodes unchanged, nonspecific. Vasculature: Mild aortic ectasia/tortuosity and calcific atherosclerosis. No mediastinal hematoma. The pulmonary arteries demonstrate no gross abnormality, with assessment limited by motion artifact and non angiographic technique. Bones/joints: No acute osseous abnormalities are identified. Mild thoracic spondylosis. Soft tissues: Soft tissues of the thoracic wall demonstrate no acute abnormality. IMPRESSION: 1. Moderate bronchial wall thickening bilaterally suspicious for mild changes of bronchitis or bronchial edema. 2. No consolidative pulmonary infiltrates. Mild basilar interstitial and alveolar opacities, favor subsegmental atelectasis, patchy mild edema or pneumonitis less likely. 3. Additional nonemergent findings detailed above. PROCEDURE INFORMATION: Exam: CT Abdomen And Pelvis With Contrast Exam date and time: 05/26/2023 5:13 PM Age: 53 years old Clinical indication: Other: Unspecified; Patient HX: Back pain, abdominal pain, gi bleed TECHNIQUE: Imaging protocol: Computed tomography of the abdomen and pelvis with contrast. 3D rendering (Not supervised by radiologist): MIP and/or 3D reconstructed images were created by the technologist. COMPARISON: CT ABDOMEN PELVIS W 06/17/2021 3:39 PM FINDINGS: Mediastinal space: The visualized distal esophagus is largely contracted without gross abnormality. Liver: Lobular liver contour suspicious for an element of cirrhosis. Geographic fatty infiltration of the liver noted. No mass lesions. No intrahepatic biliary ductal dilatation. Gallbladder and bile ducts: The gallbladder is partially contracted but otherwise unremarkable. Nondilated common bile duct. Pancreas: Moderate stranding around the lower pancreatic head consistent with pancreatitis. No ductal dilatation. Underlying mild-moderate pancreatic atrophy. 2.2 x 1.6 x 1.5 cm nonenhancing cystic focus at the medial margin of the duodenal bulb and 1.7 x 1.4 x 1.5 cm cystic focus within the adjacent superior pancreatic head parenchyma are new and most likely represent acute inflammatory fluid collections of pancreatitis/developing pseudocysts. Another 11 mm probable pseudocyst is seen in the inferior pancreatic head parenchyma. Retroperitoneal stranding tracks into the rightward anterior pararenal space as well. Spleen: Normal. No splenomegaly. Adrenal glands: Normal. No adrenal mass. Kidneys and ureters: No acute abnormalities. No hydronephrosis or hydroureter. No urinary tract stones are identified. Stomach and bowel: The stomach is largely contracted. Mild bowel wall thickening in the pyloric channel, duodenal bulb, and additional proximal duodenum through the 3rd portion, consistent with reactive changes from pancreatitis, versus intrinsic gastroduodenitis. Air and fluid distended mid abdominal small bowel loops reaching 3 cm diameter, with no transition point to suggest bowel obstruction, favor ileus. There is colonic wall thickening involving the hepatic flexure and ascending colon, and cecum which might be reactive in nature due to tracking of inflammatory changes from pancreatitis. Intrinsic colitis not excluded. No sites of active GI hemorrhage are identified although single phase technique without precontrast imaging limits exam sensitivity. Appendix: The appendix is not identified. No secondary signs of appendicitis. Intraperitoneal space: Trace ascites in the pelvis. No intraperitoneal free air. Vasculature: No acute vascular abnormalities. 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 Correlate clinically for MALS. Lymph nodes: No adenopathy. Urinary bladder: Unremarkable as visualized. Reproductive: Mildly enlarged prostate. 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 Suspect 80% or more involvement of femoral head volume, with the sclerotic edge of involvement seen in the subcapital region. Soft tissues: Very small fatty umbilical hernia and small bilateral fatty inguinal hernias. No evidence of associated bowel herniation or strangulation. IMPRESSION: 1. Acute pancreatitis centered in the pancreatic head. 2. There are 3 new small fluid collections around or within the pancreatic head likely representing small acute inflammatory fluid collections of pancreatitis/developing pseudocysts. Recommend short-term imaging follow-up in 6-8 weeks to assess regression with treatment. 3. 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 4. Wall thickening in the pylorus and duodenal probably representing reactive changes from adjacent pancreatitis although intrinsic gastroduodenitis not excluded. Wall thickening in the hepatic flexure of the colon, ascending colon, and cecum could also represent reactive changes from pancreatitis, versus intrinsic colitis. 5. Lobular liver contour suggesting cirrhosis, with geographic fatty infiltration of the liver noted. 6. Air and fluid distended mid abdominal small bowel loops without rhea dilatation or transition point, favor reactive ileus. 7. 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 Recommend orthopedic consult/referral. 8. Additional nonemergent findings detailed above. Dictated and Authenticated by: Foreign Levin MD. Ordering:SHERRY Lynn MD
[2023-05-26 19:39] LABS: Abs Immature Grans 0.03 10^3/uL (0.0-0.06); Absolute Basophil Count 0.01 10^3/uL (0.0-0.2); Absolute Eosinophil Count 0.13 10^3/uL (0.0-0.7); Absolute Lymphocyte Count 1.73 10^3/uL (1.2-3.4); Absolute Monocyte Count 0.55 10^3/uL (0.1-0.8); Absolute Neutrophil Count 5.05 10^3/uL (1.2-6.7); Basophils % 0.1; Eosinophils % 1.7; HCT 21.2 % (40.0-50.0); Immature Grans % 0.4; Lymphocytes % 23.1; MCH 30.8 pg (27.0-33.0); MCHC 32.5 % (32.0-36.0); MCV 95 fL (80-95); Monocytes % 7.3; Neutrophils % 67.4; Platelet Count 198 10^3/uL (130-400); RBC 2.24 10^6/uL (4.36-5.78); RDW 23.8 % (11.8-14.1); RDW-SD 80.2 fL
[2023-05-26 19:44] LABS: HGB 6.9 g/dL (13.5-17.5)
[2023-05-26 19:56] LABS: Troponin I < 50 ng/L (<or=60)
[2023-05-26 20:02] LABS: Anisocytosis 3+; Diff Comment RBC Morph Reviewed
[2023-05-26 20:03] LABS: Hypochromasia 3+
[2023-05-26 20:13] LABS: Lab Add On Test DONE
[2023-05-26 20:22] LABS: Bilirubin Small (Negative); Blood Negative (Negative); Clarity Clear (Clear); Glucose Negative (Negative); Ketones Negative (Negative); Leukocyte Esterase Negative (Negative); Nitrite Negative (Negative); Urobilinogen >=8.0 mg/dL (Up to 0.2)
--- NOTE | 2023-05-26 21:24 | HPE_ITS ---
Date of service: 05/26/23 Time of Service: 21:44 Assessment and Plan Assessment and plan (1) Acute on chronic anemia: Status: Acute Assessment and plan: Finish transfusion of 2nd unit. I had asked the lab to add on anemia studies to bloodwork from prior to blood transfusion. Will monitor H/H. NPO as I do strongly suspect GI losses as the source of anemia. Will treat with IV PPI and carafate. Recheck hematest. Strongly consider endoscopy on this admission. There is no general surgery radio communications superintendent at our facility until tomorrow morning. (2) Duodenitis: Status: Acute Assessment and plan: By imaging. Start on PPI and carafate. I think the patient would benefit from endoscopy on this admission, given anemia. I suspect he might have an ulcer. Monitor hematests, H/Hs. General surgery consult in am. (3) Colitis: Status: Acute Assessment and plan: Radiology read suggests IBD. Check CRP. If develops diarrhea, would r/o C.Diff/other types of infectious colitis. Would also benefit from a colonoscopy, though not necessarily on this admission. (4) Acute pancreatitis: Status: Acute Assessment and plan: Clinically, the patient does not have acute pancreatitis. With normal lipase, suspect that this is actually chronic pancreatitis. Evidence of developing pseudocysts. Will need GI follow up. (5) Alcohol withdrawal: Status: Acute Assessment and plan: Phenobarbital load written. Monitor on CIWA in the ICU. (6) Alcoholic hepatitis: Status: Acute Assessment and plan: Maddrey's discriminant function score is 19.8, suggesting good prognosis. Continue to trend PT/T. bili. No role for prednisolone at this time. (7) Cirrhosis of liver: Status: Chronic Assessment and plan: It appears to be a new diagnosis and explains coagulopathy. No evidence of varices on CT, but would benefit from an EGD (if not on this admission, then as an outpatient) to ensure that this is the case. (8) Coagulopathy: Status: Acute Assessment and plan: Due to above Monitor INR. (9) Alcohol intoxication: Status: Acute Assessment and plan: As above Monitor/treat for ETOH w/d. (10) Hypokalemia: Status: Acute Assessment and plan: Replete; also replete magnesium (11) Hypomagnesemia: Status: Acute Assessment and plan: Replete, recheck in am (12) Hyponatremia: Status: Acute Assessment and plan: recheck of the BMP is pending. Could be explained by both EtOH/beer potomania and underlying cirrhosis. Trend sodiums. (13) DVT prophylaxis: Status: Acute Assessment and plan: SCDs. Hold off on chemical DVT ppx given suspected GI bleeding (14) Discharge planning issues: Status: Acute Assessment and plan: DNR/DNI, as per ED verification of code status including paperwork from [facility] Admit to the ICU. History of Present Illness History of Present Illness Chief Complaint: Sent to the ED by the PCP for a low H/H Narrative: Mr Morrow is a 53 year old male with PMHx of HTN, brain aneurysm s/p cranyotomy, alcohol abuse, tobacco abuse, ISADORA, who was sent to [facility] ED by his PCP for an abnormal H/H (6.1/18.9 at 11:15 this am). On arrival to the ER, the H/H was actually 5.7/17.6. Per the ED provider, his hemoccult was negative. His BP was initially 96/65, going down to 81/50. The patient endorsed abdominal pain, but denied n/v/diarrhea. The patient was felt to be mildly tremulous with an alcohol level of 84.3 mg/dL. He was also found to be hypokalemic (K 2.0), hypomagnesemic (Mag 1.0), and hyponatremic (134). His INR was 1.5. CT abdomen/pelvis revealed acute pancreatitis with small fluid collections around the pancreatic head, felt to be possibly developing pseudocysts. There was also evidence of duodenitis, colitis (right side and transverse colon) suspicious for IBD. There was also evidence of cirrhosis on CT. He received IV fluids, blood transfusion (written for 2 units, currently receiving his 2nd unit). His electrolytes were begun to be repleted. The case was reviewed with [facility] who felt that there was no need for endoscopy tonight. A hospitalist admission was requested. The patient is being admitted to the ICU. His last BP was 140/88 with HR of 93. His repeat H/H after 1 unit of pRBCs is 6.9/21.2. On his interview with me, the patient states that he has not had any abdominal pain, blood in stool, urine, or emetic contents, though he admits coughing to the point of vomiting every morning, and the emetic contents looking clear. He denies CP, palpitations, shortness of breath. He endorses dizziness every since having brain surgery and states that he gets dizzy when he gets up and is supposed to use a cane. His last fall was about 3 weeks ago. His last drink was today at noon. He drinks 4 whiskeys per day and denies a h/o withdrawal or withdarwal seizures. He was advised to stop smoking and drinking. Review of Systems All systems reviewed & are unremarkable except as noted in HPI and below PFSH All Active Problems (Updated 05/26/23 @ 22:29 by Narcisa Sanches MD) Alcoholic hepatitis (Acute) Alcohol intoxication (Acute) Discharge planning issues (Acute) DVT prophylaxis (Acute) Coagulopathy (Acute) Colitis (Acute) Duodenitis (Acute) Hypokalemia (Acute) Hypomagnesemia (Acute) Hyponatremia (Acute) Acute on chronic anemia (Acute) Alcohol withdrawal (Acute) Acute pancreatitis (Acute) Electrolyte disturbance (Acute) Cirrhosis of liver (Chronic) Anemia (Chronic) Dural sinus malformation (Acute) Bilateral sacroiliitis (Acute) Neuropathic pain of left forearm (Acute) Coccydynia (Acute) Cervical radiculopathy (Acute) Anterior cerebral aneurysm (Acute) Multiple lipomas (Acute) Screening for colon cancer (Acute) Bilateral hearing loss (Acute) Cubital tunnel syndrome on left (Acute) Left carpal tunnel syndrome (Acute) CRPS (complex regional pain syndrome), type II, upper (Acute) Right carpal tunnel syndrome (Acute) Cubital tunnel syndrome on right (Acute) Medical History Anemia Aneurysm Arm pain, right Asymmetrical sensorineural hearing loss Back pain Lopez's cyst, rt knee Chest wall pain Chronic low back pain Chronic pain Chronic sinusitis Gentry Deviated septum Elevated blood lead level Elevated LFTs ETOH abuse Exposure to lead Fatigue Foraminal stenosis of cervical region Foreign body in left upper extremity (01/11/20) s/p excision of foreign bodies Foreign body in right ear Greater trochanteric bursitis of left hip (09/04/15) Heart murmur per pt. this was an incorrect dx Hypertension Hypokalemia Hypomagnesemia Hyponatremia Infrapatellar bursitis of right knee (01/11/20) s/p bursa excision Left buttock pain (11/07/14) Low back pain (11/07/14) Lumbar back pain Marital problem MVP (mitral valve prolapse) Neuropathy ISADORA (obstructive sleep apnea) Paraesthesia left 4-5th finger (05/29/06) Paresthesias in left hand (06/28/14) Peripheral cyanosis Polyarthralgia PONV (postoperative nausea and vomiting) Pt c/o post nasal drip causing nausea and vomiting routinely Raynauds disease Snoring Soft tissue swelling Steatosis of liver Synovial cyst of popliteal space [Lopez], right knee Thoracic back pain Tinnitus of both ears Tobacco abuse Tubular adenoma of colon Surgical History Aftercare involving removal of fracture plate or internal fixation device left arm H/O craniotomy History of arthroscopy of right knee 2001, diagnostic History of carpal tunnel release right History of colonoscopy (~03/2021) Right Popliteal cyst resection (07/25/03) Status post transposition of nerve left elbow Family History Mother , MA at age 74. Heart disease Father No problems noted. Social History Smoking/Tobacco Use Status: Current every day Tobacco Type: cigarettes Years smoked: 42 Smoking risk assessment performed?: Yes Alcohol Intake: current Alcohol Intake frequency: 3 or more drinks per day Alcohol type: hard liquor Drug use: Never Substance use type: does not use Household members: none Housing: house Number of Children: 1 current occupation: N/A Current gender identity: male What type of physical activity do you participate in: walking and independent ambulation Seatbelt use: sometimes Do you feel safe at home: Yes Do you feel safe in your relationship?: Yes Meds Allergies and Home Medications Allergies Allergy/AdvReac Type Severity Reaction Status Date / Time No Known Allergies Allergy Unverified 12/23/22 08:09 Home Medications Medication Instructions Recorded Confirmed Type trazodone 50 mg tablet 25 mg PO HS PRN 12/09/19 05/26/23 History lisinopril 10 mg tablet 20 mg PO DAILY 06/18/21 05/26/23 History tramadol 50 mg tablet 50 mg PO BID PRN 07/01/22 05/26/23 History Exam Narrative Exam Narrative: General: A mildly tremulous cooperative middle-aged male, A&Ox3, appropriate, looks mildly jaundiced Neurological: A&Ox3, mildly tremulous, no obvious focal deficits Psychiatric: Appropriate speech pattern/content Skin: Visible skin intact; well healed scalp incision HEENT: Well-healed scalp incision, otherwise atraumatic, normocephalic, EOMI, MMM, clear oropharynx, no submandibular or cervical lymphadenopathy, no goiter or JVD Cardiovascular: RRR, no m/r/g Lungs: CTAB Gastrointestinal: soft, nontender, nondistended, no ascites Genitourinary: deferred Extremities: 1+ edema BLEs, symmetric, 1+ pedal pulses, no c/c. tinea pedis. Results Imaging Additional studies: CT chest/abdomen/pelvis: 1. No significant intrathoracic findings. 2. Pancreatic findings consistent with acute pancreatitis predominately the pancreatic head. There are small fluid collections adjacent to and within the pancreatic head which are probably postinflammatory/developing pseudocysts and will require follow-up. The appearance of the duodenum is most probably reactive duodenitis secondary to pancreatitis. However, intrinsic gastro duodenitis is also possibility. There is also a colitis pattern in the right-side of the colon and transverse colon and there is fat halo sign throughout the remaining colon. Suspect that there is an element of inflammatory bowel disease-colitis here. 3. Prominent steatotic appearing liver with probable element of cirrhosis. There is no ascites. CT head: No acute intracranial findings. Intervertebral additional craniotomy and right frontal and maxillary level sinus surgeries. Aneurysm clips at the level of the anterior communicating artery. No acute hemorrhage. EKG: HR 86, SR w/ multiple PVCs, nonspecific ST-T changes/ST depressions anterolaterally. Labs 05/26/23 22:21 05/26/23 22:21 Labs: Laboratory Results - last 24 hr 05/26/23 05/26/23 05/26/23 16:15 16:15 16:15 WBC 9.44 RBC 1.76 L Hgb 5.7 L* Hct 17.6 L* MCV 100 H MCH 32.4 MCHC 32.4 RDW 23.9 H Plt Count 218 MPV 9.0 Immature Gran % 0.4 Neutrophils % 65.5 Lymphocytes % 25.0 Monocytes % 7.9 Eosinophils % 1.1 Basophils % 0.1 Nucleated RBC % 0.0 Absolute Neutrophils 6.18 Absolute Lymphocytes 2.36 Absolute Monocytes 0.75 Absolute Eosinophils 0.10 Absolute Basophils 0.01 RBC Morphology See Below Hypochromasia 3+ Anisocytosis 3+ PT 15.0 H INR 1.5 H APTT 28.6 VBG pH 7.43 H VBG pCO2 48 VBG pO2 29 VBG HCO3 32 H VBG Total CO2 31 H VBG O2 Saturation 44 VBG Base Excess 7 H Sodium 134 L Potassium 2.0 L* Chloride 88 L Carbon Dioxide 30.6 Anion Gap 15.4 H BUN 5 L Creatinine 1.0 Est GFR (CKD-EPI 2020) 90.00 Glucose 127 H Calcium 7.5 L Magnesium 1.0 L Cancelled Total Bilirubin 1.9 H AST 132 H ALT 36 Alkaline Phosphatase 453 H Ammonia Troponin I < 50 Cancelled NT-Pro-B Natriuret Pep 338 H Total Protein Albumin Lipase Urine Color Urine Clarity Urine pH Ur Specific [place] Urine Protein Urine Ketones Urine Blood Urine Nitrite Urine Bilirubin Urine Urobilinogen Ur Leukocyte Esterase Urine Glucose Ethyl Alcohol Add-On Test Request Patient ABO/Rh Antibody Screen Crossmatch 05/26/23 05/26/23 05/26/23 16:15 16:15 16:44 WBC RBC Hgb Hct MCV MCH MCHC RDW Plt Count MPV Immature Gran % Neutrophils % Lymphocytes % Monocytes % Eosinophils % Basophils % Nucleated RBC % Absolute Neutrophils Absolute Lymphocytes Absolute Monocytes Absolute Eosinophils Absolute Basophils RBC Morphology Hypochromasia Anisocytosis PT INR APTT VBG pH VBG pCO2 VBG pO2 VBG HCO3 VBG Total CO2 VBG O2 Saturation VBG Base Excess Sodium Potassium Chloride Carbon Dioxide Anion Gap BUN Creatinine Est GFR (CKD-EPI 2020) Glucose Calcium Magnesium Total Bilirubin AST ALT Alkaline Phosphatase Ammonia Troponin I NT-Pro-B Natriuret Pep Cancelled Total Protein 6.2 L Albumin 2.4 L Lipase 46 Cancelled Urine Color Urine Clarity Urine pH Ur Specific [place] Urine Protein Urine Ketones Urine Blood Urine Nitrite Urine Bilirubin Urine Urobilinogen Ur Leukocyte Esterase Urine Glucose Ethyl Alcohol 84.3 H Add-On Test Request DONE Patient ABO/Rh O Negative Antibody Screen NEGATIVE Crossmatch See Detail 05/26/23 05/26/23 05/26/23 17:35 19:30 19:31 WBC 7.50 RBC 2.24 L Hgb 6.9 L* Hct 21.2 L MCV 95 D MCH 30.8 MCHC 32.5 RDW 23.8 H Plt Count 198 MPV 9.0 Immature Gran % 0.4 Neutrophils % 67.4 Lymphocytes % 23.1 Monocytes % 7.3 Eosinophils % 1.7 Basophils % 0.1 Nucleated RBC % 0.0 Absolute Neutrophils 5.05 Absolute Lymphocytes 1.73 Absolute Monocytes 0.55 Absolute Eosinophils 0.13 Absolute Basophils 0.01 RBC Morphology See Below Hypochromasia 3+ Anisocytosis 3+ PT INR APTT VBG pH VBG pCO2 VBG pO2 VBG HCO3 VBG Total CO2 VBG O2 Saturation VBG Base Excess Sodium Potassium Chloride Carbon Dioxide Anion Gap BUN Creatinine Est GFR (CKD-EPI 2020) Glucose Calcium Magnesium Total Bilirubin AST ALT Alkaline Phosphatase Ammonia 22 Troponin I < 50 NT-Pro-B Natriuret Pep Total Protein Albumin Lipase Urine Color Urine Clarity Urine pH Ur Specific [place] Urine Protein Urine Ketones Urine Blood Urine Nitrite Urine Bilirubin Urine Urobilinogen Ur Leukocyte Esterase Urine Glucose Ethyl Alcohol Add-On Test Request Patient ABO/Rh Antibody Screen Crossmatch 05/26/23 20:07 WBC RBC Hgb Hct MCV MCH MCHC RDW Plt Count MPV Immature Gran % Neutrophils % Lymphocytes % Monocytes % Eosinophils % Basophils % Nucleated RBC % Absolute Neutrophils Absolute Lymphocytes Absolute Monocytes Absolute Eosinophils Absolute Basophils RBC Morphology Hypochromasia Anisocytosis PT INR APTT VBG pH VBG pCO2 VBG pO2 VBG HCO3 VBG Total CO2 VBG O2 Saturation VBG Base Excess Sodium Potassium Chloride Carbon Dioxide Anion Gap BUN Creatinine Est GFR (CKD-EPI 2020) Glucose Calcium Magnesium Total Bilirubin AST ALT Alkaline Phosphatase Ammonia Troponin I NT-Pro-B Natriuret Pep Total Protein Albumin Lipase Urine Color Yellow Urine Clarity Clear Urine pH 7.0 Ur Specific [place] 1.010 Urine Protein Negative Urine Ketones Negative Urine Blood Negative Urine Nitrite Negative Urine Bilirubin Small H Urine Urobilinogen >=8.0 H Ur Leukocyte Esterase Negative Urine Glucose Negative Ethyl Alcohol Add-On Test Request Patient ABO/Rh Antibody Screen Crossmatch Last Vital Signs Temp 36.4 C L 05/26/23 21:18 Pulse 89 05/26/23 21:18 Resp 18 05/26/23 21:18 BP 158/88 H 05/26/23 21:18 Pulse Ox 97 05/26/23 21:18 PAWSS Have you Been Recently Intoxicated or Drunk Within the Last 30 days?: No Have you Ever Experienced Previous Episodes of Alcohol Withdrawal?: No Have you ever Experienced Withdrawal Seizures?: No Have you ever Experienced Delirium Tremens(DT)s?: No Have you ever undergone Alcohol Rehabilitation Treatment (i.e, inpt ot outpatient treatment programs)?: No Have you ever Experienced Blackouts?: No Have you ever Combined Alcohol with other Downers within the last 90 days?: No Result: 0 Time Spent Time spent with Patient: 55-74 minutes Time was spent: preparing to see the patient(eg.review tests), obtaining and/or reviewing separately otained hiistory, ordering medications,tests, procedures, referring, communicating with other health manager intensive care unit, indepentently interpreting results, counseling the patient and care coordination
--- NOTE | 2023-05-26 21:56 | W.PC.ACHO ---
Registration Status: REG ER Primary Language: Preferred Language: Mongolian ED Information & Data Chief Complaint GI Bleed 05/26/23 16:22 Triage Note Told by PCP to come in for 05/26/23 15:59 blood transfusion and they told him something about a GI bleed Medical / Surgical History (Last Reviewed 07/08/22 @ 10:21 by Teresa Lino, RN) Hypertension Aneurysm Hyponatremia Hypokalemia Hypomagnesemia Anemia Tubular adenoma of colon Elevated blood lead level Foraminal stenosis of cervical region Chronic sinusitis Chronic pain Marital problem Lumbar back pain Thoracic back pain Snoring Back pain Exposure to lead Fatigue Chest wall pain Arm pain, right Chronic low back pain [place] Soft tissue swelling Greater trochanteric bursitis of left hip (09/04/15) Left buttock pain (11/07/14) Low back pain (11/07/14) Paresthesias in left hand (06/28/14) Deviated septum Polyarthralgia Tobacco abuse MVP (mitral valve prolapse) Peripheral cyanosis Raynauds disease Elevated LFTs ETOH abuse Steatosis of liver ISADORA (obstructive sleep apnea) Neuropathy PONV (postoperative nausea and vomiting) Foreign body in left upper extremity (01/11/20) Infrapatellar bursitis of right knee (01/11/20) Synovial cyst of popliteal space [Lopez], right knee Foreign body in right ear Tinnitus of both ears Asymmetrical sensorineural hearing loss Paraesthesia left 4-5th finger (05/29/06) Heart murmur Lopez's cyst, rt knee (Last Reviewed 07/08/22 @ 10:21 by Teresa Lino, RN) H/O craniotomy History of colonoscopy (~03/2021) Status post transposition of nerve Aftercare involving removal of fracture plate or internal fixation device History of carpal tunnel release History of arthroscopy of right knee Right Popliteal cyst resection (07/25/03) Most Recent Vital Signs Temperature 36.4 C L 05/26/23 21:18 Temperature Source Oral 05/26/23 18:45 Pulse 88 05/26/23 21:45 Pulse Rhythm Regular 05/26/23 18:45 Pulse Strength Normal 05/26/23 18:45 Pulse 93 H 05/26/23 21:50 Respiratory Rate 16 05/26/23 21:50 Respiratory Effort Normal, Non-Labored 05/26/23 18:45 Respiratory Depth Normal 05/26/23 18:45 Respiratory Pattern Normal 05/26/23 20:44 Blood Pressure 140/88 05/26/23 21:45 Blood Pressure Mean 105 05/26/23 21:45 Blood Pressure Position Sitting 05/26/23 18:45 Pulse Oximetry 99 05/26/23 21:50 Oxygen Delivery Method Room Air 05/26/23 21:18 Oxygen Flow Rate 0 05/26/23 21:18 Pain Level 5 05/26/23 19:35 Comment oral temp 05/26/23 19:35 Allergies No Known Allergies Allergy (Unverified 12/23/22 08:09) Precautions Isolation Standard precaution 05/26/23 16:05 Active Medications Generic Name Dose Route Start Last Admin Trade Name Ronnie PRN Reason Stop Dose Admin Iohexol 100 ml 05/26/23 17:15 05/26/23 17:04 Omnipaque 350 Mg/Ml 100 Ml Btl IJ 06/25/23 23:59 100 ml DIRECTED JOHAN Administration Sodium Chloride 50 ml 05/26/23 17:15 05/26/23 17:05 Normal Saline - Diluent 50 Ml Vial IJ 50 ml .FOR DI USE JOHAN Administration IV IV Catheter Type [Right Saline Lock Antecubital] IV Catheter Type [Left Forearm Saline Lock ] IV Catheter Gauge [Right 18 Antecubital] IV Catheter Gauge [Left 18 Forearm] Diet Orders Category Date Time Status Nothing Per Oral [DIET] Nutrition 05/27/23 Breakfast Ordered Diagnostics 05/26/23 05/26/23 05/26/23 Range/Units 21:14 20:07 19:31 WBC Pending 7.50 (4.4-10.8) 10^3/uL RBC Pending 2.24 L (4.36-5.78) 10^6/uL Hgb Pending 6.9 L* (13.5-17.5) g/dL Hct Pending 21.2 L (40.0-50.0) % MCV Pending 95 D (80-95) fL MCH Pending 30.8 (27.0-33.0) pg MCHC Pending 32.5 (32.0-36.0) % RDW Pending 23.8 H (11.8-14.1) % Plt Count Pending 198 (130-400) 10^3/uL MPV Pending 9.0 (8.0-11.0) fL Immature Gran % 0.4 Neutrophils % 67.4 Lymphocytes % 23.1 Monocytes % 7.3 Eosinophils % 1.7 Basophils % 0.1 Nucleated RBC % 0.0 (0.0-0.3) % Absolute Neutrophils 5.05 (1.2-6.7) 10^3/uL Absolute Lymphocytes 1.73 (1.2-3.4) 10^3/uL Absolute Monocytes 0.55 (0.1-0.8) 10^3/uL Absolute Eosinophils 0.13 (0.0-0.7) 10^3/uL Absolute Basophils 0.01 (0.0-0.2) 10^3/uL RBC Morphology See Below Hypochromasia 3+ Anisocytosis 3+ PT (9.1-11.1) sec INR (0.9-1.1) APTT (23.6-32.8) sec VBG pH (7.31-7.41) VBG pCO2 (41-51) mmHg VBG pO2 mmHg VBG HCO3 (23-28) mmol/L VBG Total CO2 (24-29) mmol/L VBG O2 Saturation % VBG Base Excess (-2-3) mmol/L Sodium Pending (136-145) mmol/L Potassium Pending (3.5-5.1) mmol/L Chloride Pending (98-107) mmol/L Carbon Dioxide Pending (21.0-32.0) mmol/L Anion Gap Pending (3-11) mmol/L BUN Pending (7-18) mg/dL Creatinine Pending (0.70-1.30) mg/dL Est GFR (CKD-EPI 2020) Pending (mL/min/1.73m2) Glucose Pending (74-106) mg/dL Calcium Pending (8.5-10.1) mg/dL Magnesium (1.8-2.4) mg/dL Total Bilirubin (0.2-1.0) mg/dL AST (15-37) U/L ALT (16-63) U/L Alkaline Phosphatase (46-116) U/L Ammonia (11-32) umol/L Troponin I (<or=60) ng/L NT-Pro-B Natriuret Pep (<300) pg/mL Total Protein (6.4-8.2) g/dL Albumin (3.4-5.0) g/dL Lipase (16-77) U/L Urine Color Yellow (Yellow) Urine Clarity Clear (Clear) Urine pH 7.0 (5-8) Ur Specific Downs 1.010 (1.005-1.025) Urine Protein Negative (Negative) mg/dL Urine Ketones Negative (Negative) mg/dL Urine Blood Negative (Negative) Urine Nitrite Negative (Negative) Urine Bilirubin Small H (Negative) Urine Urobilinogen >=8.0 H (Up to 0.2) mg/dL Ur Leukocyte Esterase Negative (Negative) Urine Glucose Negative (Negative) mg/dL Ethyl Alcohol (<10) mg/dL Add-On Test Request Patient ABO/Rh Antibody Screen Crossmatch 05/26/23 05/26/23 05/26/23 Range/Units 19:30 17:35 16:44 WBC (4.4-10.8) 10^3/uL RBC (4.36-5.78) 10^6/uL Hgb (13.5-17.5) g/dL Hct (40.0-50.0) % MCV (80-95) fL MCH (27.0-33.0) pg MCHC (32.0-36.0) % RDW (11.8-14.1) % Plt Count (130-400) 10^3/uL MPV (8.0-11.0) fL Immature Gran % Neutrophils % Lymphocytes % Monocytes % Eosinophils % Basophils % Nucleated RBC % (0.0-0.3) % Absolute Neutrophils (1.2-6.7) 10^3/uL Absolute Lymphocytes (1.2-3.4) 10^3/uL Absolute Monocytes (0.1-0.8) 10^3/uL Absolute Eosinophils (0.0-0.7) 10^3/uL Absolute Basophils (0.0-0.2) 10^3/uL RBC Morphology Hypochromasia Anisocytosis PT (9.1-11.1) sec INR (0.9-1.1) APTT (23.6-32.8) sec VBG pH (7.31-7.41) VBG pCO2 (41-51) mmHg VBG pO2 mmHg VBG HCO3 (23-28) mmol/L VBG Total CO2 (24-29) mmol/L VBG O2 Saturation % VBG Base Excess (-2-3) mmol/L Sodium (136-145) mmol/L Potassium (3.5-5.1) mmol/L Chloride (98-107) mmol/L Carbon Dioxide (21.0-32.0) mmol/L Anion Gap (3-11) mmol/L BUN (7-18) mg/dL Creatinine (0.70-1.30) mg/dL Est GFR (CKD-EPI 2020) (mL/min/1.73m2) Glucose (74-106) mg/dL Calcium (8.5-10.1) mg/dL Magnesium (1.8-2.4) mg/dL Total Bilirubin (0.2-1.0) mg/dL AST (15-37) U/L ALT (16-63) U/L Alkaline Phosphatase (46-116) U/L Ammonia 22 (11-32) umol/L Troponin I < 50 (<or=60) ng/L NT-Pro-B Natriuret Pep (<300) pg/mL Total Protein (6.4-8.2) g/dL Albumin (3.4-5.0) g/dL Lipase (16-77) U/L Urine Color (Yellow) Urine Clarity (Clear) Urine pH (5-8) Ur Specific Downs (1.005-1.025) Urine Protein (Negative) mg/dL Urine Ketones (Negative) mg/dL Urine Blood (Negative) Urine Nitrite (Negative) Urine Bilirubin (Negative) Urine Urobilinogen (Up to 0.2) mg/dL Ur Leukocyte Esterase (Negative) Urine Glucose (Negative) mg/dL Ethyl Alcohol (<10) mg/dL Add-On Test Request DONE Patient ABO/Rh Antibody Screen Crossmatch 05/26/23 05/26/23 05/26/23 Range/Units 16:15 16:15 16:15 WBC (4.4-10.8) 10^3/uL RBC (4.36-5.78) 10^6/uL Hgb (13.5-17.5) g/dL Hct (40.0-50.0) % MCV (80-95) fL MCH (27.0-33.0) pg MCHC (32.0-36.0) % RDW (11.8-14.1) % Plt Count (130-400) 10^3/uL MPV (8.0-11.0) fL Immature Gran % Neutrophils % Lymphocytes % Monocytes % Eosinophils % Basophils % Nucleated RBC % (0.0-0.3) % Absolute Neutrophils (1.2-6.7) 10^3/uL Absolute Lymphocytes (1.2-3.4) 10^3/uL Absolute Monocytes (0.1-0.8) 10^3/uL Absolute Eosinophils (0.0-0.7) 10^3/uL Absolute Basophils (0.0-0.2) 10^3/uL RBC Morphology Hypochromasia Anisocytosis PT (9.1-11.1) sec INR (0.9-1.1) APTT (23.6-32.8) sec VBG pH (7.31-7.41) VBG pCO2 (41-51) mmHg VBG pO2 mmHg VBG HCO3 (23-28) mmol/L VBG Total CO2 (24-29) mmol/L VBG O2 Saturation % VBG Base Excess (-2-3) mmol/L Sodium (136-145) mmol/L Potassium (3.5-5.1) mmol/L Chloride (98-107) mmol/L Carbon Dioxide (21.0-32.0) mmol/L Anion Gap (3-11) mmol/L BUN (7-18) mg/dL Creatinine (0.70-1.30) mg/dL Est GFR (CKD-EPI 2020) (mL/min/1.73m2) Glucose (74-106) mg/dL Calcium (8.5-10.1) mg/dL Magnesium (1.8-2.4) mg/dL Total Bilirubin (0.2-1.0) mg/dL AST (15-37) U/L ALT (16-63) U/L Alkaline Phosphatase (46-116) U/L Ammonia (11-32) umol/L Troponin I Cancelled (<or=60) ng/L NT-Pro-B Natriuret Pep Cancelled 338 H (<300) pg/mL Total Protein 6.2 L (6.4-8.2) g/dL Albumin 2.4 L (3.4-5.0) g/dL Lipase Cancelled 46 (16-77) U/L Urine Color (Yellow) Urine Clarity (Clear) Urine pH (5-8) Ur Specific Downs (1.005-1.025) Urine Protein (Negative) mg/dL Urine Ketones (Negative) mg/dL Urine Blood (Negative) Urine Nitrite (Negative) Urine Bilirubin (Negative) Urine Urobilinogen (Up to 0.2) mg/dL Ur Leukocyte Esterase (Negative) Urine Glucose (Negative) mg/dL Ethyl Alcohol 84.3 H (<10) mg/dL Add-On Test Request Patient ABO/Rh O Negative Antibody Screen NEGATIVE Crossmatch See Detail 05/26/23 05/26/23 Range/Units 16:15 16:15 WBC 9.44 (4.4-10.8) 10^3/uL RBC 1.76 L (4.36-5.78) 10^6/uL Hgb 5.7 L* (13.5-17.5) g/dL Hct 17.6 L* (40.0-50.0) % MCV 100 H (80-95) fL MCH 32.4 (27.0-33.0) pg MCHC 32.4 (32.0-36.0) % RDW 23.9 H (11.8-14.1) % Plt Count 218 (130-400) 10^3/uL MPV 9.0 (8.0-11.0) fL Immature Gran % 0.4 Neutrophils % 65.5 Lymphocytes % 25.0 Monocytes % 7.9 Eosinophils % 1.1 Basophils % 0.1 Nucleated RBC % 0.0 (0.0-0.3) % Absolute Neutrophils 6.18 (1.2-6.7) 10^3/uL Absolute Lymphocytes 2.36 (1.2-3.4) 10^3/uL Absolute Monocytes 0.75 (0.1-0.8) 10^3/uL Absolute Eosinophils 0.10 (0.0-0.7) 10^3/uL Absolute Basophils 0.01 (0.0-0.2) 10^3/uL RBC Morphology See Below Hypochromasia 3+ Anisocytosis 3+ PT 15.0 H (9.1-11.1) sec INR 1.5 H (0.9-1.1) APTT 28.6 (23.6-32.8) sec VBG pH 7.43 H (7.31-7.41) VBG pCO2 48 (41-51) mmHg VBG pO2 29 mmHg VBG HCO3 32 H (23-28) mmol/L VBG Total CO2 31 H (24-29) mmol/L VBG O2 Saturation 44 % VBG Base Excess 7 H (-2-3) mmol/L Sodium 134 L (136-145) mmol/L Potassium 2.0 L* (3.5-5.1) mmol/L Chloride 88 L (98-107) mmol/L Carbon Dioxide 30.6 (21.0-32.0) mmol/L Anion Gap 15.4 H (3-11) mmol/L BUN 5 L (7-18) mg/dL Creatinine 1.0 (0.70-1.30) mg/dL Est GFR (CKD-EPI 2020) 90.00 (mL/min/1.73m2) Glucose 127 H (74-106) mg/dL Calcium 7.5 L (8.5-10.1) mg/dL Magnesium Cancelled 1.0 L (1.8-2.4) mg/dL Total Bilirubin 1.9 H (0.2-1.0) mg/dL AST 132 H (15-37) U/L ALT 36 (16-63) U/L Alkaline Phosphatase 453 H (46-116) U/L Ammonia (11-32) umol/L Troponin I < 50 (<or=60) ng/L NT-Pro-B Natriuret Pep (<300) pg/mL Total Protein (6.4-8.2) g/dL Albumin (3.4-5.0) g/dL Lipase (16-77) U/L Urine Color (Yellow) Urine Clarity (Clear) Urine pH (5-8) Ur Specific Downs (1.005-1.025) Urine Protein (Negative) mg/dL Urine Ketones (Negative) mg/dL Urine Blood (Negative) Urine Nitrite (Negative) Urine Bilirubin (Negative) Urine Urobilinogen (Up to 0.2) mg/dL Ur Leukocyte Esterase (Negative) Urine Glucose (Negative) mg/dL Ethyl Alcohol (<10) mg/dL Add-On Test Request Patient ABO/Rh Antibody Screen Crossmatch Intake and Output - 24 Hour Total 12/26/23 15:56 thru 05/26/23 21:15 Intake Total 1850 Output Total 350 Balance 1500 Weight 74.389 kg Intake: IV 1170 Blood Product 680 Rbc Leuko Reduced Unit 340 [id number] Rbc Leuko Reduced Unit 340 [id number] Output: Urine 350 Other: Emesis Description None Falls Risk Assessment History of Falls No History 05/26/23 16:07 Contributing Factors No Factors 05/26/23 16:07 Ambulatory Aids Independent 05/26/23 16:07 Tubes/Lines W/no contributing factors 05/26/23 16:07 Gait Evaluation No gait disturbance 05/26/23 16:07 Cognition No cognitive impairment 05/26/23 16:07 Fall Total Score 10 05/26/23 16:07 Level of Risk Standard/Low Risk 05/26/23 16:07 Problems (Last Reviewed 07/08/22 @ 10:21 by Teresa Lino RN) Alcohol withdrawal (Acute) Acute pancreatitis (Acute) Electrolyte disturbance (Acute) Cirrhosis of liver (Acute) Anemia (Chronic) v v v v v v v v v Sending and/or Receiving Nurses: Please use comment section below to note any information pertinent to the patient hand-off not included above. Information / Comments: Report received from: Lucretia GALLEGO all quesitons answered
[2023-05-26 22:27] LABS: HCT 24.8 % (40.0-50.0); HGB 8.2 g/dL (13.5-17.5); MCH 30.7 pg (27.0-33.0); MCHC 33.1 % (32.0-36.0); MCV 93 fL (80-95); MPV 8.6 fL (8.0-11.0); Platelet Count 168 10^3/uL (130-400); RBC 2.67 10^6/uL (4.36-5.78); RDW-SD 73.9 fL; WBC 7.27 10^3/uL (4.4-10.8)
[2023-05-26 22:40] LABS: Anion Gap 6.4 mmol/L (3-11); BUN 5 mg/dL (7-18); CO2 35.6 mmol/L (21.0-32.0); Calcium 7.5 mg/dL (8.5-10.1); Chloride 93 mmol/L (98-107); Glucose 137 mg/dL (74-106); Sodium 135 mmol/L (136-145)
[2023-05-26 22:46] LABS: Potassium 2.7 mmol/L (3.5-5.1)
[2023-05-26 22:48] LABS: RDW 22.1 % (11.8-14.1)
[2023-05-26] MEDS: Pantoprazole 40 MG VIAL IVP (22:51)
[2023-05-26] MEDS: Normal Saline Flush 10 ML SYR IVP (22:51)
[2023-05-26] MEDS: THIAMINE 100 MG in Normal Saline 100 ML 200 MG IVPB (22:52)
[2023-05-26] MEDS: MAGNESIUM SULFATE 4 GM/100 ML BAG IVPB (22:52)
[2023-05-26] MEDS: PHENobarbital 150 MG in Normal Saline 50 ML 100 MG IVPB (23:06)
[2023-05-26] MEDS: Sucralfate 1 GM TAB PO (23:06)
[2023-05-26] MEDS: traZODone 50 MG TAB 25 MG PO (23:13)
[2023-05-26] MEDS: traMADol 50 MG TAB PO (23:14)
[2023-05-26 23:54] LABS: Lab Add On Test DONE
[2023-05-27] VITALS (65 sets, daily range): BP systolic 102–145; BP diastolic 66–99; PULSE 77–122; RESP 13–29; TEMP 36.6–37; O2SAT 83–97
[2023-05-27 00:05] LABS: Iron 277 ug/dL (65-175); Total Iron Binding Capacity 287 ug/dL (250-450); Transferrin Sat 97 % (20-55)
[2023-05-27] MEDS: Normal Saline Flush 10 ML SYR IVP ×2 (00:31→10:48)
[2023-05-27 00:32] LABS: Ferritin 447 ng/mL (26-388); Folate 1.9 ng/mL (8.6-20.0); Vitamin B12 536 pg/mL (193-986)
[2023-05-27] MEDS: Normal Saline 500 ML 30 ML IV (00:34)
[2023-05-27] MEDS: POTASSIUM CHLORIDE 20 MEQ/100 ML BAG 50 MEQ IVPB ×3 (01:36→07:21)
[2023-05-27] MEDS: PHENobarbital 110 MG in Normal Saline 50 ML 100 MG IVPB ×2 (02:15→04:55)
[2023-05-27 05:56] LABS: Abs Immature Grans 0.01 10^3/uL (0.0-0.06); Absolute Basophil Count 0.02 10^3/uL (0.0-0.2); Absolute Monocyte Count 0.54 10^3/uL (0.1-0.8); Absolute Neutrophil Count 4.27 10^3/uL (1.2-6.7); Basophils % 0.3; Eosinophils % 1.5; HCT 22.8 % (40.0-50.0); HGB 7.7 g/dL (13.5-17.5); Immature Grans % 0.1; Lymphocytes % 27.8; MCH 30.9 pg (27.0-33.0); MCHC 33.8 % (32.0-36.0); MCV 92 fL (80-95); Monocytes % 7.9; Neutrophils % 62.4; Platelet Count 152 10^3/uL (130-400); RBC 2.49 10^6/uL (4.36-5.78); RDW 22.8 % (11.8-14.1); RDW-SD 76.1 fL; WBC 6.84 10^3/uL (4.4-10.8)
[2023-05-27 06:09] LABS: Anisocytosis 3+; Diff Comment RBC Morph Reviewed; Prothrombin Time 14.1 sec (9.1-11.1)
[2023-05-27 06:11] LABS: INR 1.4 (0.9-1.1)
[2023-05-27 06:13] LABS: Ammonia 60 umol/L (11-32)
[2023-05-27 06:16] LABS: ALT 26 U/L (16-63); AST 103 U/L (15-37); Albumin 2.1 g/dL (3.4-5.0); Alkaline Phosphatase 418 U/L (46-116); Anion Gap 5.3 mmol/L (3-11); BUN 6 mg/dL (7-18); Bilirubin, Direct 2.1 mg/dL (0.0-0.2); Bilirubin, Total 3.3 mg/dL (0.2-1.0); CO2 33.7 mmol/L (21.0-32.0); CREATININE 0.7 mg/dL (0.70-1.30); Calcium 7.2 mg/dL (8.5-10.1); Chloride 96 mmol/L (98-107); Estimated GFR 110.18 (mL/min/1.73m2); Glucose 111 mg/dL (74-106); Magnesium 2.1 mg/dL (1.8-2.4); Potassium 3.2 mmol/L (3.5-5.1); Sodium 135 mmol/L (136-145); Total Protein 5.5 g/dL (6.4-8.2)
[2023-05-27] MEDS: Sucralfate 1 GM TAB PO ×3 (07:21→15:38)
--- NOTE | 2023-05-27 07:49 | NUR.NOTE ---
Accessed chart to determine orders for EKG and to determine whether or not one needs to be cancelled. Nursing Note:
--- NOTE | 2023-05-27 08:55 | RESPIRATORY ---
Spoke with patient about his ISADORA diagnosis and he indicated he has a home CPAP machine through [employer] with a set CPAP of 7, No O2 Bleed-in. Patient wears an under the nose mask at home. Patient advises he has no one that can bring his machine into the hospital for him. RT offered hospital CPAP machine but patient declining. RT told patient if he changes his mind to let nursing know and they can page us. RT spoke with provider and nurse and asked that it be passed along to night nurse that patient may need O2 as his SpO2 had been documented last night in the low 80s on RA.
[2023-05-27] MEDS: Multivitamin TAB 1 TAB PO (08:57)
[2023-05-27] MEDS: Thiamine 100 MG TAB PO (08:58)
[2023-05-27] MEDS: Folic Acid 1 MG TAB PO (08:58)
--- NOTE | 2023-05-27 09:41 | W.PM.PROGNOT ---
Date of Service Date of service: 05/27/23 Time of Service: 09:41 Assessment and Plan Assessment and plan (1) Acute on chronic anemia: Status: Acute Assessment and plan: patient was transfused 2 units of PRBC overnight. Hb initially came up to 8.2 gm from 5.7 gm but now has settled at 7.7 gm. I will recheck him later this afternoon. Unfortunately he is eager to go home and does not want to stay to have his EGD. I would like for him to wait at least until the surgeon can talk with him and perhaps his EGD can be set up as outpatient. CT scan demonstrated duodeniitis although this may be reactive to his developing pancreatic pseudocyst. Clinically he does not appear to be suffering from acute pancreatitis. I think he may need more than an EGD but may need endoscopic US to rule out a pancreatic malignancy. Professional time spent interviewing and examining patient, discussion of goals of care with hospital team (care management, nursing and consulting professionals) was 50 minutes. (2) Duodenitis: Status: Acute Assessment and plan: currently on iv protonix and oral sucralfate. I will switch to oral meds for each and advance his diet. I will ask Dr. Larson to see him and set him up for outpatient (3) Colitis: Status: Acute (4) Acute pancreatitis: Status: Acute Assessment and plan: no clinical evidence of pancreatitis, i.e. no abdominal pain and normal lipase but suspect chronic pancreatitis w/ developing pseudocyst, however this should be closely followed by GI or general surgery as this may turnstile attendant to be a maliganancy. Qualifiers: Pancreatitis type: alcohol induced Acute pancreatitis complication: unspecified Qualified Code(s): K85.20 - Alcohol induced acute pancreatitis without necrosis or infection (5) Alcohol withdrawal: Status: Acute Assessment and plan: Phenobarbital load written. CIWA scores have been low today. patient wants to go home and I think he is not acutely withdrawing at this time Qualifiers: Complication of substance-induced condition: uncomplicated Qualified Code(s): F10.930 - Alcohol use, unspecified with withdrawal, uncomplicated (6) Alcoholic hepatitis: Status: Acute Assessment and plan: Madey's discriminant function score is 19.8, suggesting good prognosis. Continue to trend PT/T. bili. No role for prednisolone at this time. Qualifiers: Ascites presence: without ascites Qualified Code(s): K70.10 - Alcoholic hepatitis without ascites (7) Cirrhosis of liver: Status: Chronic Assessment and plan: It appears to be a new diagnosis and explains coagulopathy. No evidence of varices on CT, but would benefit from an EGD (if not on this admission, then as an outpatient) to ensure that this is the case. Qualifiers: Hepatic cirrhosis type: alcoholic cirrhosis Ascites presence: without ascites Qualified Code(s): K70.30 - Alcoholic cirrhosis of liver without ascites (8) Coagulopathy: Status: Acute Assessment and plan: Due to above Monitor INR. (9) Alcohol intoxication: Status: Acute Assessment and plan: As above Monitor/treat for ETOH w/d. Qualifiers: Complication of substance-induced condition: uncomplicated Qualified Code(s): F10.920 - Alcohol use, unspecified with intoxication, uncomplicated (10) Hypokalemia: Status: Acute Assessment and plan: Replete; also replete magnesium (11) Hypomagnesemia: Status: Acute Assessment and plan: Replete, recheck in am (12) Hyponatremia: Status: Acute Assessment and plan: recheck of the BMP is pending. Could be explained by both EtOH/beer potomania and underlying cirrhosis. Trend sodiums. (13) DVT prophylaxis: Status: Acute Assessment and plan: SCDs. Hold off on chemical DVT ppx given suspected GI bleeding (14) Discharge planning issues: Status: Acute Assessment and plan: DNR/DNI, as per ED verification of code status including paperwork from [facility] [place] admitted overnight to ICU and given transfusion of 2 units of prbc. hemodynamically stable and not showing acute withdrawal signs at this time. He can be either moved to med/surg or oh home to follow up w/ general surgery and his PCP Subjective Subjective Interval history since last seen: Patient denies any nausea or vomiting or abdominal pain. He says he is hungry and wants to eat. He was admitted overnight for treatment of severe anemia. He received 2 units of packed red blood cells. Denies any preceding melena or hematochezia. Patient's hemoglobin transiently came up to 8.2 g but now is 7.7 g. He reports to have a colonoscopy a couple years ago but has never had an EGD. He was made n.p.o. last night for possible EGD today however general surgery was not available to be consulted last night. I have contacted Dr. Elias Larson this morning to discuss sending the patient for EGD. Patient stating that he would prefer to have this done as an outpatient. Exam Narrative Exam Narrative: Patient is ashen lawrence. Sclera icteric otherwise the patient is alert oriented no acute distress. Lungs are clear to auscultation Heart is irregular, monitor shows sinus rhythm with PACs Abdomen obese soft nontender normal bowel sounds no palpable masses or bruits Lower extremities without edema Objective Last Vital Signs Temp 36.7 C 05/27/23 07:30 Pulse 93 H 05/27/23 07:30 Resp 20 05/27/23 05:10 BP 102/66 05/27/23 05:01 Pulse Ox 92 05/27/23 07:30 Laboratory Results - last 24 hr 05/26/23 05/26/23 05/26/23 16:15 16:15 16:15 WBC 9.44 RBC 1.76 L Hgb 5.7 L* Hct 17.6 L* MCV 100 H MCH 32.4 MCHC 32.4 RDW 23.9 H Plt Count 218 MPV 9.0 Immature Gran % 0.4 Neutrophils % 65.5 Lymphocytes % 25.0 Monocytes % 7.9 Eosinophils % 1.1 Basophils % 0.1 Nucleated RBC % 0.0 Absolute Neutrophils 6.18 Absolute Lymphocytes 2.36 Absolute Monocytes 0.75 Absolute Eosinophils 0.10 Absolute Basophils 0.01 RBC Morphology See Below Hypochromasia 3+ Anisocytosis 3+ PT 15.0 H INR 1.5 H APTT 28.6 VBG pH 7.43 H VBG pCO2 48 VBG pO2 29 VBG HCO3 32 H VBG Total CO2 31 H VBG O2 Saturation 44 VBG Base Excess 7 H Sodium 134 L Potassium 2.0 L* Chloride 88 L Carbon Dioxide 30.6 Anion Gap 15.4 H BUN 5 L Creatinine 1.0 Est GFR (CKD-EPI 2020) 90.00 Glucose 127 H Calcium 7.5 L Magnesium 1.0 L Cancelled Iron 277 H TIBC 287 Transferrin % Sat 97 H Ferritin 447 H Total Bilirubin 1.9 H Conjugated Bilirubin AST 132 H ALT 36 Alkaline Phosphatase 453 H Ammonia Troponin I < 50 Cancelled NT-Pro-B Natriuret Pep 338 H Total Protein Albumin Lipase Vitamin B12 Folate Urine Color Urine Clarity Urine pH Ur Specific [place] Urine Protein Urine Ketones Urine Blood Urine Nitrite Urine Bilirubin Urine Urobilinogen Ur Leukocyte Esterase Urine Glucose Ethyl Alcohol Add-On Test Request Patient ABO/Rh Antibody Screen Crossmatch 05/26/23 05/26/23 05/26/23 16:15 16:15 16:44 WBC RBC Hgb Hct MCV MCH MCHC RDW Plt Count MPV Immature Gran % Neutrophils % Lymphocytes % Monocytes % Eosinophils % Basophils % Nucleated RBC % Absolute Neutrophils Absolute Lymphocytes Absolute Monocytes Absolute Eosinophils Absolute Basophils RBC Morphology Hypochromasia Anisocytosis PT INR APTT VBG pH VBG pCO2 VBG pO2 VBG HCO3 VBG Total CO2 VBG O2 Saturation VBG Base Excess Sodium Potassium Chloride Carbon Dioxide Anion Gap BUN Creatinine Est GFR (CKD-EPI 2020) Glucose Calcium Magnesium Iron TIBC Transferrin % Sat Ferritin Total Bilirubin Conjugated Bilirubin AST ALT Alkaline Phosphatase Ammonia Troponin I NT-Pro-B Natriuret Pep Cancelled Total Protein 6.2 L Albumin 2.4 L Lipase 46 Cancelled Vitamin B12 536 Folate 1.9 L Urine Color Urine Clarity Urine pH Ur Specific [place] Urine Protein Urine Ketones Urine Blood Urine Nitrite Urine Bilirubin Urine Urobilinogen Ur Leukocyte Esterase Urine Glucose Ethyl Alcohol 84.3 H Add-On Test Request DONE Patient ABO/Rh O Negative Antibody Screen NEGATIVE Crossmatch See Detail 05/26/23 05/26/23 05/26/23 17:35 19:30 19:31 WBC 7.50 RBC 2.24 L Hgb 6.9 L* Hct 21.2 L MCV 95 D MCH 30.8 MCHC 32.5 RDW 23.8 H Plt Count 198 MPV 9.0 Immature Gran % 0.4 Neutrophils % 67.4 Lymphocytes % 23.1 Monocytes % 7.3 Eosinophils % 1.7 Basophils % 0.1 Nucleated RBC % 0.0 Absolute Neutrophils 5.05 Absolute Lymphocytes 1.73 Absolute Monocytes 0.55 Absolute Eosinophils 0.13 Absolute Basophils 0.01 RBC Morphology See Below Hypochromasia 3+ Anisocytosis 3+ PT INR APTT VBG pH VBG pCO2 VBG pO2 VBG HCO3 VBG Total CO2 VBG O2 Saturation VBG Base Excess Sodium Potassium Chloride Carbon Dioxide Anion Gap BUN Creatinine Est GFR (CKD-EPI 2020) Glucose Calcium Magnesium Iron TIBC Transferrin % Sat Ferritin Total Bilirubin Conjugated Bilirubin AST ALT Alkaline Phosphatase Ammonia 22 Troponin I < 50 NT-Pro-B Natriuret Pep Total Protein Albumin Lipase Vitamin B12 Folate Urine Color Urine Clarity Urine pH Ur Specific [place] Urine Protein Urine Ketones Urine Blood Urine Nitrite Urine Bilirubin Urine Urobilinogen Ur Leukocyte Esterase Urine Glucose Ethyl Alcohol Add-On Test Request Patient ABO/Rh Antibody Screen Crossmatch 05/26/23 05/26/23 05/26/23 20:07 22:10 22:21 WBC 7.27 RBC 2.67 L Hgb 8.2 L Hct 24.8 L MCV 93 MCH 30.7 MCHC 33.1 RDW 22.1 H Plt Count 168 MPV 8.6 Immature Gran % Neutrophils % Lymphocytes % Monocytes % Eosinophils % Basophils % Nucleated RBC % Absolute Neutrophils Absolute Lymphocytes Absolute Monocytes Absolute Eosinophils Absolute Basophils RBC Morphology Hypochromasia Anisocytosis PT INR APTT VBG pH VBG pCO2 VBG pO2 VBG HCO3 VBG Total CO2 VBG O2 Saturation VBG Base Excess Sodium 135 L Potassium 2.7 L* Chloride 93 L Carbon Dioxide 35.6 H Anion Gap 6.4 BUN 5 L Creatinine 1.0 Est GFR (CKD-EPI 2020) 90.00 Glucose 137 H Calcium 7.5 L Magnesium Iron TIBC Transferrin % Sat Ferritin Total Bilirubin Conjugated Bilirubin AST ALT Alkaline Phosphatase Ammonia Troponin I NT-Pro-B Natriuret Pep Total Protein Albumin Lipase Vitamin B12 Folate Urine Color Yellow Urine Clarity Clear Urine pH 7.0 Ur Specific Woodman 1.010 Urine Protein Negative Urine Ketones Negative Urine Blood Negative Urine Nitrite Negative Urine Bilirubin Small H Urine Urobilinogen >=8.0 H Ur Leukocyte Esterase Negative Urine Glucose Negative Ethyl Alcohol Add-On Test Request DONE Patient ABO/Rh Antibody Screen Crossmatch 05/27/23 05:50 WBC 6.84 RBC 2.49 L Hgb 7.7 L Hct 22.8 L MCV 92 MCH 30.9 MCHC 33.8 RDW 22.8 H Plt Count 152 MPV 9.0 Immature Gran % 0.1 Neutrophils % 62.4 Lymphocytes % 27.8 Monocytes % 7.9 Eosinophils % 1.5 Basophils % 0.3 Nucleated RBC % 0.0 Absolute Neutrophils 4.27 Absolute Lymphocytes 1.90 Absolute Monocytes 0.54 Absolute Eosinophils 0.10 Absolute Basophils 0.02 RBC Morphology See Below Hypochromasia Anisocytosis 3+ PT 14.1 H INR 1.4 H APTT VBG pH VBG pCO2 VBG pO2 VBG HCO3 VBG Total CO2 VBG O2 Saturation VBG Base Excess Sodium 135 L Potassium 3.2 L Chloride 96 L Carbon Dioxide 33.7 H Anion Gap 5.3 BUN 6 L Creatinine 0.7 Est GFR (CKD-EPI 2020) 110.18 Glucose 111 H Calcium 7.2 L Magnesium 2.1 Iron TIBC Transferrin % Sat Ferritin Total Bilirubin 3.3 H Conjugated Bilirubin 2.1 H AST 103 H ALT 26 Alkaline Phosphatase 418 H Ammonia 60 H Troponin I NT-Pro-B Natriuret Pep Total Protein 5.5 L Albumin 2.1 L Lipase Vitamin B12 Folate Urine Color Urine Clarity Urine pH Ur Specific [place] Urine Protein Urine Ketones Urine Blood Urine Nitrite Urine Bilirubin Urine Urobilinogen Ur Leukocyte Esterase Urine Glucose Ethyl Alcohol Add-On Test Request Patient ABO/Rh Antibody Screen Crossmatch PAWSS Have you Been Recently Intoxicated or Drunk Within the Last 30 days?: Yes Have you Ever Experienced Previous Episodes of Alcohol Withdrawal?: No Have you ever Experienced Withdrawal Seizures?: No Have you ever Experienced Delirium Tremens(DT)s?: No Have you ever undergone Alcohol Rehabilitation Treatment (i.e, inpt ot outpatient treatment programs)?: No Have you ever Experienced Blackouts?: No Have you ever Combined Alcohol with other Downers within the last 90 days?: No Have you ever Combined Alcohol with any other Substance of Abuse during the last 90 days?: No Positive Blood Alcohol level on Presentation? [PCS.BAL]: Yes Evidence of Increased Autonomic Activity (i.e. HR>120, tremor, sweating, agitation, nausea)?: No Result: 2 Time Spent with Patient Time Spent with Patient: >50 minutes Time was spent: preparing to see the patient(eg.review tests), ordering medications,tests, procedures, referring, communicating with other health body care manager (Nursing staff and Dr. Elias Larson), indepentently interpreting results, counseling the patient and care coordination
--- NOTE | 2023-05-27 10:22 | INITIAL_ITS ---
Date of service: 05/27/23 Time of Service: 10:22 Care Management Initial Assmt Initial Assessment REASON FOR HOSPITALIZATION:: anemia, PREVIOUS FUNCTIONAL STATUS/SOCIAL/FAMILY SUPPORTS:: Marito lives alone in a single family home in [place], [place]. He has one child, a son named Ryder, who lives a couple of hours away. Marito stated he does not have any close relatives in the area but does have some good friends who are helpful and supportive. Marito receiv es SSDI but he is independent and does not receive any community services. CURRENT FUNCTIONAL STATUS:: Marito was lying in bed dozing when CM met with him. He was polite and agreeable to conversation but not overly talkative. When asked if he has ever been to rehab for help with his NEGAR, he stated he had not. He indicated to CM that he is not interested in cessation and does not wish to meet with a women's swim coach. He stated that he does not anticipate the need for any services at discharge and hopes to be able to discharge home later today. ADVANCE DIRECTIVES:: On file. Ryder TORRES Has patient been provided with info about the portal/API?: Yes Did the patient sign up for the portal?: Yes CODE STATUS:: DNR/DNI INSURANCE COVERAGE / FINANCIAL ISSUES:: Medicare Medicaid- [employer] only PRIMARY CARE PHYSICIAN:: Paige Chen POTENTIAL DISCHARGE NEEDS:: Follow up with PCP and Gastroenterology PATIENT/FAMILY EDUCATION NEEDS:: Discharge instructions, activity, diet, follow up plan, discuss Ask Me Three TRANSPORTATION:: via private vehicle with family PLAN:: Anticipate Marito will be discharged home with no new services. He will follow up with his PCP and plan of care and transport with family. CM will follow and continue to assess for discharge needs, PFSH All Active Problems (Updated 05/26/23 @ 22:29 by Narcisa Sanches MD) Alcoholic hepatitis (Acute) Alcohol intoxication (Acute) Discharge planning issues (Acute) DVT prophylaxis (Acute) Coagulopathy (Acute) Colitis (Acute) Duodenitis (Acute) Hypokalemia (Acute) Hypomagnesemia (Acute) Hyponatremia (Acute) Acute on chronic anemia (Acute) Alcohol withdrawal (Acute) Acute pancreatitis (Acute) Electrolyte disturbance (Acute) Cirrhosis of liver (Chronic) Anemia (Chronic) Dural sinus malformation (Acute) Bilateral sacroiliitis (Acute) Neuropathic pain of left forearm (Acute) Coccydynia (Acute) Cervical radiculopathy (Acute) Anterior cerebral aneurysm (Acute) Multiple lipomas (Acute) Screening for colon cancer (Acute) Bilateral hearing loss (Acute) Cubital tunnel syndrome on left (Acute) Left carpal tunnel syndrome (Acute) CRPS (complex regional pain syndrome), type II, upper (Acute) Right carpal tunnel syndrome (Acute) Cubital tunnel syndrome on right (Acute) Medical History Anemia Aneurysm Arm pain, right Asymmetrical sensorineural hearing loss Back pain Lopez's cyst, rt knee Chest wall pain Chronic low back pain Chronic pain Chronic sinusitis [place] Deviated septum Elevated blood lead level Elevated LFTs ETOH abuse Exposure to lead Fatigue Foraminal stenosis of cervical region Foreign body in left upper extremity (01/11/20) s/p excision of foreign bodies Foreign body in right ear Greater trochanteric bursitis of left hip (09/04/15) Heart murmur per pt. this was an incorrect dx Hypertension Hypokalemia Hypomagnesemia Hyponatremia Infrapatellar bursitis of right knee (01/11/20) s/p bursa excision Left buttock pain (11/07/14) Low back pain (11/07/14) Lumbar back pain Marital problem MVP (mitral valve prolapse) Neuropathy ISADORA (obstructive sleep apnea) Paraesthesia left 4-5th finger (05/29/06) Paresthesias in left hand (06/28/14) Peripheral cyanosis Polyarthralgia PONV (postoperative nausea and vomiting) Pt c/o post nasal drip causing nausea and vomiting routinely Raynauds disease Snoring Soft tissue swelling Steatosis of liver Synovial cyst of popliteal space [Lopez], right knee Thoracic back pain Tinnitus of both ears Tobacco abuse Tubular adenoma of colon Surgical History Aftercare involving removal of fracture plate or internal fixation device left arm H/O craniotomy History of arthroscopy of right knee 2001, diagnostic History of carpal tunnel release right History of colonoscopy (~03/2021) Right Popliteal cyst resection (07/25/03) Status post transposition of nerve left elbow Family History Mother , [place] at age 74. Heart disease Father No problems noted. Social History Smoking/Tobacco Use Status: Current every day Tobacco Type: cigarettes Years smoked: 42 Smoking risk assessment performed?: Yes Alcohol Intake: current Alcohol Intake frequency: 3 or more drinks per day Alcohol type: hard liquor Drug use: Never Substance use type: does not use Household members: none Housing: house Number of Children: 1 current occupation: N/A Current gender identity: male What type of physical activity do you participate in: walking and independent ambulation Seatbelt use: sometimes Do you feel safe at home: Yes Do you feel safe in your relationship?: Yes
[2023-05-27] MEDS: Pantoprazole 40 MG VIAL IVP (10:47)
[2023-05-27] MEDS: Potassium Chloride Liquid 20 MEQ PKT PO ×2 (10:48→14:02)
[2023-05-27] MEDS: Lactulose 20 GM/30 ML CUP PO (10:49)
[2023-05-27] MEDS: traMADol 50 MG TAB PO (11:26)
[2023-05-27] MEDS: Ketoconazole 2% CREAM 15 GM TUBE TP (11:26)
[2023-05-27] MEDS: Folic Acid 1 MG TAB 5 MG PO (14:02)
[2023-05-27 14:10] LABS: HCT 23.1 % (40.0-50.0); HGB 7.7 g/dL (13.5-17.5)
[2023-05-27] MEDS: Nicotine 14 MG/24 HR PATCH TD (14:11)
[2023-05-27 14:24] LABS: Anion Gap 4.2 mmol/L (3-11); BUN 8 mg/dL (7-18); CO2 33.8 mmol/L (21.0-32.0); CREATININE 0.8 mg/dL (0.70-1.30); Calcium 7.6 mg/dL (8.5-10.1); Chloride 96 mmol/L (98-107); Estimated GFR 105.82 (mL/min/1.73m2); Glucose 152 mg/dL (74-106); Potassium 3.4 mmol/L (3.5-5.1); Sodium 134 mmol/L (136-145)
--- NOTE | 2023-05-27 16:12 | CHAPLAIN ---
I had a brief visit with Marito. He was sitting up in the bed and told me he's sending a message out to let friends now how he is doing. I explained my role and offered support.
--- NOTE | 2023-05-27 17:36 | W.PM.DS.N ---
Date of service: 05/27/23 Time of Service: 17:36 DS: Diagnosis Discharge Diagnosis (1) Acute on chronic anemia: Status: Acute (2) Duodenitis: Status: Acute (3) Colitis: Status: Acute (4) Acute pancreatitis: Status: Acute (5) Alcohol withdrawal: Status: Acute (6) Alcoholic hepatitis: Status: Acute (7) Cirrhosis of liver: Status: Chronic (8) Coagulopathy: Status: Acute (9) Alcohol intoxication: Status: Acute (10) Hypokalemia: Status: Acute (11) Hypomagnesemia: Status: Acute (12) Hyponatremia: Status: Acute (13) DVT prophylaxis: Status: Acute (14) Discharge planning issues: Status: Acute Discharge Plan Disposition Patient Disposition: Home Condition: Fair Discharge Details Reason For Visit: Symptomatic anemia, alcohol withdrawal, duodenitis Admit Date/Time: 05/26/23 21:21 Admit Provider: Narcisa Sanches Attending Provider: Narcisa Sanches Primary Care Provider: Paige Chen [facility] Course Hospital Course: 53 yr old male w/ alcoholism, had routine labs done by his PCP and was found to be severely anemic w/ Hb 6.1 gm and CMP demonstrated K of 2.1 and magnesium of 1.0. and mild LFT elevation. He was intoxicated w/ DIMAS level of 84. He was admitted to ICU for blood transfusions, correction of his hypokalemia and hypomagnesemia. He was given 2 units of PRBC and 4 gm magnesium intravenously and given oral and iv potassium. He was begun on protonix and carafate empirically for possible PUD as his CT scan suggested duodenitis adjacent to pancreatic head which showed developing pseudocyst and possible colitis of his right colon and transverse colon. Patient denies any abdominal pains, hematemesis or melena or hematochezia. Surgical consult was obtained w/ Dr. Elias Larson who was willing to perform inpatient EGD the next morning but patient did not want to stay. Patient requested dc home w/ plans for outpatient follow up w/ Dr. Larson for EGD. His K+ was corrected to 3.4 and Mg++ was up to 2.1. He was also treated empirically for alcohol withdrawal w/ loading dose of phenobarbital although he never exhibited acute alcohol withdrawal symptoms. Patient needs follow up CBC, magnesium and CMP next week. His ammonia level was elevated at 60 so he was put on lactulose. His iron and ferritin levels are normal so he was not put on any iron but his folic acid level is low at 1.9 and he will be discharged home on folic acid supplements, magnesium and potassium. Home Meds and New Rx's Prescriptions: New sucralfate [Carafate] 1 gram tablet 1 g PO QACHS Qty: 120 0RF esomeprazole magnesium 40 mg capsule,delayed release(DR/EC) 40 mg PO BID Qty: 60 0RF lactulose 20 gram/30 mL solution 20 g PO BID Qty: 1800 0RF folic acid 1 mg tablet See Rx Instructions .ROUTE .COMPLEX Qty: 40 0RF Rx Instructions: 5 mg orally daily x 7 days then decrease to 1 mg daily magnesium gluconate 30 mg (550 mg) tablet 30 mg PO BID Qty: 60 0RF potassium chloride 20 mEq/15 mL liquid 20 meq PO BID Qty: 1000 0RF Continued trazodone 50 mg tablet 25 mg PO HS PRN tramadol 50 mg tablet 50 mg PO BID PRN lisinopril 20 mg tablet 20 mg PO DAILY Hold Instructions: told to hold today r/t BP low Patient Comments: TAKE ONE TABLET BY MOUTH EVERY DAY thiamine HCl (vitamin B1) 50 mg tablet 50 mg PO DAILY Patient Comments: TAKE ONE TABLET BY MOUTH EVERY DAY Discharge Instructions Instructions: Anemia (DC) Additional Instructions: You were diagnoses w/ a severe anemia and were transfused 2 units of red blood cells. your hemoglobin came up from 6 gm to 7.7 gram (normal is 13 grams). While you do not require another transfusion at this point, you do need to refrain from continued alcohol consumption as this will inhibit your bone marrow from producing red blood cells. You are not iron deficient and iron supplementation is not going to help. You do need upper endoscopy (and possible lower endoscopy as well) to look for a source of your anemia. Avoid the use of nonsteroidal anti-inflammatory drugs such as motrin or ibuprofen or Aleve (naproxen) or aspirin. These can cause bleeding from an ulcer and NSAID's can harm your liver which already shows signs of cirrhosis. It is important that you follow up w/ Dr. Elias Larson, general surgeon, at [facility] to have the endoscopy. You may need further referral to GI specialists at [facility] to evaluate your pancreas. You have a pseudocyst and we can not exclude possible tumor. Referrals: Paige Chen [Primary Care Provider] - (needs follow up within one week; needs repeat CBC and CMP done) Elias Larson MD [ [facility] STAFF PHYSICIAN] - (needs follow up for EGD +/- cscope) Activity:: Activity as Tolerated Equipment/Supplies:: No Equipment Needed Diet:: Normal Diet Discharge Orders Discharge Orders: Discharge Order (Routine); Ordered 05/27/23 Ordered By: Hema Melchor Other Ambulatory Orders: Complete Blood Count w/Diff (Routine) Timeframe: 1 Week Facility: [facility] - Location: Laboratory Outpatient - [facility] Ordered By: Hema Melchor Comprehensive Metabolic Panel (Routine) Timeframe: 1 Week Facility: [facility] - Location: Laboratory Outpatient - [facility] Ordered By: Hema Melchor Magnesium (Routine) Timeframe: 1 Week Facility: [facility] - Location: Laboratory Outpatient - [facility] Ordered By: Hema Melchor Discharge Data Discharge Date/Time-TO BE ENTERED AT DEPARTURE: 05/27/23 17:45 DS: Summary Summary Time spent discussing smoking cessation with patient: 3 to 10 minutes Time Spent with Patient providing and/or coordinating discharge services: Greater than 30 minutes Specific discharge activities: Interview/exam of patient; review of discharge instructions, completion of prescriptions/discharge instructions; discussion w/ nursing and CM; documentation of hospital visit Status at Discharge Functional status at discharge: independent ambulation Overall status at discharge: patient is back to baseline Mental Status: mental status grossly normal Speech and Movement: speech and movement normal Mood: congruent mood Affect: normal affect Exam Narrative Exam Narrative: Patient is ashen lawrence. Sclera icteric otherwise the patient is alert oriented no acute distress. Lungs are clear to auscultation Heart is irregular, monitor shows sinus rhythm with PACs Abdomen obese soft nontender normal bowel sounds no palpable masses or bruits Lower extremities without edema Psych Mental Status: mental status grossly normal Speech and Movement: speech and movement normal Mood: congruent mood Affect: normal affect DS: Data Vitals/I&O Vitals and I&O: Vital Signs Temperature 36.6 C 05/27/23 15:30 Temperature Source Tympanic 05/27/23 15:30 Pulse 95 H 05/27/23 15:30 Pulse Rhythm Regular 05/26/23 18:45 Pulse Strength Normal 05/26/23 18:45 Pulse 90 05/27/23 17:00 Respiratory Rate 13 05/27/23 17:00 Respiratory Effort Normal 05/27/23 15:30 Respiratory Depth Normal 05/27/23 15:30 Respiratory Pattern Normal 05/27/23 15:30 Blood Pressure 125/95 H 05/27/23 15:30 Blood Pressure Mean 105 05/27/23 15:30 Blood Pressure Position Sitting 05/27/23 15:30 Pulse Oximetry 95 05/27/23 15:30 Oxygen Delivery Method Room Air 05/27/23 15:30 Oxygen Flow Rate 0 05/27/23 15:30 Pain Level 2 05/27/23 15:30 Comment oral temp 05/26/23 19:35 Intake & Output 05/26/23 05/27/23 05/27/23 23:59 11:59 23:59 Intake Total 1850 / 1850 1251.0132 / 1951.0132 700 / 1951.0132 Output Total 350 / 350 700 / 1000 300 / 1000 Balance 1500 / 2674 839.5909 / 951.0132 400 / 951.0132 Weight 73.9 kg 81 kg Intake: IV 1170 / 1170 1051.0132 / 1051.0132 Oral 200 / 900 700 / 900 Blood Product 680 / 680 Rbc Leuko Reduced Unit 340 / 340 [id number] Rbc Leuko Reduced Unit 340 / 340 [id number] Output: Urine 350 / 350 700 / 1000 300 / 1000 Other: Urine Color Dark Malachi Light Malachi Urine Appearance Clear Clear Urine Odor Normal None Comment urine clear but very dark brown dark malachi urine, using bedside commmode Stool Occult Blood Negative Stool Size Moderate Stool Characteristics Soft Emesis Description None Voiding Methods Urinal Data Completed and Pending Labs on day of discharge: Labs from last 24 hours 05/27/23 05/27/23 05/26/23 14:05 05:50 22:21 WBC 6.84 7.27 RBC 2.49 L 2.67 L Hgb 7.7 L 7.7 L 8.2 L Hct 23.1 L 22.8 L 24.8 L MCV 92 93 MCH 30.9 30.7 MCHC 33.8 33.1 RDW 22.8 H 22.1 H Plt Count 152 168 MPV 9.0 8.6 Immature Gran % 0.1 Neutrophils % 62.4 Lymphocytes % 27.8 Monocytes % 7.9 Eosinophils % 1.5 Basophils % 0.3 Nucleated RBC % 0.0 Absolute Neutrophils 4.27 Absolute Lymphocytes 1.90 Absolute Monocytes 0.54 Absolute Eosinophils 0.10 Absolute Basophils 0.02 RBC Morphology See Below Hypochromasia Anisocytosis 3+ PT 14.1 H INR 1.4 H Sodium 134 L 135 L 135 L Potassium 3.4 L 3.2 L 2.7 L* Chloride 96 L 96 L 93 L Carbon Dioxide 33.8 H 33.7 H 35.6 H Anion Gap 4.2 5.3 6.4 BUN 8 6 L 5 L Creatinine 0.8 0.7 1.0 Est GFR (CKD-EPI 2020) 105.82 110.18 90.00 Glucose 152 H 111 H 137 H Calcium 7.6 L 7.2 L 7.5 L Magnesium 2.1 Iron TIBC Transferrin % Sat Ferritin Total Bilirubin 3.3 H Conjugated Bilirubin 2.1 H AST 103 H ALT 26 Alkaline Phosphatase 418 H Ammonia 60 H Troponin I Total Protein 5.5 L Albumin 2.1 L Vitamin B12 Folate Urine Color Urine Clarity Urine pH Ur Specific [place] Urine Protein Urine Ketones Urine Blood Urine Nitrite Urine Bilirubin Urine Urobilinogen Ur Leukocyte Esterase Urine Glucose Add-On Test Request Patient ABO/Rh Antibody Screen Crossmatch 05/26/23 05/26/23 05/26/23 22:10 20:07 19:31 WBC 7.50 RBC 2.24 L Hgb 6.9 L* Hct 21.2 L MCV 95 D MCH 30.8 MCHC 32.5 RDW 23.8 H Plt Count 198 MPV 9.0 Immature Gran % 0.4 Neutrophils % 67.4 Lymphocytes % 23.1 Monocytes % 7.3 Eosinophils % 1.7 Basophils % 0.1 Nucleated RBC % 0.0 Absolute Neutrophils 5.05 Absolute Lymphocytes 1.73 Absolute Monocytes 0.55 Absolute Eosinophils 0.13 Absolute Basophils 0.01 RBC Morphology See Below Hypochromasia 3+ Anisocytosis 3+ PT INR Sodium Potassium Chloride Carbon Dioxide Anion Gap BUN Creatinine Est GFR (CKD-EPI 2020) Glucose Calcium Magnesium Iron TIBC Transferrin % Sat Ferritin Total Bilirubin Conjugated Bilirubin AST ALT Alkaline Phosphatase Ammonia Troponin I Total Protein Albumin Vitamin B12 Folate Urine Color Yellow Urine Clarity Clear Urine pH 7.0 Ur Specific [place] 1.010 Urine Protein Negative Urine Ketones Negative Urine Blood Negative Urine Nitrite Negative Urine Bilirubin Small H Urine Urobilinogen >=8.0 H Ur Leukocyte Esterase Negative Urine Glucose Negative Add-On Test Request DONE Patient ABO/Rh Antibody Screen Crossmatch 05/26/23 05/26/23 05/26/23 19:30 17:35 16:44 WBC RBC Hgb Hct MCV MCH MCHC RDW Plt Count MPV Immature Gran % Neutrophils % Lymphocytes % Monocytes % Eosinophils % Basophils % Nucleated RBC % Absolute Neutrophils Absolute Lymphocytes Absolute Monocytes Absolute Eosinophils Absolute Basophils RBC Morphology Hypochromasia Anisocytosis PT INR Sodium Potassium Chloride Carbon Dioxide Anion Gap BUN Creatinine Est GFR (CKD-EPI 2020) Glucose Calcium Magnesium Iron TIBC Transferrin % Sat Ferritin Total Bilirubin Conjugated Bilirubin AST ALT Alkaline Phosphatase Ammonia 22 Troponin I < 50 Total Protein Albumin Vitamin B12 Folate Urine Color Urine Clarity Urine pH Ur Specific [place] Urine Protein Urine Ketones Urine Blood Urine Nitrite Urine Bilirubin Urine Urobilinogen Ur Leukocyte Esterase Urine Glucose Add-On Test Request DONE Patient ABO/Rh Antibody Screen Crossmatch 05/26/23 16:15 WBC RBC Hgb Hct MCV MCH MCHC RDW Plt Count MPV Immature Gran % Neutrophils % Lymphocytes % Monocytes % Eosinophils % Basophils % Nucleated RBC % Absolute Neutrophils Absolute Lymphocytes Absolute Monocytes Absolute Eosinophils Absolute Basophils RBC Morphology Hypochromasia Anisocytosis PT INR Sodium Potassium Chloride Carbon Dioxide Anion Gap BUN Creatinine Est GFR (CKD-EPI 2020) Glucose Calcium Magnesium Iron 277 H TIBC 287 Transferrin % Sat 97 H Ferritin 447 H Total Bilirubin Conjugated Bilirubin AST ALT Alkaline Phosphatase Ammonia Troponin I Total Protein Albumin Vitamin B12 536 Folate 1.9 L Urine Color Urine Clarity Urine pH Ur Specific [place] Urine Protein Urine Ketones Urine Blood Urine Nitrite Urine Bilirubin Urine Urobilinogen Ur Leukocyte Esterase Urine Glucose Add-On Test Request Patient ABO/Rh O Negative Antibody Screen NEGATIVE Crossmatch See Detail PFSH All Active Problems Alcoholic hepatitis (Acute) Alcohol intoxication (Acute) Discharge planning issues (Acute) DVT prophylaxis (Acute) Coagulopathy (Acute) Colitis (Acute) Duodenitis (Acute) Hypokalemia (Acute) Hypomagnesemia (Acute) Hyponatremia (Acute) Acute on chronic anemia (Acute) Alcohol withdrawal (Acute) Acute pancreatitis (Acute) Electrolyte disturbance (Acute) Cirrhosis of liver (Chronic) Anemia (Chronic) Dural sinus malformation (Acute) Bilateral sacroiliitis (Acute) Neuropathic pain of left forearm (Acute) Coccydynia (Acute) Cervical radiculopathy (Acute) Anterior cerebral aneurysm (Acute) Multiple lipomas (Acute) Screening for colon cancer (Acute) Bilateral hearing loss (Acute) Cubital tunnel syndrome on left (Acute) Left carpal tunnel syndrome (Acute) CRPS (complex regional pain syndrome), type II, upper (Acute) Right carpal tunnel syndrome (Acute) Cubital tunnel syndrome on right (Acute) Medical History Hypertension Aneurysm Anemia Tubular adenoma of colon Elevated blood lead level Foraminal stenosis of cervical region Chronic sinusitis Chronic pain Marital problem Lumbar back pain Thoracic back pain Snoring Back pain Exposure to lead Fatigue Chest wall pain Arm pain, right Chronic low back pain [place] Soft tissue swelling Greater trochanteric bursitis of left hip (09/04/15) Left buttock pain (11/07/14) Low back pain (11/07/14) Paresthesias in left hand (06/28/14) Deviated septum Polyarthralgia Tobacco abuse MVP (mitral valve prolapse) Peripheral cyanosis Raynauds disease Elevated LFTs ETOH abuse Steatosis of liver ISADORA (obstructive sleep apnea) Neuropathy PONV (postoperative nausea and vomiting) Pt c/o post nasal drip causing nausea and vomiting routinely Foreign body in left upper extremity (01/11/20) s/p excision of foreign bodies Infrapatellar bursitis of right knee (01/11/20) s/p bursa excision Synovial cyst of popliteal space [Lopez], right knee Foreign body in right ear Tinnitus of both ears Asymmetrical sensorineural hearing loss Paraesthesia left 4-5th finger (05/29/06) Heart murmur per pt. this was an incorrect dx Lopez's cyst, rt knee Surgical History H/O craniotomy History of colonoscopy (~03/2021) Status post transposition of nerve left elbow Aftercare involving removal of fracture plate or internal fixation device left arm History of carpal tunnel release right History of arthroscopy of right knee 2001, diagnostic Right Popliteal cyst resection (07/25/03) Family History Mother , [place] at age 74. Heart disease Father No problems noted. Social History Smoking/Tobacco Use Status: Current every day Tobacco Type: cigarettes Years smoked: 42 Smoking risk assessment performed?: Yes Alcohol Intake: current Alcohol Intake frequency: 3 or more drinks per day Alcohol type: hard liquor Drug use: Never Substance use type: does not use Household members: none Housing: house Number of Children: 1 current occupation: N/A Current gender identity: male What type of physical activity do you participate in: walking and independent ambulation Seatbelt use: sometimes Do you feel safe at home: Yes Do you feel safe in your relationship?: Yes Time Spent with Patient Time Spent with Patient: <45 minutes Time was spent: preparing to see the patient(eg.review tests), ordering medications,tests, procedures, referring, communicating with other health property caretaker, indepentently interpreting results, counseling the patient and care coordination
== END 2023-05-27 17:45 | disposition home or self-care (01) | DRG 378 ==
LOC: ER 22:08 → ICU 22:27
PROVIDERS: Internal Medicine; Admitting Provider Internal Medicine; Emergency Provider Registered Nurse Emergency; PCP Nurse Practitioner Family; Visit Provider Internal Medicine
DX: K29.81 Duodenitis with bleeding (principal); D68.4 Acquired coagulation factor deficiency; F10.239 Alcohol dependence with withdrawal, unspecified; K86.1 Other chronic pancreatitis; E87.1 Hypo-osmolality and hyponatremia; K86.3 Pseudocyst of pancreas; D64.9 Anemia, unspecified; F10.229 Alcohol dependence with intoxication, unspecified; K70.30 Alcoholic cirrhosis of liver without ascites; Y90.8 Blood alcohol level of 240 mg/100 ml or more; K70.10 Alcoholic hepatitis without ascites; K52.9 Noninfective gastroenteritis and colitis, unspecified; E87.6 Hypokalemia; E83.42 Hypomagnesemia; I10 Essential (primary) hypertension; Z66 Do not resuscitate; F17.210 Nicotine dependence, cigarettes, uncomplicated; G47.33 Obstructive sleep apnea (adult) (pediatric); M54.50 Low back pain, unspecified; I34.0 Nonrheumatic mitral (valve) insufficiency; G89.29 Other chronic pain; J32.9 Chronic sinusitis, unspecified
CPT/HCPCS: 00123; 36415; 74177; 80048; 80053; 80076; 82805; 83690; 85027; 86850; 86900; 86901; 86920; 93005; 96365; 96366; 96367; 99291; 70450; 71260; 80320; 81003; 82140; 82607; 82728; 82746; 83540; 83550; 83735; 83880; 84484; 85014; 85018; 85025; 85610; 85730; 93010; 99223; 99233; 99239; J2560; J3475; J3480; J3490; P9016

== ENCOUNTER 2023-06-03 16:11 | Outpatient (REF) | payer MEDICARE, SELFPAY ==
[2023-06-03 20:16] LABS: HCT 29.1 % (40.0-50.0); HGB 9.1 g/dL (13.5-17.5); MCH 30.8 pg (27.0-33.0); MCHC 31.3 % (32.0-36.0); MCV 99 fL (80-95); MPV 9.4 fL (8.0-11.0); Platelet Count 221 10^3/uL (130-400); RBC 2.95 10^6/uL (4.36-5.78); RDW-SD 84.7 fL; WBC 7.05 10^3/uL (4.4-10.8)
[2023-06-03 20:33] LABS: RDW 23.4 % (11.8-14.1)
[2023-06-03 20:37] LABS: ALT 75 U/L (16-63); AST 235 U/L (15-37); Albumin 2.3 g/dL (3.4-5.0); Alkaline Phosphatase 696 U/L (46-116); Amylase 65 U/L (25-115); Anion Gap 11.4 mmol/L (3-11); BUN 4 mg/dL (7-18); Bilirubin, Total 2.2 mg/dL (0.2-1.0); CO2 24.6 mmol/L (21.0-32.0); CREATININE 0.8 mg/dL (0.70-1.30); Calcium 8.1 mg/dL (8.5-10.1); Chloride 102 mmol/L (98-107); Estimated GFR 105.82 (mL/min/1.73m2); Glucose 109 mg/dL (74-106); Lipase 37 U/L (16-77); Magnesium 1.7 mg/dL (1.8-2.4); Potassium 4.9 mmol/L (3.5-5.1); Sodium 138 mmol/L (136-145); Total Protein 6.2 g/dL (6.4-8.2)
== END 2023-06-03 16:12 | disposition home or self-care (01) ==
LOC: NCHCN 16:11
PROVIDERS: PCP Nurse Practitioner Family; Visit Provider Nurse Practitioner Family
DX: Z87.19 Personal history of other diseases of the digestive system (principal)
CPT/HCPCS: 80053; 83690; 85027; 82150; 83735

== ENCOUNTER 2023-06-10 13:17 | Outpatient (REF) | payer MEDICARE, SELFPAY ==
[2023-06-10 15:59] LABS: Anion Gap 10.5 mmol/L (3-11); BUN 2 mg/dL (7-18); CO2 23.5 mmol/L (21.0-32.0); CREATININE 0.8 mg/dL (0.70-1.30); Calcium 8.6 mg/dL (8.5-10.1); Chloride 98 mmol/L (98-107); Estimated GFR 105.82 (mL/min/1.73m2); Glucose 121 mg/dL (74-106); Potassium 4.5 mmol/L (3.5-5.1); Sodium 132 mmol/L (136-145)
== END 2023-06-10 13:18 | disposition home or self-care (01) ==
LOC: NCHCN 13:17
PROVIDERS: PCP Nurse Practitioner Family; Visit Provider Nurse Practitioner Family
DX: R60.0 Localized edema (principal); R78.71 Abnormal lead level in blood; Z77.011 Contact with and (suspected) exposure to lead
CPT/HCPCS: 80048; 83655

== ENCOUNTER 2023-06-16 06:07 | Day surgery (SDC) | payer MEDICARE, SELFPAY ==
--- NOTE | 2023-06-15 17:25 | ANES.PREOP_ITS ---
General Info Date of Service Date Performed: 06/16/23 Height: 5 ft 5 in Weight: 81 kg Body Mass Index (BMI): 29.7 Surgical Procedure: Operation Date: 06/16/23 07:35 Proposed Procedure Side Surgeon p Gastroscopy Gee Gann MD Meds Allergies and Home Medications Allergies Allergy/AdvReac Type Severity Reaction Status Date / Time No Known Allergies Allergy Unverified 06/16/23 06:27 Home Medication Medication Instructions Recorded trazodone 50 mg tablet 25 mg PO HS PRN 12/09/19 tramadol 50 mg tablet 50 mg PO BID PRN 07/01/22 spironolactone 25 mg tablet 25 mg PO DAILY 06/15/23 Current Visit Medications: Current Medications Generic Name Dose Route Start Last Admin Trade Name Ronnie PRN Reason Stop Dose Admin Ringer's Solution 1,000 mls @ 80 mls/hr 06/16/23 06:00 IV 06/16/23 23:59 INFUSION JOHAN IV Miscellaneous Supplies 1 each 06/16/23 06:00 Iv Access IV 06/16/23 23:59 DIRECTED JOHAN Sodium Chloride 0 ml 06/16/23 06:00 Normal Saline Flush 10 Ml Syr IV 06/16/23 23:59 PRN PRN Sodium Chloride 0 ml 06/16/23 06:00 Normal Saline 10 Ml Vial IJ 06/16/23 23:59 DIRECTED PRN Sterile Water 0 ml 06/16/23 06:00 Water,Injection,Sterile 10 Ml Vial IJ 06/16/23 23:59 DIRECTED PRN PFSH Active Problems Active Problems: Problem Status Onset Code Alcoholic hepatitis K70.10 Coagulopathy D68.9 Colitis K52.9 Duodenitis K29.80 Acute on chronic anemia D64.9 Acute pancreatitis K85.90 Cirrhosis of liver K74.60 Anemia D64.9 Dural sinus malformation Q28.3 Bilateral sacroiliitis M46.1 Neuropathic pain of left forearm M79.2 Coccydynia M53.3 Cervical radiculopathy M54.12 Anterior cerebral aneurysm I67.1 Hyponatremia E87.1 Hypokalemia E87.6 Hypomagnesemia E83.42 Bilateral hearing loss H91.93 Screening for colon cancer Z12.11 Cubital tunnel syndrome on left G56.22 Left carpal tunnel syndrome G56.02 Multiple lipomas D17.9 CRPS (complex regional pain syndrome), type II, upper G56.40 Right carpal tunnel syndrome G56.01 Cubital tunnel syndrome on right G56.21 Medical History Medical History Hypertension Aneurysm ACOM aneurysm clipping/DSA Anemia Tubular adenoma of colon Elevated blood lead level Foraminal stenosis of cervical region Chronic sinusitis Chronic pain Marital problem Lumbar back pain Thoracic back pain Snoring Back pain Exposure to lead Fatigue Chest wall pain Arm pain, right Chronic low back pain [place] Soft tissue swelling Greater trochanteric bursitis of left hip (09/04/15) Left buttock pain (11/07/14) Low back pain (11/07/14) Paresthesias in left hand (06/28/14) Deviated septum Polyarthralgia Tobacco abuse MVP (mitral valve prolapse) Per pt. 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, states I believe I grew out of that Peripheral cyanosis Raynauds disease Elevated LFTs ETOH abuse Steatosis of liver ISADORA (obstructive sleep apnea) Neuropathy PONV (postoperative nausea and vomiting) Pt c/o post nasal drip causing nausea and vomiting routinely Foreign body in left upper extremity (01/11/20) s/p excision of foreign bodies Infrapatellar bursitis of right knee (01/11/20) s/p bursa excision Synovial cyst of popliteal space [Lopez], right knee Foreign body in right ear Tinnitus of both ears Asymmetrical sensorineural hearing loss Paraesthesia left 4-5th finger (05/29/06) Heart murmur per pt. this was an incorrect dx Lopez's cyst, rt knee Surgical History Surgical History H/O craniotomy 09/2021 History of colonoscopy (~03/2021) Status post transposition of nerve left elbow Aftercare involving removal of fracture plate or internal fixation device left arm History of carpal tunnel release right History of arthroscopy of right knee 2001, diagnostic Right Popliteal cyst resection (07/25/03) Tobacco Smoking/Tobacco Use Status: Current every day Tobacco Type: cigarettes Years smoked: 42 Alcohol Alcohol Intake: current Alcohol intake frequency: 3 or more drinks per day Alcohol type: hard liquor Substance Use Substance use: Never Substance use type: does not use Vital Signs and Lab Results Vital Signs Most Recent Vital Signs in EMR: Temp Pulse Resp BP Pulse Ox 36.9 C 108 H 18 148/83 H 99 06/16/23 06:31 06/16/23 06:31 06/16/23 06:31 06/16/23 06:31 06/16/23 06:31 Lab Results Blood Type / Crossmatch: Patient ABO/Rh O Negative 05/26/23 Antibody Screen NEGATIVE 05/26/23 Crossmatch See Detail 05/26/23 Complete Blood Count: White Blood Count 7.05 10^3/uL (4.4-10.8) 06/03/23 14:50 Red Blood Count 2.95 10^6/uL (4.36-5.78) L 06/03/23 14:50 Hemoglobin 9.1 g/dL (13.5-17.5) L 06/03/23 14:50 Hematocrit 29.1 % (40.0-50.0) L 06/03/23 14:50 Platelet Count 221 10^3/uL (130-400) 06/03/23 14:50 Complete Metabolic Panel: Sodium 132 mmol/L (136-145) L 06/10/23 10:30 Potassium 4.5 mmol/L (3.5-5.1) 06/10/23 10:30 Chloride 98 mmol/L (98-107) 06/10/23 10:30 Carbon Dioxide 23.5 mmol/L (21.0-32.0) 06/10/23 10:30 BUN 2 mg/dL (7-18) L 06/10/23 10:30 Creatinine 0.8 mg/dL (0.70-1.30) 06/10/23 10:30 Est GFR (CKD-EPI 2020) 105.82 (mL/min/1.73m2) 06/10/23 10:30 Magnesium 1.7 mg/dL (1.8-2.4) L 06/03/23 14:50 Calcium 8.6 mg/dL (8.5-10.1) 06/10/23 10:30 Albumin 2.3 g/dL (3.4-5.0) L 06/03/23 14:50 Glucose 121 mg/dL (74-106) H 06/10/23 10:30 Liver Function Panel: Alanine Aminotransferase (ALT/SGPT) 75 U/L (16-63) H 06/03/23 1 4:50 Aspartate Amino Transf (AST/SGOT) 235 U/L (15-37) H 06/03/23 14 :50 Coagulation Panel: INR International Normalized Ratio 1.4 (0.9-1.1) H 05/27/23 05 :50 Prothrombin Time 14.1 sec (9.1-11.1) H 05/27/23 05:50 Activated Partial Thromboplast Time 28.6 sec (23.6-32.8) 16:15 Cardiac Panel: Troponin I < 50 ng/L (<or=60) 05/26/23 NT-Pro-B Natriuret Pep 338 pg/mL (<300) H 05/26/23 Arterial Blood Gas: No Data to Display Venous Blood Gas: Venous Blood pH 7.43 (7.31-7.41) H 05/26/23 16:15 Venous Blood Partial Pressure O2 29 mmHg 05/26/23 16:15 Venous Blood Partial Pressure CO2 48 mmHg (41-51) 05/26/23 16:1 5 Venous Blood Oxygen Saturation 44 % 05/26/23 16:15 Venous Blood HCO3 32 mmol/L (23-28) H 05/26/23 16:15 Venous Blood Base Excess 7 mmol/L (-2-3) H 05/26/23 16:15 Venous Blood Total Carbon Dioxide 31 mmol/L (24-29) H 05/26/23 16:15 Pancreas Panel: Amylase Level 65 U/L (25-115) 06/03/23 14:50 Lipase 37 U/L (16-77) 06/03/23 14:50 Thyroid Panel: No Data to Display Infectious Disease: No Data to Display Blood Cultures: No Data to Display Toxicology Panel: Ethyl Alcohol Level 84.3 mg/dL (<10) H 05/26/23 16:15 Imaging and Studies Imaging and Studies Study information below may be from another EMR and interpreted by another provider. Please see original notes in EMR for more complete details. EKG Summary: 05/23: sinus rhythm. PVCs. Stress Test Summary: 08/2016: stress ECG negative after maximal exercise. Anesthesia Assessment and Plan Anesthesia History Personal History: PONV Family History: No Family History of Anesthesia Complications Exercise Tolerance Exercise Tolerance: Metabolic Equivalents>4 Cardiac & Pulmonary Exam Cardiac Exam: Normal S1/S2 Heart Sounds Pulmonary Exam: Clear Bilateral Breath Sounds Implantable Cardiac Device Does patient have a Pacemaker or an ICD?: No Airway Exam Known Difficult Airway: No Mallampati Class: 4 Mouth Opening: Normal (> 3cm) Thyromental Distance: Greater than 3 cm Neck Range of Motion: Full ROM and Limited ROM Neck Circumference: Normal Teeth Condition: Normal Dentition and Generalized Poor Dentition ASA Classification ASA Score: ASA 3 Emergency Case?: No NPO Status NPO Status: NPO Clears >2 hours, Solids >8 hours Anesthesia Plan Resuscitation Status: Full Code Anesthesia Technique: General Anesthesia Airway Planned: Natural Airway Monitors Used: Standard Monitors Preoperative Comments:: 53 yo male for EGD. Sig PMHx: HTN, cirrhosis, anemia, cervical radiculopathy, cerebral aneurysm clipped, CRPSII, smoker, daily EtOH (states 4 drinks a day, [place]). Previous Anes: - [facility] crani, mac 4 grade 1, mask with OPA. - colo, prop, natural airway, no issues. - FB hand, prop, LMA 5, no issues.
[2023-06-16 06:31] VITALS: BP 148/83; PULSE 108; RESP 18; TEMP 36.9; O2SAT 99
[2023-06-16] MEDS: Lactated Ringers 1,000 ML 80 ML IV (06:45)
[2023-06-16 06:49] VITALS: BMI 29.7
--- NOTE | 2023-06-16 07:45 | STOM_PTH ---
PATIENT: Marito Morrow LOC: [facility] U#:[id number] AGE/SX: 53/M ROOM: RE06/16/[address]: Gee Gann : 1970 BED: DIS: 06/16/2023 SPEC #: [id number] RECD: 06/16/23 12:32 STATUS: [facility] #: [id number] SASHA: 06/16/23 07:[address]: Gee Gann DEPT: Surgical Specimen RECD BY: Rupal Desai ENTERED: 06/16/23 12:34 SP TYPE: STOMACH OTHR DR: Paige Chen Tissues: 1 - BIOPSY BOWEL 2 - STOMACH BIOPSY 3 - ESOPHAGUS BIOPSY Procedures: GROSS AND MICRO LEVEL 4 Comments: [id number]
[2023-06-16 07:55] VITALS: BP 168/128; PULSE 96; RESP 20; TEMP 36.4; O2SAT 100
--- NOTE | 2023-06-16 07:57 | ENDO_ITS ---
Date of service: 06/16/23 Time of Service: 07:57 Endoscopy Report PROCEDURE DESCRIPTION: PROCEDURES PERFORMED: 1. EGD with biopsies PREOPERATIVE DIAGNOSIS: Anemia POSTOPERATIVE DIAGNOSIS: LA grade A esophagitis, mild duodenitis, chronic gastritis SURGEON: Celina Gann MD INDICATION for procedure: 53-year-old man with anemia FINDINGS: D2/D3 = mildly inflamed, biopsies taken to confirm D1/bulb = mildly inflamed, no ulcer Pylorus = normal/patent Antrum = appears chronically mildly inflamed, no ulcers, cold forceps biopsies were taken to rule out H. pylori routinely Body = chronic appearance, no ulcers Fundus = normal, no polyps Cardia = looks normal Hiatus = no obvious hiatal hernia Distal esophagus = a couple of mucosal breaks were noted, 3-5 mm in length. LA grade A esophagitis. No Ledesma's changes. Cold forceps biopsies were take. Mid esophagus = normal Proximal esophagus/hypopharynx/vocal cords = normal SURVEILLANCE-INTERVAL/FOLLOW-UP: Follow-up with PCP, surveillance unlikely to be needed but pending path results Specimens: Yes EBL: Minimal COMPLICATIONS: None Procedure in detail: The patient gave written consent and was in agreement with the indications, the potential risks as well as the benefits of the procedure. The patient was taken to the endoscopy suite and laid on their left side. Anesthesia was given which was tolerated well. We performed a timeout and we are in agreement I started the procedure. A well-lubricated endoscope was gently and carefully advanced down the esophagus, into the stomach the scope was and through the pylorus into the duodenum. The scope was then slowly withdrawn with the above-noted fi ndings/interventions. The patient tolerated the procedure well and was taken to the PACU in hemodynamically stable condition.
--- NOTE | 2023-06-16 08:03 | W.PM.DSUDISC ---
Date of service: 06/16/23 Time of Service: 08:03 Discharge Plan Disposition Patient Disposition: Home Condition: Good Discharge Details Attending Provider: Gee Gann Primary Care Provider: Paige Chen Home Meds and New Rx's Prescriptions: No Action trazodone 50 mg tablet 25 mg PO HS PRN tramadol 50 mg tablet 50 mg PO BID PRN spironolactone 25 mg tablet 25 mg PO DAILY Patient Comments: TAKE ONE TABLET BY MOUTH EVERY DAY Discharge Instructions Additional Instructions: FINDINGS: Some mild inflammation that had a chronic?appearance to it was seen in your stomach the esophagus and intestine. This is a very non-specific finding and biopsies were taken. These findings are unlikely to contribute to or explain your anemia. Activity:: Activity as Tolerated Diet:: As Tolerated Discharge Orders Discharge Orders: Discharge Order (Routine); Ordered 06/16/23 Ordered By: Gee Gann
--- NOTE | 2023-06-16 08:06 | W.ANESPOSTOP ---
Postoperative Evaluation Date, Time and Location Date Performed: 06/16/23 Time Performed: 08:06 Patient Location: Day Surgery Unit Vital Signs Most Recent Imported Vital Signs: Most Recent Vital Signs Temp Pulse Resp BP Pulse Ox 36.4 C L 96 H 20 168/128 H 100 06/16/23 07:55 06/16/23 07:55 06/16/23 07:55 06/16/23 07:55 06/16/23 07:55 Pain Score Most Recent Pain Score: Most Recent Pain Score Pain Level 0 06/16/23 06:31 Assessment Mental Status: Awake (Alert & Oriented to Patient Baseline) Airway and Respiratory Function: Patent airway with normal (patient baseline) respiratory exam Cardiovascular Function: Hemodynamically Stable Hydration Status: Adequately Hydrated Nausea & Vomiting: No Nausea or Vomiting Pain: Pt. Denies Any Pain Peripheral Nerve Block: Patient did not receive a nerve block
[2023-06-16 08:17] VITALS: BP 125/87; PULSE 82; RESP 20; TEMP 36.5; O2SAT 99
== END 2023-06-16 08:40 | disposition home or self-care (01) ==
PROVIDERS: PCP Nurse Practitioner Family; Visit Provider Student in an Organized Health Care Education/Training Program
PROC: 0DJ68ZZ Inspection of Stomach, Via Natural or Artificial Opening Endoscopic (ICD-10-PCS; CPT 43235; principal; 2023-06-16 07:30)
DX: D64.9 Anemia, unspecified (principal); K29.80 Duodenitis without bleeding; K70.10 Alcoholic hepatitis without ascites; K74.60 Unspecified cirrhosis of liver; I10 Essential (primary) hypertension; F17.200 Nicotine dependence, unspecified, uncomplicated; F10.10 Alcohol abuse, uncomplicated; K21.00 Gastro-esophageal reflux disease with esophagitis, without bleeding; K29.50 Unspecified chronic gastritis without bleeding; K22.89 Other specified disease of esophagus
CPT/HCPCS: 43239; 00123; 88305; 87624; J2001; J2704

== ENCOUNTER 2023-07-06 12:02 | Outpatient (CLI) | payer MEDICARE, SELFPAY ==
[2023-07-06 11:18] LABS: Abs Immature Grans 0.03 10^3/uL (0.0-0.06); Absolute Basophil Count 0.04 10^3/uL (0.0-0.2); Absolute Eosinophil Count 0.08 10^3/uL (0.0-0.7); Absolute Lymphocyte Count 1.74 10^3/uL (1.2-3.4); Absolute Monocyte Count 0.64 10^3/uL (0.1-0.8); Absolute Neutrophil Count 6.95 10^3/uL (1.2-6.7); Basophils % 0.4; Eosinophils % 0.8; HCT 34.3 % (40.0-50.0); HGB 11.4 g/dL (13.5-17.5); Immature Grans % 0.3; Lymphocytes % 18.4; MCH 32.5 pg (27.0-33.0); MCHC 33.2 % (32.0-36.0); MCV 98 fL (80-95); MPV 9.6 fL (8.0-11.0); Monocytes % 6.8; Neutrophils % 73.3; Platelet Count 139 10^3/uL (130-400); RBC 3.51 10^6/uL (4.36-5.78); RDW 16.8 % (11.8-14.1); RDW-SD 59.6 fL; WBC 9.48 10^3/uL (4.4-10.8)
[2023-07-06 11:33] LABS: ALT 56 U/L (16-63); AST 187 U/L (15-37); Albumin 1.9 g/dL (3.4-5.0); Alkaline Phosphatase 504 U/L (46-116); Amylase 47 U/L (25-115); Anion Gap 9.1 mmol/L (3-11); BUN 9 mg/dL (7-18); Bilirubin, Total 6.5 mg/dL (0.2-1.0); CO2 29.9 mmol/L (21.0-32.0); Calcium 8.3 mg/dL (8.5-10.1); Chloride 92 mmol/L (98-107); Glucose 128 mg/dL (74-106); Lipase 25 U/L (16-77); Magnesium 1.3 mg/dL (1.8-2.4); Sodium 131 mmol/L (136-145); TSH 4.02 uIU/mL (0.36-3.74)
[2023-07-06 11:39] LABS: Potassium 2.9 mmol/L (3.5-5.1)
[2023-07-06 12:15] LABS: Vitamin B12 1058 pg/mL (193-986)
[2023-07-10 15:26] LABS: Methylmalonic Acid 0.15 nmol/mL (<=0.40)
== END 2023-07-06 12:03 | disposition home or self-care (01) ==
LOC: LBO 12:02
PROVIDERS: Internal Medicine; PCP Nurse Practitioner Family; Visit Provider Psychiatry & Neurology Neurology
DX: E87.6 Hypokalemia; K70.10 Alcoholic hepatitis without ascites; E83.42 Hypomagnesemia; E87.8 Other disorders of electrolyte and fluid balance, not elsewhere classified
CPT/HCPCS: 36415; 80053; 80186; 83690; 82150; 82607; 83735; 84443; 85025

== ENCOUNTER 2023-07-14 15:19 | Outpatient (REF) | payer MEDICARE, MEDICAID, SELFPAY ==
[2023-07-14 15:48] LABS: HCT 29.5 % (40.0-50.0); HGB 10.2 g/dL (13.5-17.5); MCH 32.7 pg (27.0-33.0); MCHC 34.6 % (32.0-36.0); MCV 95 fL (80-95); MPV 10.7 fL (8.0-11.0); Platelet Count 196 10^3/uL (130-400); RBC 3.12 10^6/uL (4.36-5.78); RDW 17.4 % (11.8-14.1); RDW-SD 60.8 fL; WBC 9.29 10^3/uL (4.4-10.8)
[2023-07-14 16:10] LABS: ALT 63 U/L (16-63); AST 160 U/L (15-37); Albumin 1.8 g/dL (3.4-5.0); Alkaline Phosphatase 492 U/L (46-116); Anion Gap 11.2 mmol/L (3-11); BUN 12 mg/dL (7-18); Bilirubin, Total 6.1 mg/dL (0.2-1.0); CO2 29.8 mmol/L (21.0-32.0); CREATININE 1.2 mg/dL (0.70-1.30); Calcium 8.2 mg/dL (8.5-10.1); Chloride 90 mmol/L (98-107); Estimated GFR 72.31 (mL/min/1.73m2); Glucose 116 mg/dL (74-106); Magnesium 1.6 mg/dL (1.8-2.4); Potassium 3.2 mmol/L (3.5-5.1); Sodium 131 mmol/L (136-145); Total Protein 6.5 g/dL (6.4-8.2)
== END 2023-07-14 15:20 | disposition home or self-care (01) ==
LOC: NCHCN 15:19
PROVIDERS: PCP Nurse Practitioner Family; Visit Provider Nurse Practitioner Family
DX: I10 Essential (primary) hypertension (principal); K74.60 Unspecified cirrhosis of liver; R94.6 Abnormal results of thyroid function studies
CPT/HCPCS: 80053; 85027; 83735; 84439

== ENCOUNTER 2023-07-17 13:24 | Inpatient (IN) | payer MEDICARE, SELFPAY ==
[2023-07-17] VITALS (55 sets, daily range): BP systolic 81–171; BP diastolic 50–80; PULSE 71–123; RESP 11–27; TEMP 36.6–37.3; O2SAT 89–99
[2023-07-17 14:19] LABS: Abs Immature Grans 0.08 10^3/uL (0.0-0.06); Absolute Basophil Count 0.07 10^3/uL (0.0-0.2); Absolute Eosinophil Count 0.09 10^3/uL (0.0-0.7); Absolute Monocyte Count 0.86 10^3/uL (0.1-0.8); Basophils % 0.5; Eosinophils % 0.6; HCT 31.6 % (40.0-50.0); Immature Grans % 0.5; Lymphocytes % 10.8; MCH 32.6 pg (27.0-33.0); MCHC 34.8 % (32.0-36.0); MCV 94 fL (80-95); MPV 9.2 fL (8.0-11.0); Monocytes % 5.8; Neutrophils % 81.8; Platelet Count 199 10^3/uL (130-400); RBC 3.37 10^6/uL (4.36-5.78); RDW 16.5 % (11.8-14.1); RDW-SD 56.4 fL
[2023-07-17 14:20] LABS: Absolute Neutrophil Count 12.11 10^3/uL (1.2-6.7)
[2023-07-17 14:31] LABS: Ammonia 27 umol/L (11-32)
[2023-07-17] MEDS: Lactated Ringers 1,000 ML 1000 ML IV (14:45)
[2023-07-17 14:58] LABS: ALT 65 U/L (16-63); AST 170 U/L (15-37); Albumin 1.9 g/dL (3.4-5.0); Alkaline Phosphatase 517 U/L (46-116); Anion Gap 9.7 mmol/L (3-11); BUN 16 mg/dL (7-18); Bilirubin, Total 5.3 mg/dL (0.2-1.0); CO2 30.3 mmol/L (21.0-32.0); CREATININE 1.4 mg/dL (0.70-1.30); Calcium 8.6 mg/dL (8.5-10.1); Chloride 88 mmol/L (98-107); ETHANOL BLOOD 74.2 mg/dL (<10); Glucose 95 mg/dL (74-106); Lipase 24 U/L (16-77); Magnesium 1.8 mg/dL (1.8-2.4); Potassium 3.3 mmol/L (3.5-5.1); Sodium 128 mmol/L (136-145); TSH (W/Ref FT4) 4.13 uIU/mL (0.36-3.74); Total Protein 7.1 g/dL (6.4-8.2)
--- NOTE | 2023-07-17 15:00 | DI.CT_ITS ---
Exam(s) CT HEAD CERVICAL SPINE WO EXAM: CT HEAD CERVICAL SPINE WO CLINICAL HISTORY: HI. TECHNIQUE: Imaging Protocol: Axial computed tomography images with coronal and sagittal reformatted images were created and reviewed COMPARISON: CT CT BRAIN CTA from 07/11/[address] NECK W from 12/22/[address] HEAD WO from 05/26/2023 FINDINGS: CT Head: Ventricles and Extra axial spaces: Normal in size and morphology for the patient's age. Hemorrhage: None. Cerebral parenchyma: There are areas of decreased attenuation in the white matter which appears stabl e and likely reflect microvascular ischemic disease. No acute mass effect is identified. Midline shift: None. Brainstem/Cerebellum: Normal. Calvarium: There are stable postsurgical changes of a right craniotomy and aneurysm clipping. Visualized Paranasal sinuses/Mastoids: Clear. Soft Tissues: Unremarkable. CT Cervical Spine: Bones: No acute fracture or subluxation. Age-appropriate degenerative changes are seen in the spine. Soft Tissues: Unremarkable. Lung Apices: Mild paraseptal emphysematous changes are present. IMPRESSION: 1. No acute intracranial process. 2. No acute fracture or subluxation in the cervical spine. 3. Findings were discussed with the emergency department at 3:24 p.m. on 07/17/2023. RADIATION DOSE DELIVERED: 1,245.26mGy.cm Total DLP DATA REPOSITORY: All CT scans at this facility are submitted to the National Radiology Data Registry (NRDR) Dose Index Registry (DIR) with the [employer] (A[employer]). RADIATION OPTIMIZATION: All CT scans at this facility use at least one of these dose optimization te chniques: automated exposure control; mA and/or kV adjustment per patient size (includes targeted exa ms where dose is matched to clinical indication); or iterative reconstruction.
[2023-07-17 15:06] LABS: INR 1.6 (0.9-1.1); PTT Activated 34.2 sec (23.6-32.8); Prothrombin Time 15.3 sec (9.1-11.1)
--- NOTE | 2023-07-17 15:08 | DI.RAD_ITS ---
Exam(s) XR PORTABLE CHEST AP EXAM: XR PORTABLE CHEST AP CLINICAL HISTORY: weakness TECHNIQUE: 2D digital imaging was performed. COMPARISON: CT CT CHEST/ABD/PEL W from 05/26/2023 FINDINGS: LUNGS: Clear. No pleural abnormality seen. HEART: Normal size. AORTA: Normal diameter. BONES: Unremarkable for age. Soft tissues: Unremarkable. IMPRESSION: No acute findings. DATA REPOSITORY: RADIATION DOSE DELIVERED:
[2023-07-17 15:16] LABS: FREE T4 1.62 ng/dL (0.76-1.46)
--- NOTE | 2023-07-17 15:44 | W.PM.HP.N ---
Date of service: 07/17/23 Time of Service: 15:45 Assessment and Plan Assessment and plan (1) Alcohol withdrawal: Status: Acute Assessment and plan: - Patient presented for frequent falls and confusion however this was determined to be due to alcohol withdrawal -Initial CIWA in the emergency department 18 -Was given 1 dose of IV phenobarbital -Will be admitted to the ICU on IV phenobarbital protocol -N.p.o. at this time until patient shows that he is not at risk for aspiration -Also administer banana bag at this time Qualifiers: Complication of substance-induced condition: with delirium Qualified Code(s): F10.931 - Alcohol use, unspecified with withdrawal delirium (2) Cirrhosis of liver: Status: Chronic Assessment and plan: - History of, secondary to alcohol use disorder -INR 1.6, albumin 1.9, total bili 5.3 -Will continue to monitor/trend above labs -Maddrey's 24.6 indicating good prognosis Qualifiers: Ascites presence: without ascites Hepatic cirrhosis type: alcoholic cirrhosis Qualified Code(s): K70.30 - Alcoholic cirrhosis of liver without ascites (3) Alcoholic hepatitis: Status: Acute Assessment and plan: - As noted above Qualifiers: Ascites presence: without ascites Qualified Code(s): K70.10 - Alcoholic hepatitis without ascites (4) Hyponatremia: Status: Acute Assessment and plan: - Secondary to alcohol use, alcohol withdrawal as noted above -Will give IV fluids and recheck sodium with a.m. labs History of Present Illness History of Present Illness Chief Complaint: Frequent falls, confusion Narrative: 53-year-old male with a past medical history alcoholic cirrhosis, alcohol use disorder, and anemia who presents emergency department with frequent falls, confusion and headache. Patient states that he fell forward out of his desk hitting the right side of his head yesterday causing bruising and an abrasion on the right temporal side just above his eye. He also states that he is dehydrated and had some water today but is had decreased p.o. intake. Upon further questioning patient states that he has been consuming alcohol with his last drink having been last evening. He denies any lightheadedness, dizziness, visual changes, nausea, he does state he vomited earlier this morning but there was no blood present. In the emergency department the patient was noted as being disheveled and confused, was noted as having a CIWA score of 18. CBC showed some mild leukocytosis but chest CT and head CT did not show any acute findings. Additionally, CMP was noted patient having hyponatremia with a sodium of 128, hypokalemia with potassium of 3.3, total bilirubin of 5.3, and INR of 1.6, though patient's Madrey score was 24.6. Given it appeared patient was going through alcohol withdrawal he was given IV phenobarbital. At which time emergency room PA paged hospitalist for admission for patient with alcoholic cirrhosis and alcohol use disorder will require ICU level of care for IV phenobarbital for alcohol withdrawal. Review of Systems All systems reviewed & are unremarkable except as noted in HPI and below PFSH All Active Problems (Updated 07/17/23 @ 15:49 by Geraldo Hernandez MD) Hyponatremia (Acute) Alcohol withdrawal (Acute) Alcoholic hepatitis (Acute) Coagulopathy (Acute) Colitis (Acute) Duodenitis (Acute) Acute on chronic anemia (Acute) Acute pancreatitis (Acute) Cirrhosis of liver (Chronic) Anemia (Chronic) Dural sinus malformation (Acute) Bilateral sacroiliitis (Acute) Neuropathic pain of left forearm (Acute) Coccydynia (Acute) Cervical radiculopathy (Acute) Anterior cerebral aneurysm (Acute) Hyponatremia (Acute) Hypokalemia (Acute) Hypomagnesemia (Acute) Bilateral hearing loss (Acute) Screening for colon cancer (Acute) Cubital tunnel syndrome on left (Acute) Left carpal tunnel syndrome (Acute) Multiple lipomas (Acute) CRPS (complex regional pain syndrome), type II, upper (Acute) Right carpal tunnel syndrome (Acute) Cubital tunnel syndrome on right (Acute) Medical History Hypertension Aneurysm ACOM aneurysm clipping/DSA Anemia Tubular adenoma of colon Elevated blood lead level Foraminal stenosis of cervical region Chronic sinusitis Chronic pain Marital problem Lumbar back pain Thoracic back pain Snoring Back pain Exposure to lead Fatigue Chest wall pain Arm pain, right Chronic low back pain [place] Soft tissue swelling Greater trochanteric bursitis of left hip (09/04/15) Left buttock pain (11/07/14) Low back pain (11/07/14) Paresthesias in left hand (06/28/14) Deviated septum Polyarthralgia Tobacco abuse MVP (mitral valve prolapse) Per pt. states he does not see a filling layer up, states I believe I grew out of that Peripheral cyanosis Raynauds disease Elevated LFTs ETOH abuse Steatosis of liver ISADORA (obstructive sleep apnea) Neuropathy PONV (postoperative nausea and vomiting) Pt c/o post nasal drip causing nausea and vomiting routinely Foreign body in left upper extremity (01/11/20) s/p excision of foreign bodies Infrapatellar bursitis of right knee (01/11/20) s/p bursa excision Synovial cyst of popliteal space [Lopez], right knee Foreign body in right ear Tinnitus of both ears Asymmetrical sensorineural hearing loss Paraesthesia left 4-5th finger (05/29/06) Heart murmur per pt. this was an incorrect dx Lopez's cyst, rt knee Surgical History H/O craniotomy 09/2021 History of colonoscopy (~03/2021) Status post transposition of nerve left elbow Aftercare involving removal of fracture plate or internal fixation device left arm History of carpal tunnel release right History of arthroscopy of right knee 2001, diagnostic Right Popliteal cyst resection (07/25/03) Family History Mother , [place] at age 74. Heart disease Father No problems noted. Social History Smoking/Tobacco Use Status: Current every day Tobacco Type: cigarettes Years smoked: 42 Smoking risk assessment performed?: Yes Alcohol Intake: current Alcohol Intake frequency: 3 or more drinks per day Alcohol type: hard liquor Drug use: Occasionally Substance use type: does not use Details: alcohol t-1 a couple Household members: none Housing: house Number of Children: 1 current occupation: N/A Current gender identity: male What type of physical activity do you participate in: walking and independent ambulation Seatbelt use: sometimes Do you feel safe at home: Yes Additional Social history: lives by himself Meds Allergies and Home Medications Allergies Allergy/AdvReac Type Severity Reaction Status Date / Time No Known Allergies Allergy Unverified 06/16/23 06:27 Home Medications Medication Instructions Recorded Confirmed Type trazodone 50 mg tablet 25 mg PO HS PRN 12/09/19 06/16/23 History tramadol 50 mg tablet 50 mg PO BID PRN 07/01/22 06/16/23 History spironolactone 25 mg tablet 25 mg PO DAILY 06/15/23 06/16/23 History Exam Narrative Exam Narrative: Fatigued appearing gentleman laying in bed in no acute distress, nonbleeding laceration over right eyebrow, ANO x 4, heart regular rhythm, lungs clear to auscultation bilaterally, abdomen soft, nontender, nondistended Results Labs 07/17/23 13:50 07/17/23 13:50 Labs: Laboratory Results - last 24 hr 07/17/23 07/17/23 07/17/23 13:50 13:50 13:50 WBC 14.80 H RBC 3.37 L Hgb 11.0 L Hct 31.6 L MCV 94 MCH 32.6 MCHC 34.8 RDW 16.5 H Plt Count 199 MPV 9.2 Immature Gran % 0.5 Neutrophils % 81.8 Lymphocytes % 10.8 Monocytes % 5.8 Eosinophils % 0.6 Basophils % 0.5 Nucleated RBC % 0.0 Absolute Neutrophils 12.11 H Absolute Lymphocytes 1.60 Absolute Monocytes 0.86 H Absolute Eosinophils 0.09 Absolute Basophils 0.07 PT Cancelled INR Cancelled APTT Sodium Cancelled 128 L Potassium Cancelled 3.3 L Chloride Cancelled Carbon Dioxide Anion Gap BUN Creatinine Est GFR (CKD-EPI 2020) Glucose Calcium Magnesium Total Bilirubin AST ALT Alkaline Phosphatase Ammonia Total Protein Albumin Lipase TSH Free T4 Ethyl Alcohol Patient ABO/Rh Antibody Screen 07/17/23 07/17/23 07/17/23 13:50 13:50 13:50 WBC RBC Hgb Hct MCV MCH MCHC RDW Plt Count MPV Immature Gran % Neutrophils % Lymphocytes % Monocytes % Eosinophils % Basophils % Nucleated RBC % Absolute Neutrophils Absolute Lymphocytes Absolute Monocytes Absolute Eosinophils Absolute Basophils PT INR APTT Sodium Potassium Chloride 88 L Carbon Dioxide Cancelled 30.3 Anion Gap Cancelled 9.7 BUN Cancelled Creatinine Est GFR (CKD-EPI 2020) Glucose Calcium Magnesium Total Bilirubin AST ALT Alkaline Phosphatase Ammonia Total Protein Albumin Lipase TSH Free T4 Ethyl Alcohol Patient ABO/Rh Antibody Screen 07/17/23 07/17/23 07/17/23 13:50 13:50 13:50 WBC RBC Hgb Hct MCV MCH MCHC RDW Plt Count MPV Immature Gran % Neutrophils % Lymphocytes % Monocytes % Eosinophils % Basophils % Nucleated RBC % Absolute Neutrophils Absolute Lymphocytes Absolute Monocytes Absolute Eosinophils Absolute Basophils PT INR APTT Sodium Potassium Chloride Carbon Dioxide Anion Gap BUN 16 Creatinine Cancelled 1.4 H Est GFR (CKD-EPI 2020) Cancelled 60.10 Glucose Cancelled Calcium Magnesium Total Bilirubin AST ALT Alkaline Phosphatase Ammonia Total Protein Albumin Lipase TSH Free T4 Ethyl Alcohol Patient ABO/Rh Antibody Screen 07/17/23 07/17/23 07/17/23 13:50 13:50 13:50 WBC RBC Hgb Hct MCV MCH MCHC RDW Plt Count MPV Immature Gran % Neutrophils % Lymphocytes % Monocytes % Eosinophils % Basophils % Nucleated RBC % Absolute Neutrophils Absolute Lymphocytes Absolute Monocytes Absolute Eosinophils Absolute Basophils PT INR APTT Sodium Potassium Chloride Carbon Dioxide Anion Gap BUN Creatinine Est GFR (CKD-EPI 2020) Glucose 95 Calcium Cancelled 8.6 Magnesium Cancelled 1.8 Total Bilirubin Cancelled AST ALT Alkaline Phosphatase Ammonia Total Protein Albumin Lipase TSH Free T4 Ethyl Alcohol Patient ABO/Rh Antibody Screen 07/17/23 07/17/23 07/17/23 13:50 13:50 13:50 WBC RBC Hgb Hct MCV MCH MCHC RDW Plt Count MPV Immature Gran % Neutrophils % Lymphocytes % Monocytes % Eosinophils % Basophils % Nucleated RBC % Absolute Neutrophils Absolute Lymphocytes Absolute Monocytes Absolute Eosinophils Absolute Basophils PT INR APTT Sodium Potassium Chloride Carbon Dioxide Anion Gap BUN Creatinine Est GFR (CKD-EPI 2020) Glucose Calcium Magnesium Total Bilirubin 5.3 H AST Cancelled 170 H ALT Cancelled 65 H Alkaline Phosphatase Cancelled Ammonia Total Protein Albumin Lipase TSH Free T4 Ethyl Alcohol Patient ABO/Rh Antibody Screen 07/17/23 07/17/23 07/17/23 13:50 13:50 13:50 WBC RBC Hgb Hct MCV MCH MCHC RDW Plt Count MPV Immature Gran % Neutrophils % Lymphocytes % Monocytes % Eosinophils % Basophils % Nucleated RBC % Absolute Neutrophils Absolute Lymphocytes Absolute Monocytes Absolute Eosinophils Absolute Basophils PT INR APTT Sodium Potassium Chloride Carbon Dioxide Anion Gap BUN Creatinine Est GFR (CKD-EPI 2020) Glucose Calcium Magnesium Total Bilirubin AST ALT Alkaline Phosphatase 517 H Ammonia Total Protein Cancelled 7.1 Albumin Cancelled 1.9 L Lipase Cancelled TSH Free T4 Ethyl Alcohol Patient ABO/Rh Antibody Screen 07/17/23 07/17/23 07/17/23 13:50 13:50 13:50 WBC RBC Hgb Hct MCV MCH MCHC RDW Plt Count MPV Immature Gran % Neutrophils % Lymphocytes % Monocytes % Eosinophils % Basophils % Nucleated RBC % Absolute Neutrophils Absolute Lymphocytes Absolute Monocytes Absolute Eosinophils Absolute Basophils PT INR APTT Sodium Potassium Chloride Carbon Dioxide Anion Gap BUN Creatinine Est GFR (CKD-EPI 2020) Glucose Calcium Magnesium Total Bilirubin AST ALT Alkaline Phosphatase Ammonia Total Protein Albumin Lipase 24 TSH Cancelled 4.13 H Free T4 1.62 H Ethyl Alcohol Cancelled 74.2 H Patient ABO/Rh O Negative Antibody Screen NEGATIVE 07/17/23 07/17/23 14:15 14:35 WBC RBC Hgb Hct MCV MCH MCHC RDW Plt Count MPV Immature Gran % Neutrophils % Lymphocytes % Monocytes % Eosinophils % Basophils % Nucleated RBC % Absolute Neutrophils Absolute Lymphocytes Absolute Monocytes Absolute Eosinophils Absolute Basophils PT 15.3 H INR 1.6 H APTT 34.2 H Sodium Potassium Chloride Carbon Dioxide Anion Gap BUN Creatinine Est GFR (CKD-EPI 2020) Glucose Calcium Magnesium Total Bilirubin AST ALT Alkaline Phosphatase Ammonia 27 Total Protein Albumin Lipase TSH Free T4 Ethyl Alcohol Patient ABO/Rh Antibody Screen Last Vital Signs Temp 97.8 F 07/17/23 13:26 Pulse 95 H 07/17/23 13:26 Resp 12 07/17/23 13:40 BP 171/80 H 07/17/23 13:26 Pulse Ox 97 07/17/23 13:40 PAWSS Have you Been Recently Intoxicated or Drunk Within the Last 30 days?: Yes Have you Ever Experienced Previous Episodes of Alcohol Withdrawal?: Yes Have you ever Experienced Withdrawal Seizures?: No Have you ever Experienced Delirium Tremens(DT)s?: Yes Have you ever undergone Alcohol Rehabilitation Treatment (i.e, inpt ot outpatient treatment programs)?: No Have you ever Experienced Blackouts?: Yes Have you ever Combined Alcohol with other Downers within the last 90 days?: Yes Have you ever Combined Alcohol with any other Substance of Abuse during the last 90 days?: Yes Positive Blood Alcohol level on Presentation? [PCS.BAL]: Yes Evidence of Increased Autonomic Activity (i.e. HR>120, tremor, sweating, agitation, nausea)?: Yes Result: 8 Time Spent Time spent with Patient: 55-74 minutes Time was spent: preparing to see the patient(eg.review tests), obtaining and/or reviewing separately otained hiistory, ordering medications,tests, procedures, referring, communicating with other health reproductive healthcare assistant, indepentently interpreting results, counseling the patient, care coordination and other (60 minutes critical care time spent on patient in severe alcohol withdrawal requiring IV phenobarbital)
[2023-07-17] MEDS: PHENobarbital 150 MG in Normal Saline 50 ML 100 MG IVPB (16:04)
--- NOTE | 2023-07-17 16:05 | ED.GENADUL_ITS ---
HPI General Date/Time Provider Initiated Documentation: 07/17/23 13:25 . HPI Narrative: This 53-year-old male presents with report of weakness, lightheadedness, frequent falls, inability to take care of himself at home. He states he drinks four 8 ounce glasses of Jerome rum daily. He states he has not had a drink since last night when he fell. He was reportedly on the ground for 2 to 3 hours. Related Data Home Medications Medication Instructions Recorded Confirmed trazodone 50 mg tablet 25 mg PO HS PRN 12/09/19 07/17/23 tramadol 50 mg tablet 50 mg PO BID PRN 07/01/22 07/17/23 spironolactone 25 mg tablet 25 mg PO DAILY 06/15/23 07/17/23 thiamine HCl (vitamin B1) 100 mg 100 mg PO DAILY 07/17/23 07/17/23 tablet Allergies Allergy/AdvReac Type Severity Reaction Status Date / Time No Known Allergies Allergy Unverified 07/17/23 18:18 General Stated Complaint: AMS/LOC ROSE MARY: 3 Course Vital Signs Vital signs: Vital Signs Temperature 36.6 C 07/17/23 13:26 Pulse 95 H 07/17/23 13:26 Respiratory Rate 15 07/17/23 13:26 Blood Pressure 171/80 H 07/17/23 13:26 Pulse Oximetry 98 07/17/23 13:26 Temperature 36.6 C 07/17/23 13:26 Temperature Source Temporal Artery Scan 07/17/23 13:26 Pulse 95 H 07/17/23 13:26 Pulse 107 H 07/17/23 13:40 Respiratory Rate 12 07/17/23 13:40 Respiratory Effort Normal 07/17/23 15:08 Respiratory Depth Shallow 07/17/23 15:08 Respiratory Pattern Normal 07/17/23 15:08 Blood Pressure 171/80 H 07/17/23 13:26 Pulse Oximetry 97 07/17/23 13:40 Oxygen Delivery Method Room Air 07/17/23 13:26 Oxygen Flow Rate 0 07/17/23 13:26 Pain Level 6 07/17/23 13:26 Lab/Test Results Lab/Test Results: Laboratory Tests Range/Units 07/17/23 07/17/23 07/17/23 13:50 13:50 13:50 WBC (4.4-10.8) 10^3/uL 14.80 H RBC (4.36-5.78) 10^6/uL 3.37 L Hgb (13.5-17.5) g/dL 11.0 L Hct (40.0-50.0) % 31.6 L MCV (80-95) fL 94 MCH (27.0-33.0) pg 32.6 MCHC (32.0-36.0) % 34.8 RDW (11.8-14.1) % 16.5 H Plt Count (130-400) 10^3/uL 199 MPV (8.0-11.0) fL 9.2 Immature Gran % 0.5 Neutrophils % 81.8 Lymphocytes % 10.8 Monocytes % 5.8 Eosinophils % 0.6 Basophils % 0.5 Nucleated RBC % (0.0-0.3) % 0.0 Absolute Neutrophils (1.2-6.7) 10^3/uL 12.11 H Absolute Lymphocytes (1.2-3.4) 10^3/uL 1.60 Absolute Monocytes (0.1-0.8) 10^3/uL 0.86 H Absolute Eosinophils (0.0-0.7) 10^3/uL 0.09 Absolute Basophils (0.0-0.2) 10^3/uL 0.07 PT Cancelled INR Cancelled APTT (23.6-32.8) sec Sodium Cancelled 128 L Potassium Cancelled 3.3 L Chloride Cancelled Carbon Dioxide Anion Gap BUN Creatinine Est GFR (CKD-EPI 2020) Glucose Calcium Magnesium Total Bilirubin AST ALT Alkaline Phosphatase Ammonia (11-32) umol/L Total Protein Albumin Lipase TSH Free T4 (0.76-1.46) ng/dL Ethyl Alcohol Patient ABO/Rh Antibody Screen Range/Units 07/17/23 07/17/23 07/17/23 13:50 13:50 13:50 WBC (4.4-10.8) 10^3/uL RBC (4.36-5.78) 10^6/uL Hgb (13.5-17.5) g/dL Hct (40.0-50.0) % MCV (80-95) fL MCH (27.0-33.0) pg MCHC (32.0-36.0) % RDW (11.8-14.1) % Plt Count (130-400) 10^3/uL MPV (8.0-11.0) fL Immature Gran % Neutrophils % Lymphocytes % Monocytes % Eosinophils % Basophils % Nucleated RBC % (0.0-0.3) % Absolute Neutrophils (1.2-6.7) 10^3/uL Absolute Lymphocytes (1.2-3.4) 10^3/uL Absolute Monocytes (0.1-0.8) 10^3/uL Absolute Eosinophils (0.0-0.7) 10^3/uL Absolute Basophils (0.0-0.2) 10^3/uL PT INR APTT (23.6-32.8) sec Sodium Potassium Chloride 88 L Carbon Dioxide Cancelled 30.3 Anion Gap Cancelled 9.7 BUN Cancelled Creatinine Est GFR (CKD-EPI 2020) Glucose Calcium Magnesium Total Bilirubin AST ALT Alkaline Phosphatase Ammonia (11-32) umol/L Total Protein Albumin Lipase TSH Free T4 (0.76-1.46) ng/dL Ethyl Alcohol Patient ABO/Rh Antibody Screen Range/Units 07/17/23 07/17/23 07/17/23 13:50 13:50 13:50 WBC (4.4-10.8) 10^3/uL RBC (4.36-5.78) 10^6/uL Hgb (13.5-17.5) g/dL Hct (40.0-50.0) % MCV (80-95) fL MCH (27.0-33.0) pg MCHC (32.0-36.0) % RDW (11.8-14.1) % Plt Count (130-400) 10^3/uL MPV (8.0-11.0) fL Immature Gran % Neutrophils % Lymphocytes % Monocytes % Eosinophils % Basophils % Nucleated RBC % (0.0-0.3) % Absolute Neutrophils (1.2-6.7) 10^3/uL Absolute Lymphocytes (1.2-3.4) 10^3/uL Absolute Monocytes (0.1-0.8) 10^3/uL Absolute Eosinophils (0.0-0.7) 10^3/uL Absolute Basophils (0.0-0.2) 10^3/uL PT INR APTT (23.6-32.8) sec Sodium Potassium Chloride Carbon Dioxide Anion Gap BUN 16 Creatinine Cancelled 1.4 H Est GFR (CKD-EPI 2020) Cancelled 60.10 Glucose Cancelled Calcium Magnesium Total Bilirubin AST ALT Alkaline Phosphatase Ammonia (11-32) umol/L Total Protein Albumin Lipase TSH Free T4 (0.76-1.46) ng/dL Ethyl Alcohol Patient ABO/Rh Antibody Screen Range/Units 07/17/23 07/17/23 07/17/23 13:50 13:50 13:50 WBC (4.4-10.8) 10^3/uL RBC (4.36-5.78) 10^6/uL Hgb (13.5-17.5) g/dL Hct (40.0-50.0) % MCV (80-95) fL MCH (27.0-33.0) pg MCHC (32.0-36.0) % RDW (11.8-14.1) % Plt Count (130-400) 10^3/uL MPV (8.0-11.0) fL Immature Gran % Neutrophils % Lymphocytes % Monocytes % Eosinophils % Basophils % Nucleated RBC % (0.0-0.3) % Absolute Neutrophils (1.2-6.7) 10^3/uL Absolute Lymphocytes (1.2-3.4) 10^3/uL Absolute Monocytes (0.1-0.8) 10^3/uL Absolute Eosinophils (0.0-0.7) 10^3/uL Absolute Basophils (0.0-0.2) 10^3/uL PT INR APTT (23.6-32.8) sec Sodium Potassium Chloride Carbon Dioxide Anion Gap BUN Creatinine Est GFR (CKD-EPI 2020) Glucose 95 Calcium Cancelled 8.6 Magnesium Cancelled 1.8 Total Bilirubin Cancelled AST ALT Alkaline Phosphatase Ammonia (11-32) umol/L Total Protein Albumin Lipase TSH Free T4 (0.76-1.46) ng/dL Ethyl Alcohol Patient ABO/Rh Antibody Screen Range/Units 07/17/23 07/17/23 07/17/23 13:50 13:50 13:50 WBC (4.4-10.8) 10^3/uL RBC (4.36-5.78) 10^6/uL Hgb (13.5-17.5) g/dL Hct (40.0-50.0) % MCV (80-95) fL MCH (27.0-33.0) pg MCHC (32.0-36.0) % RDW (11.8-14.1) % Plt Count (130-400) 10^3/uL MPV (8.0-11.0) fL Immature Gran % Neutrophils % Lymphocytes % Monocytes % Eosinophils % Basophils % Nucleated RBC % (0.0-0.3) % Absolute Neutrophils (1.2-6.7) 10^3/uL Absolute Lymphocytes (1.2-3.4) 10^3/uL Absolute Monocytes (0.1-0.8) 10^3/uL Absolute Eosinophils (0.0-0.7) 10^3/uL Absolute Basophils (0.0-0.2) 10^3/uL PT INR APTT (23.6-32.8) sec Sodium Potassium Chloride Carbon Dioxide Anion Gap BUN Creatinine Est GFR (CKD-EPI 2020) Glucose Calcium Magnesium Total Bilirubin 5.3 H AST Cancelled 170 H ALT Cancelled 65 H Alkaline Phosphatase Cancelled Ammonia (11-32) umol/L Total Protein Albumin Lipase TSH Free T4 (0.76-1.46) ng/dL Ethyl Alcohol Patient ABO/Rh Antibody Screen Range/Units 07/17/23 07/17/23 07/17/23 13:50 13:50 13:50 WBC (4.4-10.8) 10^3/uL RBC (4.36-5.78) 10^6/uL Hgb (13.5-17.5) g/dL Hct (40.0-50.0) % MCV (80-95) fL MCH (27.0-33.0) pg MCHC (32.0-36.0) % RDW (11.8-14.1) % Plt Count (130-400) 10^3/uL MPV (8.0-11.0) fL Immature Gran % Neutrophils % Lymphocytes % Monocytes % Eosinophils % Basophils % Nucleated RBC % (0.0-0.3) % Absolute Neutrophils (1.2-6.7) 10^3/uL Absolute Lymphocytes (1.2-3.4) 10^3/uL Absolute Monocytes (0.1-0.8) 10^3/uL Absolute Eosinophils (0.0-0.7) 10^3/uL Absolute Basophils (0.0-0.2) 10^3/uL PT INR APTT (23.6-32.8) sec Sodium Potassium Chloride Carbon Dioxide Anion Gap BUN Creatinine Est GFR (CKD-EPI 2020) Glucose Calcium Magnesium Total Bilirubin AST ALT Alkaline Phosphatase 517 H Ammonia (11-32) umol/L Total Protein Cancelled 7.1 Albumin Cancelled 1.9 L Lipase Cancelled TSH Free T4 (0.76-1.46) ng/dL Ethyl Alcohol Patient ABO/Rh Antibody Screen Range/Units 07/17/23 07/17/23 07/17/23 13:50 13:50 13:50 WBC (4.4-10.8) 10^3/uL RBC (4.36-5.78) 10^6/uL Hgb (13.5-17.5) g/dL Hct (40.0-50.0) % MCV (80-95) fL MCH (27.0-33.0) pg MCHC (32.0-36.0) % RDW (11.8-14.1) % Plt Count (130-400) 10^3/uL MPV (8.0-11.0) fL Immature Gran % Neutrophils % Lymphocytes % Monocytes % Eosinophils % Basophils % Nucleated RBC % (0.0-0.3) % Absolute Neutrophils (1.2-6.7) 10^3/uL Absolute Lymphocytes (1.2-3.4) 10^3/uL Absolute Monocytes (0.1-0.8) 10^3/uL Absolute Eosinophils (0.0-0.7) 10^3/uL Absolute Basophils (0.0-0.2) 10^3/uL PT INR APTT (23.6-32.8) sec Sodium Potassium Chloride Carbon Dioxide Anion Gap BUN Creatinine Est GFR (CKD-EPI 2020) Glucose Calcium Magnesium Total Bilirubin AST ALT Alkaline Phosphatase Ammonia (11-32) umol/L Total Protein Albumin Lipase 24 TSH Cancelled 4.13 H Free T4 (0.76-1.46) ng/dL 1.62 H Ethyl Alcohol Cancelled 74.2 H Patient ABO/Rh O Negative Antibody Screen NEGATIVE Range/Units 07/17/23 07/17/23 14:15 14:35 WBC (4.4-10.8) 10^3/uL RBC (4.36-5.78) 10^6/uL Hgb (13.5-17.5) g/dL Hct (40.0-50.0) % MCV (80-95) fL MCH (27.0-33.0) pg MCHC (32.0-36.0) % RDW (11.8-14.1) % Plt Count (130-400) 10^3/uL MPV (8.0-11.0) fL Immature Gran % Neutrophils % Lymphocytes % Monocytes % Eosinophils % Basophils % Nucleated RBC % (0.0-0.3) % Absolute Neutrophils (1.2-6.7) 10^3/uL Absolute Lymphocytes (1.2-3.4) 10^3/uL Absolute Monocytes (0.1-0.8) 10^3/uL Absolute Eosinophils (0.0-0.7) 10^3/uL Absolute Basophils (0.0-0.2) 10^3/uL PT 15.3 H INR 1.6 H APTT (23.6-32.8) sec 34.2 H Sodium Potassium Chloride Carbon Dioxide Anion Gap BUN Creatinine Est GFR (CKD-EPI 2020) Glucose Calcium Magnesium Total Bilirubin AST ALT Alkaline Phosphatase Ammonia (11-32) umol/L 27 Total Protein Albumin Lipase TSH Free T4 (0.76-1.46) ng/dL Ethyl Alcohol Patient ABO/Rh Antibody Screen Medical Decision Making 53-year-old male presenting with confusion, frequent falls, weakness Patient known to this facility CT was ordered as patient had head injury with fall, CT head and cervical spine does not show evidence of acute abnormality per radiology interpretation my review Patient's labs are likely consistent with dehydration chronic alcoholism, hyp onatremia 128, hypokalemia at 3.3, supplemented with 40 mEq of potassium Magnesium within normal limits, CBC, patient has anemia dramatically improved from prior assessment, patient has distended abdomen, nontender, likely consistent with cirrhosis Ammonia within normal limits At this time, and patient has a CIWA of 18 Will initiate phenobarb for alcohol withdrawal, likely metabolic encephalopathy, electrolyte supplementation, rehydration, Wishes to remain DNR/DNI Case discussed with Dr. Hernandez, hospitalist Quality:[facility] Health Related Social Needs: No Data to Display Critical Care Time Critical Care Time Attestation: Approximately 45 minutes of critical care time secondary to acute alcohol withdrawal, metabolic encephalopathy, telemetry monitoring, electrolyte supplementation and ultimately admission to the intensive care unit PFSH All Active Problems (Updated 07/21/23 @ 10:56 by KENDY Sanz) C. difficile diarrhea (Acute) Urinary retention (Acute) Acute respiratory failure with hypoxia (Acute) Cellulitis and abscess of foot (Acute) Hyponatremia (Acute) Alcohol withdrawal (Acute) Alcoholic hepatitis (Acute) Coagulopathy (Acute) Colitis (Acute) Duodenitis (Acute) Acute on chronic anemia (Acute) Acute pancreatitis (Acute) Cirrhosis of liver (Chronic) Anemia (Chronic) Dural sinus malformation (Acute) Bilateral sacroiliitis (Acute) Neuropathic pain of left forearm (Acute) Coccydynia (Acute) Cervical radiculopathy (Acute) Anterior cerebral aneurysm (Acute) Hyponatremia (Acute) Hypokalemia (Acute) Hypomagnesemia (Acute) Bilateral hearing loss (Acute) Screening for colon cancer (Acute) Cubital tunnel syndrome on left (Acute) Left carpal tunnel syndrome (Acute) Multiple lipomas (Acute) CRPS (complex regional pain syndrome), type II, upper (Acute) Right carpal tunnel syndrome (Acute) Cubital tunnel syndrome on right (Acute) Medical History Hypertension Aneurysm ACOM aneurysm clipping/DSA Anemia Tubular adenoma of colon Elevated blood lead level Foraminal stenosis of cervical region Chronic sinusitis Chronic pain Marital problem Lumbar back pain Thoracic back pain Snoring Back pain Exposure to lead Fatigue Chest wall pain Arm pain, right Chronic low back pain [place] Soft tissue swelling Greater trochanteric bursitis of left hip (09/04/15) Left buttock pain (11/07/14) Low back pain (11/07/14) Paresthesias in left hand (06/28/14) Deviated septum Polyarthralgia Tobacco abuse MVP (mitral valve prolapse) Per pt. states he does not see a urban planning teacher, states I believe I grew out of that Peripheral cyanosis Raynauds disease Elevated LFTs ETOH abuse Steatosis of liver ISADORA (obstructive sleep apnea) Neuropathy PONV (postoperative nausea and vomiting) Pt c/o post nasal drip causing nausea and vomiting routinely Foreign body in left upper extremity (01/11/20) s/p excision of foreign bodies Infrapatellar bursitis of right knee (01/11/20) s/p bursa excision Synovial cyst of popliteal space [Lopez], right knee Foreign body in right ear Tinnitus of both ears Asymmetrical sensorineural hearing loss Paraesthesia left 4-5th finger (05/29/06) Heart murmur per pt. this was an incorrect dx Lopez's cyst, rt knee Surgical History H/O craniotomy 09/2021 History of colonoscopy (~03/2021) Status post transposition of nerve left elbow Aftercare involving removal of fracture plate or internal fixation device left arm History of carpal tunnel release right History of arthroscopy of right knee 2001, diagnostic Right Popliteal cyst resection (07/25/03) Family History Mother , MS at age 74. Heart disease Father No problems noted. Social History Smoking/Tobacco Use Status: Current every day Tobacco Type: cigarettes Years smoked: 42 Smoking risk assessment performed?: Yes Alcohol Intake: current Alcohol Intake frequency: 3 or more drinks per day Alcohol type: hard liquor Drug use: Occasionally Substance use type: does not use Details: alcohol t-1 a couple Household members: none Housing: house Number of Children: 1 current occupation: N/A Current gender identity: male What type of physical activity do you participate in: walking and independent ambulation Seatbelt use: sometimes Do you feel safe at home: Yes Additional Social history: lives by himself PAWSS Have you Been Recently Intoxicated or Drunk Within the Last 30 days?: Yes Have you Ever Experienced Previous Episodes of Alcohol Withdrawal?: Yes Have you ever Experienced Withdrawal Seizures?: No Have you ever Experienced Delirium Tremens(DT)s?: Yes Have you ever undergone Alcohol Rehabilitation Treatment (i.e, inpt ot outpatient treatment programs)?: No Have you ever Experienced Blackouts?: Yes Have you ever Combined Alcohol with other Downers within the last 90 days?: Yes Have you ever Combined Alcohol with any other Substance of Abuse during the last 90 days?: Yes Positive Blood Alcohol level on Presentation? [PCS.BAL]: Yes Evidence of Increased Autonomic Activity (i.e. HR>120, tremor, sweating, agitation, nausea)?: Yes Result: 8 Discharge Plan Disposition Patient Disposition: Admit to [facility] Condition: Serious Discharge Details Chief Complaint: AMS/LOC Clinical Impression: Alcohol withdrawal, Hyponatremia, Cirrhosis of liver, Hypokalemia, Hypomagnesemia Admit Date/Time: 07/17/23 15:41 Admit Provider: Geraldo Hernandez Attending Provider: Geraldo Hernandez Primary Care Provider: Paige Chen ED Provider: Rupal Benitez Discharge Data Discharge Date/Time-TO BE ENTERED AT DEPARTURE: 07/17/23 18:39
[2023-07-17] MEDS: Potassium Chloride 20 MEQ TABCR 40 MEQ PO (16:10)
[2023-07-17 16:51] LABS: Creatine Kinase 248 U/L (39-308)
[2023-07-17 19:20] LABS: Bilirubin Large (Negative); Blood Negative (Negative); Clarity Clear (Clear); Glucose 100 mg/dL (Negative); Ketones Trace mg/dL (Negative); Leukocyte Esterase Negative (Negative); Nitrite Negative (Negative); pH 5.5 (5-8)
[2023-07-17] MEDS: PHENobarbital 110 MG in Normal Saline 50 ML 100 MG IVPB ×2 (19:39→22:32)
[2023-07-17] MEDS: Normal Saline 1,000 ML 30 ML IV (19:40)
[2023-07-17] MEDS: Normal Saline Flush 10 ML SYR IVP ×2 (19:40→22:35)
[2023-07-17] MEDS: Enoxaparin 40 MG/0.4 ML SYR SC (19:44)
--- NOTE | 2023-07-17 19:48 | RESPIRATORY ---
RT seen pt. for ISADORA diagnosis. Pt. advised RT that he uses CPAP PRN without supplement of O2. Pt. refuses to use hospital's CPAP machine. DME: JOSIAH Young per Pt. RT also advised pt. to let us know if he changes his mind later to use hospital's CPAP machine.
[2023-07-17 19:49] LABS: Bacteria Negative HPF (Negative); C & S Indicated? No; Casts 3-5 Hyaline LPF (Negative); Crystals Negative HPF (Negative); Epithelial Cells Rare HPF (Negative); Mucus Moderate (Negative); Other Cells Few Renal (Negative); RBC 0-2 HPF (0-2)
--- NOTE | 2023-07-17 21:00 | RT.EKG_ITS ---
APPROVED REPORT Exam: Resting ECG Reason for Exam: tachycardia Patient Location: I HR:106 bpm ECG Measurements Heart Rate 106 AXIS MS 154 P 69 QRSd 73 QRS 75 QT 343 T 49 QTc 456 Conclusion Sinus tachycardia...rate> 99 Multiform ventricular premature complexes...short R-R, variable morphology
[2023-07-17] MEDS: POTASSIUM CHLORIDE/D5-0.9%NACL 1,000 ML 125 MEQ IV (21:44)
[2023-07-17 21:57] LABS: ESR 38 mm/hr (0-20)
[2023-07-17 22:07] LABS: Anion Gap 4.9 mmol/L (3-11); BUN 17 mg/dL (7-18); C-Reactive Protein 3.17 mg/dL (<or=0.5); CO2 31.1 mmol/L (21.0-32.0); CREATININE 1.3 mg/dL (0.70-1.30); Chloride 92 mmol/L (98-107); Estimated GFR 65.69 (mL/min/1.73m2); Glucose 82 mg/dL (74-106); Sodium 128 mmol/L (136-145)
[2023-07-17 22:11] LABS: Potassium 4.4 mmol/L (3.5-5.1)
[2023-07-17 22:28] LABS: Procalcitonin 0.5 ng/mL
[2023-07-17] MEDS: DEXTROSE 5%-0.9% SALINE 1,000 ML 125 ML IV (23:35)
[2023-07-18] VITALS (72 sets, daily range): BP systolic 85–131; BP diastolic 50–91; PULSE 79–124; RESP 15–37; TEMP 36.3–37.5; O2SAT 77–99
--- NOTE | 2023-07-18 01:39 | W.PM.PROGNOT ---
Date of Service Date of service: 07/18/23 Time of Service: 01:39 Assessment and Plan Assessment and plan (1) Cellulitis and abscess of foot: Start date: 07/18/23 Status: Acute Assessment and plan: Patient is having elevation of his WBC and elevation of procalcitonin as well as inflammatory markers. He is having no fever but is tachycardic though this could be secondary to alcohol withdrawal. Because of his physical findings and change in lab, he was initiated on IV vancomycin and cefepime. Blood cultures and urine cultures were performed prior to initiating antibiotics. (2) Hypokalemia: Start date: 07/18/23 Status: Acute Assessment and plan: This corrected with IV potassium supplement and will be monitored every 6 hours while on continue IV fluids without potassium. (3) Hyponatremia: Start date: 07/18/23 Status: Acute Assessment and plan: Stable with IV fluid resuscitation. Patient is also on D5 with question of decreased intake and decreased glucose reserves. (4) Alcohol withdrawal: Start date: 07/17/23 Status: Acute Assessment and plan: Continue phenobarbital protocol for alcohol withdrawal. Lab monitoring per protocol. Qualifiers: Complication of substance-induced condition: with delirium Qualified Code(s): F10.931 - Alcohol use, unspecified with withdrawal delirium (5) Alcoholic hepatitis: Start date: 07/17/23 Status: Acute Assessment and plan: Stable with chronic cirrhosis. Qualifiers: Ascites presence: without ascites Qualified Code(s): K70.10 - Alcoholic hepatitis without ascites (6) Cirrhosis of liver: Status: Chronic Assessment and plan: This appears stable with patient needs to stop drinking. He is not a candidate for liver transplant as long as he is drinking. Prognosis is poor. Qualifiers: Hepatic cirrhosis type: alcoholic cirrhosis Ascites presence: without ascites Qualified Code(s): K70.30 - Alcoholic cirrhosis of liver without ascites Subjective Subjective Interval history since last seen: This is a 53-year-old gentleman presented with alcohol withdrawal and is on the phenobarbital protocol. He has not had fever but nurses did note increasing erythema and increased warmth to touch over his feet with the right worse than left. He does have puncture wounds over his feet and an ulcer over his left dorsal toe as well as abrasions over his head head and then on the floor at home with a negative CPK at admission. His WBC also was elevating and the patient was tachycardic but this was also likely due to his alcohol withdrawal. There was some concern of progressive cellulitis of his feet and expanded lab did show an elevated procalcitonin indicating possibility of severe sepsis as well as elevated CRP and sed rate with his WBC elevated at around 14. He was not hypotensive. He was on IV fluid resuscitation. His calcium and magnesium were normal but his potassium and sodium were low. Was on D5 normal saline with 20 mg of potassium at 125 cc an hour which corrected his potassium but his sodium persisted to be below 130. With the patient's advancing symptoms of possible cellulitis he was initiated on vancomycin and cefepime. He was offering no complaints with his alcohol withdrawal and was comfortable on phenobarbital protocol. Exam Narrative Exam Narrative: General: Patient appears older than stated age, minimally conversive but in no acute distress. He is drowsy from his treatment. He is having no tremors. HEENT: Eyes appear normal with right forehead having large abrasion and slight erythema surrounding but no drainage. Normocephalic and otherwise atraumatic. Neck: Supple. Lungs: Fair aeration and clear. Heart: Tachycardic rate with normal rhythm except for occasional extrasystole. Abdomen: Soft and nondistended. Extremities/skin: Shiny atrophic skin over both feet with puncture wounds and scabs over both feet and slight edema though nonpitting. Increased warmth to touch and increased erythema. Fair Keppra refill. Neuro: Cranial nerves II through XII appear to be gross intact and no focal motor deficits. No tremor. Psych: Sedated with treatment. Objective Last Vital Signs Temp 37.3 C 07/17/23 23:00 Pulse 101 H 07/18/23 00:01 Resp 21 07/18/23 00:01 BP 117/66 07/18/23 00:01 Pulse Ox 96 07/18/23 00:01 Laboratory Results - last 24 hr 07/17/23 07/17/23 07/17/23 13:50 13:50 13:50 WBC 14.80 H RBC 3.37 L Hgb 11.0 L Hct 31.6 L MCV 94 MCH 32.6 MCHC 34.8 RDW 16.5 H Plt Count 199 MPV 9.2 Immature Gran % 0.5 Neutrophils % 81.8 Lymphocytes % 10.8 Monocytes % 5.8 Eosinophils % 0.6 Basophils % 0.5 Nucleated RBC % 0.0 Absolute Neutrophils 12.11 H Absolute Lymphocytes 1.60 Absolute Monocytes 0.86 H Absolute Eosinophils 0.09 Absolute Basophils 0.07 ESR PT Cancelled INR Cancelled APTT Sodium Cancelled 128 L Potassium Cancelled 3.3 L Chloride Cancelled Carbon Dioxide Anion Gap BUN Creatinine Est GFR (CKD-EPI 2020) Glucose Calcium Magnesium Total Bilirubin AST ALT Alkaline Phosphatase Ammonia Creatine Kinase C-Reactive Protein Total Protein Albumin Lipase Procalcitonin TSH Free T4 Urine Color Urine Clarity Urine pH Ur Specific [place] Urine Protein Urine Ketones Urine Blood Urine Nitrite Urine Bilirubin Urine Urobilinogen Ur Leukocyte Esterase Urine RBC Urine WBC Ur Epithelial Cells Urine Crystals Urine Bacteria Urine Casts Urine Mucus Urine Other Ur Culture Indicated? Urine Glucose Ethyl Alcohol Patient ABO/Rh Antibody Screen 07/17/23 07/17/23 07/17/23 13:50 13:50 13:50 WBC RBC Hgb Hct MCV MCH MCHC RDW Plt Count MPV Immature Gran % Neutrophils % Lymphocytes % Monocytes % Eosinophils % Basophils % Nucleated RBC % Absolute Neutrophils Absolute Lymphocytes Absolute Monocytes Absolute Eosinophils Absolute Basophils ESR PT INR APTT Sodium Potassium Chloride 88 L Carbon Dioxide Cancelled 30.3 Anion Gap Cancelled 9.7 BUN Cancelled Creatinine Est GFR (CKD-EPI 2020) Glucose Calcium Magnesium Total Bilirubin AST ALT Alkaline Phosphatase Ammonia Creatine Kinase C-Reactive Protein Total Protein Albumin Lipase Procalcitonin TSH Free T4 Urine Color Urine Clarity Urine pH Ur Specific [place] Urine Protein Urine Ketones Urine Blood Urine Nitrite Urine Bilirubin Urine Urobilinogen Ur Leukocyte Esterase Urine RBC Urine WBC Ur Epithelial Cells Urine Crystals Urine Bacteria Urine Casts Urine Mucus Urine Other Ur Culture Indicated? Urine Glucose Ethyl Alcohol Patient ABO/Rh Antibody Screen 07/17/23 07/17/23 07/17/23 13:50 13:50 13:50 WBC RBC Hgb Hct MCV MCH MCHC RDW Plt Count MPV Immature Gran % Neutrophils % Lymphocytes % Monocytes % Eosinophils % Basophils % Nucleated RBC % Absolute Neutrophils Absolute Lymphocytes Absolute Monocytes Absolute Eosinophils Absolute Basophils ESR PT INR APTT Sodium Potassium Chloride Carbon Dioxide Anion Gap BUN 16 Creatinine Cancelled 1.4 H Est GFR (CKD-EPI 2020) Cancelled 60.10 Glucose Cancelled Calcium Magnesium Total Bilirubin AST ALT Alkaline Phosphatase Ammonia Creatine Kinase C-Reactive Protein Total Protein Albumin Lipase Procalcitonin TSH Free T4 Urine Color Urine Clarity Urine pH Ur Specific [place] Urine Protein Urine Ketones Urine Blood Urine Nitrite Urine Bilirubin Urine Urobilinogen Ur Leukocyte Esterase Urine RBC Urine WBC Ur Epithelial Cells Urine Crystals Urine Bacteria Urine Casts Urine Mucus Urine Other Ur Culture Indicated? Urine Glucose Ethyl Alcohol Patient ABO/Rh Antibody Screen 07/17/23 07/17/23 07/17/23 13:50 13:50 13:50 WBC RBC Hgb Hct MCV MCH MCHC RDW Plt Count MPV Immature Gran % Neutrophils % Lymphocytes % Monocytes % Eosinophils % Basophils % Nucleated RBC % Absolute Neutrophils Absolute Lymphocytes Absolute Monocytes Absolute Eosinophils Absolute Basophils ESR PT INR APTT Sodium Potassium Chloride Carbon Dioxide Anion Gap BUN Creatinine Est GFR (CKD-EPI 2020) Glucose 95 Calcium Cancelled 8.6 Magnesium Cancelled 1.8 Total Bilirubin Cancelled AST ALT Alkaline Phosphatase Ammonia Creatine Kinase C-Reactive Protein Total Protein Albumin Lipase Procalcitonin TSH Free T4 Urine Color Urine Clarity Urine pH Ur Specific [place] Urine Protein Urine Ketones Urine Blood Urine Nitrite Urine Bilirubin Urine Urobilinogen Ur Leukocyte Esterase Urine RBC Urine WBC Ur Epithelial Cells Urine Crystals Urine Bacteria Urine Casts Urine Mucus Urine Other Ur Culture Indicated? Urine Glucose Ethyl Alcohol Patient ABO/Rh Antibody Screen 07/17/23 07/17/23 07/17/23 13:50 13:50 13:50 WBC RBC Hgb Hct MCV MCH MCHC RDW Plt Count MPV Immature Gran % Neutrophils % Lymphocytes % Monocytes % Eosinophils % Basophils % Nucleated RBC % Absolute Neutrophils Absolute Lymphocytes Absolute Monocytes Absolute Eosinophils Absolute Basophils ESR PT INR APTT Sodium Potassium Chloride Carbon Dioxide Anion Gap BUN Creatinine Est GFR (CKD-EPI 2020) Glucose Calcium Magnesium Total Bilirubin 5.3 H AST Cancelled 170 H ALT Cancelled 65 H Alkaline Phosphatase Cancelled Ammonia Creatine Kinase C-Reactive Protein Total Protein Albumin Lipase Procalcitonin TSH Free T4 Urine Color Urine Clarity Urine pH Ur Specific [place] Urine Protein Urine Ketones Urine Blood Urine Nitrite Urine Bilirubin Urine Urobilinogen Ur Leukocyte Esterase Urine RBC Urine WBC Ur Epithelial Cells Urine Crystals Urine Bacteria Urine Casts Urine Mucus Urine Other Ur Culture Indicated? Urine Glucose Ethyl Alcohol Patient ABO/Rh Antibody Screen 07/17/23 07/17/23 07/17/23 13:50 13:50 13:50 WBC RBC Hgb Hct MCV MCH MCHC RDW Plt Count MPV Immature Gran % Neutrophils % Lymphocytes % Monocytes % Eosinophils % Basophils % Nucleated RBC % Absolute Neutrophils Absolute Lymphocytes Absolute Monocytes Absolute Eosinophils Absolute Basophils ESR PT INR APTT Sodium Potassium Chloride Carbon Dioxide Anion Gap BUN Creatinine Est GFR (CKD-EPI 2020) Glucose Calcium Magnesium Total Bilirubin AST ALT Alkaline Phosphatase 517 H Ammonia Creatine Kinase C-Reactive Protein Total Protein Cancelled 7.1 Albumin Cancelled 1.9 L Lipase Cancelled Procalcitonin TSH Free T4 Urine Color Urine Clarity Urine pH Ur Specific [place] Urine Protein Urine Ketones Urine Blood Urine Nitrite Urine Bilirubin Urine Urobilinogen Ur Leukocyte Esterase Urine RBC Urine WBC Ur Epithelial Cells Urine Crystals Urine Bacteria Urine Casts Urine Mucus Urine Other Ur Culture Indicated? Urine Glucose Ethyl Alcohol Patient ABO/Rh Antibody Screen 07/17/23 07/17/23 07/17/23 13:50 13:50 13:50 WBC RBC Hgb Hct MCV MCH MCHC RDW Plt Count MPV Immature Gran % Neutrophils % Lymphocytes % Monocytes % Eosinophils % Basophils % Nucleated RBC % Absolute Neutrophils Absolute Lymphocytes Absolute Monocytes Absolute Eosinophils Absolute Basophils ESR PT INR APTT Sodium Potassium Chloride Carbon Dioxide Anion Gap BUN Creatinine Est GFR (CKD-EPI 2020) Glucose Calcium Magnesium Total Bilirubin AST ALT Alkaline Phosphatase Ammonia Creatine Kinase C-Reactive Protein Total Protein Albumin Lipase 24 Procalcitonin TSH Cancelled 4.13 H Free T4 1.62 H Urine Color Urine Clarity Urine pH Ur Specific [place] Urine Protein Urine Ketones Urine Blood Urine Nitrite Urine Bilirubin Urine Urobilinogen Ur Leukocyte Esterase Urine RBC Urine WBC Ur Epithelial Cells Urine Crystals Urine Bacteria Urine Casts Urine Mucus Urine Other Ur Culture Indicated? Urine Glucose Ethyl Alcohol Cancelled 74.2 H Patient ABO/Rh O Negative Antibody Screen NEGATIVE 07/17/23 07/17/23 07/17/23 14:15 14:35 19:00 WBC RBC Hgb Hct MCV MCH MCHC RDW Plt Count MPV Immature Gran % Neutrophils % Lymphocytes % Monocytes % Eosinophils % Basophils % Nucleated RBC % Absolute Neutrophils Absolute Lymphocytes Absolute Monocytes Absolute Eosinophils Absolute Basophils ESR PT 15.3 H INR 1.6 H APTT 34.2 H Sodium Potassium Chloride Carbon Dioxide Anion Gap BUN Creatinine Est GFR (CKD-EPI 2020) Glucose Calcium Magnesium Total Bilirubin AST ALT Alkaline Phosphatase Ammonia 27 Creatine Kinase 248 C-Reactive Protein Total Protein Albumin Lipase Procalcitonin TSH Free T4 Urine Color Brown Urine Clarity Clear Urine pH 5.5 Ur Specific [place] 1.020 Urine Protein 30 H Urine Ketones Trace H Urine Blood Negative Urine Nitrite Negative Urine Bilirubin Large H Urine Urobilinogen 4.0 H Ur Leukocyte Esterase Negative Urine RBC 0-2 Urine WBC 5-10 Ur Epithelial Cells Rare Urine Crystals Negative Urine Bacteria Negative Urine Casts 3-5 Hyaline Urine Mucus Moderate Urine Other Few Renal Ur Culture Indicated? No Urine Glucose 100 H Ethyl Alcohol Patient ABO/Rh Antibody Screen 07/17/23 21:47 WBC RBC Hgb Hct MCV MCH MCHC RDW Plt Count MPV Immature Gran % Neutrophils % Lymphocytes % Monocytes % Eosinophils % Basophils % Nucleated RBC % Absolute Neutrophils Absolute Lymphocytes Absolute Monocytes Absolute Eosinophils Absolute Basophils ESR 38 H PT INR APTT Sodium 128 L Potassium 4.4 D Chloride 92 L Carbon Dioxide 31.1 Anion Gap 4.9 BUN 17 Creatinine 1.3 Est GFR (CKD-EPI 2020) 65.69 Glucose 82 Calcium 8.0 L Magnesium Total Bilirubin AST ALT Alkaline Phosphatase Ammonia Creatine Kinase C-Reactive Protein 3.17 H Total Protein Albumin Lipase Procalcitonin 0.5 TSH Free T4 Urine Color Urine Clarity Urine pH Ur Specific [place] Urine Protein Urine Ketones Urine Blood Urine Nitrite Urine Bilirubin Urine Urobilinogen Ur Leukocyte Esterase Urine RBC Urine WBC Ur Epithelial Cells Urine Crystals Urine Bacteria Urine Casts Urine Mucus Urine Other Ur Culture Indicated? Urine Glucose Ethyl Alcohol Patient ABO/Rh Antibody Screen PAWSS Have you Been Recently Intoxicated or Drunk Within the Last 30 days?: Yes Have you Ever Experienced Previous Episodes of Alcohol Withdrawal?: Yes Have you ever Experienced Withdrawal Seizures?: No Have you ever Experienced Delirium Tremens(DT)s?: Yes Have you ever undergone Alcohol Rehabilitation Treatment (i.e, inpt ot outpatient treatment programs)?: No Have you ever Experienced Blackouts?: Yes Have you ever Combined Alcohol with other Downers within the last 90 days?: Unable to Obtain Have you ever Combined Alcohol with any other Substance of Abuse during the last 90 days?: No Positive Blood Alcohol level on Presentation? [PCS.BAL]: Yes Evidence of Increased Autonomic Activity (i.e. HR>120, tremor, sweating, agitation, nausea)?: No Result: 5 Time Spent with Patient Time Spent with Patient: 35-49 minutes Time was spent: preparing to see the patient(eg.review tests), obtaining and/or reviewing separately otained hiistory, ordering medications,tests, procedures, indepentently interpreting results, care coordination and other (Critical care time 40 minutes with high risk of decompensation and patient in ICU level of care.)
[2023-07-18] MEDS: CEFEPIME 2 GM in Normal Saline 100 ML IVPB (02:48)
[2023-07-18] MEDS: VANCOMYCIN 2,000 MG in Normal Saline 500 ML 250 MG IVPB (03:23)
[2023-07-18] MEDS: Normal Saline Flush 10 ML SYR IVP ×2 (05:40→20:41)
[2023-07-18 06:55] LABS: HCT 23.8 % (40.0-50.0); HGB 8.3 g/dL (13.5-17.5); MCH 32.5 pg (27.0-33.0); MCHC 34.9 % (32.0-36.0); MCV 93 fL (80-95); MPV 9.8 fL (8.0-11.0); Platelet Count 122 10^3/uL (130-400); RBC 2.55 10^6/uL (4.36-5.78); RDW 17.4 % (11.8-14.1); RDW-SD 58.9 fL; WBC 9.15 10^3/uL (4.4-10.8)
[2023-07-18] MEDS: DEXTROSE 5%-0.9% SALINE 1,000 ML 125 ML IV ×2 (07:09→14:52)
[2023-07-18 07:13] LABS: ALT 42 U/L (16-63); AST 129 U/L (15-37); Albumin 1.4 g/dL (3.4-5.0); Alkaline Phosphatase 383 U/L (46-116); Anion Gap 4.6 mmol/L (3-11); BUN 16 mg/dL (7-18); Bilirubin, Total 6.3 mg/dL (0.2-1.0); CO2 30.4 mmol/L (21.0-32.0); CREATININE 1.1 mg/dL (0.70-1.30); Calcium 7.7 mg/dL (8.5-10.1); Chloride 96 mmol/L (98-107); Estimated GFR 80.27 (mL/min/1.73m2); Glucose 114 mg/dL (74-106); Sodium 131 mmol/L (136-145); Total Protein 5.7 g/dL (6.4-8.2)
[2023-07-18 07:14] LABS: Magnesium 1.5 mg/dL (1.8-2.4)
--- NOTE | 2023-07-18 08:24 | NUR.NOTE ---
Before transferring from bed to commode, RN places yellow xxxlarge socks on patient.Nursing Note:
[2023-07-18] MEDS: Spironolactone 25 MG TAB PO (08:32)
--- NOTE | 2023-07-18 08:56 | INITIAL_ITS ---
Date of service: 07/18/23 Time of Service: 08:56 Care Management Initial Assmt Initial Assessment REASON FOR HOSPITALIZATION:: ETOH withdrawal PREVIOUS FUNCTIONAL STATUS/SOCIAL/FAMILY SUPPORTS:: Marito lives alone in a single family home in [place], [place]. He has one child, a son named Ryder, who lives a couple of hours away. Marito stated he does not have any close relatives in the area but does have some good friends who are helpful and supportive. Marito receives SSDI but he is independent and does not receive any community services. 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 CURRENT FUNCTIONAL STATUS:: Marito was lying in bed when CM met with him. He was sleepy and needed cues to re-engage in conversation. Marito agreed to speak to a Animal Assisted Therapist and CM made the referral. Tanika from [facility] came to see him this afternoon and Marito has agreed to follow up with her. Marito also asked CM for assistance with advanced directives. When CM returned to Marito's room to provide the [place] AD forms, 2 women were visiting and verbalized their intention to help him with the process. ADVANCE DIRECTIVES:: On file. Ryder TORRES Has patient been provided with info about the portal/API?: Yes Did the patient sign up for the portal?: Yes CODE STATUS:: DNR/DNI INSURANCE COVERAGE / FINANCIAL ISSUES:: Medicare Medicaid CURRENT HOME/COMMUNITY SERVICES/EQUIPMENT:: Animal Assisted Therapist PRIMARY CARE PHYSICIAN:: Paige Chen POTENTIAL DISCHARGE NEEDS:: follow up with PCP and plan of care PATIENT/FAMILY EDUCATION NEEDS:: Discharge instructions, activity, diet, follow up plan, discuss [employer] Me [employer] TRANSPORTATION:: via private vehicle with family PLAN:: Anticipate Marito will be discharged home with no new services. He will follow up with his Animal Assisted Therapist, PCP and plan of care and transport with family. CM will follow and continue to assess for discharge needs, PFSH All Active Problems (Updated 07/18/23 @ 09:24 by Geraldo Hernandez MD) Acute respiratory failure with hypoxia (Acute) Cellulitis and abscess of foot (Acute) Hyponatremia (Acute) Alcohol withdrawal (Acute) Alcoholic hepatitis (Acute) Coagulopathy (Acute) Colitis (Acute) Duodenitis (Acute) Acute on chronic anemia (Acute) Acute pancreatitis (Acute) Cirrhosis of liver (Chronic) Anemia (Chronic) Dural sinus malformation (Acute) Bilateral sacroiliitis (Acute) Neuropathic pain of left forearm (Acute) Coccydynia (Acute) Cervical radiculopathy (Acute) Anterior cerebral aneurysm (Acute) Hyponatremia (Acute) Hypokalemia (Acute) Hypomagnesemia (Acute) Bilateral hearing loss (Acute) Screening for colon cancer (Acute) Cubital tunnel syndrome on left (Acute) Left carpal tunnel syndrome (Acute) Multiple lipomas (Acute) CRPS (complex regional pain syndrome), type II, upper (Acute) Right carpal tunnel syndrome (Acute) Cubital tunnel syndrome on right (Acute) Medical History Hypertension Aneurysm ACOM aneurysm clipping/DSA Anemia Tubular adenoma of colon Elevated blood lead level Foraminal stenosis of cervical region Chronic sinusitis Chronic pain Marital problem Lumbar back pain Thoracic back pain Snoring Back pain Exposure to lead Fatigue Chest wall pain Arm pain, right Chronic low back pain [place] Soft tissue swelling Greater trochanteric bursitis of left hip (09/04/15) Left buttock pain (11/07/14) Low back pain (11/07/14) Paresthesias in left hand (06/28/14) Deviated septum Polyarthralgia Tobacco abuse MVP (mitral valve prolapse) Per pt. states he does not see a heliotherapist, states I believe I grew out of that Peripheral cyanosis Raynauds disease Elevated LFTs ETOH abuse Steatosis of liver ISADORA (obstructive sleep apnea) Neuropathy PONV (postoperative nausea and vomiting) Pt c/o post nasal drip causing nausea and vomiting routinely Foreign body in left upper extremity (01/11/20) s/p excision of foreign bodies Infrapatellar bursitis of right knee (01/11/20) s/p bursa excision Synovial cyst of popliteal space [Lopez], right knee Foreign body in right ear Tinnitus of both ears Asymmetrical sensorineural hearing loss Paraesthesia left 4-5th finger (05/29/06) Heart murmur per pt. this was an incorrect dx Lopez's cyst, rt knee Surgical History H/O craniotomy 09/2021 History of colonoscopy (~03/2021) Status post transposition of nerve left elbow Aftercare involving removal of fracture plate or internal fixation device left arm History of carpal tunnel release right History of arthroscopy of right knee 2001, diagnostic Right Popliteal cyst resection (07/25/03) Family History Mother , [place] at age 74. Heart disease Father No problems noted. Social History Smoking/Tobacco Use Status: Current every day Tobacco Type: cigarettes Years smoked: 42 Smoking risk assessment performed?: Yes Alcohol Intake: current Alcohol Intake frequency: 3 or more drinks per day Alcohol type: hard liquor Drug use: Occasionally Substance use type: does not use Details: alcohol t-1 a couple Household members: none Housing: house Number of Children: 1 current occupation: N/A Current gender identity: male What type of physical activity do you participate in: walking and independent ambulation Seatbelt use: sometimes Do you feel safe at home: Yes Additional Social history: lives by himself SDOH(Care Management) Screening Will the Patient Participate in the Screening?: Yes Do you worry about having a steady place to live?: no Problems where you live: no known problems In the past 12 months, have you had to go without electric, gas, oil or water in your home?: no Have you or anyone in your house had to go without enough food to eat?: no Has lack of transportation kept you from medical appointments or from doing things needed for daily living?: no Has anyone in your support network made you feel unsafe for any reason?: no Social Determinants of Health Comments(SDOH Details): would like help with meals and appointments
[2023-07-18] MEDS: MULTIVITAMIN 10 ML, THIAMINE 100 MG, FOLIC ACID 1 MG in DEXTROSE 5%-0.45% SALINE 1,000 ML 42 ML IV (09:03)
--- NOTE | 2023-07-18 09:10 | NUR.NOTE ---
Patient is set up with some chinese toast and orange juice and begins feeding himself.Nursing Note:
--- NOTE | 2023-07-18 09:21 | PGE_ITS ---
Date of Service Date of service: 07/18/23 Time of Service: 09:22 Assessment and Plan Assessment and plan (1) Alcohol withdrawal: Status: Acute Assessment and plan: - Patient presented for frequent falls and confusion however this was determined to be due to alcohol withdrawal -Initial CIWA in the emergency department 18 -Was given 1 dose of IV phenobarbital in the emergency department and remainder of loading dose upon arrival to the ICU -Has not needed any additional as needed of phenobarbital doses -Will remain in the ICU in the event that he requires as needed IV phenobarbital -s/p banana bag at this time Qualifiers: Complication of substance-induced condition: with delirium Qualified Code(s): F10.931 - Alcohol use, unspecified with withdrawal delirium (2) Aspiration pneumonia: Status: Suspected Assessment and plan: - Patient developed hypoxia overnight with SpO2 less than 92% -Currently on 2 L nasal cannula to maintain oxygen saturation greater than 92% -Patient does have coarse breath sounds in bilateral lower bases -Was reportedly down for unknown period of time prior to arrival to the emergency department -New oxygen requirement, in combination with elevated procalcitonin is suspicious for aspiration pneumonitis/pneumonia -Ordering chest x-ray for further evaluation -Antibiotics have been changed to vancomycin and Merrem; will discontinue vancomycin if MRSA swab is negative Qualifiers: Aspiration pneumonia type: unspecified Laterality: unspecified laterality Lung location: unspecified part of lung Qualified Code(s): J69.0 - Pneumonitis due to inhalation of food and vomit (3) Acute respiratory failure with hypoxia: Status: Acute Assessment and plan: - As noted above -Continue supplemental oxygen and wean as tolerated with goal oxygen saturation greater than 92 (4) Cirrhosis of liver: Status: Chronic Assessment and plan: - History of, secondary to alcohol use disorder -INR 1.6, albumin 1.9, total bili 5.3 -Will continue to monitor/trend above labs -Maddrey's 24.6 indicating good prognosis Qualifiers: Hepatic cirrhosis type: alcoholic cirrhosis Ascites presence: without ascites Qualified Code(s): K70.30 - Alcoholic cirrhosis of liver without ascites (5) Alcoholic hepatitis: Status: Acute Assessment and plan: - As noted above Qualifiers: Ascites presence: without ascites Qualified Code(s): K70.10 - Alcoholic hepatitis without ascites (6) Hyponatremia: Status: Acute Assessment and plan: - Secondary to alcohol use, alcohol withdrawal as noted above -Will give IV fluids and recheck sodium with a.m. labs Subjective Subjective Interval history since last seen: Patient states that he is feeling better today, and is not experiencing any withdrawal symptoms. However, he understands that we are investigating his new hypoxic respiratory failure and oxygen requirement that is likely due to a pneumonia. Otherwise he has no other complaints or concerns at this time Exam Narrative Exam Narrative: Fatigued appearing gentleman laying in bed in no acute distress, nonbleeding laceration over right eyebrow, ANO x 4, heart regular rhythm, coarse breath sounds in bilateral, abdomen soft, nontender, nondistended Objective Last Vital Signs Temp 99.0 F 07/18/23 08:06 Pulse 99 H 07/18/23 08:06 Resp 16 07/18/23 08:06 BP 105/60 07/18/23 08:06 Pulse Ox 91 L 07/18/23 08:06 Laboratory Results - last 24 hr 07/17/23 07/17/23 07/17/23 13:50 13:50 13:50 WBC 14.80 H RBC 3.37 L Hgb 11.0 L Hct 31.6 L MCV 94 MCH 32.6 MCHC 34.8 RDW 16.5 H Plt Count 199 MPV 9.2 Immature Gran % 0.5 Neutrophils % 81.8 Lymphocytes % 10.8 Monocytes % 5.8 Eosinophils % 0.6 Basophils % 0.5 Nucleated RBC % 0.0 Absolute Neutrophils 12.11 H Absolute Lymphocytes 1.60 Absolute Monocytes 0.86 H Absolute Eosinophils 0.09 Absolute Basophils 0.07 ESR PT Cancelled INR Cancelled APTT Sodium Cancelled 128 L Potassium Cancelled 3.3 L Chloride Cancelled Carbon Dioxide Anion Gap BUN Creatinine Est GFR (CKD-EPI 2020) Glucose Calcium Magnesium Total Bilirubin AST ALT Alkaline Phosphatase Ammonia Creatine Kinase C-Reactive Protein Total Protein Albumin Lipase Procalcitonin TSH Free T4 Urine Color Urine Clarity Urine pH Ur Specific [place] Urine Protein Urine Ketones Urine Blood Urine Nitrite Urine Bilirubin Urine Urobilinogen Ur Leukocyte Esterase Urine RBC Urine WBC Ur Epithelial Cells Urine Crystals Urine Bacteria Urine Casts Urine Mucus Urine Other Ur Culture Indicated? Urine Glucose Ethyl Alcohol Patient ABO/Rh Antibody Screen 07/17/23 07/17/23 07/17/23 13:50 13:50 13:50 WBC RBC Hgb Hct MCV MCH MCHC RDW Plt Count MPV Immature Gran % Neutrophils % Lymphocytes % Monocytes % Eosinophils % Basophils % Nucleated RBC % Absolute Neutrophils Absolute Lymphocytes Absolute Monocytes Absolute Eosinophils Absolute Basophils ESR PT INR APTT Sodium Potassium Chloride 88 L Carbon Dioxide Cancelled 30.3 Anion Gap Cancelled 9.7 BUN Cancelled Creatinine Est GFR (CKD-EPI 2020) Glucose Calcium Magnesium Total Bilirubin AST ALT Alkaline Phosphatase Ammonia Creatine Kinase C-Reactive Protein Total Protein Albumin Lipase Procalcitonin TSH Free T4 Urine Color Urine Clarity Urine pH Ur Specific [place] Urine Protein Urine Ketones Urine Blood Urine Nitrite Urine Bilirubin Urine Urobilinogen Ur Leukocyte Esterase Urine RBC Urine WBC Ur Epithelial Cells Urine Crystals Urine Bacteria Urine Casts Urine Mucus Urine Other Ur Culture Indicated? Urine Glucose Ethyl Alcohol Patient ABO/Rh Antibody Screen 07/17/23 07/17/23 07/17/23 13:50 13:50 13:50 WBC RBC Hgb Hct MCV MCH MCHC RDW Plt Count MPV Immature Gran % Neutrophils % Lymphocytes % Monocytes % Eosinophils % Basophils % Nucleated RBC % Absolute Neutrophils Absolute Lymphocytes Absolute Monocytes Absolute Eosinophils Absolute Basophils ESR PT INR APTT Sodium Potassium Chloride Carbon Dioxide Anion Gap BUN 16 Creatinine Cancelled 1.4 H Est GFR (CKD-EPI 2020) Cancelled 60.10 Glucose Cancelled Calcium Magnesium Total Bilirubin AST ALT Alkaline Phosphatase Ammonia Creatine Kinase C-Reactive Protein Total Protein Albumin Lipase Procalcitonin TSH Free T4 Urine Color Urine Clarity Urine pH Ur Specific [place] Urine Protein Urine Ketones Urine Blood Urine Nitrite Urine Bilirubin Urine Urobilinogen Ur Leukocyte Esterase Urine RBC Urine WBC Ur Epithelial Cells Urine Crystals Urine Bacteria Urine Casts Urine Mucus Urine Other Ur Culture Indicated? Urine Glucose Ethyl Alcohol Patient ABO/Rh Antibody Screen 07/17/23 07/17/23 07/17/23 13:50 13:50 13:50 WBC RBC Hgb Hct MCV MCH MCHC RDW Plt Count MPV Immature Gran % Neutrophils % Lymphocytes % Monocytes % Eosinophils % Basophils % Nucleated RBC % Absolute Neutrophils Absolute Lymphocytes Absolute Monocytes Absolute Eosinophils Absolute Basophils ESR PT INR APTT Sodium Potassium Chloride Carbon Dioxide Anion Gap BUN Creatinine Est GFR (CKD-EPI 2020) Glucose 95 Calcium Cancelled 8.6 Magnesium Cancelled 1.8 Total Bilirubin Cancelled AST ALT Alkaline Phosphatase Ammonia Creatine Kinase C-Reactive Protein Total Protein Albumin Lipase Procalcitonin TSH Free T4 Urine Color Urine Clarity Urine pH Ur Specific [place] Urine Protein Urine Ketones Urine Blood Urine Nitrite Urine Bilirubin Urine Urobilinogen Ur Leukocyte Esterase Urine RBC Urine WBC Ur Epithelial Cells Urine Crystals Urine Bacteria Urine Casts Urine Mucus Urine Other Ur Culture Indicated? Urine Glucose Ethyl Alcohol Patient ABO/Rh Antibody Screen 07/17/23 07/17/23 07/17/23 13:50 13:50 13:50 WBC RBC Hgb Hct MCV MCH MCHC RDW Plt Count MPV Immature Gran % Neutrophils % Lymphocytes % Monocytes % Eosinophils % Basophils % Nucleated RBC % Absolute Neutrophils Absolute Lymphocytes Absolute Monocytes Absolute Eosinophils Absolute Basophils ESR PT INR APTT Sodium Potassium Chloride Carbon Dioxide Anion Gap BUN Creatinine Est GFR (CKD-EPI 2020) Glucose Calcium Magnesium Total Bilirubin 5.3 H AST Cancelled 170 H ALT Cancelled 65 H Alkaline Phosphatase Cancelled Ammonia Creatine Kinase C-Reactive Protein Total Protein Albumin Lipase Procalcitonin TSH Free T4 Urine Color Urine Clarity Urine pH Ur Specific [place] Urine Protein Urine Ketones Urine Blood Urine Nitrite Urine Bilirubin Urine Urobilinogen Ur Leukocyte Esterase Urine RBC Urine WBC Ur Epithelial Cells Urine Crystals Urine Bacteria Urine Casts Urine Mucus Urine Other Ur Culture Indicated? Urine Glucose Ethyl Alcohol Patient ABO/Rh Antibody Screen 07/17/23 07/17/23 07/17/23 13:50 13:50 13:50 WBC RBC Hgb Hct MCV MCH MCHC RDW Plt Count MPV Immature Gran % Neutrophils % Lymphocytes % Monocytes % Eosinophils % Basophils % Nucleated RBC % Absolute Neutrophils Absolute Lymphocytes Absolute Monocytes Absolute Eosinophils Absolute Basophils ESR PT INR APTT Sodium Potassium Chloride Carbon Dioxide Anion Gap BUN Creatinine Est GFR (CKD-EPI 2020) Glucose Calcium Magnesium Total Bilirubin AST ALT Alkaline Phosphatase 517 H Ammonia Creatine Kinase C-Reactive Protein Total Protein Cancelled 7.1 Albumin Cancelled 1.9 L Lipase Cancelled Procalcitonin TSH Free T4 Urine Color Urine Clarity Urine pH Ur Specific [place] Urine Protein Urine Ketones Urine Blood Urine Nitrite Urine Bilirubin Urine Urobilinogen Ur Leukocyte Esterase Urine RBC Urine WBC Ur Epithelial Cells Urine Crystals Urine Bacteria Urine Casts Urine Mucus Urine Other Ur Culture Indicated? Urine Glucose Ethyl Alcohol Patient ABO/Rh Antibody Screen 07/17/23 07/17/23 07/17/23 13:50 13:50 13:50 WBC RBC Hgb Hct MCV MCH MCHC RDW Plt Count MPV Immature Gran % Neutrophils % Lymphocytes % Monocytes % Eosinophils % Basophils % Nucleated RBC % Absolute Neutrophils Absolute Lymphocytes Absolute Monocytes Absolute Eosinophils Absolute Basophils ESR PT INR APTT Sodium Potassium Chloride Carbon Dioxide Anion Gap BUN Creatinine Est GFR (CKD-EPI 2020) Glucose Calcium Magnesium Total Bilirubin AST ALT Alkaline Phosphatase Ammonia Creatine Kinase C-Reactive Protein Total Protein Albumin Lipase 24 Procalcitonin TSH Cancelled 4.13 H Free T4 1.62 H Urine Color Urine Clarity Urine pH Ur Specific [place] Urine Protein Urine Ketones Urine Blood Urine Nitrite Urine Bilirubin Urine Urobilinogen Ur Leukocyte Esterase Urine RBC Urine WBC Ur Epithelial Cells Urine Crystals Urine Bacteria Urine Casts Urine Mucus Urine Other Ur Culture Indicated? Urine Glucose Ethyl Alcohol Cancelled 74.2 H Patient ABO/Rh O Negative Antibody Screen NEGATIVE 07/17/23 07/17/23 07/17/23 14:15 14:35 19:00 WBC RBC Hgb Hct MCV MCH MCHC RDW Plt Count MPV Immature Gran % Neutrophils % Lymphocytes % Monocytes % Eosinophils % Basophils % Nucleated RBC % Absolute Neutrophils Absolute Lymphocytes Absolute Monocytes Absolute Eosinophils Absolute Basophils ESR PT 15.3 H INR 1.6 H APTT 34.2 H Sodium Potassium Chloride Carbon Dioxide Anion Gap BUN Creatinine Est GFR (CKD-EPI 2020) Glucose Calcium Magnesium Total Bilirubin AST ALT Alkaline Phosphatase Ammonia 27 Creatine Kinase 248 C-Reactive Protein Total Protein Albumin Lipase Procalcitonin TSH Free T4 Urine Color Brown Urine Clarity Clear Urine pH 5.5 Ur Specific [place] 1.020 Urine Protein 30 H Urine Ketones Trace H Urine Blood Negative Urine Nitrite Negative Urine Bilirubin Large H Urine Urobilinogen 4.0 H Ur Leukocyte Esterase Negative Urine RBC 0-2 Urine WBC 5-10 Ur Epithelial Cells Rare Urine Crystals Negative Urine Bacteria Negative Urine Casts 3-5 Hyaline Urine Mucus Moderate Urine Other Few Renal Ur Culture Indicated? No Urine Glucose 100 H Ethyl Alcohol Patient ABO/Rh Antibody Screen 07/17/23 07/18/23 21:47 05:40 WBC 9.15 RBC 2.55 L Hgb 8.3 L D Hct 23.8 L MCV 93 MCH 32.5 MCHC 34.9 RDW 17.4 H Plt Count 122 L MPV 9.8 Immature Gran % Neutrophils % Lymphocytes % Monocytes % Eosinophils % Basophils % Nucleated RBC % Absolute Neutrophils Absolute Lymphocytes Absolute Monocytes Absolute Eosinophils Absolute Basophils ESR 38 H PT INR APTT Sodium 128 L 131 L Potassium 4.4 D 4.0 Chloride 92 L 96 L Carbon Dioxide 31.1 30.4 Anion Gap 4.9 4.6 BUN 17 16 Creatinine 1.3 1.1 Est GFR (CKD-EPI 2020) 65.69 80.27 Glucose 82 114 H Calcium 8.0 L 7.7 L Magnesium 1.5 L Total Bilirubin 6.3 H AST 129 H ALT 42 Alkaline Phosphatase 383 H Ammonia Creatine Kinase C-Reactive Protein 3.17 H Total Protein 5.7 L Albumin 1.4 L Lipase Procalcitonin 0.5 TSH Free T4 Urine Color Urine Clarity Urine pH Ur Specific [place] Urine Protein Urine Ketones Urine Blood Urine Nitrite Urine Bilirubin Urine Urobilinogen Ur Leukocyte Esterase Urine RBC Urine WBC Ur Epithelial Cells Urine Crystals Urine Bacteria Urine Casts Urine Mucus Urine Other Ur Culture Indicated? Urine Glucose Ethyl Alcohol Patient ABO/Rh Antibody Screen PAWSS Have you Been Recently Intoxicated or Drunk Within the Last 30 days?: Yes Have you Ever Experienced Previous Episodes of Alcohol Withdrawal?: Yes Have you ever Experienced Withdrawal Seizures?: No Have you ever Experienced Delirium Tremens(DT)s?: Yes Have you ever undergone Alcohol Rehabilitation Treatment (i.e, inpt ot outpatient treatment programs)?: No Have you ever Experienced Blackouts?: Yes Have you ever Combined Alcohol with other Downers within the last 90 days?: Unable to Obtain Have you ever Combined Alcohol with any other Substance of Abuse during the last 90 days?: No Positive Blood Alcohol level on Presentation? [PCS.BAL]: Yes Evidence of Increased Autonomic Activity (i.e. HR>120, tremor, sweating, agitation, nausea)?: No Result: 5 Time Spent with Patient Time Spent with Patient: >50 minutes Time was spent: preparing to see the patient(eg.review tests), obtaining and/or reviewing separately otained hiistory, ordering medications,tests, procedures, referring, communicating with other health animal care worker, indepentently interpreting results, counseling the patient and care coordination
--- NOTE | 2023-07-18 10:17 | NUR.NOTE ---
RN calls pharmacy to have Meropenem delivered. Same will be brought to ICU momentarily.Nursing Note:
--- NOTE | 2023-07-18 10:18 | NUR.NOTE ---
Chest x-ray is taken in room.Nursing Note:
[2023-07-18] MEDS: MEROPENEM 1 GM in Normal Saline 100 ML IVPB ×2 (10:28→18:22)
--- NOTE | 2023-07-18 10:38 | DI.RAD_ITS ---
Exam(s) XR PORTABLE CHEST AP EXAM: XR PORTABLE CHEST AP CLINICAL HISTORY: new hypoxia TECHNIQUE: 2D digital imaging was performed of the chest. One image was obtained. An AP view was ob tained. COMPARISON: CR XR PORTABLE CHEST AP from 07/17/2023 FINDINGS: MEDIASTINUM: Normal. HEART: Normal. PULMONARY VASCULATURE: Normal. LUNGS: Clear. PLEURAL SPACE: No pleural effusion or pneumothorax. BONE:Within normal limits for the patient's age. OTHER FINDINGS:Normal. IMPRESSION: No acute pulmonary findings. DATA REPOSITORY: RADIATION DOSE DELIVERED:
--- NOTE | 2023-07-18 10:43 | DI.VRAD_ITS ---
PROCEDURE INFORMATION: Exam: XR Chest Exam date and time: 07/18/2023 10:18 AM Age: 53 years old Clinical indication: Other: New hypoxia TECHNIQUE: Imaging protocol: Radiologic exam of the chest. Views: 1 view. COMPARISON: CR XR PORTABLE CHEST AP 07/17/2023 3:04 PM FINDINGS: Lungs: Unremarkable. No consolidation. Pleural spaces: Unremarkable. No pleural effusion. No pneumothorax. Heart/Mediastinum: Unremarkable. No cardiomegaly. Bones/joints: There is mild degenerative disease of bilateral acromioclavicular joints. IMPRESSION: No acute cardiopulmonary process. Dictated and Authenticated by: Marito Orozco MD. Ordering:ARIELLA Chow MD
[2023-07-18 11:49] LABS: MRSA PCR Negative (Negative)
--- NOTE | 2023-07-18 12:54 | NUR.NOTE ---
Patient sleeping quietly. Vital signs are stable.Nursing Note:
--- NOTE | 2023-07-18 13:50 | NUR.NOTE ---
Case Management interviews patient.Nursing Note:
[2023-07-18] MEDS: Enoxaparin 40 MG/0.4 ML SYR SC (15:36)
[2023-07-18] MEDS: Magnesium Lactate-SR 84 MG TABCR PO (15:36)
[2023-07-18 18:44] LABS: Vancomycin, Random 16.8 ug/mL
[2023-07-18] MEDS: MAGNESIUM SULFATE 1 GM/100 ML BAG IVPB (20:43)
[2023-07-19] VITALS (18 sets, daily range): BP systolic 99–131; BP diastolic 70–86; PULSE 72–110; RESP 14–29; TEMP 36.9–37.2; O2SAT 92–99
[2023-07-19] MEDS: DEXTROSE 5%-0.9% SALINE 1,000 ML 125 ML IV (00:37)
[2023-07-19] MEDS: Normal Saline Flush 10 ML SYR IVP ×3 (02:04→19:22)
[2023-07-19] MEDS: MEROPENEM 1 GM in Normal Saline 100 ML IVPB (02:06)
[2023-07-19] MEDS: VANCOMYCIN/WATER (PEG) 1.5 GM/300 ML BAG IV (03:39)
[2023-07-19 06:49] LABS: HCT 25.2 % (40.0-50.0); HGB 8.5 g/dL (13.5-17.5); MCH 32.3 pg (27.0-33.0); MCHC 33.7 % (32.0-36.0); MCV 96 fL (80-95); MPV 9.8 fL (8.0-11.0); Platelet Count 118 10^3/uL (130-400); RBC 2.63 10^6/uL (4.36-5.78); RDW 17.5 % (11.8-14.1); WBC 8.71 10^3/uL (4.4-10.8)
[2023-07-19 07:07] LABS: Anion Gap 7.4 mmol/L (3-11); BUN 14 mg/dL (7-18); CO2 27.6 mmol/L (21.0-32.0); CREATININE 1.1 mg/dL (0.70-1.30); Calcium 7.6 mg/dL (8.5-10.1); Chloride 97 mmol/L (98-107); Estimated GFR 80.27 (mL/min/1.73m2); Glucose 116 mg/dL (74-106); Potassium 3.6 mmol/L (3.5-5.1); Sodium 132 mmol/L (136-145)
[2023-07-19] MEDS: Magnesium Lactate-SR 84 MG TABCR PO (08:30)
[2023-07-19] MEDS: Spironolactone 25 MG TAB PO (08:30)
[2023-07-19] MEDS: Acetaminophen 325 MG TAB PO (08:58)
--- NOTE | 2023-07-19 09:19 | W.PM.PROGNOT ---
Date of Service Date of service: 07/19/23 Time of Service: 09:35 Assessment and Plan Assessment and plan (1) Alcohol withdrawal: Status: Acute Assessment and plan: - Patient presented for frequent falls and confusion however this was determined to be due to alcohol withdrawal -Initial CIWA in the emergency department 18 -Was given 1 dose of IV phenobarbital in the emergency department and remainder of loading dose upon arrival to the ICU -Has not needed any additional as needed of phenobarbital doses -Has not needed additional phenobarb doses, will be transferred to Qualifiers: Complication of substance-induced condition: with delirium Qualified Code(s): F10.931 - Alcohol use, unspecified with withdrawal delirium (2) Aspiration pneumonia: Status: Suspected Assessment and plan: - Patient developed hypoxia overnight with SpO2 less than 92% -Currently on 2 L nasal cannula to maintain oxygen saturation greater than 92% -Patient does have coarse breath sounds in bilateral lower bases -Was reportedly down for unknown period of time prior to arrival to the emergency department -New oxygen requirement, in combination with elevated procalcitonin is suspicious for aspiration pneumonitis/pneumonia -X-ray did not show any focal consolidations, though this may still be aspiration -Antibiotics have been changed to vancomycin and Merrem -MRSA negative, Vanco discontinued -Patient now on room air -Will de-escalate from meropenem to Qualifiers: Aspiration pneumonia type: unspecified Laterality: unspecified laterality Lung location: unspecified part of lung Qualified Code(s): J69.0 - Pneumonitis due to inhalation of food and vomit (3) Acute respiratory failure with hypoxia: Status: Acute Assessment and plan: - As noted above, now on -Continue supplemental oxygen and wean as tolerated with goal oxygen saturation greater than 92 (4) Cirrhosis of liver: Status: Chronic Assessment and plan: - History of, secondary to alcohol use disorder -INR 1.6, albumin 1.9, total bili 5.3 -Will continue to monitor/trend above labs -Maddrey's 24.6 indicating good prognosis Qualifiers: Hepatic cirrhosis type: alcoholic cirrhosis Ascites presence: without ascites Qualified Code(s): K70.30 - Alcoholic cirrhosis of liver without ascites (5) Alcoholic hepatitis: Status: Acute Assessment and plan: - As noted above Qualifiers: Ascites presence: without ascites Qualified Code(s): K70.10 - Alcoholic hepatitis without ascites (6) Hyponatremia: Status: Acute Assessment and plan: - Secondary to alcohol use, alcohol withdrawal as noted above -Will give IV fluids and recheck sodium with a.m. labs Subjective Subjective Interval history since last seen: Patient states that he is feeling better but he is still unsteady on his feet. He understands he will work with physical therapy today. Otherwise has no other complaints concerns Exam Narrative Exam Narrative: Fatigued appearing gentleman laying in bed in no acute distress, nonbleeding laceration over right eyebrow, ANO x 4, heart regular rhythm, coarse breath sounds in bilateral, abdomen soft, nontender, nondistended Objective Last Vital Signs Temp 98.8 F 07/19/23 08:46 Pulse 102 H 07/19/23 08:46 Resp 19 07/19/23 08:01 BP 117/86 07/19/23 08:01 Pulse Ox 95 07/19/23 07:36 Laboratory Results - last 24 hr 07/18/23 07/18/23 07/19/23 10:00 18:06 05:35 WBC 8.71 RBC 2.63 L Hgb 8.5 L Hct 25.2 L MCV 96 H MCH 32.3 MCHC 33.7 RDW 17.5 H Plt Count 118 L MPV 9.8 Sodium 132 L Potassium 3.6 Chloride 97 L Carbon Dioxide 27.6 Anion Gap 7.4 BUN 14 Creatinine 1.1 Est GFR (CKD-EPI 2020) 80.27 Glucose 116 H Calcium 7.6 L Random Vancomycin 16.8 MRSA (TEM-PCR) Negative PAWSS Have you Been Recently Intoxicated or Drunk Within the Last 30 days?: Yes Have you Ever Experienced Previous Episodes of Alcohol Withdrawal?: Yes Have you ever Experienced Withdrawal Seizures?: No Have you ever Experienced Delirium Tremens(DT)s?: Yes Have you ever undergone Alcohol Rehabilitation Treatment (i.e, inpt ot outpatient treatment programs)?: No Have you ever Experienced Blackouts?: Yes Have you ever Combined Alcohol with other Downers within the last 90 days?: Unable to Obtain Have you ever Combined Alcohol with any other Substance of Abuse during the last 90 days?: No Positive Blood Alcohol level on Presentation? [PCS.BAL]: Yes Evidence of Increased Autonomic Activity (i.e. HR>120, tremor, sweating, agitation, nausea)?: No Result: 5 Time Spent with Patient Time Spent with Patient: >50 minutes Time was spent: preparing to see the patient(eg.review tests), obtaining and/or reviewing separately otained hiistory, ordering medications,tests, procedures, referring, communicating with other health intensive care unit registered nurse, indepentently interpreting results, counseling the patient and care coordination
[2023-07-19 10:17] LABS: Magnesium 1.7 mg/dL (1.8-2.4)
--- NOTE | 2023-07-19 12:52 | IN_ITS ---
PT Notes Visit Reasons: Alcohol Withdrawal Inpatient Physical Therapy Evaluation Date: Referring Doctor: Dr. Hernandez PT Orders: PT CONSULT: limited ability to ambulate Precautions: fall, standard Patient Profile/Admitting Diagnosis: 53-year-old male with a past medical histo ry alcoholic cirrhosis, alcohol use disorder, and anemia who presented to emergency department 07/17/23 with frequent falls, confusion and headache. Admitted to ICU for medical management of EtOH withdrawal. Social History/Home Situation: Patient's sister is present at time of consultation. She reports that patient lives in a single level home with single step to enter. He normally ambulates with FWW or cane. Reports h/o multiple falls. Equipment Owned/DME: FWW, cane Subjective: Marito is agreeable to getting up. States that he hasn't tried walking yet, but feels okay about it. He reports that he's at his baseline level of pain, about 5-6/10. Reports this is in his elbows, back and knees. Objective: General Observation: Resting in bed, no lines. Bruising noted throughout right temporal area. Mental Status: Alert. Very RAMPART. Able to follow single step commands. Pain: 5-6/10, which he reports is his baseline. ROM: Right Upper Extremity: WFL Left Upper Extremity: WFL Right Lower Extremity: WFL Left Lower Extremity: WFL Strength: Right Upper Extremity: Shoulder flexion 4-/5. Biceps 4/5. Triceps 4-/5. Associate Merchant is strong and equal. Left Upper Extremity: Shoulder flexion 4-/5. Biceps 4/5. Triceps 4-/5. Associate Merchant is strong and equal. Right Lower Extremity: Hip flexion 4/5. Quads 4/5. HS 4/5. Ankle DF 4+/5. Left Lower Extremity: Hip flexion 4/5. Quads 4/5. HS 4/5. Ankle DF 4+/5. Coordination: impaired with alternating toe tapping Fine Motor: slow, inaccurate movement with thumb to digit tapping Bed Mobility/Transfers: supine-sit: SBA, with cues. Increased time to perform. sit-stand: mod A initially. With bed elevated, able to perform with CGA. stand-sit: SBA with max cues for equipment management Gait: Ambulates 6' with FWW, CGA. Requires cues for equipment management and safety throughout. Balance: Static Sitting: fair Dynamic Sitting: fair Static Standing: fair Dynamic Standing: fair Special Tests: Mobility Limitations Standardized Measure [facility] AM-PAC 6 clicks Basic Mobility Inpatient Short Form: Raw Score: 19 CMS Score: 42% impairment Informed Consent/Education: Patient instructed in purpose of PT consult and plan of care. Assessment: Patient is a 53 year old male referred to physical therapy services for mobilization in acute care setting during hospitalization for alcohol withdrawal. Patient presents with clinical signs and symptoms consistent with medical diagnosis, as demonstrated by the following impairment level findings: 1. decreased coordination 2. decreased LE strength 3. decreased UE strength 4. decreased sitting and standing balance 5. decreased activity tolerance Impairments are contributing to the following functional limitations: 1. gait impairments 2. decreased safety awareness 3. decreased balance with increased risk for falls 4. unable to independently ambulate household distances Patient is assessed as Low 67821 complexity based on the following: History: Patient is a 53 year old male with chronic pain, presenting with acute on chronic mobility impairments related to acute alcohol withdrawal. Examination: functional limitations as above Presentation: evolving Decision Making: low complexity Goals: Goals X1 week 1. Supine-Sit : independent 2. Sit-Supine : independent 3. Sit-Stand : independent 4. Stand-Sit : independent 5. Bed-Chair : supervision with FWW 6. Chair-Bed : supervision with FWW 7. Gait: able to ambulate 50' with FWW, supervision Plan of Care/Treatment Plan: 1-2x/day, 7 days/week x 1 week. Plan of care has been reviewed with the CLEANER OPERATOR providing the service under Physical Therapy direction. Initiate Physical Therapy intervention for strengthening, bed mobility, transfers, gait, stairs, balance training, use of assistive device. DISCHARGE RECOMMENDATIONS: Home with services : PT TREATMENT CODE/TIME: 36261([id number]) Please sign an return this page within 30 days if you agree with the above POC. Thank you! Physician Signature Date Juana Owen PT, DPT [facility] All Active Problems (Updated 07/18/23 @ 09:24 by Geraldo Hernandez MD) Acute respiratory failure with hypoxia (Acute) Cellulitis and abscess of foot (Acute) Hyponatremia (Acute) Alcohol withdrawal (Acute) Alcoholic hepatitis (Acute) Coagulopathy (Acute) Colitis (Acute) Duodenitis (Acute) Acute on chronic anemia (Acute) Acute pancreatitis (Acute) Cirrhosis of liver (Chronic) Anemia (Chronic) Dural sinus malformation (Acute) Bilateral sacroiliitis (Acute) Neuropathic pain of left forearm (Acute) Coccydynia (Acute) Cervical radiculopathy (Acute) Anterior cerebral aneurysm (Acute) Hyponatremia (Acute) Hypokalemia (Acute) Hypomagnesemia (Acute) Bilateral hearing loss (Acute) Screening for colon cancer (Acute) Cubital tunnel syndrome on left (Acute) Left carpal tunnel syndrome (Acute) Multiple lipomas (Acute) CRPS (complex regional pain syndrome), type II, upper (Acute) Right carpal tunnel syndrome (Acute) Cubital tunnel syndrome on right (Acute) Medical History Hypertension Aneurysm ACOM aneurysm clipping/DSA Anemia Tubular adenoma of colon Elevated blood lead level Foraminal stenosis of cervical region Chronic sinusitis Chronic pain Marital problem Lumbar back pain Thoracic back pain Snoring Back pain Exposure to lead Fatigue Chest wall pain Arm pain, right Chronic low back pain [place] Soft tissue swelling Greater trochanteric bursitis of left hip (09/04/15) Left buttock pain (11/07/14) Low back pain (11/07/14) Paresthesias in left hand (06/28/14) Deviated septum Polyarthralgia Tobacco abuse MVP (mitral valve prolapse) Per pt. states he does not see a corn popper, states I believe I grew out of that Peripheral cyanosis Raynauds disease Elevated LFTs ETOH abuse Steatosis of liver ISADORA (obstructive sleep apnea) Neuropathy PONV (postoperative nausea and vomiting) Pt c/o post nasal drip causing nausea and vomiting routinely Foreign body in left upper extremity (01/11/20) s/p excision of foreign bodies Infrapatellar bursitis of right knee (01/11/20) s/p bursa excision Synovial cyst of popliteal space [Lopez], right knee Foreign body in right ear Tinnitus of both ears Asymmetrical sensorineural hearing loss Paraesthesia left 4-5th finger (05/29/06) Heart murmur per pt. this was an incorrect dx Lopez's cyst, rt knee Surgical History H/O craniotomy 09/2021 History of colonoscopy (~03/2021) Status post transposition of nerve left elbow Aftercare involving removal of fracture plate or internal fixation device left arm History of carpal tunnel release right History of arthroscopy of right knee 2001, diagnostic Right Popliteal cyst resection (07/25/03)
--- NOTE | 2023-07-19 14:30 | CMPROGNOTE_ITS ---
Date of service: 07/19/23 Time of Service: 14:30 Care Management Progress Note Progress Note Text Progress Note Text: S/O:CM was asked by ICU staff to see Marito. Several visitors were present and were completing legal documents with him. The only person on Marito's HIPAA right now is his son Ryder. This morning Marito's sister Jackelin asked to be added to the HIPAA but Marito was not in agreement. Both the ICU nurse and the nursing cost and sales record supervisor explained to Jackelin that she could not speak to the doctor or be added to the HIPAA without Marito's permission. Per Jackelin, the paperwork that was completed this morning was a will naming Ryder as Marito's sole beneficiary. She stated there was also a document naming her as health care agent. As that was inconsistent with what Marito said, CARLITOS requested a copy of any documents related to health care. The CM office fax number was provided. All of this was explained to Marito. He seemed confused about the different documents and what they meant. CM did confirm with Marito's nurse that he had not been medicated today because he did seem sleepy when CM met with him. A: Marito is a 53 year old man admitted on with alcohol withdrawal P:Anticipate Marito will be discharged home with no new services. He will follow up with his Cab Starter, PCP and plan of care and transport with family. CM will follow and continue to assess for discharge needs, SDOH(Care Management) Screening Will the Patient Participate in the Screening?: Yes Do you worry about having a steady place to live?: no Problems where you live: no known problems In the past 12 months, have you had to go without electric, gas, oil or water in your home?: no Have you or anyone in your house had to go without enough food to eat?: no Has lack of transportation kept you from medical appointments or from doing things needed for daily living?: no Has anyone in your support network made you feel unsafe for any reason?: no Social Determinants of Health Comments(SDOH Details): would like help with meals and appointments
[2023-07-19] MEDS: Enoxaparin 40 MG/0.4 ML SYR SC (15:30)
[2023-07-19] MEDS: Amoxicillin 875/Clav. 125 TAB PO (19:19)
[2023-07-20] VITALS (12 sets, daily range): BP systolic 119–137; BP diastolic 68–101; PULSE 76–111; RESP 18–20; TEMP 36.7–37.1; O2SAT 16–99
[2023-07-20 05:58] LABS: HCT 24.9 % (40.0-50.0); HGB 8.6 g/dL (13.5-17.5); MCH 32.6 pg (27.0-33.0); MCHC 34.5 % (32.0-36.0); MCV 94 fL (80-95); MPV 9.8 fL (8.0-11.0); Platelet Count 141 10^3/uL (130-400); RBC 2.64 10^6/uL (4.36-5.78); RDW 17.3 % (11.8-14.1); RDW-SD 60.1 fL; WBC 10.15 10^3/uL (4.4-10.8)
[2023-07-20 06:16] LABS: Anion Gap 9.4 mmol/L (3-11); BUN 15 mg/dL (7-18); CO2 25.6 mmol/L (21.0-32.0); CREATININE 1.2 mg/dL (0.70-1.30); Calcium 7.9 mg/dL (8.5-10.1); Chloride 94 mmol/L (98-107); Estimated GFR 72.31 (mL/min/1.73m2); Glucose 91 mg/dL (74-106); Magnesium 1.5 mg/dL (1.8-2.4); Potassium 3.7 mmol/L (3.5-5.1); Sodium 129 mmol/L (136-145)
[2023-07-20 08:06] LABS: C Diff PCR Positive (Negative)
--- NOTE | 2023-07-20 09:00 | PDOC.CMPRO ---
Date of service: 07/20/23 Time of Service: 09:00 Care Management Progress Note Progress Note Text Progress Note Text: S/O:Marito was sitting up in bed when CM met with him. He was sleepy and needed reminders to open his eyes during the conversation. Marito had requested assistance with completing advanced directives, which CM provided. Copies were made and given to his sister Jackelin who is his healthcare agent.They were also filed with the [facility]. Marito was noted to be having an increase in BMs and was found to be positive for C. difficile . He is now on isolation and is being treated with PO Vancomycin. Marito has been down graded to Med-surg status and is no longer scoring on the CIWA scale or requiring medication for withdrawal symptoms. A: Marito is a 53 year old man admitted on with alcohol withdrawal P:Anticipate Marito will be discharged home with no new services. He will follow up with his Offset Platemaker, PCP and plan of care and transport with family. CM will follow and continue to assess for discharge needs, SDOH(Care Management) Screening Will the Patient Participate in the Screening?: Yes Do you worry about having a steady place to live?: no Problems where you live: no known problems In the past 12 months, have you had to go without electric, gas, oil or water in your home?: no Have you or anyone in your house had to go without enough food to eat?: no Has lack of transportation kept you from medical appointments or from doing things needed for daily living?: no Has anyone in your support network made you feel unsafe for any reason?: no Social Determinants of Health Comments(SDOH Details): would like help with meals and appointments
--- NOTE | 2023-07-20 09:10 | DI.US_ITS ---
Exam(s) US ABDOMEN LIMITED EXAM: US ABDOMEN LIMITED CLINICAL HISTORY: bladder scan inaccurate due to ascites TECHNIQUE: Ultrasound abdomen performed using standard protocol. COMPARISON: US US ABDOMEN LIMITED from 03/27/[address] CHEST/ABD/PEL W from 05/26/2023 FINDINGS: PANCREAS: Normal where visualized. However large portions are obscured by overlying bowel gas. LIVER: The liver has a heterogeneous echotexture. There is a nodular contour of the liver suggesting hepatic cirrhosis. No hepatic mass is seen. Hepatopetal flow in the Portal Vein. The liver measure s in 13.9 cm length. GALLBLADDER:No stones are seen. There is sludge seen within the gallbladder. No evidence of wall th ickening. No pericholecystic fluid identified. BILIARY SYSTEM: Common bile duct measures 9.6 mm. No intrahepatic biliary ductal dilation. MCGRATH'S SIGN: Negative. ASCITES: There is a moderately large amount of ascites seen in all 4 quadrants of the abdomen. IMPRESSION: 1. Findings suggestive of hepatic cirrhosis. 2. Gallbladder sludge. No stones are seen. The common duct is dilated at 9.6 mm. No obvious choled ocholithiasis is seen sonographically. 3. Moderately large amount of abdominal ascites. DATA REPOSITORY:
[2023-07-20] MEDS: Amoxicillin 875/Clav. 125 TAB PO ×2 (09:44→19:32)
[2023-07-20] MEDS: Vancomycin 125 MG CAP PO ×3 (09:44→19:32)
[2023-07-20] MEDS: Spironolactone 25 MG TAB PO (09:44)
[2023-07-20] MEDS: Magnesium Lactate-SR 84 MG TABCR PO ×2 (09:44→15:42)
--- NOTE | 2023-07-20 11:27 | W.PM.PROGNOT ---
Date of Service Date of service: 07/20/23 Time of Service: 11:27 Assessment and Plan Assessment and plan (1) Alcohol withdrawal: Status: Acute Assessment and plan: - Patient presented for frequent falls and confusion however this was determined to be due to alcohol withdrawal -Initial CIWA in the emergency department 18 -Was given 1 dose of IV phenobarbital in the emergency department and remainder of loading dose upon arrival to the ICU -Has not needed any additional as needed of phenobarbital doses -Has not needed additional phenobarb doses, will be transferred to [facility] Qualifiers: Complication of substance-induced condition: with delirium Qualified Code(s): F10.931 - Alcohol use, unspecified with withdrawal delirium (2) Aspiration pneumonia: Status: Suspected Assessment and plan: - Patient developed hypoxia overnight with SpO2 less than 92% -Currently on 2 L nasal cannula to maintain oxygen saturation greater than 92% -Patient does have coarse breath sounds in bilateral lower bases -Was reportedly down for unknown period of time prior to arrival to the emergency department -New oxygen requirement, in combination with elevated procalcitonin is suspicious for aspiration pneumonitis/pneumonia -X-ray did not show any focal consolidations, though this may still be aspiration -Antibiotics have been changed to vancomycin and Merrem -MRSA negative, Vanco discontinued -Patient now on room air -Will de-escalate from meropenem to Augmentin Qualifiers: Aspiration pneumonia type: unspecified Laterality: unspecified laterality Lung location: unspecified part of lung Qualified Code(s): J69.0 - Pneumonitis due to inhalation of food and vomit (3) Acute respiratory failure with hypoxia: Status: Acute Assessment and plan: - As noted above, now on room air (4) Cirrhosis of liver: Status: Chronic Assessment and plan: - History of, secondary to alcohol use disorder -INR 1.6, albumin 1.9, total bili 5.3 -Will continue to monitor/trend above labs -Maddrey's 24.6 indicating good prognosis Qualifiers: Hepatic cirrhosis type: alcoholic cirrhosis Ascites presence: without ascites Qualified Code(s): K70.30 - Alcoholic cirrhosis of liver without ascites (5) Alcoholic hepatitis: Status: Acute Assessment and plan: - As noted above -Ascites noted on abdominal ultrasound -Will discuss with patient and consider surgical consultation for paracentesis Qualifiers: Ascites presence: without ascites Qualified Code(s): K70.10 - Alcoholic hepatitis without ascites (6) Hyponatremia: Status: Acute Assessment and plan: - Secondary to alcohol use, alcohol withdrawal as noted above -Will give IV fluids and recheck sodium with a.m. labs (7) Urinary retention: Status: Acute Assessment and plan: - Patient has had poor urinary output since admission -However, kidney function has remained stable -Bladder scan unable to assess due to significant ascites -Ultrasound of the abdomen ordered but did not comment on bladder wall -Will place Farrell catheter (8) C. difficile diarrhea: Status: Acute Assessment and plan: - Patient had 3 loose bowel movements overnight which prompted testing for C. difficile which was positive -Will start patient on p.o. vancomycin 125 mg 4 times daily Subjective Subjective Interval history since last seen: Patient states that he is feeling okay today. He is increasing his ambulatory status and continue to work with physical therapy. He also understands upon place Farrell catheter for potential urinary retention, as well as initiating vancomycin for Exam Narrative Exam Narrative: Fatigued appearing gentleman laying in bed in no acute distress, nonbleeding laceration over right eyebrow, ANO x 4, heart regular rhythm, coarse breath sounds in bilateral, abdomen soft, nontender, nondistended Objective Last Vital Signs Temp 98.4 F 07/20/23 08:39 Pulse 97 H 07/20/23 08:39 Resp 18 07/20/23 08:39 BP 124/89 07/20/23 08:39 Pulse Ox 92 07/20/23 08:39 Laboratory Results - last 24 hr 07/20/23 07/20/23 05:26 06:47 WBC 10.15 RBC 2.64 L Hgb 8.6 L Hct 24.9 L MCV 94 MCH 32.6 MCHC 34.5 RDW 17.3 H Plt Count 141 MPV 9.8 Sodium 129 L Potassium 3.7 Chloride 94 L Carbon Dioxide 25.6 Anion Gap 9.4 BUN 15 Creatinine 1.2 Est GFR (CKD-EPI 2020) 72.31 Glucose 91 Calcium 7.9 L Magnesium 1.5 L Stl C.difficile Tox PCR Positive A PAWSS Have you Been Recently Intoxicated or Drunk Within the Last 30 days?: Yes Have you Ever Experienced Previous Episodes of Alcohol Withdrawal?: Yes Have you ever Experienced Withdrawal Seizures?: No Have you ever Experienced Delirium Tremens(DT)s?: Yes Have you ever undergone Alcohol Rehabilitation Treatment (i.e, inpt ot outpatient treatment programs)?: No Have you ever Experienced Blackouts?: Yes Have you ever Combined Alcohol with other Downers within the last 90 days?: Unable to Obtain Have you ever Combined Alcohol with any other Substance of Abuse during the last 90 days?: No Positive Blood Alcohol level on Presentation? [PCS.BAL]: Yes Evidence of Increased Autonomic Activity (i.e. HR>120, tremor, sweating, agitation, nausea)?: No Result: 5 Time Spent with Patient Time Spent with Patient: >50 minutes Time was spent: preparing to see the patient(eg.review tests), obtaining and/or reviewing separately otained hiistory, ordering medications,tests, procedures, referring, communicating with other health youth career specialist, indepentently interpreting results, counseling the patient and care coordination
--- NOTE | 2023-07-20 12:09 | PT.INNT ---
PT Notes Visit Reasons: Alcohol Withdrawal Pt on contact precaution, requiring this therapist to don PPE prior to going inside pt room, Pt sleeping in bed when approached for therapy this morning, pt reports he would like to catch up with his sleep and requested to be seen after lunch.
--- NOTE | 2023-07-20 13:48 | PT.INTREAT ---
PT Notes Visit Reasons: Alcohol Withdrawal Date: 07/20/2023 PRECAUTIONS: Fall Standard SUBJECTIVE: OBJECTIVE: ? PAIN: none VITALS: closely monitored by nurses in ICU? Therapeutic Activities [id number]: Direct one-on-one instruction in dynamic activities to improve functional performance. ?? BED MOBILITY/TRANSFERS? Rolling L/R: Supervision Supine-sit: ? supervision? Sit-supine: Supervision ? Sit-stand: CGA ? Stand-sit: Supervision? Bed-Chair:?CGA ? Chair-bed: CGA Provided skilled cues and instruction on performance and technique throughout. Gait Training [id number]: Direct one-on-one instruction and skilled instruction in: Employing an assistive device Modified weight-bearing status Movement sequencing Turning and movement with proper form Provided verbal cues for equipment management and technique Provided instruction in gait pattern Patient education regarding pacing and breathing techniques to maximize activity tolerance? GAIT? Assistive Device: FWW ? Weight bearing: FWB Assist: ?CGA/SBA ? Distance:?40'? Deviation: ?Low step height, short step length? ASSESSMENT:?Pt education about hand placement, leaning forward to help with initial sit to stand transition, pt took along time to transition from room chair to recliner, recliner back to bed per pt choice. pt requested to stay in bed post transfer/gait activity. PLAN: Continue with balance training, global strengthening and general conditioning for improved safety, mobility and activity tolerance, until pt is ready for DC. TREATMENT CODE/TIME: [id number], [id number] 25mins (1:20-1:45pm)
[2023-07-20] MEDS: Enoxaparin 40 MG/0.4 ML SYR SC (15:42)
[2023-07-20] MEDS: Lidocaine 2% Jelly 11 ML SYR UR (17:58)
[2023-07-20] MEDS: Normal Saline Flush 10 ML SYR IVP (19:32)
[2023-07-21 00:14] VITALS: BP 119/84; PULSE 108; RESP 20; TEMP 36.8; O2SAT 95
[2023-07-21] MEDS: Vancomycin 125 MG CAP PO ×4 (01:44→19:23)
[2023-07-21 08:05] VITALS: BP 127/87; PULSE 102; RESP 18; TEMP 37.1; O2SAT 95
[2023-07-21] MEDS: Amoxicillin 875/Clav. 125 TAB PO (08:11)
[2023-07-21] MEDS: Spironolactone 25 MG TAB PO (08:11)
[2023-07-21] MEDS: Magnesium Lactate-SR 84 MG TABCR PO (08:11)
[2023-07-21] MEDS: Normal Saline Flush 10 ML SYR IVP (08:12)
[2023-07-21 10:40] LABS: Abs Immature Grans 0.07 10^3/uL (0.0-0.06); Absolute Basophil Count 0.06 10^3/uL (0.0-0.2); Absolute Lymphocyte Count 1.89 10^3/uL (1.2-3.4); Absolute Monocyte Count 1.12 10^3/uL (0.1-0.8); Absolute Neutrophil Count 7.84 10^3/uL (1.2-6.7); Basophils % 0.5; Eosinophils % 0.9; HCT 28.3 % (40.0-50.0); HGB 9.8 g/dL (13.5-17.5); Immature Grans % 0.6; Lymphocytes % 17.1; MCH 33.6 pg (27.0-33.0); MCHC 34.6 % (32.0-36.0); MCV 97 fL (80-95); MPV 10.2 fL (8.0-11.0); Monocytes % 10.1; Neutrophils % 70.8; Platelet Count 168 10^3/uL (130-400); RBC 2.92 10^6/uL (4.36-5.78); RDW 17.3 % (11.8-14.1); RDW-SD 60.7 fL; WBC 11.08 10^3/uL (4.4-10.8)
[2023-07-21] MEDS: MAGNESIUM SULFATE 4 GM/100 ML BAG IVPB (11:41)
[2023-07-21 12:10] LABS: Ammonia 32 umol/L (11-32)
[2023-07-21 12:14] LABS: ALT 44 U/L (16-63); AST 132 U/L (15-37); Albumin 1.7 g/dL (3.4-5.0); Alkaline Phosphatase 477 U/L (46-116); Anion Gap 6.7 mmol/L (3-11); BUN 17 mg/dL (7-18); Bilirubin, Direct 4.6 mg/dL (0.0-0.2); Bilirubin, Total 5.4 mg/dL (0.2-1.0); CO2 27.3 mmol/L (21.0-32.0); CREATININE 1.1 mg/dL (0.70-1.30); Calcium 8.2 mg/dL (8.5-10.1); Chloride 94 mmol/L (98-107); Estimated GFR 80.27 (mL/min/1.73m2); Glucose 116 mg/dL (74-106); Magnesium 1.6 mg/dL (1.8-2.4); Potassium 3.3 mmol/L (3.5-5.1); Sodium 128 mmol/L (136-145); Total Protein 7.2 g/dL (6.4-8.2)
[2023-07-21 14:41] VITALS: BP 130/90; PULSE 103; RESP 18; TEMP 36.3; O2SAT 95
[2023-07-21 16:11] VITALS: BP 143/86; PULSE 97; RESP 18; TEMP 37.1; O2SAT 96
[2023-07-21] MEDS: Enoxaparin 40 MG/0.4 ML SYR SC (16:14)
--- NOTE | 2023-07-21 16:40 | PT.INNT ---
Date of service: 07/21/23 Time of Service: 15:11 PT Notes Visit Reasons: Alcohol Withdrawal At 15:11 patient is asleep and unable to be roused. At 16:24 Patient refuses to participate in therapy, stating that he hasn't seen the Doc yet, and that he wants to know what is being done to treat his condition as he is hoping to leave the hospital tonight or tomorrow morning. Throughout conversation, patient has difficulty keeping his eyes open and appears to doze off twice.
--- NOTE | 2023-07-21 17:01 | PDOC.CMPRO ---
Date of service: 07/21/23 Time of Service: 17:02 Care Management Progress Note Progress Note Text Progress Note Text: S/O: Marito was lying in bed when CM met with him. He stated that he is doing ok today, but he really wants to return home. Per report, he has C.Diff and has been incontinent of stool today; he reported that he is stooling less this afternoon. He is on oral vanco for C.Diff. He stated that he has a lot of friends in the community that support him, since he is on disability and does not drive. He reported that he will have a friend drive him home once he is ready for dishcarge. He reported that HH had just been ordered by his PCP, but they were supposed to come out to the house the day he was admitted to the hospital. CM will ask for a resumption of HH services upon discharge, and will inform HH. CM will continue to follow. A: Marito is a 53 year old man admitted on with alcohol withdrawal P:Anticipate Marito will be discharged home with a resumption of HH services. He will follow up with his Gun Examiner, PCP and plan of care and transport with family. CM will follow and continue to assess for discharge needs, SDOH(Care Management) Screening Will the Patient Participate in the Screening?: Yes Do you worry about having a steady place to live?: no Problems where you live: no known problems In the past 12 months, have you had to go without electric, gas, oil or water in your home?: no Have you or anyone in your house had to go without enough food to eat?: no Has lack of transportation kept you from medical appointments or from doing things needed for daily living?: no Has anyone in your support network made you feel unsafe for any reason?: no Social Determinants of Health Comments(SDOH Details): would like help with meals and appointments
[2023-07-21 19:21] VITALS: BP 130/83; PULSE 92; RESP 18; TEMP 37.4; O2SAT 98
[2023-07-21] MEDS: Potassium Chloride 20 MEQ TABCR 40 MEQ PO (19:22)
--- NOTE | 2023-07-21 19:45 | PGE_ITS ---
Date of Service Date of service: 07/21/23 Time of Service: 19:35 Assessment and Plan Assessment and plan (1) Alcohol withdrawal: Status: Acute Assessment and plan: S/p phenobarbital load. Doing relatively well on the medical surgical floor. Continue monitoring. Qualifiers: Complication of substance-induced condition: with delirium Qualified Code(s): F10.931 - Alcohol use, unspecified with withdrawal delirium (2) Aspiration pneumonia: Status: Suspected Assessment and plan: He is on RA. I think this was likely aspiration pneumonitis and not pneumonia. D/c augmentin. Qualifiers: Aspiration pneumonia type: unspecified Laterality: unspecified laterality Lung location: unspecified part of lung Qualified Code(s): J69.0 - Pneumonitis due to inhalation of food and vomit (3) Acute respiratory failure with hypoxia: Status: Resolved Assessment and plan: D/c augmentin. on RA. (4) Cirrhosis of liver: Status: Chronic Assessment and plan: Alcoholic cirrhosis. Good prognosis per Maddrey's score. Continue to monitor. Does have ascites at this point and evidence of mild hepatic encephalopathy clinically. Continue spironolactone. Qualifiers: Hepatic cirrhosis type: alcoholic cirrhosis Ascites presence: without ascites Qualified Code(s): K70.30 - Alcoholic cirrhosis of liver without ascites (5) Alcoholic hepatitis: Status: Acute Assessment and plan: Consider paracenthesis. Consider spironolactone. Qualifiers: Ascites presence: without ascites Qualified Code(s): K70.10 - Alcoholic hepatitis without ascites (6) Hyponatremia: Status: Acute Assessment and plan: I think this is dilutional. Continue spironolactone and add furosemide. (7) Urinary retention: Status: Acute Assessment and plan: Has a kelly catheter. Ideally would have a voiding trial prior to discharge but bladder scans would be unreliable. Consider a urology consult. (8) C. difficile diarrhea: Status: Acute Assessment and plan: Continue PO vancomycin. I did add probiotics. Also, d/c other systemic antibiotics. (9) DVT prophylaxis: Status: Acute Assessment and plan: SC enoxaparin (10) Discharge planning issues: Status: Acute Assessment and plan: DNR/DNI Anticipate discharge home in the next 24-48 hrs. Will need to make sure that the patient's insurance covers oral vancomycin. Subjective Subjective Interval history since last seen: Marito informs me that he is leaving tomorrow. His diarrhea is slowing down. Nursing reports that he's been off and requested an ammonia level. He denies dizziness, CP, SOB, n/v. Incontinent of stool on the floor last night. Exam Narrative Exam Narrative: General: A pleasant middle-aged male with a healing R forehead laceration, mildly tremulous, + asterexis HEENT: EOMI, MMM, healing right forehead laceration Heart: RRR, no m/r/g Lungs: CTAB Abdomen: soft, mildly tender diffusely, + ascites Extremities: trace BLE edema in TEDs, no evidence of cellulitis on either LE Objective Last Vital Signs Temp 37.4 C 07/21/23 19:21 Pulse 92 H 07/21/23 19:21 Resp 18 07/21/23 19:21 BP 130/83 07/21/23 19:21 Pulse Ox 98 07/21/23 19:21 Laboratory Results - last 24 hr 07/21/23 07/21/23 10:20 11:48 WBC 11.08 H RBC 2.92 L Hgb 9.8 L Hct 28.3 L MCV 97 H MCH 33.6 H MCHC 34.6 RDW 17.3 H Plt Count 168 MPV 10.2 Immature Gran % 0.6 Neutrophils % 70.8 Lymphocytes % 17.1 Monocytes % 10.1 Eosinophils % 0.9 Basophils % 0.5 Nucleated RBC % 0.0 Absolute Neutrophils 7.84 H Absolute Lymphocytes 1.89 Absolute Monocytes 1.12 H Absolute Eosinophils 0.10 Absolute Basophils 0.06 Sodium Cancelled 128 L Potassium Cancelled 3.3 L Chloride Cancelled 94 L Carbon Dioxide Cancelled 27.3 Anion Gap Cancelled 6.7 BUN Cancelled 17 Creatinine Cancelled 1.1 Est GFR (CKD-EPI 2020) Cancelled 80.27 Glucose Cancelled 116 H Calcium Cancelled 8.2 L Magnesium Cancelled 1.6 L Total Bilirubin Cancelled 5.4 H Conjugated Bilirubin Cancelled 4.6 H AST Cancelled 132 H ALT Cancelled 44 Alkaline Phosphatase Cancelled 477 H Ammonia 32 Total Protein Cancelled 7.2 Albumin Cancelled 1.7 L PAWSS Have you Been Recently Intoxicated or Drunk Within the Last 30 days?: Yes Have you Ever Experienced Previous Episodes of Alcohol Withdrawal?: Yes Have you ever Experienced Withdrawal Seizures?: No Have you ever Experienced Delirium Tremens(DT)s?: Yes Have you ever undergone Alcohol Rehabilitation Treatment (i.e, inpt ot outpatient treatment programs)?: No Have you ever Experienced Blackouts?: Yes Have you ever Combined Alcohol with other Downers within the last 90 days?: Unable to Obtain Have you ever Combined Alcohol with any other Substance of Abuse during the last 90 days?: No Positive Blood Alcohol level on Presentation? [PCS.BAL]: Yes Evidence of Increased Autonomic Activity (i.e. HR>120, tremor, sweating, agitation, nausea)?: No Result: 5 Time Spent with Patient Time Spent with Patient: 35-49 minutes Time was spent: preparing to see the patient(eg.review tests), obtaining and/or reviewing separately otained hiistory, ordering medications,tests, procedures, referring, communicating with other health regular senior care provider, indepentently interpreting results, counseling the patient and care coordination
[2023-07-21 23:49] VITALS: BP 132/78; PULSE 97; RESP 18; TEMP 36.8; O2SAT 97
[2023-07-22] MEDS: Vancomycin 125 MG CAP PO ×2 (02:28→08:16)
[2023-07-22 05:20] VITALS: BP 123/84; PULSE 70; RESP 18; TEMP 36.6; O2SAT 96
[2023-07-22 06:49] LABS: Abs Immature Grans 0.08 10^3/uL (0.0-0.06); Absolute Basophil Count 0.06 10^3/uL (0.0-0.2); Absolute Eosinophil Count 0.12 10^3/uL (0.0-0.7); Absolute Monocyte Count 1.18 10^3/uL (0.1-0.8); Absolute Neutrophil Count 8.62 10^3/uL (1.2-6.7); Basophils % 0.5; HCT 27.5 % (40.0-50.0); HGB 9.5 g/dL (13.5-17.5); Immature Grans % 0.7; Lymphocytes % 16.4; MCH 33.5 pg (27.0-33.0); MCHC 34.5 % (32.0-36.0); MCV 97 fL (80-95); MPV 9.8 fL (8.0-11.0); Monocytes % 9.8; Neutrophils % 71.6; Platelet Count 163 10^3/uL (130-400); RBC 2.84 10^6/uL (4.36-5.78); RDW 17.9 % (11.8-14.1); RDW-SD 61.8 fL; WBC 12.04 10^3/uL (4.4-10.8)
[2023-07-22 06:53] LABS: Absolute Lymphocyte Count 1.97 10^3/uL (1.2-3.4)
[2023-07-22 06:59] LABS: INR 1.5 (0.9-1.1); Prothrombin Time 14.3 sec (9.1-11.1)
[2023-07-22 07:09] LABS: ALT 39 U/L (16-63); AST 115 U/L (15-37); Albumin 1.6 g/dL (3.4-5.0); Alkaline Phosphatase 437 U/L (46-116); BUN 15 mg/dL (7-18); Bilirubin, Total 4.7 mg/dL (0.2-1.0); CREATININE 1.1 mg/dL (0.70-1.30); Calcium 8.1 mg/dL (8.5-10.1); Chloride 95 mmol/L (98-107); Estimated GFR 80.27 (mL/min/1.73m2); Glucose 99 mg/dL (74-106); Magnesium 2.2 mg/dL (1.8-2.4); Potassium 3.4 mmol/L (3.5-5.1); Sodium 128 mmol/L (136-145); Total Protein 6.7 g/dL (6.4-8.2)
[2023-07-22 07:14] VITALS: BP 125/87; PULSE 88; RESP 18; TEMP 36.3; O2SAT 89
[2023-07-22] MEDS: Magnesium Lactate-SR 84 MG TABCR PO (08:16)
[2023-07-22] MEDS: Spironolactone 25 MG TAB PO (08:17)
[2023-07-22] MEDS: Furosemide 20 MG TAB PO (09:08)
--- NOTE | 2023-07-22 09:55 | PDOC.CMPRO ---
Date of service: 07/22/23 Time of Service: 09:55 Care Management Progress Note Progress Note Text Progress Note Text: S/O: Marito was lying in bed when CM met with him. A: Marito is a 53 year old man admitted on with alcohol withdrawal P:Anticipate Marito will be discharged home with a resumption of services. He will follow up with his Head Doffer, PCP and plan of care and transport with family. CM will follow and continue to assess for discharge needs, SDOH(Care Management) Screening Will the Patient Participate in the Screening?: Yes Do you worry about having a steady place to live?: no Problems where you live: no known problems In the past 12 months, have you had to go without electric, gas, oil or water in your home?: no Have you or anyone in your house had to go without enough food to eat?: no Has lack of transportation kept you from medical appointments or from doing things needed for daily living?: no Has anyone in your support network made you feel unsafe for any reason?: no Social Determinants of Health Comments(SDOH Details): would like help with meals and appointments
[2023-07-22] MEDS: Potassium Chloride 20 MEQ TABCR 40 MEQ PO (10:26)
--- NOTE | 2023-07-22 10:56 | DSE_ITS ---
Date of service: 07/22/23 Time of Service: 10:56 DS: Diagnosis Discharge Diagnosis (1) Alcohol withdrawal: Status: Acute (2) C. difficile diarrhea: Status: Acute (3) Aspiration pneumonia: Status: Suspected (4) Acute respiratory failure with hypoxia: Status: Resolved (5) Cirrhosis of liver: Status: Chronic (6) Alcoholic hepatitis: Status: Acute (7) Urinary retention: Status: Acute Asessment and Plan: Passed voiding trial (8) Hyponatremia: Status: Acute (9) Hypokalemia: Status: Acute (10) Hypomagnesemia: Status: Acute Discharge Plan Disposition Patient Disposition: Home Condition: Improving Discharge Details Reason For Visit: Alcohol Withdrawal Admit Date/Time: 07/17/23 15:41 Admit Provider: Geraldo Hernandez Attending Provider: Geraldo Hernandez Primary Care Provider: Paige Chen Hospital Course Hospital Course: Mr Morrow is a 53 year old male with PMHx of alcohol abuse and withdrawal, alcoholic cirrhosis of the liver, brain aneurysm s/p cranyotomy, HTN, ISADORA, anemia of GI bleeding (EGD won 06/16/23 w/ esophagitis, mild duodenitis, chronic gastritis), who was admitted to [facility] hospitalist service on with alcohol withdrawal, presenting with confusion and frequent falls and with a CIWA score of 18. He was admitted to the ICU on the phenobarbital protocol. There was evidence of alcoholic hepatitis with a T Bili of 5.3 and Maddrey's score of 24.6, which indicated good prognosis and no role for steroids. He was also noted to have hyponatremia, thought to be due to EtOH use, and this was treated initially with IVF. There was a concern for an aspiration pneumonia vs pneumonitis. The patient did develop an acute hypoxic respiratory failure, requiring 2L of O2 by ND; however, there was no evidence of actual pneumonia on imaging. He did have an elevated procalcitonin (0.5) at that time. He was started on vancomycin and cefepime, which was then changed to meropenem with discontinuation of vancomycin with a negative MRSA swab. Blood and urine cultures were negative. Other sources of infection were considered and the patient was suspected to have cellulitis/abscess of his B feet with erythema being noted in B feet. This was not really clinically impressive on follow up exams and was ultimately ruled out. Ultimately, the patient was transitioned to oral antibiotics (augmentin). He was transferred out of the ICU on 07/19/23 when his alcohol withdrawal was doing better. He received a total of 5 days of antibiotics for pneumonia and completed therapy. His oxygen requirement resolved. Overnight between 07/19/23 and 07/20/23 the patient developed liquid stools and tested positive for C.diff. For this, he was initiated on oral vanc omycin with an improvement in symptoms. He received 9 doses of this total in- house and will need to complete a 10 day course. We verified insurance coverage with the patient's pharmacy, and his copay is $1. The patient was advised of the importance of completing his antibiotic therapy. There was a suspicion for urinary retention. The patient was able to void after discontinuation of the kelly catheter. It's impossible to know exactly how much the patient was retaining as he had ascites. He did not want to stay to pursue further workup and, perhaps, his PCP could refer him to urology should he have any symptoms. As far as his ascites, he was initiated on spironolactone and furosemide. His electrlytes were repleted. He remains hyponatremic with a sodium of 128, which I believe is dilutional and should be followed up as outpatient by his PCP. He is being discharged with orders for bloodwork to be done in 2 weeks. Results to be sent to his PCP, Paige Chen. He is being discharged home today with resumption of his home health services. He is deemed stable from the stand point of alcohol withdrawal. Care for patient as well as completion of his discharge summary on day of discharge took 60 minutes. Home Meds and New Rx's Prescriptions: New vancomycin 125 mg Capsule 125 mg PO Q6H Qty: 31 0RF furosemide 20 mg Tablet 20 mg PO DAILY Qty: 10 0RF loperamide 2 mg Capsule 2 mg PO QLOOSE PRNQty: 30 0RF magnesium chloride 64 mg tablet,delayed release (DR/EC) 64 mg PO BID Qty: 20 0RF potassium chloride 20 mEq tablet extended release 40 meq PO DAILY Qty: 20 0RF Continued trazodone 50 mg tablet 25 mg PO HS PRN tramadol 50 mg tablet 50 mg PO BID PRN spironolactone 25 mg tablet 25 mg PO DAILY Patient Comments: TAKE ONE TABLET BY MOUTH EVERY DAY thiamine HCl (vitamin B1) 100 mg tablet 100 mg PO DAILY Patient Comments: TAKE ONE TABLET BY MOUTH EVERY DAY Discharge Instructions Instructions: Vancomycin (By mouth), C. Diff (Clostridioides Difficile) Infection (DC), Alcohol Withdrawal (DC), Low-Sodium Diet (DC) Additional Instructions: Finish your antibiotics as prescribed. Return to the hospital with any fever, bleeding, chest pain, or shortness of breath. Follow up with your PCP in 1-2 weeks. Bloodwork in 2 weeks. Care Plan Goals: Resumption of home health services Stand Alone Forms: Nursing Discharge Form Referrals: Paige Chen [Primary Care Provider] - 08/05/23 10:00 am Activity:: Activity as Tolerated Equipment/Supplies:: No Equipment Needed Diet:: Low Sodium Discharge Orders Discharge Orders: Discharge Order (Routine); Ordered 07/22/23 Ordered By: Narcisa Sanches Other Ambulatory Orders: Basic Metabolic Panel (Routine) Timeframe: 2 Weeks Facility: [facility] - Location: Laboratory Outpatient - [facility] Ordered By: Narcisa Sanches Magnesium (Routine) Timeframe: 2 Weeks Facility: [facility] - Location: Laboratory Outpatient - [facility] Ordered By: Narcisa Sanches Discharge Data Discharge Date/Time-TO BE ENTERED AT DEPARTURE: 07/22/23 12:00 DS: Summary Time Spent with Patient providing and/or coordinating discharge services: Greater than 30 minutes Status at Discharge Functional status at discharge: uses cane/walker Overall status at discharge: patient is back to baseline Mental Status: mental status grossly normal Speech and Movement: speech and movement normal Mood: congruent mood Affect: normal affect Quality:SDOH Health Related Social Needs: No Data to Display Exam Narrative Exam Narrative: General: A pleasant middle-aged male with a healing R forehead laceration, minimally tremulous, A&Ox3, coherent HEENT: EOMI, MMM, healing right forehead laceration Heart: not auscultated Lungs:nonlabored breathing Abdomen: soft, mildly tender diffusely, + ascites Extremities: trace BLE edema in TEDs, no evidence of cellulitis on either LE Psych Mental Status: mental status grossly normal Speech and Movement: speech and movement normal Mood: congruent mood Affect: normal affect DS: Data Vitals/I&O Vitals and I&O: Vital Signs Temperature 36.3 C L 07/22/23 07:14 Temperature Source Tympanic 07/22/23 07:14 Pulse 88 07/22/23 07:14 Pulse Rhythm Regular 07/22/23 08:15 Pulse 82 07/20/23 02:07 Respiratory Rate 18 07/22/23 07:14 Respiratory Effort Normal 07/22/23 08:15 Respiratory Depth Normal 07/22/23 08:15 Respiratory Pattern Normal 07/22/23 08:15 Blood Pressure 125/87 07/22/23 07:14 Blood Pressure Mean 107 07/20/23 19:54 Blood Pressure Position Supine 07/19/23 08:46 Pulse Oximetry 89 L 07/22/23 07:14 Oxygen Delivery Method Room Air 07/22/23 07:14 Oxygen Flow Rate 0 07/22/23 07:14 Pain Level 6 07/22/23 07:14 Comment pt has tremors, low o2 but pt not sob 07/22/23 07:14 Intake & Output 07/21/23 07/21/23 07/22/23 11:59 23:59 11:59 Intake Total 10 / 480 470 / 480 110 / 110 Output Total 200 / 500 300 / 500 110 / 110 Balance -190 / -20 170 / -20 0 / 0 Intake: IV 10 / 10 10 / 10 Oral 470 / 470 100 / 100 Output: Urine 200 / 500 300 / 500 110 / 110 Other: Urine Color Brown Dark Talisha Dark Talisha Dark Red Urine Appearance Clear Sediment Clear Stool Size Small Small Small Stool Characteristics Soft Soft Soft Liquid Brown Formed Brown Voiding Methods Incontinent Data Completed and Pending Completed studies during hospitalization [Text1]: CT head 07/17/23: 1. No acute intracranial process. 2. No acute fracture or subluxation in the cervical spine. CXR 07/17/23: No acute findings. CXR 07/18/23: No acute pulmonary findings. US abdomen 07/20/23: 1. Findings suggestive of hepatic cirrhosis. 2. Gallbladder sludge. No stones are seen. The common duct is dilated at 9.6 mm. No obvious choledocholithiasis is seen sonographically. 3. Moderately large amount of abdominal ascites. Labs on day of discharge: Labs from last 24 hours 07/22/23 07/21/23 07/21/23 05:54 11:48 10:20 WBC 12.04 H RBC 2.84 L Hgb 9.5 L Hct 27.5 L MCV 97 H MCH 33.5 H MCHC 34.5 RDW 17.9 H Plt Count 163 MPV 9.8 Immature Gran % 0.7 Neutrophils % 71.6 Lymphocytes % 16.4 Monocytes % 9.8 Eosinophils % 1.0 Basophils % 0.5 Nucleated RBC % 0.0 Absolute Neutrophils 8.62 H Absolute Lymphocytes 1.97 Absolute Monocytes 1.18 H Absolute Eosinophils 0.12 Absolute Basophils 0.06 PT 14.3 H INR 1.5 H Sodium 128 L 128 L Cancelled Potassium 3.4 L 3.3 L Cancelled Chloride 95 L 94 L Cancelled Carbon Dioxide 25.0 27.3 Cancelled Anion Gap 8.0 6.7 Cancelled BUN 15 17 Cancelled Creatinine 1.1 1.1 Cancelled Est GFR (CKD-EPI 2020) 80.27 80.27 Cancelled Glucose 99 116 H Cancelled Calcium 8.1 L 8.2 L Cancelled Magnesium 2.2 1.6 L Cancelled Total Bilirubin 4.7 H 5.4 H Cancelled Conjugated Bilirubin 4.0 H 4.6 H Cancelled AST 115 H 132 H Cancelled ALT 39 44 Cancelled Alkaline Phosphatase 437 H 477 H Cancelled Ammonia 32 Total Protein 6.7 7.2 Cancelled Albumin 1.6 L 1.7 L Cancelled Preliminary micro results at discharge 07/18/23 02:15 Blood Culture - Preliminary Blood NO GROWTH 96 HOURS 07/18/23 02:00 Blood Culture - Preliminary Blood NO GROWTH 96 HOURS PFS All Active Problems (Updated 07/21/23 @ 19:51 by Narcisa Sanches MD) Discharge planning issues (Acute) DVT prophylaxis (Acute) C. difficile diarrhea (Acute) Urinary retention (Acute) Cellulitis and abscess of foot (Acute) Hyponatremia (Acute) Alcohol withdrawal (Acute) Alcoholic hepatitis (Acute) Coagulopathy (Acute) Colitis (Acute) Duodenitis (Acute) Acute on chronic anemia (Acute) Acute pancreatitis (Acute) Cirrhosis of liver (Chronic) Anemia (Chronic) Dural sinus malformation (Acute) Bilateral sacroiliitis (Acute) Neuropathic pain of left forearm (Acute) Coccydynia (Acute) Cervical radiculopathy (Acute) Anterior cerebral aneurysm (Acute) Hyponatremia (Acute) Hypokalemia (Acute) Hypomagnesemia (Acute) Bilateral hearing loss (Acute) Screening for colon cancer (Acute) Cubital tunnel syndrome on left (Acute) Left carpal tunnel syndrome (Acute) Multiple lipomas (Acute) CRPS (complex regional pain syndrome), type II, upper (Acute) Right carpal tunnel syndrome (Acute) Cubital tunnel syndrome on right (Acute) Medical History Hypertension Aneurysm ACOM aneurysm clipping/DSA Anemia Tubular adenoma of colon Elevated blood lead level Foraminal stenosis of cervical region Chronic sinusitis Chronic pain Marital problem Lumbar back pain Thoracic back pain Snoring Back pain Exposure to lead Fatigue Chest wall pain Arm pain, right Chronic low back pain Steele Soft tissue swelling Greater trochanteric bursitis of left hip (09/04/15) Left buttock pain (11/07/14) Low back pain (11/07/14) Paresthesias in left hand (06/28/14) Deviated septum Polyarthralgia Tobacco abuse MVP (mitral valve prolapse) Per pt. states he does not see a engagement mgr, states I believe I grew out of that Peripheral cyanosis Raynauds disease Elevated LFTs ETOH abuse Steatosis of liver ISADORA (obstructive sleep apnea) Neuropathy PONV (postoperative nausea and vomiting) Pt c/o post nasal drip causing nausea and vomiting routinely Foreign body in left upper extremity (01/11/20) s/p excision of foreign bodies Infrapatellar bursitis of right knee (01/11/20) s/p bursa excision Synovial cyst of popliteal space [Lopez], right knee Foreign body in right ear Tinnitus of both ears Asymmetrical sensorineural hearing loss Paraesthesia left 4-5th finger (05/29/06) Heart murmur per pt. this was an incorrect dx Lopez's cyst, rt knee Surgical History H/O craniotomy 09/2021 History of colonoscopy (~03/2021) Status post transposition of nerve left elbow Aftercare involving removal of fracture plate or internal fixation device left arm History of carpal tunnel release right History of arthroscopy of right knee 2001, diagnostic Right Popliteal cyst resection (07/25/03) Family History Mother , [place] at age 74. Heart disease Father No problems noted. Social History Smoking/Tobacco Use Status: Current every day Tobacco Type: cigarettes Years s moked: 42 Smoking risk assessment performed?: Yes Alcohol Intake: current Alcohol Intake frequency: 3 or more drinks per day Alc ohol type: hard liquor Drug use: Occasionally Substance use type: does not use Details: alcohol t-1 a couple Household members: none Housing: house Number of Children: 1 current occupation: N/A Current gender identity: male What type of physical activity do you participate in: walking and independent ambulation Seatbelt use: sometimes Do you feel safe at home: Yes Additional Social history: lives by himself Time Spent with Patient Time Spent with Patient: 45-69 minutes Time was spent: preparing to see the patient(eg.review tests), obtaining and/or reviewing separately otained hiistory, ordering medications,tests, procedures, referring, communicating with other health career manager, indepentently interpreting results, counseling the patient and care coordination
[2023-07-22 11:12] VITALS: BP 127/70; PULSE 57; RESP 18; TEMP 36.6; O2SAT 94
--- NOTE | 2023-07-22 16:41 | CMDISCH_ITS ---
Date of service: 07/22/23 Time of Service: 16:41 LACE Index Scoring Tool Questions: Length of Stay (in days): 4 - 6 Was the patient admitted via the E.D.?: Yes Comorbidities: Liver or Renal Disease E.D. Visits: 4 Answers: Total Score: 16 Risk of Readmission: High Risk Care Management Discharge Plan Reason for Hospitalization: ETOH withdrawal Discharge Plan: Marito will be discharged home with new home health services for PT. He will follow up with his Hand Brim Ironer, PCP and plan of care and transport with family. Patient/Family Education Needs: Discharge instructions, activity, diet, follow up plan, discuss Ask Me Three Services Needed at Discharge: Home Health Care Services SDOH Health Related Social Needs: No Data to Display
== END 2023-07-22 12:00 | disposition home or self-care (01) | DRG 896 ==
LOC: ER 14:08 → ICU 18:34 → MS 07-20 20:16
PROVIDERS: Family Medicine; Internal Medicine; Admitting Provider Family Medicine; Emergency Provider Physician Assistant; PCP Nurse Practitioner Family; Visit Provider Family Medicine
DX: F10.131 Alcohol abuse with withdrawal delirium (principal); J69.0 Pneumonitis due to inhalation of food and vomit; J96.01 Acute respiratory failure with hypoxia; E87.1 Hypo-osmolality and hyponatremia; D68.9 Coagulation defect, unspecified; A04.72 Enterocolitis due to Clostridium difficile, not specified as recurrent; K70.31 Alcoholic cirrhosis of liver with ascites; K76.82 Hepatic encephalopathy; R29.6 Repeated falls; K70.10 Alcoholic hepatitis without ascites; D64.9 Anemia, unspecified; W18.39XA Other fall on same level, initial encounter; E87.6 Hypokalemia; M54.12 Radiculopathy, cervical region; I10 Essential (primary) hypertension; G89.29 Other chronic pain; M54.50 Low back pain, unspecified; M54.6 Pain in thoracic spine; M70.62 Trochanteric bursitis, left hip; F17.210 Nicotine dependence, cigarettes, uncomplicated; G47.33 Obstructive sleep apnea (adult) (pediatric); I73.00 Raynaud's syndrome without gangrene; S01.111A Laceration without foreign body of right eyelid and periocular area, initial encounter; L97.529 Non-pressure chronic ulcer of other part of left foot with unspecified severity; R33.9 Retention of urine, unspecified; E83.42 Hypomagnesemia
CPT/HCPCS: 00123; 36410; 36415; 36416; 80048; 80053; 80076; 82550; 82962; 83690; 84145; 85027; 85652; 86850; 86900; 86901; 87040; 87493; 87641; 96361; 96365; 97161; 97530; 99291; J1650; 70450; 71045; 72125; 76705; 80202; 80320; 81003; 81015; 82140; 83735; 84439; 84443; 85025; 85610; 85730; 86140; 87086; 93005; 93010; 99222; 99232; 99233; 99239; J0692; J2185; J2560; J3370; J3372; J3411; J3475; J7042

== ENCOUNTER 2023-07-24 11:18 | Emergency (ER) | payer MEDICARE, SELFPAY ==
[2023-07-24 11:23] VITALS: BP 139/90; PULSE 80; RESP 16; TEMP 36.4; O2SAT 90
--- NOTE | 2023-07-24 11:42 | W.ED.GENAD ---
Discharge Plan Disposition Patient Disposition: Home Discharge Details Clinical Impression: Penile swelling, Alcoholic hepatitis, Ascites Primary Care Provider: Paige Chen ED Provider: Vish Aguila Home Meds and New Rx's Prescriptions: New furosemide 40 mg tablet 40 mg PO DAILY Qty: 3 0RF spironolactone 50 mg tablet 50 mg PO DAILY Qty: 3 0RF potassium chloride 20 mEq tablet extended release 20 meq PO DAILY Qty: 3 0RF Continued trazodone 50 mg tablet 25 mg PO HS PRN tramadol 50 mg tablet 50 mg PO BID PRN spironolactone 25 mg tablet 25 mg PO DAILY Patient Comments: TAKE ONE TABLET BY MOUTH EVERY DAY thiamine HCl (vitamin B1) 100 mg tablet 100 mg PO DAILY Patient Comments: TAKE ONE TABLET BY MOUTH EVERY DAY vancomycin 125 mg Capsule 125 mg PO Q6H Qty: 31 0RF furosemide 20 mg Tablet 20 mg PO DAILY Qty: 10 0RF loperamide 2 mg Capsule 2 mg PO QLOOSE PRNQty: 30 0RF magnesium chloride 64 mg tablet,delayed release (DR/EC) 64 mg PO BID Qty: 20 0RF potassium chloride 20 mEq tablet extended release 40 meq PO DAILY Qty: 20 0RF Discharge Instructions Instructions: Ascites (ED) Additional Instructions: At this time which seems that your swelling is secondary to your liver failure and your ascites. We have increased your diuretics/water pills for the next 3 days. Please take as prescribed and monitor symptoms If you have any new or significant worsening of symptoms you should return immediately to the emergency department for reassessment Otherwise please follow-up with your primary care provider early next week for reassessment of your ascites and your penile swelling Referrals: Paige Chen [Primary Care Provider] - 3 days HPI General Mode of arrival: ambulatory. Date/Time Provider Initiated Documentation: 07/24/23 11:27. Limitations to Documentation: no limitations. Information obtained by: patient and RN notes reviewed. History of Present Illness 53 year old M presents to the emergency department with the chief complaint of Penile swelling, Patient started experiencing this week(s) (1) Related Data Home Medications Medication Instructions Recorded Confirmed trazodone 50 mg tablet 25 mg PO HS PRN 12/09/19 07/24/23 tramadol 50 mg tablet 50 mg PO BID PRN 07/01/22 07/24/23 spironolactone 25 mg tablet 25 mg PO DAILY 06/15/23 07/24/23 thiamine HCl (vitamin B1) 100 mg 100 mg PO DAILY 07/17/23 07/24/23 tablet furosemide 20 mg tablet 20 mg PO DAILY #10 tabs 07/22/23 07/24/23 loperamide 2 mg capsule 2 mg PO QLOOSE PRN #30 caps 07/22/23 07/24/23 magnesium chloride 64 mg 64 mg PO BID #20 tabs 07/22/23 07/24/23 (magnesium chloride) tablet,delayed release potassium chloride 20 mEq 40 meq (2 x 20 mEq) PO DAILY #20 07/22/23 07/24/23 tablet,extended release tabs vancomycin 125 mg capsule 125 mg PO Q6H #31 caps 07/22/23 07/24/23 furosemide 40 mg tablet 40 mg PO DAILY #3 tabs 07/24/23 potassium chloride 20 mEq 20 meq PO DAILY #3 tabs 07/24/23 tablet,extended release spironolactone 50 mg tablet 50 mg PO DAILY #3 tabs 07/24/23 Previous Rx's Medication Instructions Recorded furosemide 20 mg tablet 20 mg PO DAILY #10 tabs 07/22/23 loperamide 2 mg capsule 2 mg PO QLOOSE PRN #30 caps 07/22/23 magnesium chloride 64 mg 64 mg PO BID #20 tabs 07/22/23 (magnesium chloride) tablet,delayed release potassium chloride 20 mEq 40 meq (2 x 20 mEq) PO DAILY #20 07/22/23 tablet,extended release tabs vancomycin 125 mg capsule 125 mg PO Q6H #31 caps 07/22/23 furosemide 40 mg tablet 40 mg PO DAILY #3 tabs 07/24/23 potassium chloride 20 mEq 20 meq PO DAILY #3 tabs 07/24/23 tablet,extended release spironolactone 50 mg tablet 50 mg PO DAILY #3 tabs 07/24/23 Allergies Allergy/AdvReac Type Severity Reaction Status Date / Time No Known Allergies Allergy Unverified 07/17/23 18:18 General Stated Complaint: Male Reproductive Problem ROSE MARY: 3 Review of Systems Constitutional Constitutional: Denies chills, Denies fever(s) and Reports malaise Gastrointestinal Gastrointestinal: Denies abdominal pain Genitourinary Genitourinary: Reports as per HPI, Reports difficulty urinating, Reports genital pain and Reports other (Penile swelling) Integumentary/Breasts Skin/Breast: Reports erythema Exam Const General: cooperative and no acute distress Orientation: alert, awake and oriented x3 HENMT Mouth: moist mucous membranes Resp Effort & Inspection: normal respiratory effort, able to speak in complete sentences and no respiratory distress Male General Exam: No ecchymosis Penis: edematous, erythematous (To the distal aspect) and non retractile foreskin Scrotum: scrotum normal Neuro General: patient alert, patient awake and moves all extremities Course Vital Signs Vital signs: Vital Signs Temperature 36.4 C 07/24/23 11:23 Pulse 80 07/24/23 11:23 Respiratory Rate 16 07/24/23 11:23 Blood Pressure 139/90 07/24/23 11:23 Pulse Oximetry 90 L 07/24/23 11:23 Temperature 36.4 C 07/24/23 11:23 Temperature Source Tympanic 07/24/23 11:23 Pulse 80 07/24/23 11:23 Respiratory Rate 16 07/24/23 11:23 Respiratory Effort Normal 07/24/23 11:27 Blood Pressure 139/90 07/24/23 11:23 Blood Pressure Position Sitting 07/24/23 11:23 Pulse Oximetry 90 L 07/24/23 11:23 Oxygen Delivery Method Room Air 07/24/23 11:23 Oxygen Flow Rate 0 07/24/23 11:23 Pain Level 6 07/24/23 11:23 Medical Decision Making Patient presenting to the emergency department for chief complaint of penile swelling. Patient reports he was hospitalized 1 week ago and had a catheter placed due to urinary retention. After they pulled the catheter out he noted pain and discomfort but was discharged home. Patient continued to have discomfort but has noticed increased swelling and pain that is worsening. He states he is still urinating but only urinating a couple times per day. Denies fever or chills, states some stinging and discomfort with urination but denies other symptoms. Does state some malaise but contributes this to recent illness and antibiotics. Physical exam shows significant proximal swelling that is edematous to the penis with difficulty to retract the foreskin secondary to pain, slight erythematous distal aspect of the penis with overall abnormal appearance. I question possible urethral trauma secondary to catheter removal versus phimosis that is atypical. Will check bladder scan and urinalysis. Did consult with attending physician Dr. Coker who also reviewed abnormality. He was able to place a photograph in chart. Please see progress note for his documentation and photo. Will consult with urology. Does not appear consistent with paraphimosis at this time Bladder scan revealed 680 mL present. Will hold off on catheterization due to current discomfort even with gentle physical exam. Will admit it is difficult to determine if this is truly bladder fluid or secondary to patient's ascites. Urology Dr. Pichardo came down to see and evaluate patient. After evaluation he does not feel this is phimosis or paraphimosis but more swelling secondary to patient's ascites. He recommended diuresis and return precautions. Patient was unable to give urinalysis specimen so straight catheterization was performed and only 30 mL output was obtained. Again I question if initial bladder scan was accurate or not. Will increase patient's spironolactone to 50 mg daily and furosemide 40 mg daily for 3 days. Review of previous labs did show slightly low potassium but patient is on 40 mill equivalents daily so I do feel comfortable with a slight increase of diuretics. Urinalysis reviewed and shows no signs of infection. Will discharge patient with close return precautions and recommended follow-up to primary care provider early next week. After discussion of diagnosis and plan of care patient has no further needs, questions, or concerns and states clear understanding to return to the emergency department for any worsening symptoms. This documentation was generated using [employer] dictation system, please disregard any oddities of phrase or misspellings. Lab Data Lab results reviewed: Yes I reviewed the patient's lab results. Quality:SDOH Health Related Social Needs: No Data to Display PFSH All Active Problems (Updated 07/24/23 @ 12:26 by Vish Aguila NP) Ascites (Acute) Penile swelling (Acute) C. difficile diarrhea (Acute) Urinary retention (Acute) Cellulitis and abscess of foot (Acute) Hyponatremia (Acute) Alcohol withdrawal (Acute) Alcoholic hepatitis (Acute) Coagulopathy (Acute) Colitis (Acute) Duodenitis (Acute) Acute on chronic anemia (Acute) Acute pancreatitis (Acute) Cirrhosis of liver (Chronic) Anemia (Chronic) Dural sinus malformation (Acute) Bilateral sacroiliitis (Acute) Neuropathic pain of left forearm (Acute) Coccydynia (Acute) Cervical radiculopathy (Acute) Anterior cerebral aneurysm (Acute) Hyponatremia (Acute) Hypokalemia (Acute) Hypomagnesemia (Acute) Bilateral hearing loss (Acute) Screening for colon cancer (Acute) Cubital tunnel syndrome on left (Acute) Left carpal tunnel syndrome (Acute) Multiple lipomas (Acute) CRPS (complex regional pain syndrome), type II, upper (Acute) Right carpal tunnel syndrome (Acute) Cubital tunnel syndrome on right (Acute) Medical History Hypertension Aneurysm ACOM aneurysm clipping/DSA Anemia Tubular adenoma of colon Elevated blood lead level Foraminal stenosis of cervical region Chronic sinusitis Chronic pain Marital problem Lumbar back pain Thoracic back pain Snoring Back pain Exposure to lead Fatigue Chest wall pain Arm pain, right Chronic low back pain [place] Soft tissue swelling Greater trochanteric bursitis of left hip (09/04/15) Left buttock pain (11/07/14) Low back pain (11/07/14) Paresthesias in left hand (06/28/14) Deviated septum Polyarthralgia Tobacco abuse MVP (mitral valve prolapse) Per pt. states he does not see a doggy daycare activities director, states I believe I grew out of that Peripheral cyanosis Raynauds disease Elevated LFTs ETOH abuse Steatosis of liver ISADORA (obstructive sleep apnea) Neuropathy PONV (postoperative nausea and vomiting) Pt c/o post nasal drip causing nausea and vomiting routinely Foreign body in left upper extremity (01/11/20) s/p excision of foreign bodies Infrapatellar bursitis of right knee (01/11/20) s/p bursa excision Synovial cyst of popliteal space [Lopez], right knee Foreign body in right ear Tinnitus of both ears Asymmetrical sensorineural hearing loss Paraesthesia left 4-5th finger (05/29/06) Heart murmur per pt. this was an incorrect dx Lopez's cyst, rt knee Surgical History H/O craniotomy 09/2021 History of colonoscopy (~03/2021) Status post transposition of nerve left elbow Aftercare involving removal of fracture plate or internal fixation device left arm History of carpal tunnel release right History of arthroscopy of right knee 2001, diagnostic Right Popliteal cyst resection (07/25/03) Family History Mother , [place] at age 74. Heart disease Father No problems noted. Social History Smoking/Tobacco Use Status: Current every day Tobacco Type: cigarettes Years smoked: 42 Smoking risk assessment performed?: Yes Alcohol Intake: current Alcohol Intake frequency: 3 or more drinks per day Alcohol type: hard liquor Drug use: Occasionally Substance use type: does not use Details: alcohol t-1 a couple Household members: none Housing: house Number of Children: 1 current occupation: N/A Current gender identity: male What type of physical activity do you participate in: walking and independent ambulation Seatbelt use: sometimes Do you feel safe at home: Yes Additional Social history: lives by himself [employer] Have you Been Recently Intoxicated or Drunk Within the Last 30 days?: No Result: 0
--- NOTE | 2023-07-24 11:51 | W.EDPROG ---
Date of service: 07/24/23 Time of Service: 11:52 Medical Decision Making I was asked to participate in this patient's care by his advanced practice provider. In brief he had had a Farrell placed last week and arrived today to the emergency department in the setting of penile swelling with discomfort. He says that he has been able to urinate several times a day. His exam was not consistent with a paraphimosis but was concerning for a phimosis with possibility of urethral trauma for which urology was consulted. Please see photo below of patient's penis: Urology felt that pt's ascities worsened his penile swelling. He was discharged. Quality:[facility] Health Related Social Needs: No Data to Display Discharge Plan Disposition Patient Disposition: Home Discharge Details Clinical Impression: Penile swelling, Alcoholic hepatitis, Ascites Primary Care Provider: Paige Chen ED Provider: Vish Aguila Home Meds and New Rx's Prescriptions: New furosemide 40 mg tablet 40 mg PO DAILY Qty: 3 0RF spironolactone 50 mg tablet 50 mg PO DAILY Qty: 3 0RF potassium chloride 20 mEq tablet extended release 20 meq PO DAILY Qty: 3 0RF Continued trazodone 50 mg tablet 25 mg PO HS PRN tramadol 50 mg tablet 50 mg PO BID PRN spironolactone 25 mg tablet 25 mg PO DAILY Patient Comments: TAKE ONE TABLET BY MOUTH EVERY DAY thiamine HCl (vitamin B1) 100 mg tablet 100 mg PO DAILY Patient Comments: TAKE ONE TABLET BY MOUTH EVERY DAY vancomycin 125 mg Capsule 125 mg PO Q6H Qty: 31 0RF furosemide 20 mg Tablet 20 mg PO DAILY Qty: 10 0RF loperamide 2 mg Capsule 2 mg PO QLOOSE PRNQty: 30 0RF magnesium chloride 64 mg tablet,delayed release (DR/EC) 64 mg PO BID Qty: 20 0RF potassium chloride 20 mEq tablet extended release 40 meq PO DAILY Qty: 20 0RF Discharge Instructions Instructions: Ascites (ED) Additional Instructions: At this time which seems that your swelling is secondary to your liver failure and your ascites. We have increased your diuretics/water pills for the next 3 days. Please take as prescribed and monitor symptoms If you have any new or significant worsening of symptoms you should return immediately to the emergency department for reassessment Otherwise please follow-up with your primary care provider early next week for reassessment of your ascites and your penile swelling Referrals: Paige Chen [Primary Care Provider] - 3 days Discharge Data Discharge Date/Time-TO BE ENTERED AT DEPARTURE: 07/24/23 15:29
--- NOTE | 2023-07-24 12:18 | UCONE_ITS ---
Date of service: 07/24/23 Time of Service: 12:18 Assessment and Plan Assessment and plan (1) Penile swelling: Status: Acute Assessment and plan: The penile swelling is most consistent with total body overload of fluid rather than an actual localized urologic issue. The treatment is generally diuresis which may be difficult in this gentleman as he has not been very compliant with his other medical management. There is certainly no indication for surgical procedure at this time. History of Present Illness History of Present Illness Chief Complaint: Penile edema Narrative: This is a 53-year-old gentleman who was recently hospitalized here for alcohol withdrawal. He had a Farrell catheter placed during the hospitalization. There was some difficulty in telling if he was emptying his bladder as he has developed quite a bit of ascites and bladder scans were not accurate. He comes in about a week after his discharge with complaints of swelling and discomfort in the penis. He is still able to void. He has not been circumcised. He does not recall any specific trauma to the penis with the exception of placement of a Farrell catheter [facility] All Active Problems (Updated 07/24/23 @ 12:26 by Vish Aguila NP) Ascites (Acute) Penile swelling (Acute) C. difficile diarrhea (Acute) Urinary retention (Acute) Cellulitis and abscess of foot (Acute) Hyponatremia (Acute) Alcohol withdrawal (Acute) Alcoholic hepatitis (Acute) Coagulopathy (Acute) Colitis (Acute) Duodenitis (Acute) Acute on chronic anemia (Acute) Acute pancreatitis (Acute) Cirrhosis of liver (Chronic) Anemia (Chronic) Dural sinus malformation (Acute) Bilateral sacroiliitis (Acute) Neuropathic pain of left forearm (Acute) Coccydynia (Acute) Cervical radiculopathy (Acute) Anterior cerebral aneurysm (Acute) Hyponatremia (Acute) Hypokalemia (Acute) Hypomagnesemia (Acute) Bilateral hearing loss (Acute) Screening for colon cancer (Acute) Cubital tunnel syndrome on left (Acute) Left carpal tunnel syndrome (Acute) Multiple lipomas (Acute) CRPS (complex regional pain syndrome), type II, upper (Acute) Right carpal tunnel syndrome (Acute) Cubital tunnel syndrome on right (Acute) Medical History Hypertension Aneurysm ACOM aneurysm clipping/DSA Anemia Tubular adenoma of colon Elevated blood lead level Foraminal stenosis of cervical region Chronic sinusitis Chronic pain Marital problem Lumbar back pain Thoracic back pain Snoring Back pain Exposure to lead Fatigue Chest wall pain Arm pain, right Chronic low back pain [place] Soft tissue swelling Greater trochanteric bursitis of left hip (09/04/15) Left buttock pain (11/07/14) Low back pain (11/07/14) Paresthesias in left hand (06/28/14) Deviated septum Polyarthralgia Tobacco abuse MVP (mitral valve prolapse) Per pt. states he does not see a line tender, states I believe I grew out of that Peripheral cyanosis Raynauds disease Elevated LFTs ETOH abuse Steatosis of liver ISADORA (obstructive sleep apnea) Neuropathy PONV (postoperative nausea and vomiting) Pt c/o post nasal drip causing nausea and vomiting routinely Foreign body in left upper extremity (01/11/20) s/p excision of foreign bodies Infrapatellar bursitis of right knee (01/11/20) s/p bursa excision Synovial cyst of popliteal space [Lopez], right knee Foreign body in right ear Tinnitus of both ears Asymmetrical sensorineural hearing loss Paraesthesia left 4-5th finger (05/29/06) Heart murmur per pt. this was an incorrect dx Lopez's cyst, rt knee Surgical History H/O craniotomy 09/2021 History of colonoscopy (~03/2021) Status post transposition of nerve left elbow Aftercare involving removal of fracture plate or internal fixation device left arm History of carpal tunnel release right History of arthroscopy of right knee 2001, diagnostic Right Popliteal cyst resection (07/25/03) Family History Mother , [place] at age 74. Heart disease Father No problems noted. Social History Smoking/Tobacco Use Status: Current every day Tobacco Type: cigarettes Years smoked: 42 Smoking risk assessment performed?: Yes Alcohol Intake: current Alcohol Intake frequency: 3 or more drinks per day Alcohol type: hard liquor Drug use: Occasionally Substance use type: does not use Details: alcohol t-1 a couple Household members: none Housing: house Number of Children: 1 current occupation: N/A Current gender identity: male What type of physical activity do you participate in: walking and independent ambulation Seatbelt use: sometimes Do you feel safe at home: Yes Additional Social history: lives by himself Exam Narrative Exam Narrative: He does not appear septic or toxic His abdomen is distended and tense but not tender The penile skin is diffusely edematous but not erythematous or ecchymotic. The skin is out over the glans and the glans is not visible His lower extremities are edematous and tense all the way up to the inguinal regions Results Last Vital Signs Temp 36.4 C 07/24/23 11:23 Pulse 80 07/24/23 11:23 Resp 16 07/24/23 11:23 BP 139/90 07/24/23 11:23 Pulse Ox 90 L 07/24/23 11:23
[2023-07-24 14:46] LABS: Bilirubin Color Interference (Negative); Blood Color Interference (Negative); Clarity Cloudy (Clear); Glucose Color Interference mg/dL (Negative); Ketones Color Interference mg/dL (Negative); Leukocyte Esterase Color Interference (Negative); Nitrite Color Interference (Negative); Specific Gravity 1.017 (1.005-1.025); Urobilinogen Color Interference mg/dL (Up to 0.2)
[2023-07-24 15:08] LABS: Bacteria Negative HPF (Negative); C & S Indicated? No; Crystals Negative HPF (Negative); Epithelial Cells Few HPF (Negative); Mucus Negative (Negative); Other Cells Rare Renal (Negative); RBC Negative HPF (0-2); WBC 0-2 HPF (0-5)
--- NOTE | 2023-07-24 15:16 | NUR.NOTE ---
Nursing Note: PT needs follow up in one week with PCP for Ascities & penile swelling. Sakshi, ED
[2023-07-24 15:28] VITALS: PULSE 119; TEMP 36.2; O2SAT 91
== END 2023-07-24 15:29 | disposition home or self-care (01) ==
PROVIDERS: Emergency Provider Nurse Practitioner Family; PCP Nurse Practitioner Family
DX: N48.89 Other specified disorders of penis (principal); K70.11 Alcoholic hepatitis with ascites; K70.30 Alcoholic cirrhosis of liver without ascites; F17.210 Nicotine dependence, cigarettes, uncomplicated
CPT/HCPCS: 00123; 99283; 99284; 81003; 81015